=== PATIENT | female | born 1945 | race Caucasian/White ===

== ENCOUNTER 2017-04-28 19:11 | Emergency (ER) | payer MEDICARE, OTHER ==
[2017-04-28] MEDS ORDERED: BABY ASPIRIN 81 MG CHEW PO ONE (19:31)
--- NOTE | 2017-04-28 19:39 | ERPHSYRPT ---
- History of Present Illness Time Seen by Provider: 04/28/17 19:27 Historian: patient Exam Limitations: no limitations Patient Subjective Stated Complaint: Chest pain Triage Nursing Assessment: Pt states onset of chest pain after lifting cabinets on , states pain worsening today. Sharp pain. Denies hx of complaint, denies known cardiac hx. States hx of right sided breast cancer in 2015. Physician History: 72-year-old white female arrives with complaint of pain in the left anterior chest radiating around to the left lateral ribs symptoms worse with movement described as sharp not associated with shortness of breath blood worse with breathing symptoms after lifting furniture 4 days ago. Patient has had no nausea no vomiting. Past medical history includes diabetes Patient states she has had high blood pressure the past but has not been treated for it Past surgical history includes tubal ligation, left knee arthroscopic surgery left shoulder arthroscopic surgery gastric bypass Timing/Duration: day(s) (4 days) Activities at Onset: other (Lifting heavy furniture) Quality: sharpness Location: other (left anterior and lateral chest) Chest Pain Radiation: no radiation Severity of Pain-Max: moderate Severity of Pain-Current: mild Modifying Factors: Improves With: breathing, other (deep breathing and moving) Associated Symptoms: No nausea, No vomiting, No palpitations, No heartburn, No abdominal pain, No shortness of breath, No cough, No hurts to breathe, No diaphoresis, No chills, No fever, No fatigue, No swelling/lump in chest ( continue call in), No syncope, No rash, No headache, No dizziness, No edema, No back pain Prior Chest Pain/Cardiac Workup: no prior chest pain Nitro Today/Relief: no nitro taken today Aspirin Treatment Today: 81 mg x 4, provided by ED Allergies/Adverse Reactions: No Known Drug Allergies Allergy (Verified 09/05/15 14:28) Home Medications: Biotin 2 tab PO DAILY 10/29/11 [History] Multivitamin [Multivitamins] 1 tab PO DAILY 10/29/11 [History] Speculator Jelly 2 tab PO DAILY 10/29/11 [History] Aspirin 81 gm Chew [Baby Aspirin 81 mg Chew] 81 mg PO DAILY 09/05/15 [ History] Insulin Aspart [NovoLOG Insulin] 18 unit SQ BID 09/05/15 [History] Insulin Detemir [Levemir] 34 unit SQ QHS 09/05/15 [History] Iron,Carb/Vit C/Vit B12/Folic [Iron 100 Plus Tablet] 1 each PO DAILY 09/05/15 [ History] Letrozole [Femara] 2.5 mg PO DAILY 09/05/15 [History] Liraglutide [Victoza 3-Saul] 1.8 mg SQ DAILY 09/05/15 [History] Hx Tetanus, Diphtheria Vaccination/Date Given: No Hx Influenza Vaccination/Date Given: No Hx Pneumococcal Vaccination/Date Given: Yes Immunizations Up to Date: No - Review of Systems Constitutional: No Fever, No Chills Eyes: No Symptoms Ears, Nose, & Throat: No Symptoms Respiratory: No Cough, No Dyspnea Cardiac: Chest Pain Abdominal/Gastrointestinal: No Abdominal Pain, No Nausea, No Vomiting, No Diarrhea Genitourinary Symptoms: No Dysuria Musculoskeletal: No Back Pain, No Neck Pain Skin: No Rash Neurological: No Dizziness, No Focal Weakness, No Sensory Changes Psychological: No Symptoms Endocrine: No Symptoms All Other Systems: Reviewed and Negative - Past Medical History Pertinent Past Medical History: Yes Neurological History: No Pertinent History ENT History: No Pertinent History Cardiac History: No Pertinent History Respiratory History: No Pertinent History Endocrine Medical History: Diabetes Type II Musculoskeletal History: Arthritis, Fibromyalgia GI Medical History: Polyps History: No Pertinent History Psycho-Social History: No Pertinent History Female Reproductive Disorders: Breast Cancer Other Medical History: rheumatic fever as a child - Past Surgical History Past Surgical History: Yes Neuro Surgical History: No Pertinent History Cardiac: Cardiac Catheterization Respiratory: No Pertinent History Gastrointestinal: Other Genitourinary: No Pertinent History Musculoskeletal: Orthopedic Surgery, Other Female Surgical History: Hysterectomy, Lumpectomy, Mastectomy Other Surgical History: 2 knee scopes. Shoulder scope. trigger finger release. gastric bypass in 2007 - Social History Smoking Status: Never smoker Exposure to second hand smoke: No Drug Use: none Patient Lives Alone: No - Female History Hx Now: No - Nursing Vital Signs Nursing Vital Signs: Initial Vital Signs Temperature 98.5 F 04/28/17 19:13 Pulse Rate 92 H 04/28/17 19:13 Respiratory Rate 16 04/28/17 19:13 Blood Pressure 154/87 04/28/17 19:13 O2 Sat by Pulse Oximetry 100 04/28/17 19:13 Pain Scale Pain Intensity 8 - Physical Exam General Appearance: no apparent distress, alert Eye Exam: PERRL/EOMI, eyes nml inspection Ears, Nose, Throat Exam: normal ENT inspection, moist mucous membranes Neck Exam: normal inspection, non-tender, supple, full range of motion Respiratory Exam: normal breath sounds, other (pain left anterior chest with moving and deep breathing) Cardiovascular Exam: regular rate/rhythm Gastrointestinal/Abdomen Exam: soft, No tenderness, No mass Back Exam: normal inspection, No CVA tenderness, No vertebral tenderness Extremity Exam: normal inspection, normal range of motion Neurologic Exam: alert, oriented x 3, cooperative, normal mood/affect, sensation nml, No motor deficits Skin Exam: normal color, warm, dry SpO2 Interpretation: normal (100%) SpO2: 100 Oxygen Delivery: Room Air - Course Nursing assessment & vital signs reviewed: Yes - CT Exams Chest CT Interpretation: Tele-radiologist Report (CTA chest: No PE, small left effusion, hilar and mediastinal lymphadenophathy, in the left lung bases atelectasis versus pneumonia. 8 mm nodule in the left lower lobe recommend 3 month follow-up CT scan of the chest. Distended gallbladder. Small nodule in right lobe of thyroid. Recommend ultrasound on nonemergent basis) Ordered Tests: Active Orders 24 hr Category Date Time Status Oncology Transplant Network Manager STAT Care 04/28/17 19:31 Active EKG-ER Only STAT Care 04/28/17 19:31 Active IV Insertion STAT Care 04/28/17 19:31 Active Pulse Oximetry (ED) STAT Care 04/28/17 19:31 Active CHEST 2 VIEWS (PA AND LAT) Stat Exams 04/28/17 19:31 Taken CHEST WITH CONTRAST [CT] Stat Exams 04/28/17 21:04 Taken CBC W DIFF Stat Lab 04/28/17 19:55 Completed CMP Stat Lab 04/28/17 19:55 Completed D-DIMER QUANTITATION Stat Lab 04/28/17 19:55 Completed TROPONIN Q3H Lab 04/28/17 19:55 Completed TROPONIN Q3H Lab 04/28/17 23:00 Completed TROPONIN Q3H Lab 04/29/17 01:45 Ordered TROPONIN Q3H Lab 04/29/17 04:45 Ordered TROPONIN Q3H Lab 04/29/17 07:45 Ordered Medication Summary Generic Name Dose Route Start Last Admin Trade Name Freq PRN Reason Stop Dose Admin Heparin Sodium (Beef Lung) 500 units 04/28/17 23:54 Heparin Lock Flush 100 Units/Ml 5ml Syringe PORT FLUSH 05/28/17 23:53 PRN PRN IV PORT FLUSH Discontinued Medications Generic Name Dose Route Start Last Admin Trade Name Desiree PRN Reason Stop Dose Admin Aspirin 324 mg 04/28/17 19:31 04/28/17 19:57 Baby Aspirin 81 Mg Chew PO 04/28/17 19:32 324 mg STAT ONE Administration Aspirin Confirm 04/28/17 19:49 Baby Aspirin 81 Mg Chew Administered 04/28/17 19:50 Dose 324 mg .ROUTE .STK-MED ONE Ketorolac Tromethamine 30 mg 04/28/17 22:44 04/28/17 22:59 Toradol 30 Mg Injection IV 04/28/17 22:45 30 mg STAT ONE Administration Ketorolac Tromethamine Confirm 04/28/17 22:57 Toradol 30 Mg Injection Administered 04/28/17 22:58 Dose 30 mg .ROUTE .STK-MED ONE Morphine Sulfate 4 mg 04/28/17 21:21 04/28/17 21:23 Morphine Sulfate 4 Mg Inj IV 04/28/17 21:22 4 mg STAT ONE Administration Morphine Sulfate Confirm 04/28/17 21:23 Morphine Sulfate 4 Mg Inj Administered 04/28/17 21:24 Dose 4 mg .ROUTE .STK-MED ONE Morphine Sulfate 4 mg 04/28/17 22:23 04/28/17 22:27 Morphine Sulfate 4 Mg Inj IV 04/28/17 22:24 4 mg STAT ONE Administration Morphine Sulfate Confirm 04/28/17 22:25 Morphine Sulfate 4 Mg Inj Administered 04/28/17 22:26 Dose 4 mg .ROUTE .STK-MED ONE Potassium Chloride 20 meq 04/28/17 23:55 Klor Con 10 Meq PO 04/28/17 23:56 STAT ONE Lab/Rad Data: Laboratory Result Diagrams 04/28/17 19:55 04/28/17 19:55 Laboratory Results 04/28/17 04/28/17 04/28/17 Range/Units 23:00 19:55 19:55 WBC (4.0-10.5) K/mm3 RBC (4.1-5.4) M/mm3 Hgb (12.0-16.0) gm/dl Hct (35-47) % MCV (78-100) fl MCH (26-32) pg MCHC (32-36) g/dl RDW (11.5-14.0) % Plt Count (150-450) K/mm3 MPV (6-9.5) fl Gran % (36.0-66.0) % Lymphocytes % (24.0-44.0) % Monocytes % (0.0-12.0) % Eosinophils % (0.00-5.0) % Basophils % (0.0-0.4) % Basophils # (0-0.4) D-Dimer 1500.47 H* (0-500) ng/mL Sodium 141 (136-145) mEq/L Potassium 3.3 L (3.5-5.1) mEq/L Chloride 104 (98-107) mEq/L Carbon Dioxide 26.1 (21-32) mEq/L Anion Gap 13.8 (5-15) MEQ/L BUN 14 (9-20) mg/dL Creatinine 0.84 (0.55-1.30) mg/dl Estimated GFR > 60 ML/MIN Glucose 180 H (70-110) MG/DL Calcium 8.9 (8.5-10.1) mg/dL Total Bilirubin 0.60 (0.2-1.0) mg/dL AST 15 (15-37) U/L ALT 28 (12-78) U/L Alkaline Phosphatase 89 (46-116) U/L Troponin I < 0.017 (0.000-0.056) ng/ml Serum Total Protein 6.6 (6.4-8.2) gm/dL Albumin 3.1 L (3.4-5.0) g/dL 04/28/17 04/28/17 Range/Units 19:55 19:55 WBC 8.7 (4.0-10.5) K/mm3 RBC 3.75 L (4.1-5.4) M/mm3 Hgb 10.7 L (12.0-16.0) gm/dl Hct 34.1 L (35-47) % MCV 90.9 (78-100) fl MCH 28.5 (26-32) pg MCHC 31.4 L (32-36) g/dl RDW 13.6 (11.5-14.0) % Plt Count 215 (150-450) K/mm3 MPV 9.8 H (6-9.5) fl Gran % 75.7 H (36.0-66.0) % Lymphocytes % 14.8 L (24.0-44.0) % Monocytes % 7.7 (0.0-12.0) % Eosinophils % 1.6 (0.00-5.0) % Basophils % 0.2 (0.0-0.4) % Basophils # 0.02 (0-0.4) D-Dimer (0-500) ng/mL Sodium (136-145) mEq/L Potassium (3.5-5.1) mEq/L Chloride (98-107) mEq/L Carbon Dioxide (21-32) mEq/L Anion Gap (5-15) MEQ/L BUN (9-20) mg/dL Creatinine (0.55-1.30) mg/dl Estimated GFR ML/MIN Glucose (70-110) MG/DL Calcium (8.5-10.1) mg/dL Total Bilirubin (0.2-1.0) mg/dL AST (15-37) U/L ALT (12-78) U/L Alkaline Phosphatase (46-116) U/L Troponin I < 0.017 (0.000-0.056) ng/ml Serum Total Protein (6.4-8.2) gm/dL Albumin (3.4-5.0) g/dL - Progress Progress: improved Air Movement: fair Progress Note: 04/28/17 23:40 This is a 72-year-old white female with history of diabetes mellitus cancer of the breast. She states that she's been having pain in the left the anterior and lateral chest sharp worse with breathing worse with movement symptoms going on for 2 days after moving furniture this became worse this morning she is not really short of breath she does have pain with deep breathing. Patient had an EKG which was remarkable for sinus rhythm 92 bpm normal axis there were no acute ST or T wave changes noted patient had a troponin 2 within normal limits patient unfortunately had an elevated d-dimer or for CTA of the chest was obtained CT of the chest read no PE, small left effusion, hilar and mediastinal lymphadenopathy. In the left base there was atelectasis versus pneumonia ( patient does not have signs of pneumonia) patient also with 8 mm nodule in the left lower lobe it was recommended 3 month follow-up CT scan of the chest she had a distended gallbladder and a small nodule of the right lobe of the thyroid recommend ultrasound on a non-emergent basis. Patient's chemistry was essentially normal with the exception of a glucose of 190 patient does have diabetes CBC was remarkable for white count 8.7 hemoglobin 10.7 hematocrit 31.4 platelets 2:15 patient was given aspirin 324 mg orally she received 8 mg of morphine she did not feel like she got good relief with the morphine and related that she had done well with Anaprox in the past therefore she was given Toradol 30 mg IV with marked improvement of her pain. Patient has an appointment in approximately one week with Dr. Russell for follow-up on her breast cancer. I have recommended that the patient contact Dr. Hoffman and arrange a follow-up as well she is to call tomorrow and arrange follow-up. Will discharge patient with [place] she is also advised that she can take Advil 3 tablets orally every 6 hours with food as needed for pain. She is return for acute distress or for severe symptoms - Departure Time of Disposition: 23:45 Departure Disposition: Home Clinical Impression: Non-cardiac chest pain, Musculoskeletal chest pain, Abnormal CT of the chest, History of breast cancer Condition: Fair Critical Care Time: No Referrals: CURTIS HOFFMAN MD [Primary Care Provider] - Additional Instructions: Return home. Avoid heavy lifting with left arm avoid excessive bending twisting pushing pulling. [place] 5/325 #12 one orally every 4-6 hours as needed for pain. Advil [id number] 2-3 tablets orally every 6 hours with food as needed for pain for 5 days. Follow-up with Dr. Hoffman call tomorrow to schedule an appointment. Follow-up with Dr. Russell Return for acute distress or for severe symptoms. You do have abnormalities on your CT chest which need follow-up with your oncologist and/or family doctor. Prescriptions: Hydrocodone/Acetaminophen [[place] 5-325 Tablet] 1 tab PO Q4-6HPRN PRN #12 tablet PRN Reason: Pain
[2017-04-28] MEDS ORDERED: BABY ASPIRIN 81 MG CHEW ONE (19:49)
[2017-04-28 20:13] LABS: BASOPHIL % 0.2 % (0.0-0.4); Eosinophil % 1.6 % (0.00-5.0); Granulocytes % 75.7 % (36.0-66.0); Lymphocytes % 14.8 % (24.0-44.0); Mean Cell Volume 90.9 fl (78-100); Mean Corpuscular Hemoglobin 28.5 pg (26-32); Mean Platelet Volume 9.8 fl (6-9.5); Monocytes % 7.7 % (0.0-12.0); Platelet Count 215 K/mm3 (150-450); Red Blood Count 3.75 M/mm3 (4.1-5.4); Red Cell Distribution Width 13.6 % (11.5-14.0); White Blood Count 8.7 K/mm3 (4.0-10.5)
[2017-04-28 20:27] LABS: ALBUMIN 3.1 g/dL (3.4-5.0); ALKALINE PHOSPHATASE 89 U/L (46-116); ANION GAP 13.8 MEQ/L (5-15); BLOOD UREA NITROGEN 14 mg/dL (9-20); CHLORIDE 104 mEq/L (98-107); Carbon Dioxide 26.1 mEq/L (21-32); Glucose 180 MG/DL (70-110); Potassium 3.3 mEq/L (3.5-5.1); SGOT/AST 15 U/L (15-37); SGPT/ALT 28 U/L (12-78); SODIUM 141 mEq/L (136-145); Total Protein 6.6 gm/dL (6.4-8.2)
[2017-04-28] MEDS ORDERED: MORPHINE SULFATE 4 MG INJ IV ONE ×2 (21:21→22:23)
[2017-04-28] MEDS ORDERED: MORPHINE SULFATE 4 MG INJ ONE ×2 (21:23→22:25)
[2017-04-28] MEDS ORDERED: TORAdol 30 mg Injection IV ONE (22:44)
[2017-04-28] MEDS ORDERED: TORAdol 30 mg Injection ONE (22:57)
[2017-04-28 23:46] VITALS: O2SAT 100
[2017-04-28] MEDS ORDERED: Klor Con 10 MEQ PO ONE ×2 (23:55→23:58)
[2017-04-29 00:13] VITALS: BP 154/79; PULSE 82
--- NOTE | 2017-04-29 08:51 | XRAY ---
Indication: Left-sided chest pain. Comparison: None AP/lateral chest demonstrates minimal left base infiltrate/atelectasis. Right lung clear. Heart is not enlarged. Left-sided Port-A-Cath. Bony thorax intact with mild osteopenia and degenerative changes. There has been right mastectomy. Impression: Left base infiltrate/atelectasis. Correlate clinically.
--- NOTE | 2017-04-29 08:51 | XRAY ---
Indication: Left-sided chest pain and short of breath. Elevated d-dimer. History of right breast cancer. Multiple contiguous axial images obtained through the chest using 80 cc Isovue 370 contrast and PE protocol. Comparison: None There is satisfactory opacification of the pulmonary arteries to includes the lobar and segmental branches. No filling defect or pulmonary embolus. Heart is not enlarged. Tiny pericardial effusion. Aorta is mildly arteriosclerotic without aneurysm/dissection. Left-sided Port-A-Cath. A few small mediastinal lymph nodes. No pathologic mediastinal/hilar lymphadenopathy. Small hiatal hernia. Visualized thyroid gland demonstrates enlarged heterogeneous right lobe. Examination of the lung parenchyma demonstrates mild left base infiltrate/atelectasis with small effusion. Superior segment of the left lower lobe demonstrates 2 small noncalcified nodules, largest measuring 9 mm. Peripheral pleural parenchymal fibrosis/scarring seen in the anterior right middle lobe. Bony thorax intact with mild degenerative changes throughout the spine. There has been right sided mastectomy. Limited upper abdomen demonstrates partially visualized moderately distended gallbladder without abnormal biliary distention. There has been previous gastric bypass surgery. Impression: 1. Negative pulmonary embolus. 2. Left base infiltrate/atelectasis with small effusion. Correlate clinically. 3. Left lower lobe subcentimeter noncalcified indeterminant pulmonary nodules. Comparison studies would be of benefit if performed elsewhere. PET/CT may yield further information if clinically warranted. Otherwise recommend follow-up per Fleischner guidelines. 4. Right middle lobe anterior pleural-parenchymal fibrosis/scarring that may be secondary to radiation therapy in this patient with right breast cancer with mastectomy. 5. Partially visualized distended gallbladder. Ultrasound may yield further information if clinically warranted. 6. Heterogeneously enlarged right thyroid gland. Ultrasound may yield further information if clinically warranted. 7. Small hiatal hernia. Comment: Preliminary interpretation was made by [facility]. No critical discrepancy. CT DI 21.91
== END 2017-04-29 00:12 | disposition home or self-care (01) ==
LOC: ED 19:11
DX: R07.89 Other chest pain (principal); R91.8 Other nonspecific abnormal finding of lung field; Z85.3 Personal history of malignant neoplasm of breast
CPT/HCPCS: 36000; 36415; 71020; 71260; 80053; 84484; 85025; 85379; 93005; 93041; 96374; 96375; 96376; 99284; J1642; J1885; J2270; A9270-GY

== ENCOUNTER 2019-04-17 17:50 | Emergency (ER) | payer MEDICARE, OTHER ==
[2019-04-17] MEDS ORDERED: Zofran 4 MG/2 ML VIAL IV ONE (18:28)
[2019-04-17] MEDS ORDERED: Sodium Chloride 0.9% 1000 ML 1,000 ML IV STA (18:28)
[2019-04-17] MEDS ORDERED: Zofran 4 MG/2 ML VIAL ONE (18:41)
[2019-04-17] MEDS ORDERED: Sodium Chloride 0.9% 1000 ML 1,000 ML ONE (18:41)
--- NOTE | 2019-04-17 18:47 | ERPHSYRPT ---
- History of Present Illness Source: patient Exam Limitations: no limitations Patient Subjective Stated Complaint: pt to ER with complaints of dizziness and fall today around 1700. fell to knees. denies pain or head injury. Triage Nursing Assessment: pt to ER with complaints of fall/dizziness around 1700 today. pt states she was at [facility] and fell to her knees. pt denies head injury. pt being treated for e-coli via IV antibiotics. Timing/Duration: today (aand), resolved prior to arrival, improved Severity: moderate (and) Character of Deficits: none Deficits: no difficulties Baseline/Normal Cognition: alert oriented x 3 Current Cognition: alert oriented x 3 Associated Symptoms: denies symptoms Hx Tetanus, Diphtheria Vaccination/Date Given: Yes Hx Influenza Vaccination/Date Given: No Hx Pneumococcal Vaccination/Date Given: No Immunizations Up to Date: Yes <SKY WHITTAKER - Last Filed: 04/17/19 18:42> <ELKIN FRAIRE - Last Filed: 04/17/19 20:29> - History of Present Illness Time Seen by Provider: 04/17/19 18:20 Physician History: 73 years old female history breast cancer status post chemotherapy, ESBL E. coli on antibiotics, chronic urinary/stool incontinence presented to the ER with chief complaint of generalized weakness and fatigue/feeling lightheaded/ dizzy while at [facility] after eating, was almost on her knees with near- syncopal episode. She did not lose consciousness, remembers the whole sequence of events. Patient about this has been going off and on for quite some time with recent worsening. patient reports she feels weak on standing up and seems as if her legs are giving away.She feels weak all over no energy. She denies any focal weakness. Denies any headache, blurry vision, numbness or tingling.. Denies any chest pain palpitations or shortness of breath before or offered the event. No abdominal pain nausea or vomiting. No fever or chills reported. (SKY WHITTAKER) Allergies/Adverse Reactions: No Known Drug Allergies Allergy (Verified 04/17/19 18:14) Home Medications: Letrozole [Femara] 2.5 mg PO DAILY 09/05/15 [History] Meloxicam 7.5 mg [Mobic 7.5 MG] 7.5 mg PO DAILY 04/17/19 [History] glipiZIDE [Glipizide] 5 mg PO DAILY 04/17/19 [History] - Review of Systems Constitutional: Fatigue Eyes: No Symptoms Ears, Nose, & Throat: No Symptoms Respiratory: No Symptoms Cardiac: No Symptoms Abdominal/Gastrointestinal: Diarrhea Genitourinary Symptoms: Frequency Musculoskeletal: No Symptoms Skin: No Symptoms Neurological: No Symptoms Psychological: No Symptoms Endocrine: No Symptoms Hematologic/Lymphatic: No Symptoms Immunological/Allergic: No Symptoms <SKY WHITTAKER - Last Filed: 04/17/19 18:42> - Past Medical History Pertinent Past Medical History: Yes Neurological History: No Pertinent History ENT History: No Pertinent History Cardiac History: No Pertinent History Respiratory History: No Pertinent History Endocrine Medical History: Diabetes Type II Musculoskeletal History: Arthritis, Fibromyalgia GI Medical History: Polyps History: No Pertinent History Psycho-Social History: No Pertinent History Female Reproductive Disorders: Breast Cancer Other Medical History: rheumatic fever as a child - Past Surgical History Past Surgical History: Yes Neuro Surgical History: No Pertinent History Cardiac: Cardiac Catheterization Respiratory: No Pertinent History Gastrointestinal: Other Genitourinary: No Pertinent History Musculoskeletal: Orthopedic Surgery Female Surgical History: Hysterectomy, Mastectomy Other Surgical History: gastric bypass - Social History Smoking Status: Never smoker Exposure to second hand smoke: No Drug Use: none Patient Lives Alone: Yes - Female History Hx Now: No <SKY WHITTAKER - Last Filed: 04/17/19 18:42> - Gilda Coma Scale Best Eye Response (Gilda): (4) open spontaneously Best Verbal Response (Gilda): (5) oriented Best Motor Response ([place]): (6) obeys commands Gilda Total: 15 - Physical Exam Eye Exam: bilateral eye: normal inspection, PERRL, EOMI Ears, Nose, Throat Exam: normal ENT inspection, pharynx normal Neck Exam: normal inspection, non-tender, supple, full range of motion Respiratory: normal breath sounds, lungs clear, No chest tenderness, No respiratory distress Cardiovascular: regular rate/rhythm, normal heart sounds Gastrointestinal: soft, normal bowel sounds, No tenderness, No distention, No mass, No guarding Back Exam: normal inspection Extremity Exam: normal inspection, normal range of motion, pelvis stable Mental Status: alert, oriented 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, 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 Exam: normal hearing, normal speech, PERRL Coordination/Gait: normal finger to nose, normal cerebellar function Motor/Sensory: no motor deficit, no sensory deficit, no pronator drift DTR: knee (R): 2+, knee (L): 2+ Skin Exam: normal color SpO2 Interpretation: normal SpO2: 98 O2 Delivery: Room Air <REMEDIOSSKY - Last Filed: 04/17/19 18:42> - Nursing Vital Signs Nursing Vital Signs: Initial Vital Signs Temperature 97.8 F 04/17/19 18:04 Pulse Rate 85 04/17/19 18:04 Respiratory Rate 16 04/17/19 18:04 Blood Pressure 148/80 04/17/19 18:04 O2 Sat by Pulse Oximetry 98 04/17/19 18:04 Pain Scale Pain Intensity 0 - Course Nursing assessment & vital signs reviewed: Yes EKG Interpreted by Me: RATE, NORMAL AXIS, NORMAL INTERVALS (the), Non-specific ST Changes <REMEDIOSSKY - Last Filed: 04/17/19 18:42> - Radiology Exams Chest X-ray Interpretation: Reviewed by me, Negative <JUNO,ELKIN - Last Filed: 04/17/19 20:29> Ordered Tests: Active Orders 24 hr Category Date Time Status Clean Catch Urine Specimen STAT Care 04/17/19 18:30 Active EKG-ER Only STAT Care 04/17/19 18:12 Active Orthostatic Vital Signs STAT Care 04/17/19 18:30 Active CHEST 1 VIEW (PORTABLE) Stat Exams 04/17/19 18:29 Taken CBC W DIFF Stat Lab 04/17/19 19:53 Completed CMP Stat Lab 04/17/19 19:53 Completed Lactic Acid Stat Lab 04/17/19 18:28 Ordered MAGNESIUM Stat Lab 04/17/19 19:53 Completed TROPONIN Q3H Lab 04/17/19 19:53 Completed TROPONIN Q3H Lab 04/17/19 21:30 Ordered TROPONIN Q3H Lab 04/18/19 00:30 Ordered TROPONIN Q3H Lab 04/18/19 03:30 Ordered TROPONIN Q3H Lab 04/18/19 06:30 Ordered UA W/RFX UR CULTURE Stat Lab 04/17/19 19:55 Completed Medication Summary Generic Name Dose Route Start Last Admin Trade Name Freq PRN Reason Stop Dose Admin Sodium Chloride 1,000 mls @ 499 mls/hr 04/17/19 18:28 04/17/19 18:46 Sodium Chloride 0.9% 1000 Ml IV 04/17/19 20:28 499 mls/hr .Q2H1M STA Administration Discontinued Medications Generic Name Dose Route Start Last Admin Trade Name Desiree PRN Reason Stop Dose Admin Sodium Chloride Confirm 04/17/19 18:41 Sodium Chloride 0.9% 1000 Ml Administered 04/17/19 18:42 Dose 1,000 mls @ ud .ROUTE .STK-MED ONE Ondansetron HCl 4 mg 04/17/19 18:28 04/17/19 18:46 Zofran 4 Mg/2 Ml Vial IV 04/17/19 18:29 4 mg STAT ONE Administration Ondansetron HCl Confirm 04/17/19 18:41 Zofran 4 Mg/2 Ml Vial Administered 04/17/19 18:42 Dose 4 mg .ROUTE .STK-MED ONE Lab/Rad Data: Laboratory Result Diagrams 04/17/19 19:53 04/17/19 19:53 Laboratory Results 04/17/19 04/17/19 04/17/19 Range/Units 19:55 19:53 19:53 WBC (4.0-10.5) K/mm3 RBC (4.1-5.4) M/mm3 Hgb (12.0-16.0) gm/dl Hct (35-47) % MCV (78-100) fl MCH (26-32) pg MCHC (32-36) g/dl RDW (11.5-14.0) % Plt Count (150-450) K/mm3 MPV (6-9.5) fl Gran % (36.0-66.0) % Eos # (Auto) (0-0.5) Absolute Lymphs (auto) (1.0-4.6) Absolute Monos (auto) (0.0-1.3) Lymphocytes % (24.0-44.0) % Monocytes % (0.0-12.0) % Eosinophils % (0.00-5.0) % Basophils % (0.0-0.4) % Absolute Granulocytes (1.4-6.9) Basophils # (0-0.4) Sodium 140 (137-145) mmol/L Potassium 4.4 (3.5-5.1) mmol/L Chloride 102 (98-107) mmol/L Carbon Dioxide 32 H (22-30) mmol/L Anion Gap 11.1 (5-15) MEQ/L BUN 9 (7-17) mg/dL Creatinine 0.59 (0.52-1.04) mg/dL Estimated GFR > 60.0 ML/MIN Glucose 341 H (74-106) mg/dL Calcium 9.0 (8.4-10.2) mg/dL Magnesium 1.9 (1.6-2.3) mg/dL Total Bilirubin 0.50 (0.2-1.3) mg/dL AST 29 (14-36) U/L ALT 17 (0-35) U/L Alkaline Phosphatase 89 (38-126) U/L Troponin I < 0.012 (0.000-0.034) ng/mL Serum Total Protein 6.3 (6.3-8.2) g/dL Albumin 3.4 L (3.5-5.0) g/dL Urine Color STRAW (YELLOW) Urine Appearance CLEAR (CLEAR) Urine pH 6.0 (5-6) Ur Specific [place] 1.030 (1.005-1.025) Urine Protein NEGATIVE (Negative) Urine Ketones NEGATIVE (NEGATIVE) Urine Blood NEGATIVE (0-5) Eriber[place]/ul Urine Nitrite NEGATIVE (NEGATIVE) Urine Bilirubin NEGATIVE (NEGATIVE) Urine Urobilinogen NEGATIVE (0-1) mg/dL Ur Leukocyte Esterase NEGATIVE (NEGATIVE) Urine WBC (Auto) 3-5 (0-5) /HPF Urine RBC (Auto) NONE (0-2) /HPF U Epithel Cells (Auto) NONE (FEW) /HPF Urine Bacteria (Auto) NONE (NEGATIVE) /HPF Urine Mucus (Auto) SLIGHT (NEGATIVE) /HPF Urine Culture Reflexed NO (NO) Urine Glucose >=500 (NEGATIVE) mg/dL 04/17/19 Range/Units 19:53 WBC 6.2 (4.0-10.5) K/mm3 RBC 4.04 L (4.1-5.4) M/mm3 Hgb 10.7 L (12.0-16.0) gm/dl Hct 34.7 L (35-47) % MCV 85.9 (78-100) fl MCH 26.4 (26-32) pg MCHC 30.8 L (32-36) g/dl RDW 14.4 H (11.5-14.0) % Plt Count 209 (150-450) K/mm3 MPV 10.9 H (6-9.5) fl Gran % 60.4 (36.0-66.0) % Eos # (Auto) 0.16 (0-0.5) Absolute Lymphs (auto) 1.81 (1.0-4.6) Absolute Monos (auto) 0.47 (0.0-1.3) Lymphocytes % 29.1 (24.0-44.0) % Monocytes % 7.6 (0.0-12.0) % Eosinophils % 2.6 (0.00-5.0) % Basophils % 0.3 (0.0-0.4) % Absolute Granulocytes 3.76 (1.4-6.9) Basophils # 0.02 (0-0.4) Sodium (137-145) mmol/L Potassium (3.5-5.1) mmol/L Chloride (98-107) mmol/L Carbon Dioxide (22-30) mmol/L Anion Gap (5-15) MEQ/L BUN (7-17) mg/dL Creatinine (0.52-1.04) mg/dL Estimated GFR ML/MIN Glucose (74-106) mg/dL Calcium (8.4-10.2) mg/dL Magnesium (1.6-2.3) mg/dL Total Bilirubin (0.2-1.3) mg/dL AST (14-36) U/L ALT (0-35) U/L Alkaline Phosphatase (38-126) U/L Troponin I (0.000-0.034) ng/mL Serum Total Protein (6.3-8.2) g/dL Albumin (3.5-5.0) g/dL Urine Color (YELLOW) Urine Appearance (CLEAR) Urine pH (5-6) Ur Specific [place] (1.005-1.025) Urine Protein (Negative) Urine Ketones (NEGATIVE) Urine Blood (0-5) Eriberto/ul Urine Nitrite (NEGATIVE) Urine Bilirubin (NEGATIVE) Urine Urobilinogen (0-1) mg/dL Ur Leukocyte Esterase (NEGATIVE) Urine WBC (Auto) (0-5) /HPF Urine RBC (Auto) (0-2) /HPF U Epithel Cells (Auto) (FEW) /HPF Urine Bacteria (Auto) (NEGATIVE) /HPF Urine Mucus (Auto) (NEGATIVE) /HPF Urine Culture Reflexed (NO) Urine Glucose (NEGATIVE) mg/dL <SKY WHITTAKER - Last Filed: 04/17/19 18:42> - Progress Progress: improved Counseled pt/family regarding: lab results, diagnosis, need for follow-up, rad results <JUNO,ELKIN - Last Filed: 04/17/19 20:29> - Progress Progress Note: workup is pending and care is transferred to Dr. Torres at shift change 7 PM. 04/17/19 18:48 (REMEDIOS,SKY) 04/17/19 20:27 all labs d/w patient. 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 The patient was counseled regarding Diagnosis,Lab results, Imaging studies, need for follow up and when to return to the Emergency Room. Prescriptions given: Discharge Note I have spoken with the patient and/or caregivers. I have explained the patient' s condition, diagnosis and treatment plan based on the information available to me at this time. I have answered the patient's and/or caregiver's questions and addressed any concerns. The patient and/or caregivers have as good understanding of the patient's diagnosis, condition and treatment plan as can be expected at this point. The vital signs have been stable. The patient's condition is stable and appropriate for discharge from the emergency department. The patient will pursue further outpatient evaluation with the primary care physician or other designated or consulting physician as outlined in the discharge instructions. The patient and/or caregivers are agreeable to this plan of care and follow-up instructions have been explained in detail. The patient and/or caregivers have received these instruction. The patient/and or caregivers are aware that any significant change in condition or worsening of symptoms should prompt an immediate return to this or the closest emergency department or call 911.
[2019-04-17 19:15] LABS: Appearance CLEAR (CLEAR); Bilirubin NEGATIVE (NEGATIVE); Blood NEGATIVE Ery/ul (0-5); Glucose >=500 mg/dL (NEGATIVE); Ketones NEGATIVE (NEGATIVE); Leukocyte Esterase NEGATIVE (NEGATIVE); Mucus SLIGHT /HPF (NEGATIVE); Nitrite NEGATIVE (NEGATIVE); Protein,Urine Dip NEGATIVE (Negative); Urobilinogen NEGATIVE mg/dL (0-1)
[2019-04-17 19:54] LABS: Absolute Neutrophil Ct (ANC) 3.76 (1.4-6.9); BASOPHIL % 0.3 % (0.0-0.4); Basophil (Absolute #) 0.02 (0-0.4); Eosinophil % 2.6 % (0.00-5.0); Eosinophil (Absolute #) 0.16 (0-0.5); Hematocrit 34.7 % (35-47); Hemoglobin 10.7 gm/dl (12.0-16.0); Lymphocyte (Absolute #) 1.81 (1.0-4.6); Lymphocytes % 29.1 % (24.0-44.0); Mean Cell Volume 85.9 fl (78-100); Mean Corpuscular Hgb Concent. 30.8 g/dl (32-36); Mean Platelet Volume 10.9 fl (6-9.5); Monocyte (Absolute #) 0.47 (0.0-1.3); Monocytes % 7.6 % (0.0-12.0); Neutrophil % 60.4 % (36.0-66.0); Platelet Count 209 K/mm3 (150-450); Red Blood Count 4.04 M/mm3 (4.1-5.4); Red Cell Distribution Width 14.4 % (11.5-14.0); White Blood Count 6.2 K/mm3 (4.0-10.5)
[2019-04-17 19:56] LABS: Mean Corpuscular Hemoglobin 26.4 pg (26-32)
[2019-04-17 20:07] LABS: ALBUMIN 3.4 g/dL (3.5-5.0); ALKALINE PHOSPHATASE 89 U/L (38-126); ANION GAP 11.1 MEQ/L (5-15); BLOOD UREA NITROGEN 9 mg/dL (7-17); CHLORIDE 102 mmol/L (98-107); Carbon Dioxide 32 mmol/L (22-30); Creatinine 1 0.59 mg/dL (0.52-1.04); Glucose 341 mg/dL (74-106); MAGNESIUM 1.9 mg/dL (1.6-2.3); Potassium 4.4 mmol/L (3.5-5.1); SGOT/AST 29 U/L (14-36); SGPT/ALT 17 U/L (0-35); SODIUM 140 mmol/L (137-145); Total Protein 6.3 g/dL (6.3-8.2)
[2019-04-17] MEDS ORDERED: NovoLOG Insulin IV ONE (20:26)
[2019-04-17] MEDS ORDERED: NovoLOG Insulin ONE (20:30)
--- NOTE | 2019-04-17 20:57 | XRAY ---
Indication: Lightheadedness. History breast cancer. Comparison: April 28, 2017. Portable chest is clear. Heart is not enlarged again with left Port-A-Cath. Bony thorax intact again with mild osteopenia, degenerative changes, and right mastectomy. Impression: Nonacute chest with chronic features.
[2019-04-17 21:08] VITALS: BP 156/85; PULSE 86; O2SAT 96
== END 2019-04-17 21:08 | disposition home or self-care (01) ==
LOC: ED 17:50
DX: E11.65 Type 2 diabetes mellitus with hyperglycemia (principal); R55 Syncope and collapse; Z85.3 Personal history of malignant neoplasm of breast
CPT/HCPCS: 36415; 71045; 80053; 81001; 83605; 83735; 84484; 85025; 93005; 96360; 96361; 96374; 96375; 99284; 99291; J1642; J2405; A9270-GY

== ENCOUNTER 2019-04-19 10:25 | Inpatient (IN) | payer MEDICARE, OTHER ==
[2019-04-19] MEDS ORDERED: Sodium Chloride 0.9% 1000 ML 1,000 ML IV STA (10:32)
[2019-04-19] MEDS ORDERED: Sodium Chloride 0.9% 1000 ML 1,000 ML ONE (11:27)
[2019-04-19 12:11] LABS: Absolute Neutrophil Ct (ANC) 5.27 (1.4-6.9); BASOPHIL % 0.3 % (0.0-0.4); Basophil (Absolute #) 0.02 (0-0.4); Eosinophil % 1.3 % (0.00-5.0); Eosinophil (Absolute #) 0.09 (0-0.5); Hematocrit 36.9 % (35-47); Hemoglobin 11.4 gm/dl (12.0-16.0); Lymphocyte (Absolute #) 1.09 (1.0-4.6); Lymphocytes % 15.9 % (24.0-44.0); Mean Cell Volume 84.8 fl (78-100); Mean Corpuscular Hemoglobin 26.2 pg (26-32); Mean Corpuscular Hgb Concent. 30.9 g/dl (32-36); Mean Platelet Volume 10.8 fl (6-9.5); Monocyte (Absolute #) 0.39 (0.0-1.3); Monocytes % 5.7 % (0.0-12.0); Neutrophil % 76.8 % (36.0-66.0); Platelet Count 222 K/mm3 (150-450); Red Blood Count 4.35 M/mm3 (4.1-5.4); Red Cell Distribution Width 14.4 % (11.5-14.0); White Blood Count 6.9 K/mm3 (4.0-10.5)
[2019-04-19 12:13] LABS: INR 1.09 (0.8-3.0); PROTIME 12.3 SECONDS (9.95-12.35)
[2019-04-19 12:22] LABS: ALBUMIN 3.4 g/dL (3.5-5.0); ALKALINE PHOSPHATASE 85 U/L (38-126); AMYLASE 57 U/L (30-110); BLOOD UREA NITROGEN 7 mg/dL (7-17); CHLORIDE 101 mmol/L (98-107); Calcium 8.8 mg/dL (8.4-10.2); Carbon Dioxide 28 mmol/L (22-30); Creatinine 1 0.43 mg/dL (0.52-1.04); Glucose 274 mg/dL (74-106); LIPASE 28 U/L (23-300); Potassium 3.7 mmol/L (3.5-5.1); SGOT/AST 35 U/L (14-36); SGPT/ALT 21 U/L (0-35); SODIUM 140 mmol/L (137-145); Total Protein 6.3 g/dL (6.3-8.2)
[2019-04-19 12:23] LABS: Appearance SLIGHTLY CLOUDY (CLEAR); Bacteria FEW /HPF (NEGATIVE); Bilirubin NEGATIVE (NEGATIVE); Blood SMALL Ery/ul (0-5); Epithelial Cells RARE /HPF (FEW); Glucose >=500 mg/dL (NEGATIVE); Hyaline Casts 0-2 /LPF (0-2); Ketones MODERATE (NEGATIVE); Leukocyte Esterase SMALL (NEGATIVE); Mucus SLIGHT /HPF (NEGATIVE); Nitrite NEGATIVE (NEGATIVE); Protein,Urine Dip 30 (Negative); Specific Gravity 1.031 (1.005-1.025); Urobilinogen NEGATIVE mg/dL (0-1); WBC 51-100 /HPF (0-5)
--- NOTE | 2019-04-19 12:45 | XRAY ---
Indication: Posterior head injury following fall. Multiple contiguous axial images obtained through the head without contrast. Comparison: June 05, 2016. Again age-appropriate global atrophy, mild periventricular degenerative micro-ischemia bilaterally, and remote bilateral basal ganglia lacunar infarcts. New small left thalamus remote lacunar infarct. No acute intracranial hemorrhage, abnormal extra-axial fluid question, or mass effect. Fourth ventricle is midline without hydrocephalus. Bony calvarium intact. Visualized paranasal sinuses and mastoid air cells are clear. Impression: Again normal aging brain with bilateral basal ganglial lacunar infarcts and new remote left thalamus lacunar infarct. No acute intracranial abnormalities. CTDI 43.61
--- NOTE | 2019-04-19 13:46 | XRAY ---
Indication: Pain following fall. Comparison: None 3 views of the sacrum/coccyx demonstrates osteopenia, pelvic phleboliths, and scattered vascular calcifications bilaterally. No other bony, articular, or soft tissue abnormalities.
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
--- NOTE | 2019-04-19 13:48 | XRAY ---
Indication: Pain following fall. Comparison: None 3 views of the right elbow demonstrates mild osteopenia, tiny olecranon process spur, and mild posterior soft tissue swelling. No other bony, articular, or soft tissue abnormalities.
--- NOTE | 2019-04-19 13:50 | XRAY ---
Indication: Diarrhea. Comparison: Portable chest 2 days ago. Supine and left lateral decubitus abdomen nonacute and nonobstructed with left upper quadrant suture material. Solid organs unremarkable. Osseous structures intact with osteopenia and mild degenerative changes throughout the spine. Single AP chest again demonstrates normal heart and lungs with left Port-A-Cath. No new/acute findings. Impression: Nonacute nonobstructed abdomen with chronic features. Stable nonacute one view chest.
[2019-04-19] MEDS: Invanz 1 GM*** 1 G in Sodium Chloride 100ML MINI-BAG PLUS 100 ML IV SCH (15:59)
[2019-04-19] MEDS: Sodium Chloride 0.9% 1000 ML 1,000 ML IV SCH (15:59)
[2019-04-19] MEDS ORDERED: Zofran 4 MG/2 ML VIAL IV PRN (16:17)
--- NOTE | 2019-04-19 16:24 | PCM.HP ---
History of Present Illness - Chief Complaint Chief Complaint: Urinary Tract Infection History of Present Illness: is a 73 year old female with weakness, dizziness and multiple falls. was recently put on invanz for esbl e coli in urine but only got the first of course due to falls and weakness, she has been more forgetful and feeling confused. diffusely weak, denies focal weakness or numbness/tingling etc. - Review of Systems Constitutional: No Fever, No Chills Respiratory: No Cough, No Short Of Breath Cardiac: No Chest Pain, No Edema, No Syncope Abdominal/Gastrointestinal: No Abdominal Pain, No Nausea, No Vomiting, No Diarrhea Neurological: Dizziness, Gait Changes, No Focal Weakness All Other Systems: Reviewed and Negative Medications & Allergies Home Medications: Home Medication List Letrozole [Femara] 2.5 mg PO DAILY 09/05/15 [History Confirmed 04/19/19] Meloxicam 7.5 mg [Mobic 7.5 MG] 7.5 mg PO DAILY 04/17/19 [History Confirmed 04/19/19] glipiZIDE [Glipizide] 5 mg PO BID 04/17/19 [History Confirmed 04/19/19] Aspirin EC 81 mg [Ecotrin 81 mg] 81 mg PO DAILY 04/19/19 [History Confirmed 04/19/19] Cephalexin Mh 500 mg [Keflex 500 mg] 500 mg PO TID 04/19/19 [History Confirmed 04/19/19] Duloxetine HCl 30 mg [Cymbalta 30 MG Capsule] 30 mg PO DAILY 04/19/19 [ History Confirmed 04/19/19] Insulin NPH Hum/Reg Insulin Hm [Humulin 70/30 Kwikpen] 20 units SQ BID 04/19/19 [History Confirmed 04/19/19] Nystatin Powder 15 gm [Nystop Powder 15 gm] 15 gm TP BID 04/19/19 [ History Confirmed 04/19/19] Oxybutynin Chloride [Oxybutynin Chloride ER] 5 mg PO DAILY 04/19/19 [History Confirmed 04/19/19] Allergies/Adverse Reactions: Allergies Allergy/AdvReac Type Severity Reaction Status Date / Time No Known Drug Allergies Allergy Verified 04/19/19 10:58 - Past Medical History Past Medical History: Yes Neurological History: No Pertinent History ENT History: No Pertinent History Cardiac History: No Pertinent History Respiratory History: No Pertinent History Endocrine Medical History: Diabetes Type II Musculoskelatal History: Arthritis, Fibromyalgia GI Medical History: Polyps History: No Pertinent History Pyscho-Social History: No Pertinent History Reproductive Disorders: Breast Cancer Comment: rheumatic fever as a child, Right side masectomy - Female History Hx Last Menstrual Period: Hysterectomy Are you now?: No - Past Surgical History Past Surgical History: Yes Neuro Surgical History: No Pertinent History Cardiac History: Cardiac Catheterization Respiratory Surgery: No Pertinent History GI Surgical History: Other Genitourinary Surgical Hx: No Pertinent History Musculskeletal Surgical Hx: Orthopedic Surgery Female Surgical History: Hysterectomy, Mastectomy Other Surgical History: gastric bypass - Social History Smoking Status: Never smoker Exposure to second hand smoke: Yes Alcohol: None Drug Use: none - Physical Exam Vital Signs: Vital Signs - 24 hr Temp Pulse Resp BP Pulse Ox 04/19/19 14:44 98 F 76 18 137/82 98 04/19/19 13:47 99 04/19/19 12:50 98 F 76 18 137/82 98 04/19/19 12:01 98.4 F 71 20 114/68 99 04/19/19 10:59 98.0 F 79 18 137/65 100 General Appearance: no apparent distress Neurologic Exam: alert, oriented x 3, cooperative, posting specialist II-XII nml as tested Eye Exam: PERRL/EOMI, eyes nml inspection Respiratory Exam: normal breath sounds, lungs clear, No respiratory distress Cardiovascular Exam: regular rate/rhythm, normal heart sounds, normal peripheral pulses Gastrointestinal/Abdomen Exam: soft, normal bowel sounds, No tenderness, No mass Extremity Exam: normal inspection, normal range of motion, pelvis stable Skin Exam: normal color, warm, dry, No rash Results - Labs Lab/Micro Results: Lab Results-Last 24 Hours 04/19/19 04/19/19 04/19/19 Range/Units 10:32 10:32 10:45 WBC 6.9 (4.0-10.5) K/mm3 RBC 4.35 (4.1-5.4) M/mm3 Hgb 11.4 L (12.0-16.0) gm/dl Hct 36.9 (35-47) % MCV 84.8 (78-100) fl MCH 26.2 (26-32) pg MCHC 30.9 L (32-36) g/dl RDW 14.4 H (11.5-14.0) % Plt Count 222 (150-450) K/mm3 MPV 10.8 H (6-9.5) fl Gran % 76.8 H (36.0-66.0) % Eos # (Auto) 0.09 (0-0.5) Absolute Lymphs (auto) 1.09 (1.0-4.6) Absolute Monos (auto) 0.39 (0.0-1.3) Lymphocytes % 15.9 L (24.0-44.0) % Monocytes % 5.7 (0.0-12.0) % Eosinophils % 1.3 (0.00-5.0) % Basophils % 0.3 (0.0-0.4) % Absolute Granulocytes 5.27 (1.4-6.9) Basophils # 0.02 (0-0.4) PT 12.3 (9.95-12.35) SECONDS INR 1.09 (0.8-3.0) Sodium (137-145) mmol/L Potassium (3.5-5.1) mmol/L Chloride (98-107) mmol/L Carbon Dioxide (22-30) mmol/L Anion Gap (5-15) MEQ/L BUN (7-17) mg/dL Creatinine (0.52-1.04) mg/dL Estimated GFR ML/MIN Glucose (74-106) mg/dL Lactic Acid (0.4-2.0) Calcium (8.4-10.2) mg/dL Total Bilirubin (0.2-1.3) mg/dL AST (14-36) U/L ALT (0-35) U/L Alkaline Phosphatase (38-126) U/L Troponin I < 0.012 (0.000-0.034) ng/mL Serum Total Protein (6.3-8.2) g/dL Albumin (3.5-5.0) g/dL Amylase (30-110) U/L Lipase (23-300) U/L Urine Color (YELLOW) Urine Appearance (CLEAR) Urine pH (5-6) Ur Specific [place] (1.005-1.025) Urine Protein (Negative) Urine Ketones (NEGATIVE) Urine Blood (0-5) Eriberto/ul Urine Nitrite (NEGATIVE) Urine Bilirubin (NEGATIVE) Urine Urobilinogen (0-1) mg/dL Ur Leukocyte Esterase (NEGATIVE) Urine WBC (Auto) (0-5) /HPF Urine RBC (Auto) (0-2) /HPF U Hyaline Cast (Auto) (0-2) /LPF U Epithel Cells (Auto) (FEW) /HPF Urine Bacteria (Auto) (NEGATIVE) /HPF Urine Mucus (Auto) (NEGATIVE) /HPF Urine Culture Reflexed (NO) Urine Glucose (NEGATIVE) mg/dL 04/19/19 04/19/19 04/19/19 Range/Units 11:07 11:25 11:25 WBC (4.0-10.5) K/mm3 RBC (4.1-5.4) M/mm3 Hgb (12.0-16.0) gm/dl Hct (35-47) % MCV (78-100) fl MCH (26-32) pg MCHC (32-36) g/dl RDW (11.5-14.0) % Plt Count (150-450) K/mm3 MPV (6-9.5) fl Gran % (36.0-66.0) % Eos # (Auto) (0-0.5) Absolute Lymphs (auto) (1.0-4.6) Absolute Monos (auto) (0.0-1.3) Lymphocytes % (24.0-44.0) % Monocytes % (0.0-12.0) % Eosinophils % (0.00-5.0) % Basophils % (0.0-0.4) % Absolute Granulocytes (1.4-6.9) Basophils # (0-0.4) PT (9.95-12.35) SECONDS INR (0.8-3.0) Sodium 140 (137-145) mmol/L Potassium 3.7 (3.5-5.1) mmol/L Chloride 101 (98-107) mmol/L Carbon Dioxide 28 (22-30) mmol/L Anion Gap 14.0 (5-15) MEQ/L BUN 7 (7-17) mg/dL Creatinine 0.43 L (0.52-1.04) mg/dL Estimated GFR > 60.0 ML/MIN Glucose 274 H (74-106) mg/dL Lactic Acid 1.1 (0.4-2.0) Calcium 8.8 (8.4-10.2) mg/dL Total Bilirubin 1.20 (0.2-1.3) mg/dL AST 35 (14-36) U/L ALT 21 (0-35) U/L Alkaline Phosphatase 85 (38-126) U/L Troponin I (0.000-0.034) ng/mL Serum Total Protein 6.3 (6.3-8.2) g/dL Albumin 3.4 L (3.5-5.0) g/dL Amylase 57 (30-110) U/L Lipase 28 (23-300) U/L Urine Color YELLOW (YELLOW) Urine Appearance SLIGHTLY CLOUDY (CLEAR) Urine pH 6.0 (5-6) Ur Specific [place] 1.031 (1.005-1.025) Urine Protein 30 (Negative) Urine Ketones MODERATE (NEGATIVE) Urine Blood SMALL (0-5) Eriberto/ul Urine Nitrite NEGATIVE (NEGATIVE) Urine Bilirubin NEGATIVE (NEGATIVE) Urine Urobilinogen NEGATIVE (0-1) mg/dL Ur Leukocyte Esterase SMALL (NEGATIVE) Urine WBC (Auto) 51-100 (0-5) /HPF Urine RBC (Auto) 6-10 (0-2) /HPF U Hyaline Cast (Auto) 0-2 (0-2) /LPF U Epithel Cells (Auto) RARE (FEW) /HPF Urine Bacteria (Auto) FEW (NEGATIVE) /HPF Urine Mucus (Auto) SLIGHT (NEGATIVE) /HPF Urine Culture Reflexed YES (NO) Urine Glucose >=500 (NEGATIVE) mg/dL 04/19/19 Range/Units 14:15 WBC (4.0-10.5) K/mm3 RBC (4.1-5.4) M/mm3 Hgb (12.0-16.0) gm/dl Hct (35-47) % MCV (78-100) fl MCH (26-32) pg MCHC (32-36) g/dl RDW (11.5-14.0) % Plt Count (150-450) K/mm3 MPV (6-9.5) fl Gran % (36.0-66.0) % Eos # (Auto) (0-0.5) Absolute Lymphs (auto) (1.0-4.6) Absolute Monos (auto) (0.0-1.3) Lymphocytes % (24.0-44.0) % Monocytes % (0.0-12.0) % Eosinophils % (0.00-5.0) % Basophils % (0.0-0.4) % Absolute Granulocytes (1.4-6.9) Basophils # (0-0.4) PT (9.95-12.35) SECONDS INR (0.8-3.0) Sodium (137-145) mmol/L Potassium (3.5-5.1) mmol/L Chloride (98-107) mmol/L Carbon Dioxide (22-30) mmol/L Anion Gap (5-15) MEQ/L BUN (7-17) mg/dL Creatinine (0.52-1.04) mg/dL Estimated GFR ML/MIN Glucose (74-106) mg/dL Lactic Acid (0.4-2.0) Calcium (8.4-10.2) mg/dL Total Bilirubin (0.2-1.3) mg/dL AST (14-36) U/L ALT (0-35) U/L Alkaline Phosphatase (38-126) U/L Troponin I < 0.012 (0.000-0.034) ng/mL Serum Total Protein (6.3-8.2) g/dL Albumin (3.5-5.0) g/dL Amylase (30-110) U/L Lipase (23-300) U/L Urine Color (YELLOW) Urine Appearance (CLEAR) Urine pH (5-6) Ur Specific [place] (1.005-1.025) Urine Protein (Negative) Urine Ketones (NEGATIVE) Urine Blood (0-5) Eriberto/ul Urine Nitrite (NEGATIVE) Urine Bilirubin (NEGATIVE) Urine Urobilinogen (0-1) mg/dL Ur Leukocyte Esterase (NEGATIVE) Urine WBC (Auto) (0-5) /HPF Urine RBC (Auto) (0-2) /HPF U Hyaline Cast (Auto) (0-2) /LPF U Epithel Cells (Auto) (FEW) /HPF Urine Bacteria (Auto) (NEGATIVE) /HPF Urine Mucus (Auto) (NEGATIVE) /HPF Urine Culture Reflexed (NO) Urine Glucose (NEGATIVE) mg/dL - Radiology Impressions Radiology Exams & Impressions: Radiology Procedures Category Date Time Status ECHO W/2D AND DOPPLER [US] Routine Exams 04/19/19 Ordered ELBOW (MINIMUM 3 VIEWS) Stat Exams 04/19/19 13:36 Completed HEAD WITHOUT CONTRAST [CT] Stat Exams 04/19/19 10:40 Completed MRA NECK WITHOUT CONTRAST [MRI] Routine Exams 04/19/19 16:14 Ordered MRI BRAIN W/O CONTRAST [MRI] Routine Exams 04/19/19 16:14 Ordered OBSTR/ACUTE ABDOMEN SERIES Stat Exams 04/19/19 10:33 Completed SACRUM AND COCCYX Stat Exams 04/19/19 13:36 Completed Assessment/Plan (1) CVA (cerebral vascular accident) Current Visit: Yes Status: Acute Assessment & Plan: patient with remote bilateral basal ganglia and new remote left thalamuc lacunar infarct, not present in 2017. continue aspirin, will add plavix and check MRI/MRA and echo. place on telemetry. PT/OT consult. Code(s): I63.9 - CEREBRAL INFARCTION, UNSPECIFIED (2) Urinary tract infection Current Visit: Yes Status: Acute Assessment & Plan: continue invanz based on esbl in recent urine culture Code(s): N39.0 - URINARY TRACT INFECTION, SITE NOT SPECIFIED (3) Hyperglycemia due to type 2 diabetes mellitus Current Visit: No Status: Acute Code(s): E11.65 - TYPE 2 DIABETES MELLITUS WITH HYPERGLYCEMIA (4) Weakness Current Visit: Yes Status: Acute Code(s): R53.1 - WEAKNESS
[2019-04-19] MEDS ORDERED: Novolin 70/30 SQ SCH (16:30)
[2019-04-19] MEDS ORDERED: MEDICATION INTERVENTION MC SCH (16:45)
[2019-04-19] MEDS: NovoLOG Insulin SQ PRN ×2 (18:18→22:35)
[2019-04-19] MEDS ORDERED: Diflucan 100 MG ONE (21:39)
[2019-04-19] MEDS ORDERED: DIFLUCAN PO ONE (22:00)
[2019-04-19] MEDS ORDERED: Diflucan 100 MG PO ONE (22:11)
[2019-04-19] MEDS: Lantus Insulin SQ SCH (22:29)
[2019-04-19] MEDS: NYSTOP POWDER 15 GM TP SCH (22:29)
[2019-04-19] MEDS: TYLENOL 325 MG PO PRN (22:34)
[2019-04-20] MEDS: Sodium Chloride 0.9% 1000 ML 1,000 ML IV SCH (02:12)
[2019-04-20 05:12] LABS: Absolute Neutrophil Ct (ANC) 3.43 (1.4-6.9); BASOPHIL % 0.3 % (0.0-0.4); Basophil (Absolute #) 0.02 (0-0.4); Eosinophil % 4.4 % (0.00-5.0); Eosinophil (Absolute #) 0.27 (0-0.5); Hematocrit 33.6 % (35-47); Hemoglobin 10.4 gm/dl (12.0-16.0); Lymphocyte (Absolute #) 2.01 (1.0-4.6); Lymphocytes % 32.5 % (24.0-44.0); Mean Cell Volume 85.1 fl (78-100); Mean Corpuscular Hemoglobin 26.3 pg (26-32); Mean Platelet Volume 10.6 fl (6-9.5); Monocyte (Absolute #) 0.46 (0.0-1.3); Monocytes % 7.4 % (0.0-12.0); Neutrophil % 55.4 % (36.0-66.0); Platelet Count 204 K/mm3 (150-450); Red Blood Count 3.95 M/mm3 (4.1-5.4); Red Cell Distribution Width 14.6 % (11.5-14.0); White Blood Count 6.2 K/mm3 (4.0-10.5)
[2019-04-20 05:23] LABS: ANION GAP 8.8 MEQ/L (5-15); BLOOD UREA NITROGEN 4 mg/dL (7-17); CHLORIDE 110 mmol/L (98-107); Calcium 8.6 mg/dL (8.4-10.2); Carbon Dioxide 27 mmol/L (22-30); Creatinine 1 0.47 mg/dL (0.52-1.04); Glucose 180 mg/dL (74-106); MAGNESIUM 1.7 mg/dL (1.6-2.3); Potassium 3.1 mmol/L (3.5-5.1); SODIUM 143 mmol/L (137-145)
[2019-04-20] MEDS ORDERED: Glucotrol 5 MG PO SCH (07:30)
--- NOTE | 2019-04-20 08:13 | PCM.NOTE ---
Date and Time: 04/20/19 08 Subjective Assessment: patient is still very weak and requires assistance to ambulate to the restroom. she feels sore, no other specific complaints Objective Exam General Appearance: no apparent distress, alert Skin Exam: normal color, warm, dry Wound Assessment: Skin/Wound Assessment Wound/Incision Assessment Start: 04/19/19 15: 36 Text: Status: Active Freq: Q6H Protocol: Document 04/20/19 02:00 MG (Rec: 04/20/19 02:38 MG [id number]) Wound/Incision Assessment Right Elbow Wound Assessment Shift Assessment Wound Type Abrasion Wound Stage Non Pressure Wound Dressing Status Dry & Intact Drainage Amount None General Appearance Asymptomatic Comment Dressing CDI. Respiratory Exam: normal breath sounds, lungs clear, No respiratory distress Cardiovascular Exam: regular rate/rhythm, normal heart sounds Gastrointestinal/Abdomen Exam: soft, No tenderness, No mass OBJECTIVE DATA Vital Signs: Vital Signs - 24 hr Temp Pulse Resp BP Pulse Ox 04/20/19 05:21 98.6 F 82 18 136/69 94 L 04/19/19 23:58 98.4 F 77 18 133/61 93 L 04/19/19 22:00 97.9 F 102 H 20 160/70 93 L 04/19/19 18:44 97.9 F 102 H 20 160/70 93 L 04/19/19 14:44 98 F 76 18 137/82 98 04/19/19 13:47 99 04/19/19 12:50 98 F 76 18 137/82 98 04/19/19 12:01 98.4 F 71 20 114/68 99 04/19/19 10:59 98.0 F 79 18 137/65 100 Pain Assessment - Last Documented Pain Intensity 8 Pain Scale Used 0-10 Pain Scale Intake and Output: Intake & Output 04/17/19 04/18/19 04/19/19 04/20/19 11:59 11:59 11:59 11:59 Intake Total 1378 Output Total 200 Balance 1178 Weight 62.142 kg 62.142 kg Lab Results: Accuchecks Date 04/19/19 Time 16:30 Accucheck Value: 296 Accucheck Value: 210 Lab Results-Last 24 Hours 04/19/19 04/19/19 04/19/19 Range/Units 10:30 10:32 10:32 WBC 6.9 (4.0-10.5) K/mm3 RBC 4.35 (4.1-5.4) M/mm3 Hgb 11.4 L (12.0-16.0) gm/dl Hct 36.9 (35-47) % MCV 84.8 (78-100) fl MCH 26.2 (26-32) pg MCHC 30.9 L (32-36) g/dl RDW 14.4 H (11.5-14.0) % Plt Count 222 (150-450) K/mm3 MPV 10.8 H (6-9.5) fl Gran % 76.8 H (36.0-66.0) % Eos # (Auto) 0.09 (0-0.5) Absolute Lymphs (auto) 1.09 (1.0-4.6) Absolute Monos (auto) 0.39 (0.0-1.3) Lymphocytes % 15.9 L (24.0-44.0) % Monocytes % 5.7 (0.0-12.0) % Eosinophils % 1.3 (0.00-5.0) % Basophils % 0.3 (0.0-0.4) % Absolute Granulocytes 5.27 (1.4-6.9) Basophils # 0.02 (0-0.4) PT 12.3 (9.95-12.35) SECONDS INR 1.09 (0.8-3.0) Sodium (137-145) mmol/L Potassium (3.5-5.1) mmol/L Chloride (98-107) mmol/L Carbon Dioxide (22-30) mmol/L Anion Gap (5-15) MEQ/L BUN (7-17) mg/dL Creatinine (0.52-1.04) mg/dL Estimated GFR ML/MIN Glucose (74-106) mg/dL Hemoglobin A1c 11.48 H (4.5-6.0) % Lactic Acid (0.4-2.0) Calcium (8.4-10.2) mg/dL Magnesium (1.6-2.3) mg/dL Total Bilirubin (0.2-1.3) mg/dL AST (14-36) U/L ALT (0-35) U/L Alkaline Phosphatase (38-126) U/L Troponin I (0.000-0.034) ng/mL Serum Total Protein (6.3-8.2) g/dL Albumin (3.5-5.0) g/dL Amylase (30-110) U/L Lipase (23-300) U/L Urine Color (YELLOW) Urine Appearance (CLEAR) Urine pH (5-6) Ur Specific Langley (1.005-1.025) Urine Protein (Negative) Urine Ketones (NEGATIVE) Urine Blood (0-5) Eriberto/ul Urine Nitrite (NEGATIVE) Urine Bilirubin (NEGATIVE) Urine Urobilinogen (0-1) mg/dL Ur Leukocyte Esterase (NEGATIVE) Urine WBC (Auto) (0-5) /HPF Urine RBC (Auto) (0-2) /HPF U Hyaline Cast (Auto) (0-2) /LPF U Epithel Cells (Auto) (FEW) /HPF Urine Bacteria (Auto) (NEGATIVE) /HPF Urine Mucus (Auto) (NEGATIVE) /HPF Urine Culture Reflexed (NO) Urine Glucose (NEGATIVE) mg/dL 04/19/19 04/19/19 04/19/19 Range/Units 10:45 11:07 11:25 WBC (4.0-10.5) K/mm3 RBC (4.1-5.4) M/mm3 Hgb (12.0-16.0) gm/dl Hct (35-47) % MCV (78-100) fl MCH (26-32) pg MCHC (32-36) g/dl RDW (11.5-14.0) % Plt Count (150-450) K/mm3 MPV (6-9.5) fl Gran % (36.0-66.0) % Eos # (Auto) (0-0.5) Absolute Lymphs (auto) (1.0-4.6) Absolute Monos (auto) (0.0-1.3) Lymphocytes % (24.0-44.0) % Monocytes % (0.0-12.0) % Eosinophils % (0.00-5.0) % Basophils % (0.0-0.4) % Absolute Granulocytes (1.4-6.9) Basophils # (0-0.4) PT (9.95-12.35) SECONDS INR (0.8-3.0) Sodium (137-145) mmol/L Potassium (3.5-5.1) mmol/L Chloride (98-107) mmol/L Carbon Dioxide (22-30) mmol/L Anion Gap (5-15) MEQ/L BUN (7-17) mg/dL Creatinine (0.52-1.04) mg/dL Estimated GFR ML/MIN Glucose (74-106) mg/dL Hemoglobin A1c (4.5-6.0) % Lactic Acid 1.1 (0.4-2.0) Calcium (8.4-10.2) mg/dL Magnesium (1.6-2.3) mg/dL Total Bilirubin (0.2-1.3) mg/dL AST (14-36) U/L ALT (0-35) U/L Alkaline Phosphatase (38-126) U/L Troponin I < 0.012 (0.000-0.034) ng/mL Serum Total Protein (6.3-8.2) g/dL Albumin (3.5-5.0) g/dL Amylase (30-110) U/L Lipase (23-300) U/L Urine Color YELLOW (YELLOW) Urine Appearance SLIGHTLY CLOUDY (CLEAR) Urine pH 6.0 (5-6) Ur Specific Langley 1.031 (1.005-1.025) Urine Protein 30 (Negative) Urine Ketones MODERATE (NEGATIVE) Urine Blood SMALL (0-5) Eriberto/ul Urine Nitrite NEGATIVE (NEGATIVE) Urine Bilirubin NEGATIVE (NEGATIVE) Urine Urobilinogen NEGATIVE (0-1) mg/dL Ur Leukocyte Esterase SMALL (NEGATIVE) Urine WBC (Auto) 51-100 (0-5) /HPF Urine RBC (Auto) 6-10 (0-2) /HPF U Hyaline Cast (Auto) 0-2 (0-2) /LPF U Epithel Cells (Auto) RARE (FEW) /HPF Urine Bacteria (Auto) FEW (NEGATIVE) /HPF Urine Mucus (Auto) SLIGHT (NEGATIVE) /HPF Urine Culture Reflexed YES (NO) Urine Glucose >=500 (NEGATIVE) mg/dL 04/19/19 04/19/19 04/19/19 Range/Units 11:25 14:15 17:30 WBC (4.0-10.5) K/mm3 RBC (4.1-5.4) M/mm3 Hgb (12.0-16.0) gm/dl Hct (35-47) % MCV (78-100) fl MCH (26-32) pg MCHC (32-36) g/dl RDW (11.5-14.0) % Plt Count (150-450) K/mm3 MPV (6-9.5) fl Gran % (36.0-66.0) % Eos # (Auto) (0-0.5) Absolute Lymphs (auto) (1.0-4.6) Absolute Monos (auto) (0.0-1.3) Lymphocytes % (24.0-44.0) % Monocytes % (0.0-12.0) % Eosinophils % (0.00-5.0) % Basophils % (0.0-0.4) % Absolute Granulocytes (1.4-6.9) Basophils # (0-0.4) PT (9.95-12.35) SECONDS INR (0.8-3.0) Sodium 140 (137-145) mmol/L Potassium 3.7 (3.5-5.1) mmol/L Chloride 101 (98-107) mmol/L Carbon Dioxide 28 (22-30) mmol/L Anion Gap 14.0 (5-15) MEQ/L BUN 7 (7-17) mg/dL Creatinine 0.43 L (0.52-1.04) mg/dL Estimated GFR > 60.0 ML/MIN Glucose 274 H (74-106) mg/dL Hemoglobin A1c (4.5-6.0) % Lactic Acid (0.4-2.0) Calcium 8.8 (8.4-10.2) mg/dL Magnesium (1.6-2.3) mg/dL Total Bilirubin 1.20 (0.2-1.3) mg/dL AST 35 (14-36) U/L ALT 21 (0-35) U/L Alkaline Phosphatase 85 (38-126) U/L Troponin I < 0.012 < 0.012 (0.000-0.034) ng/mL Serum Total Protein 6.3 (6.3-8.2) g/dL Albumin 3.4 L (3.5-5.0) g/dL Amylase 57 (30-110) U/L Lipase 28 (23-300) U/L Urine Color (YELLOW) Urine Appearance (CLEAR) Urine pH (5-6) Ur Specific Langley (1.005-1.025) Urine Protein (Negative) Urine Ketones (NEGATIVE) Urine Blood (0-5) Eriberto/ul Urine Nitrite (NEGATIVE) Urine Bilirubin (NEGATIVE) Urine Urobilinogen (0-1) mg/dL Ur Leukocyte Esterase (NEGATIVE) Urine WBC (Auto) (0-5) /HPF Urine RBC (Auto) (0-2) /HPF U Hyaline Cast (Auto) (0-2) /LPF U Epithel Cells (Auto) (FEW) /HPF Urine Bacteria (Auto) (NEGATIVE) /HPF Urine Mucus (Auto) (NEGATIVE) /HPF Urine Culture Reflexed (NO) Urine Glucose (NEGATIVE) mg/dL 04/20/19 04/20/19 Range/Units 04:49 04:49 WBC 6.2 (4.0-10.5) K/mm3 RBC 3.95 L (4.1-5.4) M/mm3 Hgb 10.4 L (12.0-16.0) gm/dl Hct 33.6 L (35-47) % MCV 85.1 (78-100) fl MCH 26.3 (26-32) pg MCHC 31.0 L (32-36) g/dl RDW 14.6 H (11.5-14.0) % Plt Count 204 (150-450) K/mm3 MPV 10.6 H (6-9.5) fl Gran % 55.4 (36.0-66.0) % Eos # (Auto) 0.27 (0-0.5) Absolute Lymphs (auto) 2.01 (1.0-4.6) Absolute Monos (auto) 0.46 (0.0-1.3) Lymphocytes % 32.5 (24.0-44.0) % Monocytes % 7.4 (0.0-12.0) % Eosinophils % 4.4 (0.00-5.0) % Basophils % 0.3 (0.0-0.4) % Absolute Granulocytes 3.43 (1.4-6.9) Basophils # 0.02 (0-0.4) PT (9.95-12.35) SECONDS INR (0.8-3.0) Sodium 143 (137-145) mmol/L Potassium 3.1 L (3.5-5.1) mmol/L Chloride 110 H (98-107) mmol/L Carbon Dioxide 27 (22-30) mmol/L Anion Gap 8.8 (5-15) MEQ/L BUN 4 L (7-17) mg/dL Creatinine 0.47 L (0.52-1.04) mg/dL Estimated GFR > 60.0 ML/MIN Glucose 180 H (74-106) mg/dL Hemoglobin A1c (4.5-6.0) % Lactic Acid (0.4-2.0) Calcium 8.6 (8.4-10.2) mg/dL Magnesium 1.7 (1.6-2.3) mg/dL Total Bilirubin (0.2-1.3) mg/dL AST (14-36) U/L ALT (0-35) U/L Alkaline Phosphatase (38-126) U/L Troponin I (0.000-0.034) ng/mL Serum Total Protein (6.3-8.2) g/dL Albumin (3.5-5.0) g/dL Amylase (30-110) U/L Lipase (23-300) U/L Urine Color (YELLOW) Urine Appearance (CLEAR) Urine pH (5-6) Ur Specific Langley (1.005-1.025) Urine Protein (Negative) Urine Ketones (NEGATIVE) Urine Blood (0-5) Eriberto/ul Urine Nitrite (NEGATIVE) Urine Bilirubin (NEGATIVE) Urine Urobilinogen (0-1) mg/dL Ur Leukocyte Esterase (NEGATIVE) Urine WBC (Auto) (0-5) /HPF Urine RBC (Auto) (0-2) /HPF U Hyaline Cast (Auto) (0-2) /LPF U Epithel Cells (Auto) (FEW) /HPF Urine Bacteria (Auto) (NEGATIVE) /HPF Urine Mucus (Auto) (NEGATIVE) /HPF Urine Culture Reflexed (NO) Urine Glucose (NEGATIVE) mg/dL Radiology Exams: Radiology Procedures Category Date Time Status ECHO W/2D AND DOPPLER [US] Routine Exams 04/20/19 Ordered ELBOW (MINIMUM 3 VIEWS) Stat Exams 04/19/19 13:36 Completed HEAD WITHOUT CONTRAST [CT] Stat Exams 04/19/19 10:40 Completed MRA NECK WITHOUT CONTRAST [MRI] Routine Exams 04/20/19 16:14 Ordered MRI BRAIN W/O CONTRAST [MRI] Routine Exams 04/20/19 16:14 Ordered OBSTR/ACUTE ABDOMEN SERIES Stat Exams 04/19/19 10:33 Completed SACRUM AND COCCYX Stat Exams 04/19/19 13:36 Completed Assessment/Plan (1) CVA (cerebral vascular accident) Current Visit: Yes Status: Acute Assessment & Plan: awaiting MRI results today, on aspirin and plavix. PT/OT Code(s): I63.9 - CEREBRAL INFARCTION, UNSPECIFIED (2) Urinary tract infection Current Visit: Yes Status: Acute Assessment & Plan: esbl e coli, on ertapenem Code(s): N39.0 - URINARY TRACT INFECTION, SITE NOT SPECIFIED (3) Hyperglycemia due to type 2 diabetes mellitus Current Visit: No Status: Acute Code(s): E11.65 - TYPE 2 DIABETES MELLITUS WITH HYPERGLYCEMIA (4) Weakness Current Visit: Yes Status: Acute Code(s): R53.1 - WEAKNESS
[2019-04-20] MEDS: Cymbalta 30 MG Capsule PO SCH (09:44)
[2019-04-20] MEDS: Ditropan XL 5 MG PO SCH (09:44)
[2019-04-20] MEDS: ECOTRIN 81 MG PO SCH (09:45)
[2019-04-20] MEDS: PLAVIX 75 MG Tablet PO SCH (09:45)
[2019-04-20] MEDS: NYSTOP POWDER 15 GM TP SCH ×2 (09:45→20:43)
[2019-04-20] MEDS ORDERED: LETROZOLE 2.5 MG PO SCH (10:00)
--- NOTE | 2019-04-20 11:59 | XRAY ---
Indication: New thalamic infarct. Multi slab 3-D [id number] MRA neck performed. Comparison: None Visualized aortic arch demonstrates normal branch right brachiocephalic, left common carotid, and left subclavian arteries. Left and right common carotid, carotid bulb, internal carotid, and external carotid arteries are negative for critical stenosis, obstruction, or AV malformation. Vertebral arteries appear normal in MRA appearance with the right slightly larger in caliber. Impression: Negative MRA neck.
--- NOTE | 2019-04-20 12:04 | XRAY ---
Indication: New thalamic infarct. Sagittal, coronal, and axial MRI brain was performed without contrast using T1, T2, FLAIR, diffusion, and ADC sequences. Comparison: None There is age-appropriate global atrophy and moderate periventricular degenerative micro-ischemia signal bilaterally. Lesser micro-ischemia signal in the brainstem. Diffusion images demonstrates 3 x 12 mm curvilinear focus of restricted signal in the left cerebellum favoring acute ischemia. No acute intracranial hemorrhage, abnormal extra-axial fluid collection, or mass effect. Fourth ventricle is midline without hydrocephalus. 7/8 cranial nerve complex bilaterally symmetric. Normal flow void signal within the major intracerebral circulation. Normal appearing craniocervical junction and sella turcica. Paranasal sinuses are clear. Impression: 1. Tiny focus left cerebellum ischemia as detailed. 2. Normal aging brain including atrophy and degenerative micro-ischemia. 3. Remote lacunar infarcts in both basal ganglia and left thalamus.
[2019-04-20] MEDS: Invanz 1 GM*** 1 G in Sodium Chloride 100ML MINI-BAG PLUS 100 ML IV SCH (14:16)
[2019-04-20] MEDS: Sodium Chloride 0.9% W/ 20 mEq KCl/LITER 1,000 ML IV SCH (14:16)
[2019-04-20] MEDS: CEPACOL SORE THROAT LOZENGE PO PRN ×3 (14:16→20:44)
[2019-04-20] MEDS: NovoLOG Insulin SQ PRN (18:11)
[2019-04-20] MEDS: Lantus Insulin SQ SCH (22:32)
[2019-04-20] MEDS: TYLENOL 325 MG PO PRN (23:27)
[2019-04-21] MEDS: Sodium Chloride 0.9% W/ 20 mEq KCl/LITER 1,000 ML IV SCH ×2 (01:09→18:26)
[2019-04-21 04:42] LABS: Absolute Neutrophil Ct (ANC) 2.69 (1.4-6.9); BASOPHIL % 0.6 % (0.0-0.4); Basophil (Absolute #) 0.03 (0-0.4); Eosinophil % 5.5 % (0.00-5.0); Eosinophil (Absolute #) 0.29 (0-0.5); Hemoglobin 9.8 gm/dl (12.0-16.0); Mean Corpuscular Hemoglobin 26.3 pg (26-32); Mean Corpuscular Hgb Concent. 30.6 g/dl (32-36); Mean Platelet Volume 10.3 fl (6-9.5); Monocyte (Absolute #) 0.37 (0.0-1.3); Neutrophil % 50.9 % (36.0-66.0); Platelet Count 190 K/mm3 (150-450); Red Blood Count 3.72 M/mm3 (4.1-5.4); Red Cell Distribution Width 14.5 % (11.5-14.0); White Blood Count 5.3 K/mm3 (4.0-10.5)
[2019-04-21 04:56] LABS: ALBUMIN 2.6 g/dL (3.5-5.0); ALKALINE PHOSPHATASE 61 U/L (38-126); ANION GAP 9.1 MEQ/L (5-15); BLOOD UREA NITROGEN 4 mg/dL (7-17); CHLORIDE 111 mmol/L (98-107); Calcium 8.4 mg/dL (8.4-10.2); Carbon Dioxide 24 mmol/L (22-30); Creatinine 1 0.41 mg/dL (0.52-1.04); Glucose 180 mg/dL (74-106); MAGNESIUM 1.6 mg/dL (1.6-2.3); Potassium 3.2 mmol/L (3.5-5.1); SGOT/AST 31 U/L (14-36); SGPT/ALT 20 U/L (0-35); SODIUM 141 mmol/L (137-145); Total Protein 5.3 g/dL (6.3-8.2)
--- NOTE | 2019-04-21 09:20 | PCM.NOTE ---
Date and Time: 04/21/19917 Subjective Assessment: patient continues to be unsteady, having significant diarrhea and urgency with stools, she states she has these frequently. Objective Exam General Appearance: no apparent distress Neurologic Exam: alert, cooperative, ict developer II-XII nml as tested Skin Exam: normal color, warm, dry Wound Assessment: Skin/Wound Assessment Wound/Incision Assessment Start: 04/19/19 15: 36 Text: Status: Active Freq: Q6H Protocol: Document 04/21/19 02:00 LB (Rec: 04/21/19 03:40 LB [id number]) Wound/Incision Assessment Right Elbow Wound Assessment Shift Assessment Wound Type Abrasion Wound Stage Non Pressure Wound Dressing Status Dry & Intact Drainage Amount None Primary Dressing Gauze Roll/Wrap Comment Dressing CDI. Wound Photo Photo Taken No Respiratory Exam: normal breath sounds, lungs clear, No respiratory distress Cardiovascular Exam: regular rate/rhythm, normal heart sounds Gastrointestinal/Abdomen Exam: soft, No tenderness, No mass OBJECTIVE DATA Vital Signs: Vital Signs - 24 hr Temp Pulse Resp BP Pulse Ox 04/21/19 08:00 98.7 F 75 20 148/70 96 04/21/19 04:00 98.1 F 72 18 143/71 93 L 04/21/19 00:04 98.2 F 97 H 20 154/67 97 04/20/19 20:00 98.4 F 73 18 164/78 94 L 04/20/19 18:00 98 F 68 18 150/68 96 04/20/19 14:00 98.2 F 90 18 142/67 93 L 04/20/19 10:00 99.4 F 69 22 148/58 94 L Pain Assessment - Last Documented Pain Intensity 1 Pain Scale Used [facility] Intake and Output: Intake & Output 04/18/19 04/19/19 04/20/19 04/21/19 11:59 11:59 11:59 11:59 Intake Total 1858 4570 Output Total 200 704 Balance 1658 3866 Weight 62.142 kg 62.142 kg 62.142 kg Lab Results: Accuchecks Date 04/20/19 Date 04/20/19 Date 04/20/19 Time 21:30 Time 18:12 Time 14:46 Accucheck Value: 136 Accucheck Value: 244 Accucheck Value: 236 Lab Results-Last 24 Hours 04/21/19 04/21/19 Range/Units 04:39 04:39 WBC 5.3 (4.0-10.5) K/mm3 RBC 3.72 L (4.1-5.4) M/mm3 Hgb 9.8 L (12.0-16.0) gm/dl Hct 32.0 L (35-47) % MCV 86.0 (78-100) fl MCH 26.3 (26-32) pg MCHC 30.6 L (32-36) g/dl RDW 14.5 H (11.5-14.0) % Plt Count 190 (150-450) K/mm3 MPV 10.3 H (6-9.5) fl Gran % 50.9 (36.0-66.0) % Eos # (Auto) 0.29 (0-0.5) Absolute Lymphs (auto) 1.90 (1.0-4.6) Absolute Monos (auto) 0.37 (0.0-1.3) Lymphocytes % 36.0 (24.0-44.0) % Monocytes % 7.0 (0.0-12.0) % Eosinophils % 5.5 H (0.00-5.0) % Basophils % 0.6 (0.0-0.4) % Absolute Granulocytes 2.69 (1.4-6.9) Basophils # 0.03 (0-0.4) Sodium 141 (137-145) mmol/L Potassium 3.2 L (3.5-5.1) mmol/L Chloride 111 H (98-107) mmol/L Carbon Dioxide 24 (22-30) mmol/L Anion Gap 9.1 (5-15) MEQ/L BUN 4 L (7-17) mg/dL Creatinine 0.41 L (0.52-1.04) mg/dL Estimated GFR > 60.0 ML/MIN Glucose 180 H (74-106) mg/dL Calcium 8.4 (8.4-10.2) mg/dL Magnesium 1.6 (1.6-2.3) mg/dL Total Bilirubin 0.50 (0.2-1.3) mg/dL AST 31 (14-36) U/L ALT 20 (0-35) U/L Alkaline Phosphatase 61 (38-126) U/L Serum Total Protein 5.3 L (6.3-8.2) g/dL Albumin 2.6 L (3.5-5.0) g/dL Radiology Exams: Radiology Procedures Category Date Time Status ECHO W/2D AND DOPPLER [US] Routine Exams 04/20/19 09:38 Taken ELBOW (MINIMUM 3 VIEWS) Stat Exams 04/19/19 13:36 Completed HEAD WITHOUT CONTRAST [CT] Stat Exams 04/19/19 10:40 Completed MRA NECK WITHOUT CONTRAST [MRI] Routine Exams 04/20/19 16:14 Completed MRI BRAIN W/O CONTRAST [MRI] Routine Exams 04/20/19 16:14 Completed OBSTR/ACUTE ABDOMEN SERIES Stat Exams 04/19/19 10:33 Completed SACRUM AND COCCYX Stat Exams 04/19/19 13:36 Completed Multi-Disciplinary Progress Notes: Multi-Disciplinary Progress Notes 04/20/19 11:42 Case Management Note by Leslie Broussard CALL TO [facility], REFERRAL FAXED REQUESTED. Initialized on 04/20/19 11:42 - END OF NOTE 04/20/19 11:34 Case Management Note by Leslie Broussard SPOKE WITH PT REGARDING RETIREMENT DECISION FOR REHAB STAY. REPORTS THAT SHE WILL CHOOSE [facility] BECAUSE IT IS CLOSER TO HER HOME. NO ADDNL NEEDS IDENTIFIED AT PRESENT TIME. WILL MAKE REFERRAL TO [facility]. Initialized on 04/20/19 11:34 - END OF NOTE 04/20/19 10:34 Case Management Note by Leslie Broussard PAPERWORK COMPLETE AND PLACED IN CHART. WILL FAX TO RETIREMENT WITH REFERRAL WHEN PT DECIDES ON FACILITY. Initialized on 04/20/19 10:34 - END OF NOTE Assessment/Plan (1) CVA (cerebral vascular accident) Current Visit: Yes Status: Acute Assessment & Plan: has an acute brainstem area of ischemia with old thalamic infarcts, explains her dizziness. will likely need rehab stay for PT/OT Code(s): I63.9 - CEREBRAL INFARCTION, UNSPECIFIED (2) Urinary tract infection Current Visit: Yes Status: Acute Assessment & Plan: on invanz, esbl e coli on initial culture Code(s): N39.0 - URINARY TRACT INFECTION, SITE NOT SPECIFIED (3) Hyperglycemia due to type 2 diabetes mellitus Current Visit: No Status: Acute Code(s): E11.65 - TYPE 2 DIABETES MELLITUS WITH HYPERGLYCEMIA (4) Weakness Current Visit: Yes Status: Acute Code(s): R53.1 - WEAKNESS
[2019-04-21] MEDS: ECOTRIN 81 MG PO SCH (10:19)
[2019-04-21] MEDS: PLAVIX 75 MG Tablet PO SCH (10:19)
[2019-04-21] MEDS: Cymbalta 30 MG Capsule PO SCH (10:19)
[2019-04-21] MEDS: Ditropan XL 5 MG PO SCH (10:19)
[2019-04-21] MEDS: NYSTOP POWDER 15 GM TP SCH ×2 (10:20→21:44)
[2019-04-21] MEDS: CEPACOL SORE THROAT LOZENGE PO PRN ×3 (11:41→23:13)
[2019-04-21] MEDS: NovoLOG Insulin SQ PRN (12:41)
[2019-04-21 14:41] LABS: Adenovirus F 40/41 NEGATIVE (NEGATIVE); Astrovirus NEGATIVE (NEGATIVE); C. Difficile Organism NEGATIVE (NEGATIVE); Campylobacter NEGATIVE (NEGATIVE); Cryptosporidium NEGATIVE (NEGATIVE); Cyclospora cayentanensis NEGATIVE (NEGATIVE); Entamoeaba histolytica NEGATIVE (NEGATIVE); Enteroaggregative E.coli NEGATIVE (NEGATIVE); Enteropathogenic E.coli NEGATIVE (NEGATIVE); Enterotoxigenic E.coli NEGATIVE (NEGATIVE); Giardia lamblia NEGATIVE (NEGATIVE); Norovirus GI/GII NEGATIVE (NEGATIVE); Plesiomonas shigelloides NEGATIVE (NEGATIVE); Rotavirus A NEGATIVE (NEGATIVE); Salmonella NEGATIVE (NEGATIVE); Sapovirus NEGATIVE (NEGATIVE); Shiga-like toxin prod.E.coli NEGATIVE (NEGATIVE); Vibrio NEGATIVE (NEGATIVE); Vibrio cholerae NEGATIVE (NEGATIVE); Yersinia enterocolitica NEGATIVE (NEGATIVE)
[2019-04-21] MEDS: Invanz 1 GM*** 1 G in Sodium Chloride 100ML MINI-BAG PLUS 100 ML IV SCH (15:09)
[2019-04-21] MEDS: Lantus Insulin SQ SCH (21:45)
[2019-04-22] MEDS: CEPACOL SORE THROAT LOZENGE PO PRN (02:40)
[2019-04-22 04:56] LABS: Absolute Neutrophil Ct (ANC) 3.15 (1.4-6.9); BASOPHIL % 0.5 % (0.0-0.4); Basophil (Absolute #) 0.03 (0-0.4); Eosinophil % 5.4 % (0.00-5.0); Eosinophil (Absolute #) 0.31 (0-0.5); Hematocrit 32.9 % (35-47); Hemoglobin 10.2 gm/dl (12.0-16.0); Lymphocyte (Absolute #) 1.86 (1.0-4.6); Lymphocytes % 32.3 % (24.0-44.0); Mean Corpuscular Hemoglobin 26.4 pg (26-32); Mean Platelet Volume 10.4 fl (6-9.5); Neutrophil % 54.8 % (36.0-66.0); Platelet Count 208 K/mm3 (150-450); Red Blood Count 3.87 M/mm3 (4.1-5.4); Red Cell Distribution Width 14.4 % (11.5-14.0); White Blood Count 5.8 K/mm3 (4.0-10.5)
[2019-04-22 05:05] LABS: ALBUMIN 2.9 g/dL (3.5-5.0); ALKALINE PHOSPHATASE 65 U/L (38-126); ANION GAP 7.2 MEQ/L (5-15); BLOOD UREA NITROGEN 4 mg/dL (7-17); CHLORIDE 109 mmol/L (98-107); Calcium 8.6 mg/dL (8.4-10.2); Carbon Dioxide 29 mmol/L (22-30); Creatinine 1 0.38 mg/dL (0.52-1.04); Glucose 131 mg/dL (74-106); MAGNESIUM 1.6 mg/dL (1.6-2.3); Potassium 3.4 mmol/L (3.5-5.1); SGOT/AST 32 U/L (14-36); SGPT/ALT 23 U/L (0-35); SODIUM 142 mmol/L (137-145); Total Protein 5.7 g/dL (6.3-8.2)
[2019-04-22 07:31] VITALS: BP 139/74; PULSE 71; O2SAT 95
--- NOTE | 2019-04-22 09:24 | PCM.DS ---
Discharge Summary Date of Admission: 04/19/19 14:33 Date of Discharge: 04/22/2019 Admitting Physician: CURTIS HOFFMAN Primary Care Provider: CURTIS HOFFMAN Allergies Allergies No Known Drug Allergies Allergy (Verified 04/19/19 10:58) Hospital Summary - Hospital Course Hospital Course: Pt. admitted for iv antibiotics, has gradually improved through out stay, MRI of brain showing old infarcts and MRA clear of brain. Urine cultures were negative for growth despite being positive upon arrival. Pt. still notes diarrhea and urinary urgency which has been ongoing for several months. Pt. stable for d/c to rehab facility at this time. - Vitals & Intake/Output Vital Signs: Vital Signs Temperature 97.6 F 04/22/19 07:30 Pulse Rate 71 04/22/19 07:30 Respiratory Rate 18 04/22/19 07:30 Blood Pressure 139/74 04/22/19 07:30 O2 Sat by Pulse Oximetry 95 04/22/19 07:30 Intake & Output: Intake & Output 04/19/19 04/20/19 04/21/19 04/22/19 11:59 11:59 11:59 11:59 Intake Total 1858 4810 2652 Output Total 200 704 400 Balance 1658 4106 2252 Weight 62.142 kg 62.142 kg 62.142 kg - Lab Result Diagrams: 04/22/19 04:47 04/22/19 04:47 Lab Results-Last 24 Hrs: Accuchecks Date 04/22/19 Date 04/21/19 Date 04/21/19 Time 07:50 Time 17:02 Time 11:30 Accucheck Value: 131 Accucheck Value: 190 Accucheck Value: 130 Accucheck Value: 270 Lab Results-Last 24 Hours 04/21/19 04/22/19 04/22/19 Range/Units 12:01 04:47 04:47 WBC 5.8 (4.0-10.5) K/mm3 RBC 3.87 L (4.1-5.4) M/mm3 Hgb 10.2 L (12.0-16.0) gm/dl Hct 32.9 L (35-47) % MCV 85.0 (78-100) fl MCH 26.4 (26-32) pg MCHC 31.0 L (32-36) g/dl RDW 14.4 H (11.5-14.0) % Plt Count 208 (150-450) K/mm3 MPV 10.4 H (6-9.5) fl Gran % 54.8 (36.0-66.0) % Eos # (Auto) 0.31 (0-0.5) Absolute Lymphs (auto) 1.86 (1.0-4.6) Absolute Monos (auto) 0.40 (0.0-1.3) Lymphocytes % 32.3 (24.0-44.0) % Monocytes % 7.0 (0.0-12.0) % Eosinophils % 5.4 H (0.00-5.0) % Basophils % 0.5 (0.0-0.4) % Absolute Granulocytes 3.15 (1.4-6.9) Basophils # 0.03 (0-0.4) Sodium 142 (137-145) mmol/L Potassium 3.4 L (3.5-5.1) mmol/L Chloride 109 H (98-107) mmol/L Carbon Dioxide 29 (22-30) mmol/L Anion Gap 7.2 (5-15) MEQ/L BUN 4 L (7-17) mg/dL Creatinine 0.38 L (0.52-1.04) mg/dL Estimated GFR > 60.0 ML/MIN Glucose 131 H (74-106) mg/dL Calcium 8.6 (8.4-10.2) mg/dL Magnesium 1.6 (1.6-2.3) mg/dL Total Bilirubin 0.70 (0.2-1.3) mg/dL AST 32 (14-36) U/L ALT 23 (0-35) U/L Alkaline Phosphatase 65 (38-126) U/L Serum Total Protein 5.7 L (6.3-8.2) g/dL Albumin 2.9 L (3.5-5.0) g/dL Stl C. cayetanensis PCR NEGATIVE (NEGATIVE) Stl Adenov F 40/41 PCR NEGATIVE (NEGATIVE) Stool Astrovirus (PCR) NEGATIVE (NEGATIVE) Stool Cryptosporidium PCR NEGATIVE (NEGATIVE) Stool EPEC (PCR) NEGATIVE (NEGATIVE) Stool EAEC (PCR) NEGATIVE (NEGATIVE) Stl E. histolytica PCR NEGATIVE (NEGATIVE) Stl P. shigelloides PCR NEGATIVE (NEGATIVE) Stool Sapovirus (PCR) NEGATIVE (NEGATIVE) St Y.enterocolitica PCR NEGATIVE (NEGATIVE) Stool Vibrio (PCR) NEGATIVE (NEGATIVE) Stl Vibrio cholerae PCR NEGATIVE (NEGATIVE) Stl Norovirus GI/GII PCR NEGATIVE (NEGATIVE) Campylobacter (PCR) NEGATIVE (NEGATIVE) C. difficile (PCR) NEGATIVE (NEGATIVE) Enterotoxigenic E. coli NEGATIVE (NEGATIVE) E.coli Shiga Toxins NEGATIVE (NEGATIVE) Giardia lamblia NEGATIVE (NEGATIVE) Rotavirus A (PCR) NEGATIVE (NEGATIVE) Salmonella (PCR) NEGATIVE (NEGATIVE) Shigella (PCR) NEGATIVE (NEGATIVE) Micro Results-Entire Visit: Microbiology 04/19/19 11:07 Urine Culture - Final Urine, Void NO GROWTH Accuchecks Date 04/22/19 Date 04/21/19 Date 04/21/19 Time 07:50 Time 17:02 Time 11:30 Accucheck Value: 131 Accucheck Value: 190 Accucheck Value: 130 Accucheck Value: 270 - Radiology Exams Ordered Rad Exams-Entire Visit: Radiology Procedures Category Date Time Status ECHO W/2D AND DOPPLER [US] Routine Exams 04/20/19 09:38 Taken MRA NECK WITHOUT CONTRAST [MRI] Routine Exams 04/20/19 16:14 Completed MRI BRAIN W/O CONTRAST [MRI] Routine Exams 04/20/19 16:14 Completed - Procedures and Test Procedures and Tests throughout Hospitalization: Therapy Orders & Screens 04/19/19 16:18 PT Eval & Treat (MD Order) ROUTINE Reason for Eval:: dizzy,falls Diagnosis: Urinary Tract Infection 04/19/19 16:28 OT Eval and Treat (MD Order) ROUTINE Comment: Consulting Provider: Physician Instructions: Reason For Exam: Diagnosis: Urinary Tract Infection Discharge Exam General Appearance: no apparent distress, alert Respiratory Exam: normal breath sounds, lungs clear, No respiratory distress Cardiovascular Exam: regular rate/rhythm, normal heart sounds Gastrointestinal/Abdomen Exam: soft, No tenderness, No mass Extremity Exam: normal inspection Skin Exam: normal color, warm, dry Wound Assessment: Skin/Wound Assessment Wound/Incision Assessment Start: 04/19/19 15: 36 Text: Status: Active Freq: Q6H Protocol: Document 04/22/19 08:00 REMI (Rec: 04/22/19 08:02 REMI [id number]) Wound/Incision Assessment Right Elbow Wound Assessment Shift Assessment Wound Type Abrasion Wound Stage Non Pressure Wound Dressing Status Dry & Intact Drainage Amount None Wound Photo Photo Taken No Final Diagnosis/Problem List - Final Discharge Diagnosis/Problem (1) CVA (cerebral vascular accident) Current Visit: Yes Status: Acute Assessment & Plan: MRA clear, MRI shows these to be old, continue aspirin and plavix Code(s): I63.9 - CEREBRAL INFARCTION, UNSPECIFIED (2) Urinary tract infection Current Visit: Yes Status: Acute Assessment & Plan: Cultures negative, pt. notes diarrhea persisting for months will need outpatient evaluation, has surgical appointment on 04/28 for gallbladder evaluation. Code(s): N39.0 - URINARY TRACT INFECTION, SITE NOT SPECIFIED - Discharge Discharge Date: 04/22/19 Disposition: Skilled Care @ [facility] Condition: Stable Prescriptions: No Action Letrozole [Femara] 2.5 mg PO DAILY glipiZIDE [Glipizide] 5 mg PO BID Meloxicam 7.5 mg [Mobic 7.5 MG] 7.5 mg PO DAILY Oxybutynin Chloride [Oxybutynin Chloride ER] 5 mg PO DAILY Duloxetine HCl 30 mg [Cymbalta 30 MG Capsule] 30 mg PO DAILY Insulin NPH Hum/Reg Insulin Hm [Humulin 70/30 Kwikpen] 20 units SQ BID Cephalexin Mh 500 mg [Keflex 500 mg] 500 mg PO TID Aspirin EC 81 mg [Ecotrin 81 mg] 81 mg PO DAILY Nystatin Powder 15 gm [Nystop Powder 15 gm] 15 gm TP BID Outpatient Orders: Occupational Therapy Eval & Treat Location: OCCUPATIONAL THERAPY Follow up with: CURTIS HOFFMAN MD [Primary Care Provider] - 1 Week
[2019-04-22] MEDS: NYSTOP POWDER 15 GM TP SCH (09:33)
[2019-04-22] MEDS: Cymbalta 30 MG Capsule PO SCH (09:33)
[2019-04-22] MEDS: ECOTRIN 81 MG PO SCH (09:33)
[2019-04-22] MEDS: Ditropan XL 5 MG PO SCH (09:33)
[2019-04-22] MEDS: PLAVIX 75 MG Tablet PO SCH (09:33)
== END 2019-04-22 10:30 | DRG 65 ==
LOC: ED 10:25 → MED SURG 14:33
PROVIDERS: ADMIT Family Medicine; ATTEND Family Medicine
DX: I63.9 Cerebral infarction, unspecified (principal); N39.0 Urinary tract infection, site not specified; R53.1 Weakness; E11.65 Type 2 diabetes mellitus with hyperglycemia; R42 Dizziness and giddiness; W19.XXXA Unspecified fall, initial encounter; Z91.81 History of falling; Z79.899 Other long term (current) drug therapy
CPT/HCPCS: 36000; 36415; 70450; 70547; 70551; 72220; 73080; 74022; 80048; 80053; 81001; 82150; 82962; 83036; 83605; 83690; 83735; 84484; 85025; 85610; 87040; 87086; 87507; 93005; 93306; 96360; 99285; J1335; A9270-GY

== ENCOUNTER 2020-05-11 07:03 | Day surgery (SDC) | payer MEDICARE, OTHER ==
--- NOTE | 2020-05-04 14:37 | HP ---
DATE OF SURGERY: 05/11/2020 HISTORY OF PRESENT ILLNESS: The patient presents to the office in need of endoscopy. The last scope was in 2018 and it was okay. She has noticed some bright red blood on the tissue paper and in the toilet bowel. She has been having lots of bloating and gas, notices occasional diarrhea with this. She states that she eats a lot of popcorn. She does have occasional pain in the right mid abdomen. She states it is a stabbing that will go away quickly. She had a CT scan recently that showed some ascending colon thickening. She also had some fecal stasis on that. She also complains of a right inner thigh lesion and wishes to have that removed. She also reports that her mom of colon cancer at age 74. PAST MEDICAL HISTORY: Breast cancer. Diabetes. Depression. PAST SURGICAL HISTORY: Gastric bypass. Right breast mastectomy. Partial hysterectomy. ALLERGIES: NKDA. MEDICATIONS: Letrozole, Humulin, Effexor. FAMILY HISTORY: Colon cancer. SOCIAL HISTORY: None reported. REVIEW OF SYSTEMS: CONSTITUTIONAL: Denies fever or chills. CHEST: Denies shortness of breath. CVS: Denies chest pain. ABDOMEN: Mid right abdominal pain. Denies nausea or vomiting. Reports occasional diarrhea. Denies constipation. Reports occasional rectal bleeding. INTEGUMENTARY: Right inner thigh lesion. PHYSICAL EXAMINATION: CHEST: Nonlabored. No shortness of breath. CVS: Regular rate and rhythm. ABDOMEN: Soft, nontender to palpation. EXTREMITIES: No edema. INTEGUMENTARY: Right inner thigh lesion in the upper thigh. NEUROLOGIC: Alert. PSYCHIATRIC: Appropriate. IMPRESSION: The patient had an abnormal CT scan with ascending colon thickening and she has some right mid abdominal pain and right inner thigh lesion. PLAN: Colonoscopy and excision of skin lesion on right inner thigh with Dr. Hal Prieto. As dictated by Jenni Abad NP.
[~2020-05-11 07:03] MED LIST: Lactated Ringers 1,000 ML IV SCH
[2020-05-11] MEDS ORDERED: XYLOCAINE 1% HCL 20 ML MDV ONE (07:27)
[2020-05-11] MEDS ORDERED: Lactated Ringers 1,000 ML IV ONE (07:33)
[2020-05-11] MEDS ORDERED: DIPRIVAN 200 MG/20 ML IV ONE ×3 (07:53→09:33)
[2020-05-11] MEDS ORDERED: SUBLIMAZE 100 MCG/2 ML ONE (07:53)
[2020-05-11] MEDS ORDERED: KEFZOL 1 GM ONE (09:15)
[2020-05-11] MEDS ORDERED: Triple Antibiotic Ointment ONE (09:32)
--- NOTE | 2020-05-11 10:37 | OP ---
SURGERY DATE/TIME: 05/11/2020 0856 PREOPERATIVE DIAGNOSES: 1) The patient has a fatty tumor-skin tag right buttock 4 cm. 2) The patient had blood per rectum. POSTOPERATIVE DIAGNOSES: 1) The patient has a fatty tumor-skin tag right buttock 4 cm. 2) The patient had blood per rectum. PROCEDURES: 1) Excision and closure. 2) Colonoscopy complete to cecum with biopsy of a sessile mid ascending colon mass and hot snare removal of a 1 cm transverse colon polyp. SURGEON: Hal Prieto M.D. GLUE SPREADER: Regina Laurent, Resident [facility]. ANESTHESIA: MAC. COMPLICATIONS: None. CONDITION: Stable. INDICATION: A patient with blood per rectum and also a skin tag-lipoma probably more lipomatous. DESCRIPTION OF PROCEDURE: Taken to surgery. General anesthetic. Lithotomy. The slightly pedunculated lipomatous lesion was elliptically excised 4 cm and closed with simple interrupted sutures of 2-0 chromic catgut. Anal digital examination satisfactory. Scope introduced. Scope advanced to the cecum. Just above the ileocecal valve possibly even prolapse of the ileocecal valve there is a mass. It is about lemon sized, clearly abnormal but the mucosa did not appear to be just outright cancerous. Two biopsies were taken. I think these probably will be benign. Despite this I think this patient clearly requires right hemicolectomy. Up above just a little bit this of the side of the hepatic flexure a 1 cm polyp taken with hot snare and it was able to be totally retrieved. The patient tolerated the procedure satisfactorily. She does have family history of colon cancer which is noted. She will return back to the office. We are anticipating scheduling a right hemicolectomy in the near future. Additional discussion, preliminary discussion with the son on the phone.
[2020-05-11 10:55] VITALS: O2SAT 97
[2020-05-11 11:12] VITALS: BP 140/77; PULSE 74
== END 2020-05-11 11:20 | disposition home or self-care (01) ==
LOC: SDC 07:03
PROVIDERS: ATTEND Surgery
DX: K62.5 Hemorrhage of anus and rectum (principal); K63.5 Polyp of colon; D17.1 Benign lipomatous neoplasm of skin and subcutaneous tissue of trunk; Z80.0 Family history of malignant neoplasm of digestive organs; E11.9 Type 2 diabetes mellitus without complications; Z85.3 Personal history of malignant neoplasm of breast; Z79.899 Other long term (current) drug therapy
CPT/HCPCS: 82947; 99100; J0690; J2704; J3010; A9270-GY

== ENCOUNTER 2020-06-15 10:05 | Inpatient (IN) | payer MEDICARE, OTHER ==
--- NOTE | 2020-06-14 13:33 | HP ---
DATE OF SURGERY: 06/15/2020 HISTORY OF PRESENT ILLNESS: The patient had presented initially with abnormal CT scan. We did a colonoscopy on her and found that she had a submucosal mid-ascending colon mass. Biopsies came back benign but the mass was submucosal. We went ahead and are going to perform a right hemicolectomy to remove the mass. The patient's mom of colon cancer at age 74. PAST MEDICAL HISTORY: Breast cancer. Gastric bypass. Depression. Diabetes. PAST SURGICAL HISTORY: Gastric bypass. Right mastectomy. Partial hysterectomy. ALLERGIES: NKDA. MEDICATIONS: Humulin. Effexor. FAMILY HISTORY: Colon cancer. Myocardial infarction. SOCIAL HISTORY: None. REVIEW OF SYSTEMS: CONSTITUTIONAL: Denies fever or chills. CHEST: Denies shortness of breath. CVS: Denies chest pain. ABDOMEN: Reports occasional mid-abdominal pain. Denies nausea, vomiting, diarrhea, constipation. Reports occasional rectal bleeding. INTEGUMENTARY: Negative. PHYSICAL EXAMINATION: GENERAL: No acute distress. CHEST: Nonlabored. No shortness of breath. CVS: Regular rate and rhythm. ABDOMEN: Soft, nontender to palpation. EXTREMITIES: No edema. NEUROLOGIC: Alert. PSYCHIATRIC: Appropriate. IMPRESSION: Right mid-ascending colon mass submucosal. PLAN: Right hemicolectomy with Dr. Hal Prieto. As dictated by Jenni Abad NP.
[~2020-06-15 10:05] MED LIST changes: +ENTEREG 12 MG PO SCH; +Lactated Ringers 1,000 ML IV ONE; -Lactated Ringers 1,000 ML IV SCH
[2020-06-15] MEDS: Lactated Ringers 1,000 ML IV SCH (10:26)
[2020-06-15] MEDS ORDERED: Zemuron 100 MG/10 ML IJ ONE ×2 (10:43)
[2020-06-15] MEDS ORDERED: MARCAINE 0.5%-EPI 1:200,000 VL IJ ONE (10:43)
[2020-06-15] MEDS ORDERED: Versed 2 MG/2 ML Injection IV ONE (10:43)
[2020-06-15] MEDS ORDERED: DIPRIVAN 200 MG/20 ML IV ONE (10:43)
[2020-06-15] MEDS ORDERED: SUBLIMAZE 250 MCG/5 ML IJ ONE (10:43)
[2020-06-15] MEDS ORDERED: BRIDION 200MG/2ML IV ONE (10:43)
[2020-06-15] MEDS ORDERED: MEFOXIN 2 GM PREMIX** 2 GM/50 ML ML IV SCH (11:00)
[2020-06-15 11:28] LABS: ABO TYPING O; Antibody Screen NEGATIVE (NEGATIVE); RH TYPING POSITIVE
[2020-06-15] MEDS ORDERED: Sodium Chloride 0.9% 1000 ML 2,000 ML ONE (12:28)
[2020-06-15] MEDS ORDERED: TYLENOL 325 MG PO PRN (12:46)
[2020-06-15] MEDS ORDERED: NORCO 5/325 MG PO PRN (12:53)
[2020-06-15] MEDS ORDERED: Zofran 4 MG/2 ML VIAL ONE (14:03)
[2020-06-15] MEDS ORDERED: MORPHINE SULFATE 10 MG/ML ONE (14:05)
[2020-06-15] MEDS ORDERED: Compazine 10 MG/2 ML ONE (14:24)
[2020-06-15 14:28] LABS: Appearance SLIGHTLY CLOUDY (CLEAR); Bilirubin NEGATIVE (NEGATIVE); Blood NEGATIVE Ery/ul (0-5); Glucose 50 mg/dL (NEGATIVE); Ketones SMALL (NEGATIVE); Leukocyte Esterase SMALL (NEGATIVE); Mucus SLIGHT /HPF (NEGATIVE); Nitrite NEGATIVE (NEGATIVE); Protein,Urine Dip NEGATIVE (Negative); Specific Gravity 1.017 (1.005-1.025); Urobilinogen NEGATIVE mg/dL (0-1)
[2020-06-15] MEDS ORDERED: SUBLIMAZE 100 MCG/2 ML ONE (14:37)
[2020-06-15] MEDS ORDERED: Sodium Chloride 0.9% 1000 ML 1,000 ML ONE (14:41)
[2020-06-15] MEDS: Morphine PCA 1 MG/ML 30 ML IV PRN (15:13)
[2020-06-15] MEDS: D5W/0.45NS W/ 20mEq KCl 1000 ML 1,000 ML IV SCH (15:37)
[2020-06-15] MEDS ORDERED: MEDICATION INTERVENTION MC SCH (15:45)
[2020-06-15] MEDS: Novolin 70/30 SQ SCH (18:20)
[2020-06-15] MEDS: MEFOXIN 2 GM PREMIX** 2 GM/50 ML ML IV SCH ×2 (18:32→23:54)
[2020-06-15] MEDS: Zofran 4 MG/2 ML VIAL IV PRN (19:23)
[2020-06-15] MEDS ORDERED: TRANDATE 20 MG/4 ML SYRINGE IV ONE (21:01)
[2020-06-15] MEDS: TRANDATE 20 MG/4 ML SYRINGE IV PRN (21:11)
[2020-06-16] MEDS: Novolin 70/30 SQ SCH ×3 (02:06→18:15)
[2020-06-16] MEDS: Zofran 4 MG/2 ML VIAL IV PRN ×2 (02:22→10:38)
[2020-06-16] MEDS: D5W/0.45NS W/ 20mEq KCl 1000 ML 1,000 ML IV SCH ×2 (03:01→17:22)
[2020-06-16] MEDS: TRANDATE 20 MG/4 ML SYRINGE IV PRN (04:31)
[2020-06-16 05:34] LABS: Hematocrit 26.9 % (35-47); Hemoglobin 7.5 gm/dl (12.0-16.0); Mean Corpuscular Hemoglobin 21.2 pg (26-32); Mean Corpuscular Hgb Concent. 27.9 g/dl (32-36); Mean Platelet Volume 10.8 fl (7.5-11.0); Platelet Count 255 K/mm3 (150-450); Red Blood Count 3.54 M/mm3 (4.1-5.4); Red Cell Distribution Width 16.2 % (11.5-14.0); White Blood Count 8.7 K/mm3 (4.0-10.5)
[2020-06-16] MEDS: MEFOXIN 2 GM PREMIX** 2 GM/50 ML ML IV SCH ×2 (06:03→12:46)
[2020-06-16 06:04] LABS: ANION GAP 8.5 MEQ/L (5-15); BLOOD UREA NITROGEN 6 mg/dL (7-17); CHLORIDE 102 mmol/L (98-107); Calcium 8.3 mg/dL (8.4-10.2); Carbon Dioxide 28 mmol/L (22-30); Creatinine 1 0.66 mg/dL (0.52-1.04); EST GLOMERULAR FILTRATION RATE > 60.0 ML/MIN; Glucose 304 mg/dL (74-106); Potassium 4.4 mmol/L (3.5-5.1); SODIUM 133 mmol/L (137-145)
[2020-06-16] MEDS: Morphine PCA 1 MG/ML 30 ML IV PRN ×2 (06:55→10:15)
--- NOTE | 2020-06-16 09:16 | OP ---
SURGERY DATE/TIME: 06/15/2020 1210 PREOPERATIVE DIAGNOSIS: Right colon mass. POSTOPERATIVE DIAGNOSIS: Right colon mass, benign. PROCEDURE: Right hemicolectomy with anastomosis. SURGEON: Hal Prieto M.D. ANESTHESIA: General. COMPLICATIONS: None. CONDITION: Stable. INDICATION: The patient with a mass in the right colon which is submucosal about 4 to 5 cm with biopsy negative but there was submucosal that was felt to require removal regardless. DESCRIPTION OF PROCEDURE: She is taken to surgery. General anesthetic. Routine prep and drape. A limited transverse incision was made right mid abdomen. The right colon was mobilized to the midline and 6 inches of small bowel was taken. The mass was palpable. The right gutter mobilized taking away from the duodenum and the ureter, transected the colon. The omentum on the right half of the colon and the omentum was transected above this. The mesentery was then taken between ligature bites with two largest being both tied and ligasured. Specimen removed off the field. It was inspected. There was 4 cm right lipoma at the upper edge of the ileocecal valve this was marked with a suture. [id number] anastomosis GUSTAVO followed by a contour and looked excellent. Mesenteric defect approximated with running 3-0 PDS, laid back in natural fashion. Sponge, needle and instruments counts reported as correct. Anterior abdominal wall fascia closed with 0 loop PDS. Subcutaneous tissue irrigated. Skin closed with chloe. Sterile dressing applied. The patient tolerated the procedure satisfactorily.
[2020-06-16] MEDS: ENOXAPARIN SODIUM SQ SCH (09:30)
[2020-06-16] MEDS: Protonix 40MG Tablet PO SCH (09:37)
[2020-06-16] MEDS: Cymbalta 30 MG Capsule PO SCH (09:37)
[2020-06-16] MEDS: Glucotrol 5 MG PO SCH (09:37)
[2020-06-16] MEDS: Ditropan XL 5 MG PO SCH (09:37)
[2020-06-16] MEDS ORDERED: LETROZOLE 2.5 MG PO SCH (10:00)
--- NOTE | 2020-06-16 16:59 | PCM.HP ---
History of Present Illness - Chief Complaint Chief Complaint: MID ASCENDING COLON MASS History of Present Illness: is a 75 year old female who was admitted yesterday following a right hemicolectomy by Dr Prieto, this was performed secondary to a mid-ascending colon mass. 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 hx of diabetes and hx of previous breast cancer. - Review of Systems Constitutional: No Fever, No Chills Respiratory: No Cough, No Short Of Breath Cardiac: No Chest Pain, No Edema, No Syncope Abdominal/Gastrointestinal: Abdominal Pain Genitourinary Symptoms: No Dysuria Skin: No Rash All Other Systems: Reviewed and Negative Medications & Allergies Home Medications: Home Medication List Letrozole [Femara] 2.5 mg PO DAILY 09/05/15 [History Confirmed 06/15/20] Glipizide 5 mg PO DAILY 05/03/20 [History Confirmed 06/15/20] Insulin NPH Hum/Reg Insulin Hm [Humulin 70-30 Vial] 23 unit SQ BID 05/03/20 [History Confirmed 06/15/20] Meloxicam 7.5 mg PO DAILY #0 05/11/20 [Rx Confirmed 06/15/20] Allergies/Adverse Reactions: Allergies Allergy/AdvReac Type Severity Reaction Status Date / Time No Known Drug Allergies Allergy Verified 06/15/20 10:38 - Past Medical History Past Medical History: Yes Neurological History: No Pertinent History ENT History: Macular Degeneration Cardiac History: No Pertinent History Respiratory History: No Pertinent History Endocrine Medical History: Diabetes Type II Musculoskelatal History: Arthritis, Fibromyalgia GI Medical History: Polyps History: No Pertinent History Pyscho-Social History: No Pertinent History Reproductive Disorders: Breast Cancer Comment: rheumatic fever as a child, Right side masectomy - Female History Are you now?: No - Past Surgical History Past Surgical History: Yes Neuro Surgical History: No Pertinent History Cardiac History: Cardiac Catheterization Respiratory Surgery: No Pertinent History GI Surgical History: Other Genitourinary Surgical Hx: No Pertinent History Musculskeletal Surgical Hx: Orthopedic Surgery Female Surgical History: Hysterectomy, Tubal Ligation, Mastectomy Other Surgical History: gastric bypass - Social History Smoking Status: Never smoker Exposure to second hand smoke: Yes Alcohol: None Drug Use: none - Physical Exam Vital Signs: Vital Signs - 24 hr Temp Pulse Resp BP Pulse Ox 06/16/20 16:48 82 20 139/63 98 06/16/20 16:00 97.9 F 89 16 136/65 96 06/16/20 12:00 18 97 06/16/20 11:36 98 F 77 18 122/58 97 06/16/20 08:00 14 06/16/20 07:13 97 06/16/20 07:08 98.6 F 78 14 139/64 97 06/16/20 06:55 97 06/16/20 06:52 97 06/16/20 04:00 99.0 F 83 20 173/74 97 06/16/20 03:13 97 06/16/20 00:00 16 06/15/20 23:13 97 06/15/20 20:00 18 06/15/20 19:50 98.0 F 77 18 171/74 100 06/15/20 19:37 100 Oxygen-Last 24 hours Oxygen Flowrate (L/min)-RT 2 General Appearance: no apparent distress, alert Neurologic Exam: alert, oriented x 3, cooperative Neck Exam: non-tender, supple Respiratory Exam: normal breath sounds, lungs clear, No respiratory distress Cardiovascular Exam: regular rate/rhythm, normal heart sounds, normal peripheral pulses Gastrointestinal/Abdomen Exam: soft, other (no bowel sounds, abdomen soft, dressing c/d/i, binder in place) Extremity Exam: normal inspection, normal range of motion, pelvis stable Wound Assessment: Skin/Wound Assessment Wound/Incision Assessment Start: 06/15/20 15:53 Text: Status: Active Freq: Q4H Protocol: Document 06/16/20 14:00 AR (Rec: 06/16/20 14:37 AR [id number]) Wound/Incision Assessment Abdomen Wound Assessment Shift Assessment Wound Type Incision Wound Stage Non Pressure Wound Dressing Status Dry & Intact Drainage Amount Minimal Comment DRESSING CDI. MINIMAL AMOUNT OF SHADOW DRAINAGE Remains true Wound Photo Photo Taken No Results - Labs Lab/Micro Results: Lab Results-Last 24 Hours 06/15/20 06/15/20 06/16/20 Range/Units 17:56 21:42 01:57 WBC (4.0-10.5) K/mm3 RBC (4.1-5.4) M/mm3 Hgb (12.0-16.0) gm/dl Hct (35-47) % MCV (78-100) fl MCH (26-32) pg MCHC (32-36) g/dl RDW (11.5-14.0) % Plt Count (150-450) K/mm3 MPV (7.5-11.0) fl Sodium (137-145) mmol/L Potassium (3.5-5.1) mmol/L Chloride (98-107) mmol/L Carbon Dioxide (22-30) mmol/L Anion Gap (5-15) MEQ/L BUN (7-17) mg/dL Creatinine (0.52-1.04) mg/dL Estimated GFR ML/MIN Glucose (74-106) mg/dL POC Glucometer 258 H 290 H 301 H (74 to 106) mg/dL Calcium (8.4-10.2) mg/dL Slides for Path Review 06/16/20 06/16/20 06/16/20 Range/Units 04:45 04:45 10:17 WBC 8.7 (4.0-10.5) K/mm3 RBC 3.54 L (4.1-5.4) M/mm3 Hgb 7.5 L (12.0-16.0) gm/dl Hct 26.9 L (35-47) % MCV 76.0 L (78-100) fl MCH 21.2 L (26-32) pg MCHC 27.9 L (32-36) g/dl RDW 16.2 H (11.5-14.0) % Plt Count 255 (150-450) K/mm3 MPV 10.8 (7.5-11.0) fl Sodium 133 L (137-145) mmol/L Potassium 4.4 (3.5-5.1) mmol/L Chloride 102 (98-107) mmol/L Carbon Dioxide 28 (22-30) mmol/L Anion Gap 8.5 (5-15) MEQ/L BUN 6 L (7-17) mg/dL Creatinine 0.66 (0.52-1.04) mg/dL Estimated GFR > 60.0 ML/MIN Glucose 304 H (74-106) mg/dL POC Glucometer 275 H (74 to 106) mg/dL Calcium 8.3 L (8.4-10.2) mg/dL Slides for Path Review 06/16/20 06/16/20 Range/Units 13:32 15:59 WBC (4.0-10.5) K/mm3 RBC (4.1-5.4) M/mm3 Hgb (12.0-16.0) gm/dl Hct (35-47) % MCV (78-100) fl MCH (26-32) pg MCHC (32-36) g/dl RDW (11.5-14.0) % Plt Count (150-450) K/mm3 MPV (7.5-11.0) fl Sodium (137-145) mmol/L Potassium (3.5-5.1) mmol/L Chloride (98-107) mmol/L Carbon Dioxide (22-30) mmol/L Anion Gap (5-15) MEQ/L BUN (7-17) mg/dL Creatinine (0.52-1.04) mg/dL Estimated GFR ML/MIN Glucose (74-106) mg/dL POC Glucometer 212 H 193 H (74 to 106) mg/dL Calcium (8.4-10.2) mg/dL Slides for Path Review Microbiology 06/15/20 12:24 Urine Culture - Preliminary Catherized GRAM NEGATIVE ID AND SENSITIVITY PENDING Accuchecks Date 06/16/20 Date 06/16/20 Date 06/16/20 Date 06/16/20 Date 06/15/20 Time 15:59 Time 13:30 Time 10:17 - Other Procedures and Tests Respiratory Therapy 06/15/20 19:00 Oxygen Nasal Cannula 2 lpm Assessment/Plan (1) Status post right hemicolectomy Current Visit: Yes Status: Acute Assessment & Plan: currently NPO, pain is well controlled with INSTRUMENT SETTER. prophylactic lovenox ordered. Code(s): Z90.49 - ACQUIRED ABSENCE OF OTHER SPECIFIED PARTS OF DIGESTIVE TRACT (2) Hyperglycemia due to type 2 diabetes mellitus Current Visit: No Status: Acute Assessment & Plan: sliding scale insulin ordered Code(s): E11.65 - TYPE 2 DIABETES MELLITUS WITH HYPERGLYCEMIA (3) Urinary tract infection Current Visit: No Status: Acute Assessment & Plan: culture pending, rocephin ordered, received cefoxitin preoperatively yesterday. Code(s): N39.0 - URINARY TRACT INFECTION, SITE NOT SPECIFIED (4) Anemia Current Visit: Yes Status: Acute Assessment & Plan: repeat cbc in am, transfuse if hgb 7 or less Code(s): D64.9 - ANEMIA, UNSPECIFIED
[2020-06-17] MEDS: D5W/0.45NS W/ 20mEq KCl 1000 ML 1,000 ML IV SCH ×2 (03:56→14:39)
[2020-06-17] MEDS ORDERED: CHLORASEPTIC SPRAY 180 ML PO PRN (05:33)
[2020-06-17 06:21] LABS: BASOPHIL % 0.4 % (0.0-0.4); Basophil (Absolute #) 0.03 (0-0.4); Eosinophil % 1.7 % (0.00-5.0); Eosinophil (Absolute #) 0.13 (0-0.5); Hematocrit 27.9 % (35-47); Hemoglobin 7.8 gm/dl (12.0-16.0); Lymphocyte (Absolute #) 0.91 (1.0-4.6); Lymphocytes % 12.2 % (24.0-44.0); Mean Cell Volume 76.9 fl (78-100); Mean Corpuscular Hemoglobin 21.5 pg (26-32); Mean Platelet Volume 10.7 fl (7.5-11.0); Monocytes % 9.4 % (0.0-12.0); Neutrophil % 76.3 % (36.0-66.0); Platelet Count 237 K/mm3 (150-450); Red Blood Count 3.63 M/mm3 (4.1-5.4); Red Cell Distribution Width 16.5 % (11.5-14.0); White Blood Count 7.5 K/mm3 (4.0-10.5)
[2020-06-17 06:30] LABS: BLOOD UREA NITROGEN 4 mg/dL (7-17); CHLORIDE 102 mmol/L (98-107); Calcium 8.7 mg/dL (8.4-10.2); Carbon Dioxide 28 mmol/L (22-30); Creatinine 1 0.62 mg/dL (0.52-1.04); EST GLOMERULAR FILTRATION RATE > 60.0 ML/MIN; Glucose 248 mg/dL (74-106); Potassium 4.6 mmol/L (3.5-5.1); SODIUM 132 mmol/L (137-145)
--- NOTE | 2020-06-17 08:47 | PCM.NOTE ---
Date and Time: 06/17/20 0846 Subjective Assessment: doing ok, no new complaints - Review of Systems Constitutional: No Fever, No Chills Eyes: No Symptoms Ears, Nose, & Throat: No Symptoms Respiratory: No Cough, No Short Of Breath Cardiac: No Chest Pain, No Edema, No Syncope Abdominal/Gastrointestinal: No Abdominal Pain, No Nausea, No Vomiting, No Diarrhea Genitourinary Symptoms: No Dysuria Musculoskeletal: No Back Pain, No Neck Pain Skin: No Rash Neurological: No Dizziness, No Focal Weakness, No Sensory Changes Psychological: No Symptoms Endocrine: No Symptoms Hematologic/Lymphatic: No Symptoms Immunological/Allergic: No Symptoms Objective Exam General Appearance: no apparent distress, alert Neurologic Exam: alert, oriented x 3, cooperative, normal mood/affect, nml cerebellar function, sensation nml, No motor deficits Skin Exam: normal color, warm, dry Wound Assessment: Skin/Wound Assessment Wound/Incision Assessment Start: 06/15/20 15:53 Text: Status: Active Freq: Q4H Protocol: Document 06/17/20 06:00 LB (Rec: 06/17/20 06:13 LB [id number]) Wound/Incision Assessment Abdomen Wound Assessment Shift Assessment Wound Type Incision Wound Stage Non Pressure Wound Dressing Status Dry & Intact Drainage Amount Minimal Wound Photo Photo Taken No Eye Exam: PERRL, EOMI, eyes nml inspection Ears, Nose, Throat Exam: normal ENT inspection, pharynx normal, moist mucous membranes Neck Exam: normal inspection, non-tender, supple, full range of motion Respiratory Exam: normal breath sounds, lungs clear, No respiratory distress Cardiovascular Exam: regular rate/rhythm, normal heart sounds Gastrointestinal/Abdomen Exam: soft, No tenderness, No mass Extremity Exam: normal inspection, normal range of motion Back Exam: normal inspection, normal range of motion, No CVA tenderness, No vert ebral tenderness Pelvic Exam: deferred Rectal Exam: deferred OBJECTIVE DATA Vital Signs: Vital Signs - 24 hr Temp Pulse Resp BP Pulse Ox 06/17/20 08:10 96 06/17/20 08:00 98.7 F 92 H 14 167/72 96 06/17/20 05:52 97 06/17/20 04:00 99.2 F 86 17 143/65 97 06/17/20 00:00 18 06/16/20 23:53 98.2 F 94 H 18 142/63 98 06/16/20 20:00 98.5 F 77 17 146/65 99 06/16/20 19:15 96 06/16/20 16:48 82 20 139/63 98 06/16/20 16:00 97.9 F 89 20 136/65 98 06/16/20 12:00 18 97 06/16/20 11:36 98 F 77 18 122/58 97 Oxygen-Last 24 hours Oxygen Flowrate (L/min)-RT 2 Oxygen Flowrate (L/min)-RT 2 Pain Assessment - Last Documented Pain Intensity 4 Intake and Output: Intake & Output 06/14/20 06/15/20 06/16/20 06/17/20 11:59 11:59 11:59 11:59 Intake Total 1223 1912 Output Total 1850 700 Balance -627 1212 Weight 76.4 kg 76.4 kg 81.3 kg Lab Results: Lab Results-Last 24 Hours 06/16/20 06/16/20 06/16/20 Range/Units 10:17 13:32 15:59 WBC (4.0-10.5) K/mm3 RBC (4.1-5.4) M/mm3 Hgb (12.0-16.0) gm/dl Hct (35-47) % MCV (78-100) fl MCH (26-32) pg MCHC (32-36) g/dl RDW (11.5-14.0) % Plt Count (150-450) K/mm3 MPV (7.5-11.0) fl Gran % (36.0-66.0) % Eos # (Auto) (0-0.5) Absolute Lymphs (auto) (1.0-4.6) Absolute Monos (auto) (0.0-1.3) Lymphocytes % (24.0-44.0) % Monocytes % (0.0-12.0) % Eosinophils % (0.00-5.0) % Basophils % (0.0-0.4) % Absolute Granulocytes (1.4-6.9) Basophils # (0-0.4) Sodium (137-145) mmol/L Potassium (3.5-5.1) mmol/L Chloride (98-107) mmol/L Carbon Dioxide (22-30) mmol/L Anion Gap (5-15) MEQ/L BUN (7-17) mg/dL Creatinine (0.52-1.04) mg/dL Estimated GFR ML/MIN Glucose (74-106) mg/dL POC Glucometer 275 H 212 H 193 H (74 to 106) mg/dL Calcium (8.4-10.2) mg/dL Troponin I (0.000-0.034) ng/mL 06/16/20 06/16/20 06/16/20 Range/Units 18:10 20:30 23:44 WBC (4.0-10.5) K/mm3 RBC (4.1-5.4) M/mm3 Hgb (12.0-16.0) gm/dl Hct (35-47) % MCV (78-100) fl MCH (26-32) pg MCHC (32-36) g/dl RDW (11.5-14.0) % Plt Count (150-450) K/mm3 MPV (7.5-11.0) fl Gran % (36.0-66.0) % Eos # (Auto) (0-0.5) Absolute Lymphs (auto) (1.0-4.6) Absolute Monos (auto) (0.0-1.3) Lymphocytes % (24.0-44.0) % Monocytes % (0.0-12.0) % Eosinophils % (0.00-5.0) % Basophils % (0.0-0.4) % Absolute Granulocytes (1.4-6.9) Basophils # (0-0.4) Sodium (137-145) mmol/L Potassium (3.5-5.1) mmol/L Chloride (98-107) mmol/L Carbon Dioxide (22-30) mmol/L Anion Gap (5-15) MEQ/L BUN (7-17) mg/dL Creatinine (0.52-1.04) mg/dL Estimated GFR ML/MIN Glucose (74-106) mg/dL POC Glucometer 129 H 158 H (74 to 106) mg/dL Calcium (8.4-10.2) mg/dL Troponin I < 0.012 (0.000-0.034) ng/mL 06/17/20 06/17/20 06/17/20 Range/Units 03:35 05:46 05:46 WBC 7.5 (4.0-10.5) K/mm3 RBC 3.63 L (4.1-5.4) M/mm3 Hgb 7.8 L (12.0-16.0) gm/dl Hct 27.9 L (35-47) % MCV 76.9 L (78-100) fl MCH 21.5 L (26-32) pg MCHC 28.0 L (32-36) g/dl RDW 16.5 H (11.5-14.0) % Plt Count 237 (150-450) K/mm3 MPV 10.7 (7.5-11.0) fl Gran % 76.3 H (36.0-66.0) % Eos # (Auto) 0.13 (0-0.5) Absolute Lymphs (auto) 0.91 L (1.0-4.6) Absolute Monos (auto) 0.70 (0.0-1.3) Lymphocytes % 12.2 L (24.0-44.0) % Monocytes % 9.4 (0.0-12.0) % Eosinophils % 1.7 (0.00-5.0) % Basophils % 0.4 (0.0-0.4) % Absolute Granulocytes 5.70 (1.4-6.9) Basophils # 0.03 (0-0.4) Sodium 132 L (137-145) mmol/L Potassium 4.6 (3.5-5.1) mmol/L Chloride 102 (98-107) mmol/L Carbon Dioxide 28 (22-30) mmol/L Anion Gap 7.0 (5-15) MEQ/L BUN 4 L (7-17) mg/dL Creatinine 0.62 (0.52-1.04) mg/dL Estimated GFR > 60.0 ML/MIN Glucose 248 H (74-106) mg/dL POC Glucometer 206 H (74 to 106) mg/dL Calcium 8.7 (8.4-10.2) mg/dL Troponin I (0.000-0.034) ng/mL 06/17/20 Range/Units 07:25 WBC (4.0-10.5) K/mm3 RBC (4.1-5.4) M/mm3 Hgb (12.0-16.0) gm/dl Hct (35-47) % MCV (78-100) fl MCH (26-32) pg MCHC (32-36) g/dl RDW (11.5-14.0) % Plt Count (150-450) K/mm3 MPV (7.5-11.0) fl Gran % (36.0-66.0) % Eos # (Auto) (0-0.5) Absolute Lymphs (auto) (1.0-4.6) Absolute Monos (auto) (0.0-1.3) Lymphocytes % (24.0-44.0) % Monocytes % (0.0-12.0) % Eosinophils % (0.00-5.0) % Basophils % (0.0-0.4) % Absolute Granulocytes (1.4-6.9) Basophils # (0-0.4) Sodium (137-145) mmol/L Potassium (3.5-5.1) mmol/L Chloride (98-107) mmol/L Carbon Dioxide (22-30) mmol/L Anion Gap (5-15) MEQ/L BUN (7-17) mg/dL Creatinine (0.52-1.04) mg/dL Estimated GFR ML/MIN Glucose (74-106) mg/dL POC Glucometer 228 H (74 to 106) mg/dL Calcium (8.4-10.2) mg/dL Troponin I (0.000-0.034) ng/mL Assessment/Plan (1) Hyperglycemia due to type 2 diabetes mellitus Current Visit: Yes Status: Acute Qualifiers: Diabetes mellitus joint terminal attack controller insulin use: without mcc use Qualified Code(s): E11.65 - Type 2 diabetes mellitus with hyperglycemia Code(s): E11.65 - TYPE 2 DIABETES MELLITUS WITH HYPERGLYCEMIA (2) Status post right hemicolectomy Current Visit: Yes Status: Acute Code(s): Z90.49 - ACQUIRED ABSENCE OF OTHER SPECIFIED PARTS OF DIGESTIVE TRACT
[2020-06-17 08:53] LABS: Slide Review 1 YES
[2020-06-17] MEDS: Novolin 70/30 SQ SCH (09:29)
[2020-06-17] MEDS: Ditropan XL 5 MG PO SCH (09:40)
[2020-06-17] MEDS: Protonix 40MG Tablet PO SCH (09:40)
[2020-06-17] MEDS: Cymbalta 30 MG Capsule PO SCH (09:41)
[2020-06-17] MEDS: Glucotrol 5 MG PO SCH (09:41)
[2020-06-17] MEDS: ROCEPHIN 1 Gm-D5w 50 ml Bag** 1 G/50 ML IVPB IV SCH (09:42)
[2020-06-17] MEDS: ENOXAPARIN SODIUM SQ SCH (09:42)
[2020-06-17] MEDS: CEPACOL SORE THROAT LOZENGE PO PRN ×2 (14:38→19:57)
[2020-06-17] MEDS: TRANDATE 20 MG/4 ML SYRINGE IV PRN (16:46)
[2020-06-17] MEDS: Morphine PCA 1 MG/ML 30 ML IV PRN (21:00)
[2020-06-17] MEDS: HUMALOG SQ PRN (23:34)
[2020-06-18] MEDS: CEPACOL SORE THROAT LOZENGE PO PRN ×4 (00:31→20:18)
[2020-06-18] MEDS: D5W/0.45NS W/ 20mEq KCl 1000 ML 1,000 ML IV SCH ×4 (00:33→20:29)
[2020-06-18] MEDS: HUMALOG SQ PRN ×3 (08:10→20:17)
[2020-06-18] MEDS: Protonix 40MG Tablet PO SCH (09:48)
[2020-06-18] MEDS: Glucotrol 5 MG PO SCH (09:49)
[2020-06-18] MEDS: ROCEPHIN 1 Gm-D5w 50 ml Bag** 1 G/50 ML IVPB IV SCH (09:49)
[2020-06-18] MEDS: Cymbalta 30 MG Capsule PO SCH (09:49)
[2020-06-18] MEDS: ENOXAPARIN SODIUM SQ SCH (09:49)
[2020-06-18] MEDS: Ditropan XL 5 MG PO SCH (09:49)
[2020-06-18] MEDS: Morphine PCA 1 MG/ML 30 ML IV PRN (23:00)
[2020-06-19] MEDS: CEPACOL SORE THROAT LOZENGE PO PRN (03:45)
[2020-06-19 04:58] LABS: Hematocrit 25.9 % (35-47); Hemoglobin 7.2 gm/dl (12.0-16.0); Mean Cell Volume 76.6 fl (78-100); Mean Corpuscular Hemoglobin 21.3 pg (26-32); Mean Corpuscular Hgb Concent. 27.8 g/dl (32-36); Mean Platelet Volume 10.5 fl (7.5-11.0); Platelet Count 235 K/mm3 (150-450); Red Blood Count 3.38 M/mm3 (4.1-5.4); Red Cell Distribution Width 16.5 % (11.5-14.0); White Blood Count 5.3 K/mm3 (4.0-10.5)
[2020-06-19 05:22] LABS: ANION GAP 6.6 MEQ/L (5-15); CHLORIDE 101 mmol/L (98-107); Calcium 8.5 mg/dL (8.4-10.2); Carbon Dioxide 29 mmol/L (22-30); Creatinine 1 0.53 mg/dL (0.52-1.04); EST GLOMERULAR FILTRATION RATE > 60.0 ML/MIN; Glucose 256 mg/dL (74-106); Potassium 4.2 mmol/L (3.5-5.1); SODIUM 132 mmol/L (137-145)
[2020-06-19 05:32] LABS: BLOOD UREA NITROGEN < 2 mg/dL (7-17)
[2020-06-19] MEDS: D5W/0.45NS W/ 20mEq KCl 1000 ML 1,000 ML IV SCH ×3 (05:39→20:05)
[2020-06-19 06:23] LABS: Slide Review YES
--- NOTE | 2020-06-19 08:11 | PCM.NOTE ---
Date and Time: 06/19/20 08 Subjective Assessment: patient has been up to chair, no flatus, no bowel movement. her pain is controlled, she has no other complaints this morning. Objective Exam General Appearance: no apparent distress, alert Wound Assessment: Skin/Wound Assessment Wound/Incision Assessment Start: 06/15/20 15:53 Text: Status: Active Freq: Q4H Protocol: Document 06/19/20 04:52 KX (Rec: 06/19/20 04:53 KX [id number]) Wound/Incision Assessment Abdomen Wound Assessment Shift Assessment Wound Type Incision Dressing Status Drainage circled Drainage Amount Minimal Drainage Description Sanguineous Drainage Odor None/Absent Comment small amount of break through bleeding noted on left lower dressing; abdominal binder in place, dressing intac Wound Photo Photo Taken No Respiratory Exam: normal breath sounds, lungs clear, No respiratory distress Cardiovascular Exam: regular rate/rhythm, normal heart sounds Gastrointestinal/Abdomen Exam: soft, other (dressing c/d/i), No normal bowel sounds (decreased, minimally present) Extremity Exam: normal inspection, normal range of motion OBJECTIVE DATA Vital Signs: Vital Signs - 24 hr Temp Pulse Resp BP Pulse Ox 06/19/20 07:09 98.2 F 84 16 170/77 97 06/19/20 06:50 97 06/19/20 06:47 92 L 06/19/20 05:00 97 06/19/20 04:00 20 06/19/20 03:50 99.0 F 106 H 20 175/67 94 L 06/19/20 03:00 96 06/19/20 01:00 94 L 06/19/20 00:00 19 06/18/20 23:47 99.0 F 77 19 172/73 98 06/18/20 23:00 93 L 06/18/20 21:00 93 L 06/18/20 20:34 99 06/18/20 20:00 20 06/18/20 19:36 97.7 F 91 H 20 142/66 93 L 06/18/20 17:00 96 06/18/20 16:00 98.6 F 82 16 137/78 93 L 06/18/20 14:55 96 06/18/20 13:00 97 06/18/20 12:00 16 06/18/20 11:51 99.0 F 92 H 16 126/60 92 L 06/18/20 10:55 95 06/18/20 09:00 95 06/18/20 08:19 98 Pain Assessment - Last Documented Pain Intensity 4 Intake and Output: Intake & Output 06/16/20 06/17/20 06/18/20 06/19/20 11:59 11:59 11:59 11:59 Intake Total 1223 1912 2405 3620 Output Total 1850 6812 236 6888 Balance -338 723 3679 2520 Weight 76.4 kg 81.3 kg 81.4 kg 81.2 kg Lab Results: Lab Results-Last 24 Hours 06/18/20 06/18/20 06/18/20 Range/Units 11:49 16:23 19:45 WBC (4.0-10.5) K/mm3 RBC (4.1-5.4) M/mm3 Hgb (12.0-16.0) gm/dl Hct (35-47) % MCV (78-100) fl MCH (26-32) pg MCHC (32-36) g/dl RDW (11.5-14.0) % Plt Count (150-450) K/mm3 MPV (7.5-11.0) fl Sodium (137-145) mmol/L Potassium (3.5-5.1) mmol/L Chloride (98-107) mmol/L Carbon Dioxide (22-30) mmol/L Anion Gap (5-15) MEQ/L BUN (7-17) mg/dL Creatinine (0.52-1.04) mg/dL Estimated GFR ML/MIN Glucose (74-106) mg/dL POC Glucometer 247 H 156 H 204 H (74 to 106) mg/dL Calcium (8.4-10.2) mg/dL Slides for Path Review 06/18/20 06/19/20 06/19/20 Range/Units 23:37 03:42 04:20 WBC 5.3 (4.0-10.5) K/mm3 RBC 3.38 L (4.1-5.4) M/mm3 Hgb 7.2 L (12.0-16.0) gm/dl Hct 25.9 L (35-47) % MCV 76.6 L (78-100) fl MCH 21.3 L (26-32) pg MCHC 27.8 L (32-36) g/dl RDW 16.5 H (11.5-14.0) % Plt Count 235 (150-450) K/mm3 MPV 10.5 (7.5-11.0) fl Sodium (137-145) mmol/L Potassium (3.5-5.1) mmol/L Chloride (98-107) mmol/L Carbon Dioxide (22-30) mmol/L Anion Gap (5-15) MEQ/L BUN (7-17) mg/dL Creatinine (0.52-1.04) mg/dL Estimated GFR ML/MIN Glucose (74-106) mg/dL POC Glucometer 195 H 225 H (74 to 106) mg/dL Calcium (8.4-10.2) mg/dL Slides for Path Review YES 06/19/20 Range/Units 04:20 WBC (4.0-10.5) K/mm3 RBC (4.1-5.4) M/mm3 Hgb (12.0-16.0) gm/dl Hct (35-47) % MCV (78-100) fl MCH (26-32) pg MCHC (32-36) g/dl RDW (11.5-14.0) % Plt Count (150-450) K/mm3 MPV (7.5-11.0) fl Sodium 132 L (137-145) mmol/L Potassium 4.2 (3.5-5.1) mmol/L Chloride 101 (98-107) mmol/L Carbon Dioxide 29 (22-30) mmol/L Anion Gap 6.6 (5-15) MEQ/L BUN < 2 L (7-17) mg/dL Creatinine 0.53 (0.52-1.04) mg/dL Estimated GFR > 60.0 ML/MIN Glucose 256 H (74-106) mg/dL POC Glucometer (74 to 106) mg/dL Calcium 8.5 (8.4-10.2) mg/dL Slides for Path Review Multi-Disciplinary Progress Notes: Multi-Disciplinary Progress Notes 06/19/20 06:49 Respiratory Note by Catia East PT'S O2 SAT ON ROOM AIR WHILE SLEEPING WAS 86%. PT WAS PLACED BACK ON 2LPM NASAL CANNULA. O2 SAT INCREASED TO 97%. Initialized on 06/19/20 06:49 - END OF NOTE Assessment/Plan (1) Status post right hemicolectomy Current Visit: Yes Status: Acute Assessment & Plan: minimal bowel sounds audible today, no flatus as of yet. diet per surgery team Code(s): Z90.49 - ACQUIRED ABSENCE OF OTHER SPECIFIED PARTS OF DIGESTIVE TRACT (2) Hyperglycemia due to type 2 diabetes mellitus Current Visit: Yes Status: Acute Qualifiers: Diabetes mellitus watcher automat long goods insulin use: without watcher automat long goods use Qualified Code(s): E11.65 - Type 2 diabetes mellitus with hyperglycemia Assessment & Plan: blood sugars have been reasonable, will add basal coverage when diet advances, for now just covering with sliding scale coverage and levels are reasonable Code(s): E11.65 - TYPE 2 DIABETES MELLITUS WITH HYPERGLYCEMIA (3) Urinary tract infection Current Visit: No Status: Acute Assessment & Plan: e coli present, on rocephin, today is day #4, will complete 5 days of therapy. Code(s): N39.0 - URINARY TRACT INFECTION, SITE NOT SPECIFIED (4) Anemia Current Visit: Yes Status: Acute Assessment & Plan: h/h stable Code(s): D64.9 - ANEMIA, UNSPECIFIED
[2020-06-19] MEDS: Zofran 4 MG/2 ML VIAL IV PRN (10:20)
[2020-06-19] MEDS: ROCEPHIN 1 Gm-D5w 50 ml Bag** 1 G/50 ML IVPB IV SCH (10:24)
[2020-06-19] MEDS: Ditropan XL 5 MG PO SCH (10:25)
[2020-06-19] MEDS: Cymbalta 30 MG Capsule PO SCH (10:25)
[2020-06-19] MEDS: Glucotrol 5 MG PO SCH (10:25)
[2020-06-19] MEDS: Protonix 40MG Tablet PO SCH (10:25)
[2020-06-19] MEDS: ENOXAPARIN SODIUM SQ SCH (10:27)
[2020-06-19] MEDS: HUMALOG SQ PRN ×2 (11:41→20:11)
[2020-06-19] MEDS ORDERED: Golytely Solution 4000 ML PO ONE (16:00)
[2020-06-20] MEDS: Morphine PCA 1 MG/ML 30 ML IV PRN (04:18)
[2020-06-20] MEDS: TRANDATE 20 MG/4 ML SYRINGE IV PRN (04:33)
[2020-06-20] MEDS: HUMALOG SQ PRN ×4 (04:33→19:46)
[2020-06-20 05:04] LABS: Absolute Neutrophil Ct (ANC) 3.68 (1.4-6.9); BASOPHIL % 0.4 % (0.0-0.4); Basophil (Absolute #) 0.02 (0-0.4); Eosinophil % 5.1 % (0.00-5.0); Eosinophil (Absolute #) 0.28 (0-0.5); Hematocrit 26.8 % (35-47); Hemoglobin 7.4 gm/dl (12.0-16.0); Lymphocyte (Absolute #) 0.93 (1.0-4.6); Lymphocytes % 17.1 % (24.0-44.0); Mean Corpuscular Hemoglobin 21.3 pg (26-32); Mean Corpuscular Hgb Concent. 27.6 g/dl (32-36); Mean Platelet Volume 10.7 fl (7.5-11.0); Monocyte (Absolute #) 0.54 (0.0-1.3); Monocytes % 9.9 % (0.0-12.0); Neutrophil % 67.5 % (36.0-66.0); Platelet Count 252 K/mm3 (150-450); Red Blood Count 3.48 M/mm3 (4.1-5.4); Red Cell Distribution Width 16.6 % (11.5-14.0); White Blood Count 5.5 K/mm3 (4.0-10.5)
[2020-06-20 05:16] LABS: ANION GAP 6.7 MEQ/L (5-15); CHLORIDE 101 mmol/L (98-107); Calcium 8.6 mg/dL (8.4-10.2); Carbon Dioxide 30 mmol/L (22-30); Creatinine 1 0.51 mg/dL (0.52-1.04); EST GLOMERULAR FILTRATION RATE > 60.0 ML/MIN; Glucose 249 mg/dL (74-106); Potassium 4.1 mmol/L (3.5-5.1); SODIUM 133 mmol/L (137-145)
[2020-06-20 05:17] LABS: BLOOD UREA NITROGEN < 2 mg/dL (7-17)
[2020-06-20 05:22] LABS: Slide Review 1 YES
[2020-06-20] MEDS ORDERED: Apresoline 25 MG TABLET PO PRN (08:27)
--- NOTE | 2020-06-20 08:58 | PCM.NOTE ---
Date and Time: 06/20/20 0852 Subjective Assessment: Pt was seen by Dr. Prieto this morning, and afterward started passing gas. Her pain is decreased, 6/10 currently. Per nursing, without her O2 her sat was 86% - she was advised again about using the IS. Objective Exam General Appearance: no apparent distress, alert, other (lying in bed) Neurologic Exam: oriented x 3, cooperative Skin Exam: normal color, warm, dry, No rash Wound Assessment: Skin/Wound Assessment Wound/Incision Assessment Start: 06/15/20 15:53 Text: Status: Active Freq: Q4H Protocol: Document 06/20/20 05:00 LL (Rec: 06/20/20 05:09 LL [id number]) Wound/Incision Assessment Abdomen Wound Assessment Shift Assessment Wound Type Incision Wound Stage Non Pressure Wound Dressing Status Changed Drainage Amount Minimal Drainage Odor None/Absent Primary [place] dressing. Comment dressing CDI. Wound Photo Photo Taken No Ears, Nose, Throat Exam: other (mouth somewhat dry, tongue with mild erythema) Neck Exam: normal inspection Respiratory Exam: normal breath sounds, lungs clear, No crackles/rales, No rhonchi, No wheezing Cardiovascular Exam: regular rate/rhythm, normal heart sounds, No murmur Gastrointestinal/Abdomen Exam: other (binder in place; bowel sounds present, high pitched) Extremity Exam: No pedal edema, No swelling OBJECTIVE DATA Vital Signs: Vital Signs - 24 hr Temp Pulse Resp BP Pulse Ox 06/20/20 08:00 98.2 F 78 12 133/63 98 06/20/20 05:51 99 06/20/20 04:59 76 146/63 06/20/20 04:18 97 06/20/20 04:00 98.6 F 95 H 13 189/83 97 06/20/20 00:00 98.4 F 78 15 169/75 94 L 06/19/20 20:00 16 99 06/19/20 19:36 98.4 F 84 16 138/74 99 06/19/20 19:32 98 06/19/20 17:00 98 06/19/20 16:00 98.1 F 79 14 143/64 94 L 06/19/20 15:00 94 L 06/19/20 13:00 96 06/19/20 11:55 16 06/19/20 11:25 98.7 F 98 H 16 164/74 96 06/19/20 11:00 96 06/19/20 09:00 97 Pain Assessment - Last Documented Pain Intensity 7 Intake and Output: Intake & Output 06/17/20 06/18/20 06/19/20 06/20/20 11:59 11:59 11:59 11:59 Intake Total 1912 2405 3620 2649 Output Total 5437 324 2091 1580 Balance 812 1705 2520 1069 Weight 81.3 kg 81.4 kg 81.2 kg 81.9 kg Lab Results: Lab Results-Last 24 Hours 06/19/20 06/19/20 06/19/20 Range/Units 11:18 16:18 20:03 WBC (4.0-10.5) K/mm3 RBC (4.1-5.4) M/mm3 Hgb (12.0-16.0) gm/dl Hct (35-47) % MCV (78-100) fl MCH (26-32) pg MCHC (32-36) g/dl RDW (11.5-14.0) % Plt Count (150-450) K/mm3 MPV (7.5-11.0) fl Gran % (36.0-66.0) % Eos # (Auto) (0-0.5) Absolute Lymphs (auto) (1.0-4.6) Absolute Monos (auto) (0.0-1.3) Lymphocytes % (24.0-44.0) % Monocytes % (0.0-12.0) % Eosinophils % (0.00-5.0) % Basophils % (0.0-0.4) % Absolute Granulocytes (1.4-6.9) Basophils # (0-0.4) Sodium (137-145) mmol/L Potassium (3.5-5.1) mmol/L Chloride (98-107) mmol/L Carbon Dioxide (22-30) mmol/L Anion Gap (5-15) MEQ/L BUN (7-17) mg/dL Creatinine (0.52-1.04) mg/dL Estimated GFR ML/MIN Glucose (74-106) mg/dL POC Glucometer 262 H 189 H 223 H (74 to 106) mg/dL Calcium (8.4-10.2) mg/dL Slides for Path Review 01/06/20/20 06/20/20 Range/Units 00:06 04:11 04:45 WBC 5.5 (4.0-10.5) K/mm3 RBC 3.48 L (4.1-5.4) M/mm3 Hgb 7.4 L (12.0-16.0) gm/dl Hct 26.8 L (35-47) % MCV 77.0 L (78-100) fl MCH 21.3 L (26-32) pg MCHC 27.6 L (32-36) g/dl RDW 16.6 H (11.5-14.0) % Plt Count 252 (150-450) K/mm3 MPV 10.7 (7.5-11.0) fl Gran % 67.5 H (36.0-66.0) % Eos # (Auto) 0.28 (0-0.5) Absolute Lymphs (auto) 0.93 L (1.0-4.6) Absolute Monos (auto) 0.54 (0.0-1.3) Lymphocytes % 17.1 L (24.0-44.0) % Monocytes % 9.9 (0.0-12.0) % Eosinophils % 5.1 H (0.00-5.0) % Basophils % 0.4 (0.0-0.4) % Absolute Granulocytes 3.68 (1.4-6.9) Basophils # 0.02 (0-0.4) Sodium (137-145) mmol/L Potassium (3.5-5.1) mmol/L Chloride (98-107) mmol/L Carbon Dioxide (22-30) mmol/L Anion Gap (5-15) MEQ/L BUN (7-17) mg/dL Creatinine (0.52-1.04) mg/dL Estimated GFR ML/MIN Glucose (74-106) mg/dL POC Glucometer 186 H 225 H (74 to 106) mg/dL Calcium (8.4-10.2) mg/dL Slides for Path Review YES 06/20/20 06/20/20 Range/Units 04:45 07:34 WBC (4.0-10.5) K/mm3 RBC (4.1-5.4) M/mm3 Hgb (12.0-16.0) gm/dl Hct (35-47) % MCV (78-100) fl MCH (26-32) pg MCHC (32-36) g/dl RDW (11.5-14.0) % Plt Count (150-450) K/mm3 MPV (7.5-11.0) fl Gran % (36.0-66.0) % Eos # (Auto) (0-0.5) Absolute Lymphs (auto) (1.0-4.6) Absolute Monos (auto) (0.0-1.3) Lymphocytes % (24.0-44.0) % Monocytes % (0.0-12.0) % Eosinophils % (0.00-5.0) % Basophils % (0.0-0.4) % Absolute Granulocytes (1.4-6.9) Basophils # (0-0.4) Sodium 133 L (137-145) mmol/L Potassium 4.1 (3.5-5.1) mmol/L Chloride 101 (98-107) mmol/L Carbon Dioxide 30 (22-30) mmol/L Anion Gap 6.7 (5-15) MEQ/L BUN < 2 L (7-17) mg/dL Creatinine 0.51 L (0.52-1.04) mg/dL Estimated GFR > 60.0 ML/MIN Glucose 249 H (74-106) mg/dL POC Glucometer 211 H (74 to 106) mg/dL Calcium 8.6 (8.4-10.2) mg/dL Slides for Path Review Multi-Disciplinary Progress Notes: Multi-Disciplinary Progress Notes 06/19/20 13:18 Nutrition Note by Jovita Freitas F/u Note: Pt remains NPO (x 3 days) no flatus; labs 06/19= Na 132, BUN <2, glu 256, hgb 7.2, hct 25.9,mcv 76.6, + fluid balance 2320 mls. Recommend to resume po intake within 2-3 days or begin alt feeding method. Will con't to monitor and f/u prn. T.ARACELI Freitas Initialized on 06/19/20 13:18 - END OF NOTE 06/19/20 10:23 Case Management Note by Ashly Butler REVIEWED CHART- WILL CONTINUE TO FOLLOW FOR ANY NEEDS CLOSER TO TIME OF DC Initialized on 01/25/21 10:23 - END OF NOTE Assessment/Plan (1) Status post right hemicolectomy Current Visit: Yes Status: Acute Assessment & Plan: POD #5. Hasn't eaten in those 5d, but I anticipate she may be able to start on CLD today since she is passing gas. On D5 1/2NS. Code(s): Z90.49 - ACQUIRED ABSENCE OF OTHER SPECIFIED PARTS OF DIGESTIVE TRACT (2) Diabetes mellitus Current Visit: Yes Status: Acute Qualifiers: Diabetes mellitus oil heaterman insulin use: without oil heaterman use Diabetes mellitus complication status: without complication Assessment & Plan: Has been uncontrolled. On sliding scale here. Accuchecks q4h as she is only on ice chips. Code(s): E11.9 - TYPE 2 DIABETES MELLITUS WITHOUT COMPLICATIONS (3) Anemia Current Visit: Yes Status: Acute Qualifiers: Anemia type: iron deficiency Iron deficiency anemia type: other iron deficiency Qualified Code(s): D50.8 - Other iron deficiency anemias Assessment & Plan: Hgb 7.4 currently. If below 7 would certainly transfuse 2 units. Checking daily. Code(s): D64.9 - ANEMIA, UNSPECIFIED
[2020-06-20] MEDS: D5W/0.45NS W/ 20mEq KCl 1000 ML 1,000 ML IV SCH ×2 (10:20→19:35)
[2020-06-20] MEDS: ROCEPHIN 1 Gm-D5w 50 ml Bag** 1 G/50 ML IVPB IV SCH (10:21)
[2020-06-20] MEDS: Cymbalta 30 MG Capsule PO SCH (10:25)
[2020-06-20] MEDS: Protonix 40MG Tablet PO SCH (10:25)
[2020-06-20] MEDS: Ditropan XL 5 MG PO SCH (10:25)
[2020-06-20] MEDS: Glucotrol 5 MG PO SCH (10:25)
[2020-06-20] MEDS: ENOXAPARIN SODIUM SQ SCH (11:20)
[2020-06-20] MEDS: CEPACOL SORE THROAT LOZENGE PO PRN (14:57)
[2020-06-21] MEDS: D5W/0.45NS W/ 20mEq KCl 1000 ML 1,000 ML IV SCH ×2 (03:35→14:34)
[2020-06-21 05:14] LABS: Hematocrit 27.5 % (35-47); Hemoglobin 7.7 gm/dl (12.0-16.0); Mean Cell Volume 76.8 fl (78-100); Mean Corpuscular Hemoglobin 21.5 pg (26-32); Mean Platelet Volume 10.5 fl (7.5-11.0); Platelet Count 274 K/mm3 (150-450); Red Blood Count 3.58 M/mm3 (4.1-5.4); Red Cell Distribution Width 16.8 % (11.5-14.0); White Blood Count 4.8 K/mm3 (4.0-10.5)
[2020-06-21 05:18] LABS: ANION GAP 8.3 MEQ/L (5-15); CHLORIDE 99 mmol/L (98-107); Calcium 8.5 mg/dL (8.4-10.2); Carbon Dioxide 31 mmol/L (22-30); Creatinine 1 0.52 mg/dL (0.52-1.04); EST GLOMERULAR FILTRATION RATE > 60.0 ML/MIN; Glucose 307 mg/dL (74-106); Potassium 4.5 mmol/L (3.5-5.1); SODIUM 134 mmol/L (137-145)
[2020-06-21 05:44] LABS: BLOOD UREA NITROGEN < 2 mg/dL (7-17)
[2020-06-21] MEDS: HUMALOG SQ PRN ×2 (07:51→16:44)
--- NOTE | 2020-06-21 09:44 | PCM.NOTE ---
Date and Time: 06/21/20940 Subjective Assessment: patient passed flatus this am, no bowel movement. she is tolerating getting up to chair and restroom. no new complaints other than her mouth and throat are sore. Objective Exam General Appearance: no apparent distress Neurologic Exam: alert, oriented x 3 Wound Assessment: Skin/Wound Assessment Wound/Incision Assessment Start: 06/15/20 15:53 Text: Status: Active Freq: Q4H Protocol: Document 06/21/20 05:00 LL (Rec: 06/21/20 05:12 LL [id number]) Wound/Incision Assessment Abdomen Wound Assessment Shift Assessment Wound Type Incision Dressing Status Dry & Intact Drainage Amount Minimal Drainage Odor None/Absent Comment dressing CDI Wound Photo Photo Taken No Ears, Nose, Throat Exam: other (tonuge with minimal white material present and on buccal mucosa) Respiratory Exam: normal breath sounds, lungs clear, No respiratory distress Cardiovascular Exam: regular rate/rhythm, normal heart sounds Gastrointestinal/Abdomen Exam: soft Extremity Exam: normal inspection, normal range of motion OBJECTIVE DATA Vital Signs: Vital Signs - 24 hr Temp Pulse Resp BP Pulse Ox 06/21/20 08:50 95 06/21/20 08:00 16 06/21/20 07:14 98.6 F 91 H 16 146/66 95 06/21/20 04:00 98.6 F 91 H 23 155/74 93 L 06/21/20 00:00 21 100 06/20/20 23:44 98.1 F 94 H 21 145/75 95 06/20/20 20:30 96 06/20/20 20:00 15 96 06/20/20 19:40 98.3 F 80 15 137/65 96 06/20/20 16:00 98.6 F 83 16 147/66 96 06/20/20 12:00 98.9 F 75 16 160/71 98 Pain Assessment - Last Documented Pain Intensity 5 Intake and Output: Intake & Output 06/18/20 06/19/20 06/20/20 06/21/20 11:59 11:59 11:59 11:59 Intake Total 2405 3620 2649 2227 Output Total 700 1100 1580 750 Balance 1705 2520 1069 1477 Weight 81.4 kg 81.2 kg 81.9 kg 87.1 kg Lab Results: Lab Results-Last 24 Hours 06/15/20 06/20/2021 Range/Units 12:24 11:14 15:47 WBC (4.0-10.5) K/mm3 RBC (4.1-5.4) M/mm3 Hgb (12.0-16.0) gm/dl Hct (35-47) % MCV (78-100) fl MCH (26-32) pg MCHC (32-36) g/dl RDW (11.5-14.0) % Plt Count (150-450) K/mm3 MPV (7.5-11.0) fl Sodium (137-145) mmol/L Potassium (3.5-5.1) mmol/L Chloride (98-107) mmol/L Carbon Dioxide (22-30) mmol/L Anion Gap (5-15) MEQ/L BUN (7-17) mg/dL Creatinine (0.52-1.04) mg/dL Estimated GFR ML/MIN Glucose (74-106) mg/dL POC Glucometer 205 H 227 H (74 to 106) mg/dL Calcium (8.4-10.2) mg/dL Surg PTH Diagnosis See Note H 06/20/20 06/20/20 06/21/20 Range/Units 19:38 23:33 03:17 WBC (4.0-10.5) K/mm3 RBC (4.1-5.4) M/mm3 Hgb (12.0-16.0) gm/dl Hct (35-47) % MCV (78-100) fl MCH (26-32) pg MCHC (32-36) g/dl RDW (11.5-14.0) % Plt Count (150-450) K/mm3 MPV (7.5-11.0) fl Sodium (137-145) mmol/L Potassium (3.5-5.1) mmol/L Chloride (98-107) mmol/L Carbon Dioxide (22-30) mmol/L Anion Gap (5-15) MEQ/L BUN (7-17) mg/dL Creatinine (0.52-1.04) mg/dL Estimated GFR ML/MIN Glucose (74-106) mg/dL POC Glucometer 218 H 141 H 200 H (74 to 106) mg/dL Calcium (8.4-10.2) mg/dL Surg PTH Diagnosis 06/21/20 06/21/20 06/21/20 Range/Units 04:40 04:46 07:31 WBC 4.8 (4.0-10.5) K/mm3 RBC 3.58 L (4.1-5.4) M/mm3 Hgb 7.7 L (12.0-16.0) gm/dl Hct 27.5 L (35-47) % MCV 76.8 L (78-100) fl MCH 21.5 L (26-32) pg MCHC 28.0 L (32-36) g/dl RDW 16.8 H (11.5-14.0) % Plt Count 274 (150-450) K/mm3 MPV 10.5 (7.5-11.0) fl Sodium 134 L (137-145) mmol/L Potassium 4.5 (3.5-5.1) mmol/L Chloride 99 (98-107) mmol/L Carbon Dioxide 31 H (22-30) mmol/L Anion Gap 8.3 (5-15) MEQ/L BUN < 2 L (7-17) mg/dL Creatinine 0.52 (0.52-1.04) mg/dL Estimated GFR > 60.0 ML/MIN Glucose 307 H (74-106) mg/dL POC Glucometer 239 H (74 to 106) mg/dL Calcium 8.5 (8.4-10.2) mg/dL Surg PTH Diagnosis Multi-Disciplinary Progress Notes: Multi-Disciplinary Progress Notes 06/21/20 09:09 Case Management Note by Ashly Butler PATIENT STILL ACUTELY ILL WILL CONTINUE TO MONITOR Initialized on 06/21/20 09:09 - END OF NOTE 06/20/20 10:51 Case Management Note by Ashly Butler PATIENT STILL ACUTELY ILL- WILL CONTINUE TO FOLLOW FOR NEEDS Initialized on 06/20/20 10:51 - END OF NOTE Assessment/Plan (1) Status post right hemicolectomy Current Visit: Yes Status: Acute Assessment & Plan: bowel sounds present, advance to clears if ok with surgery today Code(s): Z90.49 - ACQUIRED ABSENCE OF OTHER SPECIFIED PARTS OF DIGESTIVE TRACT (2) Hyperglycemia due to type 2 diabetes mellitus Current Visit: Yes Status: Acute Qualifiers: Diabetes mellitus prison insulin use: without medical terminologist use Qualified Code(s): E11.65 - Type 2 diabetes mellitus with hyperglycemia Code(s): E11.65 - TYPE 2 DIABETES MELLITUS WITH HYPERGLYCEMIA (3) Urinary tract infection Current Visit: No Status: Acute Assessment & Plan: d/c rocephin, completed 5 days of therapy Code(s): N39.0 - URINARY TRACT INFECTION, SITE NOT SPECIFIED (4) Anemia Current Visit: Yes Status: Acute Qualifiers: Anemia type: iron deficiency Iron deficiency anemia type: other iron deficiency Qualified Code(s): D50.8 - Other iron deficiency anemias Assessment & Plan: h/h stable Code(s): D64.9 - ANEMIA, UNSPECIFIED (5) Thrush Current Visit: Yes Status: Acute Assessment & Plan: ashley's magic mouthwash ordered today Code(s): B37.0 - CANDIDAL STOMATITIS
[2020-06-21] MEDS: Cymbalta 30 MG Capsule PO SCH (09:49)
[2020-06-21] MEDS: Protonix 40MG Tablet PO SCH (09:49)
[2020-06-21] MEDS: Ditropan XL 5 MG PO SCH (09:50)
[2020-06-21] MEDS: Glucotrol 5 MG PO SCH (09:50)
[2020-06-21] MEDS: ENOXAPARIN SODIUM SQ SCH (09:50)
[2020-06-21] MEDS: Morphine PCA 1 MG/ML 30 ML IV PRN ×2 (09:57→11:35)
[2020-06-21] MEDS: MARY'S MOUTHWASH PO SCH ×2 (11:08→18:29)
[2020-06-21] MEDS: NORCO 5/325 MG PO PRN (17:38)
[2020-06-22] MEDS: MARY'S MOUTHWASH PO SCH ×4 (01:28→18:09)
[2020-06-22] MEDS: D5W/0.45NS W/ 20mEq KCl 1000 ML 1,000 ML IV SCH (01:32)
[2020-06-22 04:28] LABS: 027 TOX PROD PRESUMPTIVE NEGATIVE (NEGATIVE); TOXIGENIC C. DIFF ORG NEGATIVE (NEGATIVE)
[2020-06-22 05:07] LABS: Hematocrit 29.5 % (35-47); Hemoglobin 8.2 gm/dl (12.0-16.0); Mean Cell Volume 76.6 fl (78-100); Mean Corpuscular Hemoglobin 21.3 pg (26-32); Mean Corpuscular Hgb Concent. 27.8 g/dl (32-36); Mean Platelet Volume 9.9 fl (7.5-11.0); Platelet Count 279 K/mm3 (150-450); Red Blood Count 3.85 M/mm3 (4.1-5.4); White Blood Count 4.9 K/mm3 (4.0-10.5)
[2020-06-22 05:39] LABS: ANION GAP 6.6 MEQ/L (5-15); CHLORIDE 99 mmol/L (98-107); Carbon Dioxide 34 mmol/L (22-30); Creatinine 1 0.56 mg/dL (0.52-1.04); EST GLOMERULAR FILTRATION RATE > 60.0 ML/MIN; Glucose 217 mg/dL (74-106); Potassium 3.9 mmol/L (3.5-5.1); SODIUM 136 mmol/L (137-145)
[2020-06-22 05:46] LABS: BLOOD UREA NITROGEN < 2 mg/dL (7-17)
--- NOTE | 2020-06-22 06:36 | PCM.NOTE ---
Date and Time: 06/22/20634 Subjective Assessment: tolerating clears, had stool last night and was incontinent. no other problems Objective Exam General Appearance: no apparent distress Skin Exam: normal color, warm, dry Wound Assessment: Skin/Wound Assessment Wound/Incision Assessment Start: 06/15/20 15:53 Text: Status: Active Freq: Q4H Protocol: Document 06/22/20 03:00 LB (Rec: 06/22/20 03:35 LB [id number]) Wound/Incision Assessment Abdomen Wound Assessment Shift Assessment Wound Type Incision Wound Stage Non Pressure Wound Dressing Status Dry & Intact Drainage Amount None Drainage Odor None/Absent Primary [place] Wound Photo Photo Taken No Respiratory Exam: normal breath sounds, lungs clear, No respiratory distress Cardiovascular Exam: regular rate/rhythm, normal heart sounds Gastrointestinal/Abdomen Exam: soft, other (dressing c/d/i) OBJECTIVE DATA Vital Signs: Vital Signs - 24 hr Temp Pulse Resp BP Pulse Ox 06/22/20 04:00 97.9 F 89 21 184/76 100 06/22/20 00:00 97.9 F 90 16 170/73 100 06/21/20 22:05 96 06/21/20 20:00 98.5 F 78 18 150/69 97 06/21/20 19:35 97 06/21/20 18:26 94 L 06/21/20 16:00 18 96 06/21/20 15:59 98.0 F 75 16 158/67 97 06/21/20 12:00 98 06/21/20 11:46 97.9 F 87 16 138/66 93 L 06/21/20 11:35 98 06/21/20 11:32 19 06/21/20 09:57 95 06/21/20 08:50 95 06/21/20 08:00 16 06/21/20 07:14 98.6 F 91 H 16 146/66 95 Oxygen-Last 24 hours Oxygen Flowrate (L/min)-RT 2 Oxygen Flowrate (L/min)-RT 2 Oxygen Flowrate (L/min)-RT 2 Pain Assessment - Last Documented Pain Intensity 0 Pain Scale Used 0-10 Pain Scale Intake and Output: Intake & Output 06/19/20 06/20/20 06/21/20 06/22/20 11:59 11:59 11:59 11:59 Intake Total 1503 4549 2227 2524 Output Total 1100 1580 750 200 Balance 2520 1069 9287 2324 Weight 81.2 kg 81.9 kg 87.1 kg Lab Results: Lab Results-Last 24 Hours 06/21/20 06/21/20 06/21/20 Range/Units 07:31 11:33 16:35 WBC (4.0-10.5) K/mm3 RBC (4.1-5.4) M/mm3 Hgb (12.0-16.0) gm/dl Hct (35-47) % MCV (78-100) fl MCH (26-32) pg MCHC (32-36) g/dl RDW (11.5-14.0) % Plt Count (150-450) K/mm3 MPV (7.5-11.0) fl Sodium (137-145) mmol/L Potassium (3.5-5.1) mmol/L Chloride (98-107) mmol/L Carbon Dioxide (22-30) mmol/L Anion Gap (5-15) MEQ/L BUN (7-17) mg/dL Creatinine (0.52-1.04) mg/dL Estimated GFR ML/MIN Glucose (74-106) mg/dL POC Glucometer 239 H 200 H 250 H (74 to 106) mg/dL Calcium (8.4-10.2) mg/dL C. difficile Screen (NEGATIVE) C.difficile 027-NAP1-B1 (NEGATIVE) 06/21/20 06/22/20 06/22/20 Range/Units 23:29 03:41 04:42 WBC (4.0-10.5) K/mm3 RBC (4.1-5.4) M/mm3 Hgb (12.0-16.0) gm/dl Hct (35-47) % MCV (78-100) fl MCH (26-32) pg MCHC (32-36) g/dl RDW (11.5-14.0) % Plt Count (150-450) K/mm3 MPV (7.5-11.0) fl Sodium (137-145) mmol/L Potassium (3.5-5.1) mmol/L Chloride (98-107) mmol/L Carbon Dioxide (22-30) mmol/L Anion Gap (5-15) MEQ/L BUN (7-17) mg/dL Creatinine (0.52-1.04) mg/dL Estimated GFR ML/MIN Glucose (74-106) mg/dL POC Glucometer 212 H 212 H (74 to 106) mg/dL Calcium (8.4-10.2) mg/dL C. difficile Screen NEGATIVE (NEGATIVE) C.difficile 027-NAP1-B1 PRESUMPTIVE NEGATIVE (NEGATIVE) 06/22/20 06/22/20 Range/Units 05:01 05:01 WBC 4.9 (4.0-10.5) K/mm3 RBC 3.85 L (4.1-5.4) M/mm3 Hgb 8.2 L (12.0-16.0) gm/dl Hct 29.5 L (35-47) % MCV 76.6 L (78-100) fl MCH 21.3 L (26-32) pg MCHC 27.8 L (32-36) g/dl RDW 17.0 H (11.5-14.0) % Plt Count 279 (150-450) K/mm3 MPV 9.9 (7.5-11.0) fl Sodium 136 L (137-145) mmol/L Potassium 3.9 (3.5-5.1) mmol/L Chloride 99 (98-107) mmol/L Carbon Dioxide 34 H (22-30) mmol/L Anion Gap 6.6 (5-15) MEQ/L BUN < 2 L (7-17) mg/dL Creatinine 0.56 (0.52-1.04) mg/dL Estimated GFR > 60.0 ML/MIN Glucose 217 H (74-106) mg/dL POC Glucometer (74 to 106) mg/dL Calcium 9.0 (8.4-10.2) mg/dL C. difficile Screen (NEGATIVE) C.difficile 027-NAP1-B1 (NEGATIVE) Multi-Disciplinary Progress Notes: Multi-Disciplinary Progress Notes 06/21/20 09:09 Case Management Note by Ashly Butler PATIENT STILL ACUTELY ILL WILL CONTINUE TO MONITOR Initialized on 06/21/20 09:09 - END OF NOTE Assessment/Plan (1) Status post right hemicolectomy Current Visit: Yes Status: Acute Code(s): Z90.49 - ACQUIRED ABSENCE OF OTHER SPECIFIED PARTS OF DIGESTIVE TRACT (2) Hyperglycemia due to type 2 diabetes mellitus Current Visit: Yes Status: Acute Qualifiers: Diabetes mellitus halfway insulin use: without halfway use Qualified Code(s): E11.65 - Type 2 diabetes mellitus with hyperglycemia Code(s): E11.65 - TYPE 2 DIABETES MELLITUS WITH HYPERGLYCEMIA (3) Urinary tract infection Current Visit: No Status: Acute Code(s): N39.0 - URINARY TRACT INFECTION, SITE NOT SPECIFIED (4) Anemia Current Visit: Yes Status: Acute Qualifiers: Anemia type: iron deficiency Iron deficiency anemia type: other iron deficiency Qualified Code(s): D50.8 - Other iron deficiency anemias Code(s): D64.9 - ANEMIA, UNSPECIFIED (5) Thrush Current Visit: Yes Status: Acute Code(s): B37.0 - CANDIDAL STOMATITIS
[2020-06-22] MEDS: NORCO 5/325 MG PO PRN ×2 (07:40→15:18)
[2020-06-22] MEDS: Protonix 40MG Tablet PO SCH (09:12)
[2020-06-22] MEDS: Cymbalta 30 MG Capsule PO SCH (09:12)
[2020-06-22] MEDS: ENOXAPARIN SODIUM SQ SCH (09:13)
[2020-06-22] MEDS: Glucotrol 5 MG PO SCH (09:13)
[2020-06-22] MEDS: Ditropan XL 5 MG PO SCH (09:13)
[2020-06-22] MEDS: HUMALOG SQ PRN (12:45)
[2020-06-22] MEDS ORDERED: Lantus Insulin SQ SCH (22:00)
[2020-06-23 05:02] LABS: Hematocrit 30.3 % (35-47); Hemoglobin 8.5 gm/dl (12.0-16.0); Mean Corpuscular Hgb Concent. 28.1 g/dl (32-36); Platelet Count 307 K/mm3 (150-450); Red Blood Count 4.04 M/mm3 (4.1-5.4); Red Cell Distribution Width 17.1 % (11.5-14.0); White Blood Count 5.3 K/mm3 (4.0-10.5)
[2020-06-23 05:17] LABS: ANION GAP 9.6 MEQ/L (5-15); BLOOD UREA NITROGEN 3 mg/dL (7-17); CHLORIDE 100 mmol/L (98-107); Calcium 9.2 mg/dL (8.4-10.2); Carbon Dioxide 31 mmol/L (22-30); Creatinine 1 0.55 mg/dL (0.52-1.04); EST GLOMERULAR FILTRATION RATE > 60.0 ML/MIN; Glucose 155 mg/dL (74-106); Potassium 3.6 mmol/L (3.5-5.1); SODIUM 136 mmol/L (137-145)
[2020-06-23] MEDS: MARY'S MOUTHWASH PO SCH ×2 (05:33)
[2020-06-23] MEDS: NORCO 5/325 MG PO PRN (05:33)
[2020-06-23] MEDS: D5W/0.45NS W/ 20mEq KCl 1000 ML 1,000 ML IV SCH (07:24)
[2020-06-23] MEDS: Lactated Ringers 1,000 ML IV SCH (07:38)
[2020-06-23 08:49] VITALS: BP 160/77; PULSE 83; O2SAT 93
--- NOTE | 2020-06-23 08:50 | PCM.DS ---
Discharge Summary Date of Admission: 06/15/20 10:05 Admitting Physician: ELIAZAR KRISHNAMURTHY Consults: Consults on Case 06/16/20 10:05 Consult Physician ROUTINE Primary Care Provider: CURTIS HOFFMAN Allergies Allergies No Known Drug Allergies Allergy (Verified 06/15/20 10:38) Hospital Summary - Hospital Course Hospital Course: patient had right hemicolectomy by Dr Krishnamurthy 8 days ago for ascending colon mass. doing well post operatively, ambulating and tolerating po. planning to go home, getting a walker and requiring oxygen at night which is ordered. - Vitals & Intake/Output Vital Signs: Vital Signs Temperature 98.4 F 06/23/20 04:00 Pulse Rate 95 H 06/23/20 04:00 Respiratory Rate 19 06/23/20 07:45 Blood Pressure 165/79 06/23/20 04:00 O2 Sat by Pulse Oximetry 99 06/23/20 04:00 Intake & Output: Intake & Output 06/20/20 06/21/20 06/22/20 06/23/20 11:59 11:59 11:59 11:59 Intake Total 2649 2227 2764 880 Output Total 1580 750 200 Balance 1069 1477 2564 880 Weight 81.9 kg 87.1 kg 80.5 kg - Lab Result Diagrams: 06/23/20 05:01 06/23/20 05:01 Lab Results-Last 24 Hrs: Lab Results-Last 24 Hours 06/22/20 06/22/20 06/22/20 Range/Units 11:35 16:32 20:24 WBC (4.0-10.5) K/mm3 RBC (4.1-5.4) M/mm3 Hgb (12.0-16.0) gm/dl Hct (35-47) % MCV (78-100) fl MCH (26-32) pg MCHC (32-36) g/dl RDW (11.5-14.0) % Plt Count (150-450) K/mm3 MPV (7.5-11.0) fl Sodium (137-145) mmol/L Potassium (3.5-5.1) mmol/L Chloride (98-107) mmol/L Carbon Dioxide (22-30) mmol/L Anion Gap (5-15) MEQ/L BUN (7-17) mg/dL Creatinine (0.52-1.04) mg/dL Estimated GFR ML/MIN Glucose (74-106) mg/dL POC Glucometer 217 H 100 174 H (74 to 106) mg/dL Calcium (8.4-10.2) mg/dL 06/23/20 06/23/20 06/23/20 Range/Units 05:01 05:01 07:50 WBC 5.3 (4.0-10.5) K/mm3 RBC 4.04 L (4.1-5.4) M/mm3 Hgb 8.5 L (12.0-16.0) gm/dl Hct 30.3 L (35-47) % MCV 75.0 L (78-100) fl MCH 21.0 L (26-32) pg MCHC 28.1 L (32-36) g/dl RDW 17.1 H (11.5-14.0) % Plt Count 307 (150-450) K/mm3 MPV 10.0 (7.5-11.0) fl Sodium 136 L (137-145) mmol/L Potassium 3.6 (3.5-5.1) mmol/L Chloride 100 (98-107) mmol/L Carbon Dioxide 31 H (22-30) mmol/L Anion Gap 9.6 (5-15) MEQ/L BUN 3 L (7-17) mg/dL Creatinine 0.55 (0.52-1.04) mg/dL Estimated GFR > 60.0 ML/MIN Glucose 155 H (74-106) mg/dL POC Glucometer 143 H (74 to 106) mg/dL Calcium 9.2 (8.4-10.2) mg/dL Micro Results-Entire Visit: Microbiology 06/15/20 12:24 Urine Culture - Final Catherized Escherichia Coli Accuchecks Date 06/23/20 Date 06/22/20 Date 06/22/20 Date 06/22/20 Date 06/22/20 Time 08:09 Time 22:00 Time 16:32 Time 16:32 Time 11:35 - Procedures and Test Procedures and Tests throughout Hospitalization: Therapy Orders & Screens 06/15/20 19:00 Oxygen Nasal Cannula 2 lpm Comment: Diagnosis: MID ASCENDING COLON MASS 06/16/20 17:04 EKG STAT Comment: Diagnosis: MID ASCENDING COLON MASS 06/16/20 17:15 EKG STAT Comment: Diagnosis: MID ASCENDING COLON MASS 06/16/20 22:52 EKG ONCE Comment: Diagnosis: MID ASCENDING COLON MASS 06/17/20 05:00 EKG ONCE Comment: Diagnosis: MID ASCENDING COLON MASS 06/18/20 05:00 EKG ONCE Comment: Diagnosis: MID ASCENDING COLON MASS 06/19/20 05:00 EKG ONCE Comment: Diagnosis: MID ASCENDING COLON MASS 06/20/20 07:00 Incentive Spirometry TID Comment: Diagnosis: MID ASCENDING COLON MASS 06/22/20 11:49 PT Eval & Treat (MD Order) ONCE Reason for Eval:: PATIENT USING WALKER DURING CURRENT STAY- DID NOT USE ONE PRIOR TO STAY. PLEASE ASSESS FOR NEED OF WALKER Diagnosis: MID ASCENDING COLON MASS Discharge Exam General Appearance: no apparent distress Respiratory Exam: normal breath sounds, lungs clear, No respiratory distress Cardiovascular Exam: regular rate/rhythm, normal heart sounds Gastrointestinal/Abdomen Exam: soft, normal bowel sounds, other (dressing c/d/i) Extremity Exam: normal inspection, normal range of motion Wound Assessment: Skin/Wound Assessment Wound/Incision Assessment Start: 06/15/20 15:53 Text: Status: Active Freq: Q4H Protocol: Document 06/23/20 05:51 LB (Rec: 06/23/20 05:54 LB [id number]) Wound/Incision Assessment Abdomen Wound Assessment Shift Assessment Wound Type Incision Wound Stage Non Pressure Wound Dressing Status Dry & Intact Drainage Amount None Drainage Odor None/Absent Primary Dressing island Comment CDI Wound Photo Photo Taken No Final Diagnosis/Problem List - Final Discharge Diagnosis/Problem (1) Status post right hemicolectomy Current Visit: Yes Status: Acute Code(s): Z90.49 - ACQUIRED ABSENCE OF OTHER SPECIFIED PARTS OF DIGESTIVE TRACT (2) Hyperglycemia due to type 2 diabetes mellitus Current Visit: Yes Status: Acute Code(s): E11.65 - TYPE 2 DIABETES MELLITUS WITH HYPERGLYCEMIA (3) Urinary tract infection Current Visit: No Status: Acute Assessment & Plan: received rocephin x 5 days Code(s): N39.0 - URINARY TRACT INFECTION, SITE NOT SPECIFIED (4) Anemia Current Visit: Yes Status: Acute Code(s): D64.9 - ANEMIA, UNSPECIFIED (5) Thrush Current Visit: Yes Status: Acute Code(s): B37.0 - CANDIDAL STOMATITIS (6) Hypertension Current Visit: Yes Status: Acute Assessment & Plan: home on lisinopril Code(s): I10 - ESSENTIAL (PRIMARY) HYPERTENSION (7) Nocturnal hypoxemia Current Visit: Yes Status: Acute Assessment & Plan: qualified for home oxygen at 2L while asleep per inpatient overnight pulse-ox Code(s): G47.34 - IDIO SLEEP RELATED NONOBSTRUCTIVE ALVEOLAR HYPOVENTILATION - Discharge Disposition: Home, Self-Care Condition: Stable Prescriptions: New Nystatin/TCN/Hc/Diphenhydramin [Sherrell's Mouthwash] 5 ml PO Q6HT #100 ml PANTOPRAZOLE 40 mg Tablet [Protonix 40MG Tablet] 40 mg PO DAILY #30 tab Lisinopril 10 mg [Zestril 10 MG] 10 mg PO DAILY #30 tablet Continue Letrozole [Femara] 2.5 mg PO DAILY Insulin NPH Hum/Reg Insulin Hm [Humulin 70-30 Vial] 23 unit SQ BID Meloxicam 7.5 mg PO DAILY #0 Instructions: Colectomy, Partial and Total, (DC), Surgical Wound (DC) Follow up with: CURTIS HOFFMAN MD [Primary Care Provider] - ELIAZAR KRISHNAMURTHY [ACTIVE STAFF] -
[2020-06-23] MEDS: Cymbalta 30 MG Capsule PO SCH (09:12)
[2020-06-23] MEDS: Ditropan XL 5 MG PO SCH (09:12)
[2020-06-23] MEDS: Protonix 40MG Tablet PO SCH (09:12)
[2020-06-23] MEDS: Glucotrol 5 MG PO SCH (09:12)
[2020-06-23] MEDS: ENOXAPARIN SODIUM SQ SCH (09:13)
[2020-06-23] MEDS ORDERED: Zestril 10 MG PO SCH (10:00)
== END 2020-06-23 11:00 | disposition home or self-care (01) | DRG 329 ==
LOC: MED SURG 10:05 → EDSTATUS 13:38
PROVIDERS: ADMIT Surgery; ATTEND Surgery
PROC: 0DTF0ZZ Resection of Right Large Intestine, Open Approach (ICD-10-PCS; principal; 2020-06-15)
DX: D17.5 Benign lipomatous neoplasm of intra-abdominal organs (principal); J96.91 Respiratory failure, unspecified with hypoxia; N39.0 Urinary tract infection, site not specified; B37.0 Candidal stomatitis; E11.65 Type 2 diabetes mellitus with hyperglycemia; D64.9 Anemia, unspecified; I10 Essential (primary) hypertension; G47.34 Idiopathic sleep related nonobstructive alveolar hypoventilation; Z79.899 Other long term (current) drug therapy; Z80.0 Family history of malignant neoplasm of digestive organs; Z85.3 Personal history of malignant neoplasm of breast
CPT/HCPCS: 36415; 64488; 76942; 80048; 81001; 82947; 84484; 85025; 85027; 86850; 86900; 86901; 87077; 87086; 87186; 87493; 93005; 94760; 94762; 99100; J0694; J0696; J1650; J1815; J1817; J2250; J2270; J2405; J2704; J3010; L0625; A9270-GY

== ENCOUNTER 2020-10-06 15:42 | Emergency (ER) | payer MEDICARE, OTHER ==
[2020-10-06 16:16] VITALS: BP 156/86; PULSE 78; O2SAT 98
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
== END 2020-10-06 18:33 | disposition home or self-care (01) ==
LOC: ED 15:42
DX: S90.01XA Contusion of right ankle, initial encounter (principal); S80.01XA Contusion of right knee, initial encounter; M25.552 Pain in left hip; M25.551 Pain in right hip; R07.81 Pleurodynia; V48.4XXA Person boarding or alighting a car injured in noncollision transport accident, initial encounter; S80.211A Abrasion, right knee, initial encounter; S90.811A Abrasion, right foot, initial encounter; W01.0XXA Fall on same level from slipping, tripping and stumbling without subsequent striking against object, initial encounter; E11.9 Type 2 diabetes mellitus without complications; Z85.3 Personal history of malignant neoplasm of breast
CPT/HCPCS: 71100; 73521; 73562; 73610; 73630; 99283

== ENCOUNTER 2021-01-24 21:09 | Emergency (ER) | payer MEDICARE, OTHER ==
[2021-01-24] MEDS ORDERED: XYLOCAINE 1% HCL 20 ML MDV IJ ONE (21:10)
[2021-01-24 21:25] VITALS: O2SAT 98
[2021-01-24 21:47] LABS: Appearance CLOUDY (CLEAR); Bacteria FEW /HPF (NEGATIVE); Bilirubin NEGATIVE (NEGATIVE); Blood NEGATIVE Ery/ul (0-5); Glucose 150 mg/dL (NEGATIVE); Ketones TRACE (NEGATIVE); Leukocyte Esterase LARGE (NEGATIVE); Mucus SLIGHT /HPF (NEGATIVE); Nitrite POSITIVE (NEGATIVE); Protein,Urine Dip 30 (Negative); Urobilinogen NEGATIVE mg/dL (0-1); WBC >100 /HPF (0-5)
[2021-01-24] MEDS ORDERED: Rocephin 1000 MG INJ ONE (22:13)
[2021-01-24 22:17] VITALS: BP 174/98; PULSE 85
[2021-01-24] MEDS ORDERED: Rocephin 1000 MG INJ IM ONE (22:19)
--- NOTE | 2021-01-24 22:23 | ERPHSYRPT ---
- History of Present Illness Time Seen by Provider: 01/24/21 21:40 Source: patient Exam Limitations: no limitations Patient Subjective Stated Complaint: I have a cough, runny nose and I've been sneezing Triage Nursing Assessment: pt c/o cough, runny nose and sneezing. Pt states, "I'm very tired due to moving for the last week". Lungs clear, heart tones reg. Pt has a dry, non-productive cough. Pt was at the [facility] 2 weeks ago, and she has heard that the physician practice administrator was there and is positive for Covid. Pt states, "If the Dr thinks I'm ok, I don't want to be tested for Covid". Physician History: Patient is a 75-year-old female presents to our ED for evaluation of a cough runny nose and sneezing. Patient also states she feels very tired. Patient states she has been moving and attributes her fatigue to her physical activity. Patient has mild back discomfort. Increased urinary frequency as well. Patient states that she may have been exposed to Covid. We discussed obtaining a Covid test at discharge the patient declined. No fever. No nausea or vomiting. No diarrhea. No rash. No headache. Symptoms are mild to moderate in intensity. No specific worsening or improving factors. Patient voices no other complaints concerns at this time. Timing/Duration: today Severity: mild Modifying Factors: Improves With: nothing Associated Symptoms: denies symptoms, nausea Allergies/Adverse Reactions: No Known Drug Allergies Allergy (Verified 01/24/21 21:40) Home Medications: Letrozole [Femara] 2.5 mg PO DAILY 09/05/15 [History] Insulin NPH Hum/Reg Insulin Hm [Humulin 70-30 Vial] 23 unit SQ BID 05/03/20 [History] Hx Tetanus, Diphtheria Vaccination/Date Given: Yes Hx Influenza Vaccination/Date Given: No Hx Pneumococcal Vaccination/Date Given: No Immunizations Up to Date: Yes Travel Risk - International Travel Have you traveled outside of the country in past 3 weeks: No - Coronavirus Screening Are you exhibiting any of the following symptoms?: Yes Symptoms: Cough: New Onset, Headaches/Body Aches/Fatigue Close contact with a COVID-19 positive Pt in past 14-21 Days: Yes - Vaccine Status Have you recieved a Covid-19 vaccination: No - Review of Systems Constitutional: No Symptoms, No Fever, No Chills Eyes: No Symptoms Ears, Nose, & Throat: No Symptoms Respiratory: No Symptoms, No Cough, No Dyspnea Cardiac: No Symptoms, No Chest Pain, No Edema, No Syncope Abdominal/Gastrointestinal: No Symptoms, No Abdominal Pain, No Nausea, No Vomiting, No Diarrhea Genitourinary Symptoms: No Symptoms, No Dysuria Musculoskeletal: No Symptoms, No Back Pain, No Neck Pain Skin: No Symptoms, No Rash Neurological: No Symptoms, No Dizziness, No Focal Weakness, No Sensory Changes Psychological: No Symptoms Endocrine: No Symptoms All Other Systems: Reviewed and Negative - Past Medical History Pertinent Past Medical History: Yes Neurological History: No Pertinent History ENT History: Macular Degeneration Cardiac History: No Pertinent History Respiratory History: No Pertinent History Endocrine Medical History: Diabetes Type II Musculoskeletal History: Arthritis, Fibromyalgia GI Medical History: Polyps History: No Pertinent History Psycho-Social History: Depression Female Reproductive Disorders: Breast Cancer Other Medical History: rheumatic fever as a child, breast cancer with Right side masectomy - Past Surgical History Past Surgical History: Yes Neuro Surgical History: No Pertinent History Cardiac: Cardiac Catheterization Respiratory: No Pertinent History Gastrointestinal: Colon Resection, Other Genitourinary: No Pertinent History Musculoskeletal: Orthopedic Surgery Female Surgical History: Hysterectomy, Tubal Ligation, Mastectomy Other Surgical History: gastric bypass - Social History Smoking Status: Never smoker Exposure to second hand smoke: Yes Drug Use: none Patient Lives Alone: Yes - Nursing Vital Signs Nursing Vital Signs: Initial Vital Signs Temperature 98.6 F 01/24/21 21:23 Pulse Rate 89 01/24/21 21:23 Respiratory Rate 18 01/24/21 21:23 Blood Pressure 156/91 01/24/21 21:23 O2 Sat by Pulse Oximetry 98 01/24/21 21:23 Pain Scale Pain Intensity 3 - Physical Exam General Appearance: no apparent distress, alert Eye Exam: PERRL/EOMI, eyes nml inspection Ears, Nose, Throat Exam: normal ENT inspection, TMs normal, pharynx normal, moist mucous membranes Neck Exam: normal inspection, non-tender, supple, full range of motion Respiratory Exam: normal breath sounds, lungs clear, airway intact, No respiratory distress Cardiovascular Exam: regular rate/rhythm, normal heart sounds, normal peripheral pulses Gastrointestinal/Abdomen Exam: soft, normal bowel sounds, other (No CVA tenderness to palpation.), No tenderness, No mass Back Exam: normal inspection, normal range of motion, No CVA tenderness, No vertebral tenderness Extremity Exam: normal inspection, normal range of motion, pelvis stable Neurologic Exam: alert, oriented x 3, cooperative, normal mood/affect, nml cerebellar function, nml station & gait, sensation nml, No motor deficits Skin Exam: normal color, warm, dry, No rash Lymphatic Exam: No adenopathy SpO2 Interpretation: normal SpO2: 98 O2 Delivery: Room Air - Course Nursing assessment & vital signs reviewed: Yes - Radiology Exams Chest X-ray Interpretation: Teleradiologist Report (Port-A-Cath removed. Bony thorax intact. Mild osteopenia. Normal cardiac silhouette. No acute cardiopulmonary process observed.) Ordered Tests: Active Orders 24 hr Category Date Time Status CHEST 1 VIEW (PORTABLE) Stat Exams 01/24/21 21:30 Taken CULTURE,URINE Stat Lab 01/24/21 21:32 Received UA W/RFX UR CULTURE Stat Lab 01/24/21 21:32 Completed Medication Summary Discontinued Medications Generic Name Dose Route Start Last Admin Trade Name Alonzoq PRN Reason Stop Dose Admin Ceftriaxone Sodium Confirm 01/24/21 22:13 Rocephin 1000 Mg Inj Administered 01/24/21 22:14 Dose 1,000 mg .ROUTE .STK-MED ONE Ceftriaxone Sodium 1,000 mg 01/24/21 22:19 01/24/21 22:22 Rocephin 1000 Mg Inj IM 01/24/21 22:20 1,000 mg STAT ONE Administration Lab/Rad Data: Laboratory Results 01/24/21 Range/Units 21:32 Urine Color YELLOW (YELLOW) Urine Appearance CLOUDY (CLEAR) Urine pH 5.0 (5-6) Ur Specific [place] 1.020 (1.005-1.025) Urine Protein 30 (Negative) Urine Ketones TRACE (NEGATIVE) Urine Blood NEGATIVE (0-5) Eriberto/ul Urine Nitrite POSITIVE (NEGATIVE) Urine Bilirubin NEGATIVE (NEGATIVE) Urine Urobilinogen NEGATIVE (0-1) mg/dL Ur Leukocyte Esterase LARGE (NEGATIVE) Urine WBC (Auto) >100 (0-5) /HPF Urine RBC (Auto) 6-10 (0-2) /HPF U Hyaline Cast (Auto) 3-5 (0-2) /LPF U Epithel Cells (Auto) NONE (FEW) /HPF Urine Bacteria (Auto) FEW (NEGATIVE) /HPF Urine Mucus (Auto) SLIGHT (NEGATIVE) /HPF Urine Culture Reflexed YES (NO) Urine Glucose 150 (NEGATIVE) mg/dL - Progress Progress: improved Progress Note: Patient reassessed. She feels well. Vital stable. Work-up reveals a urinary tract infection. Patient received an IM dose of Rocephin. A prescription for Keflex was forwarded to patient's pharmacy. Chest x-ray reveals Port-A-Cath removed. Otherwise essentially unchanged. Patient declined a Covid test as she states she may have been exposed to Covid. Staff took necessary precautions. Patient requesting discharge. She voices no other complaints or concerns at this time. She agrees to follow-up with her primary care doctor within 48 hours. Portions of this note were created with voice recognition technology. There may be grammatical, spelling, punctuation or sound alike errors 01/24/21 22:36 Counseled pt/family regarding: lab results, diagnosis, need for follow-up, rad results - Departure Departure Disposition: Home Clinical Impression: UTI (urinary tract infection), Cough Condition: Stable Critical Care Time: No Referrals: CURTIS HOFFMAN MD [Primary Care Provider] - Instructions: Urinary Tract Infection, Adult (DC) Additional Instructions: Discharge/Care Plan [id number] VALERO was seen on 01/24/21 in the Emergency Room. The patient was counseled regarding Diagnosis,Lab results, Imaging studies, need for follow up and when to return to the Emergency Room. Prescriptions given: Discharge Note I have spoken with the patient and/or caregivers. I have explained the patient's condition, diagnosis and treatment plan based on the information available to me at this time. I have answered the patient's and/or caregiver's questions and addressed any concerns. The patient and/or caregivers have as good understanding of the patient's diagnosis, condition and treatment plan as can be expected at this point. The vital signs have been stable. The patient's condition is stable and appropriate for discharge from the emergency department. The patient will pursue further outpatient evaluation with the primary care physician or other designated or consulting physician as outlined in the discharge instructions. The patient and/or caregivers are agreeable to this plan of care and follow-up instructions have been explained in detail. The patient and/or caregivers have received these instruction. The patient/and or caregivers are aware that any significant change in condition or worsening of symptoms should prompt an immediate return to this or the closest emergency department or call 911. Prescriptions: Cephalexin Mh 500 mg [Keflex 500 mg] 500 mg PO QID 7 Days #28 cap
--- NOTE | 2021-01-25 08:47 | XRAY ---
Indication: Fever and cough. Comparison: April 17, 2019. Portable chest remains hyperinflated and clear. Heart not enlarged with interval left Port-A-Cath removal. Bony thorax intact again with mild osteopenia, degenerative changes, and right mastectomy. Impression: Continued hyperinflated nonacute chest with chronic features.
== END 2021-01-24 22:39 | disposition home or self-care (01) ==
LOC: ED 21:09
DX: N39.0 Urinary tract infection, site not specified (principal); R05 Cough; Z79.899 Other long term (current) drug therapy
CPT/HCPCS: 71045; 81001; 87077; 87086; 87186; 96372; 99284; J0696

== ENCOUNTER 2022-05-28 10:13 | Emergency (ER) | payer MEDICARE, OTHER ==
[2022-05-28] MEDS ORDERED: Lactated Ringers 1,000 ML IV ONE ×2 (11:02→11:31)
[2022-05-28] MEDS ORDERED: MORPHINE SULFATE 4 MG INJ IV ONE (11:02)
[2022-05-28] MEDS ORDERED: MORPHINE SULFATE 4 MG INJ ONE ×2 (11:31→17:13)
[2022-05-28 11:36] LABS: Absolute Neutrophil Ct (ANC) 6.37 x10^3/uL (1.4-6.9); Basophil (Absolute #) 0.03 x10^3/uL (0-0.4); Eosinophil % 0.3 % (0.00-5.0); Eosinophil (Absolute #) 0.02 x10^3/uL (0-0.5); Hematocrit 41.5 % (35-47); Hemoglobin 13.3 g/dL (12.0-16.0); Lymphocyte (Absolute #) 0.85 x10^3/uL (1.0-4.6); Mean Cell Volume 93.5 fL (78-100); Monocyte (Absolute #) 0.43 x10^3/uL (0.0-1.3); Monocytes % 5.6 % (0.0-12.0); Neutrophil % 82.3 % (36.0-66.0); Platelet Count 170 x10^3/uL (150-450); Red Blood Count 4.44 x10^6/uL (4.1-5.4); Red Cell Distribution Width 12.7 % (11.5-14.0); White Blood Count 7.7 x10^3/uL (4.0-10.5)
[2022-05-28 11:51] LABS: ALBUMIN 3.9 g/dL (3.5-5.0); ALKALINE PHOSPHATASE 101 U/L (38-126); ANION GAP 11.1 MEQ/L (5-15); BLOOD UREA NITROGEN 12 mg/dL (7-17); CHLORIDE 101 mmol/L (98-107); Calcium 8.8 mg/dL (8.4-10.2); Carbon Dioxide 27 mmol/L (22-30); Creatinine 1 0.54 mg/dL (0.52-1.04); EST GLOMERULAR FILTRATION RATE > 60.0 ML/MIN; Glucose 209 mg/dL (74-106); LIPASE 11 U/L (23-300); Potassium 4.3 mmol/L (3.5-5.1); SGOT/AST 49 U/L (14-36); SGPT/ALT 45 U/L (0-35); SODIUM 135 mmol/L (137-145); Total Protein 6.9 g/dL (6.3-8.2)
--- NOTE | 2022-05-28 12:38 | XRAY ---
Indication: Pain following fall. Comparison: None AP/lateral thoracic spine demonstrate 11 rib-bearing segments with osteopenia, minimal levoscoliosis centered at T3, mild multilevel degenerative spondylosis greatest at T10-T11, CT proven superior L1 Schmorl node, old lateral right 2 rib fracture, mild aortic calcifications, right hemidiaphragm elevation, and epigastric suture material. No acute findings.
--- NOTE | 2022-05-28 12:40 | XRAY ---
Indication: Pain following fall. Comparison: January 24, 2021 Portable chest rotated and remains hyperinflated. Stable 1cm benign appearing left mid lung nodule. Heart not enlarged. Bony thorax intact again with osteopenia and degenerative changes. No new/acute findings.
--- NOTE | 2022-05-28 12:44 | XRAY ---
Indication: Pain following fall. Comparison: None 2 view right forearm demonstrates osteopenia, mild 1st metacarpal multangular scaphoid degenerative changes, and 5 mm scaphoid bone cyst. No other bony, articular, or soft tissue abnormalities.
--- NOTE | 2022-05-28 12:44 | XRAY ---
Indication: Pain following fall. Comparison: None 3 view right shoulder demonstrates osteopenia and moderate acromioclavicular degenerative arthropathy. No other bony, articular, or soft tissue abnormalities.
--- NOTE | 2022-05-28 12:48 | XRAY ---
Indication: Pain following fall. Comparison: None 3 view left knee demonstrates osteopenia, mild/moderate tricompartmental degenerative changes, and diffuse scattered vascular calcifications. No other bony, articular, or soft tissue abnormalities.
--- NOTE | 2022-05-28 12:48 | XRAY ---
Indication: Pain following fall. Comparison: October 06, 2020 AP pelvis and 2 view left/right hip demonstrates new left intertrochanteric acute fracture with displaced lesser trochanteric fracture fragment. Stable osteopenia, mild degenerative changes both hips, mild degenerative changes present lower lumbar spine, and scattered vascular calcifications. No other bony, articular, or soft tissue abnormalities.
--- NOTE | 2022-05-28 12:48 | XRAY ---
Indication: Pain following fall. Comparison: None 3 view right knee demonstrates osteopenia, mild tricompartmental degenerative changes, and diffuse scattered vascular calcifications. No other bony, articular, or soft tissue abnormalities.
--- NOTE | 2022-05-28 12:50 | XRAY ---
Indication: Pain following fall. Comparison: None 2 femur view left knee demonstrates acute intertrochanteric fracture and knee degenerative arthropathy reported separately. Elsewhere osteopenia and diffuse scattered vascular calcifications. No other bony, articular, or soft tissue abnormalities.
--- NOTE | 2022-05-28 13:38 | ERPHSYRPT ---
- History of Present Illness Time Seen by Provider: 05/28/22 10:40 Source: patient Exam Limitations: no limitations Patient Subjective Stated Complaint: Pt fell in the kitchen over a box yesterday at 1300 and wasn't found until 0930 this morning on the kitchen floor, pt c/o of left sided leg pain and groin pain, and right arm pain from laying on it all night Triage Nursing Assessment: Pt brought by EMS to the ER, hypertensive, rates pain as 10/10, pain in left leg/hip, unable to left leg, pain in groin area, pt thinks she may have pulled a muscle, right arm sore and numb from laying on it all night, pt now complaining of her back hurting, pt had been incontinent of bowel and urine many times prior to arrival, pt states that she has been having dizzy spells but doesn't think that is what caused her to fall, pulses normal, no bruising on hip noted, no visible bleeding Physician History: Patient is a 77-year-old white female who has been moving and in the process of moving tripped at 1 PM yesterday and was not found down until 930 this morning. She landed on her left side she complains of pain in the left hip and groin she also complains of pain in the right upper extremity she complains of pain in both knees. She has had a right mastectomy with lymph node biopsy and that arm was what she was laying on most of the night and is swollen and painful. She is alert and oriented presently no loss of consciousness she rates her pain 10 of 10 she has had some dizzy spells recently. She is diabetic. Occurred: yesterday Reason for Fall: tripped Injuries/Pain Location: upper extremity (Right upper extremity), pelvis (Left pelvis and left hip), lower extremity (Both knees) Loss of Consciousness: no loss of consciousness Quality: throbbing Severity of Pain-Max: moderate Severity of Pain-Current: moderate Modifying Factors: Improves With: movement Associated Symptoms (Fall): lightheadedness Allergies/Adverse Reactions: No Known Drug Allergies Allergy (Verified 05/28/22 10:43) Home Medications: Letrozole [Femara] 2.5 mg PO DAILY 09/05/15 [History] Insulin NPH Hum/Reg Insulin Hm [Humulin 70-30 Vial] 23 unit SQ BID 05/03/20 [History] Clopidogrel Bisulfate [Clopidogrel] 75 mg PO DAILY 05/28/22 [History] Escitalopram Oxalate [Lexapro] 10 mg PO DAILY 05/28/22 [History] Glipizide 5 mg [Glucotrol 5 MG] 5 mg PO BID 05/28/22 [History] Meloxicam 7.5 mg PO DAILY 05/28/22 [History] Tolterodine Tartrate [Tolterodine Tartrate ER] 4 mg PO DAILY 05/28/22 [History] Hx Tetanus, Diphtheria Vaccination/Date Given: Yes Hx Influenza Vaccination/Date Given: No Hx Pneumococcal Vaccination/Date Given: No Travel Risk - International Travel Have you traveled outside of the country in past 3 weeks: No - Coronavirus Screening Are you exhibiting any of the following symptoms?: No - Vaccine Status Have you recieved a Covid-19 vaccination: No - Review of Systems Constitutional: No Fever, No Chills Eyes: No Symptoms Ears, Nose, & Throat: No Symptoms Respiratory: No Cough, No Dyspnea Cardiac: No Chest Pain, No Edema, No Syncope Abdominal/Gastrointestinal: No Abdominal Pain, No Nausea, No Vomiting, No Diarrhea Genitourinary Symptoms: No Dysuria Musculoskeletal: No Back Pain, No Neck Pain Skin: No Rash Neurological: No Dizziness, No Focal Weakness, No Sensory Changes Psychological: No Symptoms Endocrine: No Symptoms All Other Systems: Reviewed and Negative - Past Medical History Pertinent Past Medical History: Yes Neurological History: No Pertinent History ENT History: Macular Degeneration Cardiac History: No Pertinent History Respiratory History: No Pertinent History Endocrine Medical History: Diabetes Type II Musculoskeletal History: Arthritis, Fibromyalgia GI Medical History: Polyps History: No Pertinent History Psycho-Social History: Depression Female Reproductive Disorders: Breast Cancer Other Medical History: rheumatic fever as a child, breast cancer with Right side masectomy - Past Surgical History Past Surgical History: Yes Neuro Surgical History: No Pertinent History Cardiac: Cardiac Catheterization Respiratory: No Pertinent History Gastrointestinal: Colon Resection, Other Genitourinary: No Pertinent History Musculoskeletal: Orthopedic Surgery Female Surgical History: Hysterectomy, Tubal Ligation, Mastectomy Other Surgical History: gastric bypass - Social History Smoking Status: Never smoker Exposure to second hand smoke: Yes Drug Use: none Patient Lives Alone: Yes - Nursing Vital Signs Nursing Vital Signs: Initial Vital Signs Temperature 97.4 F 05/28/22 10:31 Pulse Rate 68 05/28/22 10:31 Blood Pressure 159/70 05/28/22 10:31 O2 Sat by Pulse Oximetry 99 05/28/22 10:31 Pain Scale Pain Intensity 4 - [place] Coma Score Best Eye Response (Gilda): (4) open spontaneously Best Verbal Response (Gilda): (5) oriented Best Motor Response ([place]): (6) obeys commands [place] Total: 15 - Physical Exam General Appearance: moderate distress, alert Head Injury: no evidence of injury Eye Exam: PERRL/EOMI ENT Exam: airway nml Neck Exam: normal inspection, No tenderness Respiratory/Chest Exam: normal breath sounds, No chest tenderness, No respir atory distress Cardiovascular Exam: normal heart sounds, regular rate/rhythm Gastrointestinal Exam: soft, No tenderness, No distention, No guarding, No ecchymosis Back Exam: normal inspection, No vertebral tenderness Extremity Exam: limited range of motion (Examination of the extremity shows some slight swelling and tenderness in the right upper extremity full range of motion examination of the left upper extremity is negative examination of the lower extremities show tenderness to both knees plus there is tenderness to the left hip and to the left joan), No deformities Peripheral Pulses: dorsalis-pedis (R): 2+, dorsalis-pedis (L): 2+ Neurologic Exam: alert, oriented x 3, cooperative, sensation nml, No motor deficits Skin Exam: normal color, warm, dry SpO2 Interpretation: normal SpO2: 98 O2 Delivery: Room Air - Course Nursing assessment & vital signs reviewed: Yes - Radiology Exams Left Hip X-ray Interpretation: Reviewed by me (Radiologist says that the left hip has an intertrochanteric fracture. Other x-rays were negative for fractures or dislocation.) Ordered Tests: Active Orders 24 hr Category Date Time Status CHEST 1 VIEW (PORTABLE) Stat Exams 05/28/22 10:57 Completed FEMUR Stat Exams 05/28/22 10:59 Completed FOREARM Stat Exams 05/28/22 11:01 Completed HIPS PASCALE(2V) INCL PEL IF DONE Stat Exams 05/28/22 10:58 Completed KNEE (1 OR 2 VIEW) Stat Exams 05/28/22 10:58 Completed KNEE (3 VIEWS) Stat Exams 05/28/22 10:57 Completed LUMBAR LIMITED (2 OR 3 VIEWS) Stat Exams 05/28/22 12:21 Taken SHOULDER Stat Exams 05/28/22 11:00 Completed THORACIC SPINE (AP,LAT,SWIMM) Stat Exams 05/28/22 11:00 Completed CBC W DIFF Stat Lab 05/28/22 11:25 Completed CK-Creatinine Phosphokinase Stat Lab 05/28/22 Completed CMP Stat Lab 05/28/22 11:25 Completed Glucose,Critical Care Urgent Lab 05/28/22 11:30 Completed LIPASE Stat Lab 05/28/22 11:25 Completed UA W/RFX CULTURE Stat Lab 05/28/22 Ordered Medication Summary Discontinued Medications Generic Name Dose Route Start Last Admin Trade Name Desiree PRN Reason Stop Dose Admin Lactated Ringer's 1,000 mls @ 999 mls/hr 05/28/22 11:02 05/28/22 12:35 Lactated Ringers IV 05/28/22 12:02 Infused .Q1H1M ONE Infusion Lactated Ringer's Confirm 05/28/22 11:31 Lactated Ringers Administered 05/28/22 11:32 Dose 1,000 mls @ ud IV .STK-MED ONE Morphine Sulfate 4 mg 05/28/22 11:02 05/28/22 11:31 Morphine Sulfate 4 Mg/Ml Injection IV 05/28/22 11:03 4 mg STAT ONE Administration Morphine Sulfate Confirm 05/28/22 11:31 Morphine Sulfate 4 Mg/Ml Injection Administered 05/28/22 11:32 Dose 4 mg .ROUTE .STK-MED ONE Lab/Rad Data: Laboratory Result Diagrams 05/28/22 11:25 05/28/22 11:25 Laboratory Results 05/28/22 05/28/22 05/28/22 Range/Units Unknown 11:30 11:25 WBC (4.0-10.5) x10^3/uL RBC (4.1-5.4) x10^6/uL Hgb (12.0-16.0) g/dL Hct (35-47) % MCV (78-100) fL MCH (26-32) pg MCHC (32-36) g/dL RDW (11.5-14.0) % Plt Count (150-450) x10^3/uL MPV (7.5-11.0) fL Gran % (36.0-66.0) % Immature Gran % (Auto) (0.00-0.4) % Nucleat RBC Rel Count (0.00-0.1) % Eos # (Auto) (0-0.5) x10^3/uL Immature Gran # (Auto) (0.00-0.03) x10^3u/L Absolute Lymphs (auto) (1.0-4.6) x10^3/uL Absolute Monos (auto) (0.0-1.3) x10^3/uL Absolute Nucleated RBC (0.00-0.01) x10^3u/L Lymphocytes % (24.0-44.0) % Monocytes % (0.0-12.0) % Eosinophils % (0.00-5.0) % Basophils % (0.0-0.4) % Absolute Granulocytes (1.4-6.9) x10^3/uL Basophils # (0-0.4) x10^3/uL Sodium 135 L (137-145) mmol/L Potassium 4.3 (3.5-5.1) mmol/L Chloride 101 (98-107) mmol/L Carbon Dioxide 27 (22-30) mmol/L Anion Gap 11.1 (5-15) MEQ/L BUN 12 (7-17) mg/dL Creatinine 0.54 (0.52-1.04) mg/dL Estimated GFR > 60.0 ML/MIN Glucose 223 H 209 H (74-106) mg/dL Calcium 8.8 (8.4-10.2) mg/dL Total Bilirubin 2.10 H (0.2-1.3) mg/dL AST 49 H (14-36) U/L ALT 45 H (0-35) U/L Alkaline Phosphatase 101 (38-126) U/L Creatine Kinase 406 H (30-135) U/L Serum Total Protein 6.9 (6.3-8.2) g/dL Albumin 3.9 (3.5-5.0) g/dL Lipase 11 L (23-300) U/L 05/28/22 Range/Units 11:25 WBC 7.7 (4.0-10.5) x10^3/uL RBC 4.44 (4.1-5.4) x10^6/uL Hgb 13.3 (12.0-16.0) g/dL Hct 41.5 (35-47) % MCV 93.5 (78-100) fL MCH 30.0 (26-32) pg MCHC 32.0 (32-36) g/dL RDW 12.7 (11.5-14.0) % Plt Count 170 (150-450) x10^3/uL MPV 10.0 (7.5-11.0) fL Gran % 82.3 H (36.0-66.0) % Immature Gran % (Auto) 0.4 (0.00-0.4) % Nucleat RBC Rel Count 0.0 (0.00-0.1) % Eos # (Auto) 0.02 (0-0.5) x10^3/uL Immature Gran # (Auto) 0.03 (0.00-0.03) x10^3u/L Absolute Lymphs (auto) 0.85 L (1.0-4.6) x10^3/uL Absolute Monos (auto) 0.43 (0.0-1.3) x10^3/uL Absolute Nucleated RBC 0.00 (0.00-0.01) x10^3u/L Lymphocytes % 11.0 L (24.0-44.0) % Monocytes % 5.6 (0.0-12.0) % Eosinophils % 0.3 (0.00-5.0) % Basophils % 0.4 (0.0-0.4) % Absolute Granulocytes 6.37 (1.4-6.9) x10^3/uL Basophils # 0.03 (0-0.4) x10^3/uL Sodium (137-145) mmol/L Potassium (3.5-5.1) mmol/L Chloride (98-107) mmol/L Carbon Dioxide (22-30) mmol/L Anion Gap (5-15) MEQ/L BUN (7-17) mg/dL Creatinine (0.52-1.04) mg/dL Estimated GFR ML/MIN Glucose (74-106) mg/dL Calcium (8.4-10.2) mg/dL Total Bilirubin (0.2-1.3) mg/dL AST (14-36) U/L ALT (0-35) U/L Alkaline Phosphatase (38-126) U/L Creatine Kinase (30-135) U/L Serum Total Protein (6.3-8.2) g/dL Albumin (3.5-5.0) g/dL Lipase (23-300) U/L - Progress Progress: unchanged Progress Note: 05/28/22 13:41 Bed control at [facility] informed us that they expected a bed for her this evening surgery scheduled for tomorrow. If they are not able to get her a bed by midnight she is still to be kept n.p.o. after midnight. Discussed with Dr.: Other (Discussed with Dr. Horan the hospitalist at [facility] and he consulted with Dr. Damon who will be doing the surgery apparently.) - Departure Departure Disposition: Extended Care Facility (Transferred to [facility] Dr. Horan excepting Dr. Damon to consult for orthopedics) Clinical Impression: Intertrochanteric fracture of left hip Condition: Stable Critical Care Time: No Referrals: CURTIS HOFFMAN MD [Primary Care Provider] - Follow up/PCP as directed
[2022-05-28] MEDS ORDERED: MORPHINE SULFATE 4 MG INJ IV PRN (13:41)
[2022-05-28 14:18] LABS: Appearance CLOUDY (CLEAR); Glucose 250 mg/dL (NEGATIVE)
[2022-05-28 14:19] LABS: Bilirubin SMALL (NEGATIVE); Dipstick done @ ? MAIN LAB; Ketones >=160 (NEGATIVE); Nitrite NEGATIVE (NEGATIVE); Ph 5.5 (5-6); Protein,Urine Dip 30 (Negative); RBC TRACE-INTACT Ery/ul (0-5); Specific Gravity >=1.030 (1.005-1.025); Urobilinogen 0.2 mg/dL (0-1)
[2022-05-28 14:20] LABS: Bacteria MODERATE /HPF (NEGATIVE); Epithelial Cells RARE /HPF (FEW); Mucus SLIGHT /HPF (NEGATIVE); WBC >100 /HPF (0-5)
[2022-05-28 14:22] LABS: Urine Cultured Indicated? YES
--- NOTE | 2022-05-28 16:24 | XRAY ---
Indication: Pain following fall. Comparison: None AP/lateral lumbar spine demonstrates 6 lumbar segments with osteopenia, minimal/mild multilevel degenerative spondylosis, 4-5 mm L5 anterior spondylolisthesis on L6, mild aortic calcifications, and scattered bilateral suture material. No acute findings.
[2022-05-28 20:12] VITALS: BP 126/98; PULSE 81; O2SAT 98
== END 2022-05-28 20:13 | disposition short-term general hospital (02) ==
LOC: ED 10:13
DX: S72.142A Displaced intertrochanteric fracture of left femur, initial encounter for closed fracture (principal); W01.0XXA Fall on same level from slipping, tripping and stumbling without subsequent striking against object, initial encounter; Y93.E6 Activity, residential relocation; Y92.000 Kitchen of unspecified non-institutional (private) residence as the place of occurrence of the external cause; M79.601 Pain in right arm; M25.562 Pain in left knee; M25.561 Pain in right knee; E11.9 Type 2 diabetes mellitus without complications; Z79.4 Long term (current) use of insulin; Z79.84 Long term (current) use of oral hypoglycemic drugs; Z79.02 Long term (current) use of antithrombotics/antiplatelets; Z79.899 Other long term (current) drug therapy; Z28.310 Unvaccinated for COVID-19
CPT/HCPCS: 36415; 51702; 71045; 72072; 72100; 73030; 73090; 73521; 73552; 73560; 73562; 80053; 81015; 82533; 82550; 82947; 83690; 85025; 87077; 87086; 87186; 96360; 96374; 96376; 99285; J2270

== ENCOUNTER 2022-06-21 08:18 | Emergency (ER) | payer MEDICARE, OTHER ==
[2022-06-21 10:07] VITALS: PULSE 74; O2SAT 98
--- NOTE | 2022-06-21 10:27 | ERPHSYRPT ---
- History of Present Illness Time Seen by Provider: 06/21/22 10:27 Source: patient Patient Subjective Stated Complaint: C/O hypoglycemia at rehab facility ([facility]) that patient currently resides at this am. Nurse (Geovanna) at facility reports blood sugar of 27 this am, states glucagon given at 0735 and then blood sugar decreased to 27. EMS reports glucose of 32 upon their arrival at facility and glucose now at 80. Geovanna also reports blood sugar at bedtime last night was 112 and patient then received Humulin 70/30, 21 units subq. Triage Nursing Assessment: Patient arrived by ambulance. She is alert and oriented X 4. No SOB. Patient currently has no s/s of hypoglycemia. Blood sugar here on glucometer upon arrival is 65. Patient is able to swallow without difficulties; given a breakfast tray. Physician History: Patient is a 77-year-old female presents to our ED via EMS for evaluation of hypoglycemia. Patient presents to our ED from [facility]. alf reports patient had a blood sugar level of 27 this morning. alf administered a dose of glucagon at approximately 7:35 AM. Upon EMS arrival shortly after glucagon administration glucose was up to 32. Upon arrival to our ED patient glucose was 80. Patient was asymptomatic and had no complaints. No chest pain or shortness of breath. No nausea vomiting or diaphoresis. Patient felt completely well. Patient states she has a history of hypoglycemia. Patient had left hip surgery on May 30 per patient. Patient states after her surgery she had a bout of hypoglycemia then. Last night patient's blood glucose was 112. Patient received a dose of Humulin 70/30 21 units. Patient states she did not eat very much last night and feels this is the reason why her blood sugar dropped. Patient appears upset that the staff has not adjusted her in sulin. Symptoms are mild to moderate in intensity. Patient feels that her symptoms were due to administration of too much Humulin last night before bed. Patient reports having a relatively light dinner patient voices no other complaints or concerns at this time. Patient voices no other complaints or concerns at this time Timing/Duration: today Severity: moderate Modifying Factors: Improves With: nothing Associated Symptoms: denies symptoms Allergies/Adverse Reactions: No Known Drug Allergies Allergy (Verified 06/21/22 08:19) Home Medications: Glipizide 5 mg [Glucotrol 5 MG] 5 mg PO BID 05/28/22 [History] Aspirin EC 81 mg [Ecotrin 81 mg] 1 tab PO DAILY 06/21/22 [History] Atorvastatin Calcium 1 tab PO HS 06/21/22 [History] Escitalopram Oxalate [Lexapro] 1 tab PO DAILY 06/21/22 [History] Insulin NPH Hum/Reg Insulin Hm [Humulin 70-30 Vial] 21 units SQ BID 06/21/22 [History] Letrozole [Femara] 1 tab PO DAILY 06/21/22 [History] Hx Tetanus, Diphtheria Vaccination/Date Given: Yes Hx Influenza Vaccination/Date Given: No Hx Pneumococcal Vaccination/Date Given: Yes Immunizations Up to Date: Yes Travel Risk - International Travel Have you traveled outside of the country in past 3 weeks: No - Coronavirus Screening Are you exhibiting any of the following symptoms?: No Close contact with a COVID-19 positive Pt in past 14-21 Days: No - Vaccine Status Have you recieved a Covid-19 vaccination: No - Review of Systems Constitutional: No Symptoms, No Fever, No Chills Eyes: No Symptoms Ears, Nose, & Throat: No Symptoms Respiratory: No Symptoms, No Cough, No Dyspnea Cardiac: No Symptoms, No Chest Pain, No Edema, No Syncope Abdominal/Gastrointestinal: No Symptoms, No Abdominal Pain, No Nausea, No Vomiting, No Diarrhea Genitourinary Symptoms: No Symptoms, No Dysuria Musculoskeletal: No Symptoms, No Back Pain, No Neck Pain Skin: No Symptoms, No Rash Neurological: No Symptoms, No Dizziness, No Focal Weakness, No Sensory Changes Psychological: No Symptoms Endocrine: No Symptoms Hematologic/Lymphatic: No Symptoms Immunological/Allergic: No Symptoms All Other Systems: Reviewed and Negative - Past Medical History Pertinent Past Medical History: Yes Neurological History: No Pertinent History ENT History: Macular Degeneration Cardiac History: No Pertinent History Respiratory History: No Pertinent History Endocrine Medical History: Diabetes Type II Musculoskeletal History: Arthritis, Fibromyalgia GI Medical History: GERD, Polyps History: No Pertinent History Psycho-Social History: Depression Female Reproductive Disorders: Breast Cancer Other Medical History: rheumatic fever as a child, breast cancer with Right side masectomy, hyperlipidemia, bladder spasms - Past Surgical History Past Surgical History: Yes Neuro Surgical History: No Pertinent History Cardiac: Cardiac Catheterization Respiratory: No Pertinent History Gastrointestinal: Colon Resection, Other Genitourinary: No Pertinent History Musculoskeletal: Orthopedic Surgery Female Surgical History: Hysterectomy, Tubal Ligation, Mastectomy Other Surgical History: gastric bypass, left knee, left hip - Social History Smoking Status: Never smoker Exposure to second hand smoke: Yes Drug Use: none Patient Lives Alone: No ([facility]) - Nursing Vital Signs Nursing Vital Signs: Initial Vital Signs Temperature 96.9 F 06/21/22 08:21 Pulse Rate 81 06/21/22 08:21 Respiratory Rate 20 06/21/22 08:21 Blood Pressure 87/58 06/21/22 08:21 O2 Sat by Pulse Oximetry 96 06/21/22 08:21 Pain Scale Pain Intensity 4 - Physical Exam General Appearance: no apparent distress, alert Eye Exam: PERRL/EOMI, eyes nml inspection Ears, Nose, Throat Exam: normal ENT inspection, TMs normal, pharynx normal, moist mucous membranes Neck Exam: normal inspection, non-tender, supple, full range of motion Respiratory Exam: normal breath sounds, lungs clear, airway intact, No respiratory distress Cardiovascular Exam: regular rate/rhythm, normal heart sounds, normal peripheral pulses Gastrointestinal/Abdomen Exam: soft, normal bowel sounds, No tenderness, No mass Back Exam: normal inspection, normal range of motion, No CVA tenderness, No vertebral tenderness Extremity Exam: normal inspection, normal range of motion, pelvis stable Neurologic Exam: alert, oriented x 3, cooperative, normal mood/affect, nml cerebellar function, nml station & gait, sensation nml, No motor deficits Skin Exam: normal color, warm, dry, No rash Lymphatic Exam: No adenopathy SpO2 Interpretation: normal SpO2: 98 O2 Delivery: Room Air - Course Nursing assessment & vital signs reviewed: Yes EKG Interpreted by Me: RATE (72), Sinus Rhythm, NORMAL AXIS, NORMAL INTERVALS Ordered Tests: Active Orders 24 hr Category Date Time Status EKG-ER Only STAT Care 06/21/22 10:41 Completed POCT GLUCOSE Stat Lab 06/21/22 09:06 Completed POCT GLUCOSE Stat Lab 06/21/22 10:04 Completed POCT GLUCOSE Stat Lab 06/21/22 11:01 Completed POCT GLUCOSE Stat Lab 06/21/22 12:12 Completed Medication Summary Discontinued Medications Generic Name Dose Route Start Last Admin Trade Name Freq PRN Reason Stop Dose Admin Acetaminophen 975 mg 06/21/22 10:57 06/21/22 10:58 Acetaminophen 325 Mg Tablet PO 06/21/22 10:58 975 mg STAT ONE Administration Acetaminophen Confirm 06/21/22 10:58 Acetaminophen 325 Mg Tablet Administered 06/21/22 10:59 Dose 975 mg .ROUTE .STK-MED ONE Lab/Rad Data: Laboratory Results 06/21/22 06/21/22 06/21/22 Range/Units 12:12 11:01 10:04 POC Glucometer 143 H 92 138 H (74 to 106) mg/dL 06/21/22 Range/Units 09:06 POC Glucometer 159 H (74 to 106) mg/dL - Progress Progress: improved Progress Note: Patient 77-year-old female presents to our ED for evaluation of hypoglycemia. Patient states that this has been a recurrent problem. She believes her medication and the timing of her meals as well as the quantity of her meals needs to be adjusted. Patient had an episode of hypoglycemia in May after her left hip surgery. Patient had a recurrence of her hypoglycemia last night. Staff at [facility] assessed patient's glucose this morning. It was found to be low at 27. Patient was given glucagon. Upon arrival to our ED her blood sugars had normalized. Patient was alert and oriented x4 and had no complaints. Physical examination in our ED was nonremarkable. Neurologic exam was normal. Patient had no complaints no pain no dysuria or hematuria no chest pain or shortness of breath. The nature of patient's complaint was acute. Complexity was mild. Patient was not critical upon arrival. Patient's history of diabetes requiring insulin management balance with food intake contributed to her symptomology. Occasionally cardiac ischemia can cause hyper or hypoglycemia. EKG was performed. Although patient had no chest pain. EKG showed normal sinus rhythm. No ischemic changes. Upon arrival to our ED patient was treated with a meal. We performed serial glucose checks. Glucose remained normal. Patient remained asymptomatic. Patient experiences chronic left knee pain. Patient requesting acetaminophen for pain pain control of her chronic intermittent left knee discomfort. No other complaints. The results of patient's tests were used for medical decision making. Repeat neurologic examination is normal. Patient observed in our ED for several hours. Patient remained asymptomatic. Patient's blood glucose appeared to trend downward somewhat. Patient ate a meal. We reassessed patient's glucose and it was normal patient remained asymptomatic. No indication for further work-up. The cause of the hypoglycemia appears clear. Level of EM service provided was low. Complexity of problem is low Amount and complexity of data reviewed is low Risk of complications treatment is low risk No critical care time Patient served as an independent historian. However EMS also provided song information to our HPI. We ambulated patient to further assess neurologic status. Patient is functioning at her baseline. No neurologic deficits observed Patient responded to management well. Patient's blood glucose managed with oral intake. No indication for medicinal management. No additional glucagon administered. No D50 required. Time spent during discharge is approximately 10 to 15 minutes. Plan of care discussed with patient. She agrees to follow-up with her primary care doctor within 48 hours for evaluation. Portions of this note were created with voice recognition technology. There may be grammatical, spelling, punctuation or sound alike errors 06/21/22 12:15 Counseled pt/family regarding: diagnosis, need for follow-up - Departure Departure Disposition: Home Clinical Impression: Hypoglycemia Condition: Stable Critical Care Time: No Referrals: CURTIS HOFFMAN MD [Primary Care Provider] - Follow up/PCP as directed Instructions: Low Blood Sugar, Adult ED Additional Instructions: Discharge/Care Plan [id number] VALERO was seen on 06/21/22 in the Emergency Room. The patient was counseled regarding Diagnosis,Lab results, Imaging studies, need for follow up and when to return to the Emergency Room. Prescriptions given: Discharge Note I have spoken with the patient and/or caregivers. I have explained the patient's condition, diagnosis and treatment plan based on the information available to me at this time. I have answered the patient's and/or caregiver's questions and addressed any concerns. The patient and/or caregivers have as good understanding of the patient's diagnosis, condition and treatment plan as can be expected at this point. The vital signs have been stable. The patient's condition is stable and appropriate for discharge from the emergency department. The patient will pursue further outpatient evaluation with the primary care physician or other designated or consulting physician as outlined in the discharge instructions. The patient and/or caregivers are agreeable to this plan of care and follow-up instructions have been explained in detail. The patient and/or caregivers have received these instruction. The patient/and or caregivers are aware that any significant change in condition or worsening of symptoms should prompt an immediate return to this or the closest emergency department or call 911.
[2022-06-21] MEDS ORDERED: TYLENOL 325 MG PO ONE (10:57)
[2022-06-21] MEDS ORDERED: TYLENOL 325 MG ONE (10:58)
[2022-06-21 11:15] VITALS: BP 152/98
== END 2022-06-21 13:20 | disposition home or self-care (01) ==
LOC: ED 08:18
DX: E11.649 Type 2 diabetes mellitus with hypoglycemia without coma (principal); Z79.4 Long term (current) use of insulin; Z79.84 Long term (current) use of oral hypoglycemic drugs; Z79.899 Other long term (current) drug therapy; Z28.310 Unvaccinated for COVID-19
CPT/HCPCS: 82947; 93005; 99284; A9270-GY

== ENCOUNTER 2022-07-04 07:25 | Emergency (ER) | payer MEDICARE, OTHER ==
--- NOTE | 2022-07-04 07:29 | ERPHSYRPT ---
- History of Present Illness Time Seen by Provider: 07/04/22 07:29 Source: patient, EMS Physician History: This is a 77-year-old white female patient of Dr. Hoffman who is being followed by Dr. Garnica at the [facility]. Patient is an insulin-dependent diabetic. Additional history was obtained from old records from recent admissions and at this hospital as well as the records from the care home. Additional history was obtained from the paramedics. Patient was brought into the emergency department because of hypoglycemia. Patient was actually asleep and when she was woken up for a blood sugar Accu-Chek at bedside, the value was 30. Patient was given a meal and her blood sugar was increased to 150 by the time the paramedics arrived. Patient was not symptomatic but sleeping. This is happened in the past as recent as June 21, 2022. Patient also has a history of hyperl ipidemia, fibromyalgia, gastroesophageal reflux disease and depression. Patient arrives to the emergency department via EMS and her blood sugar here in the emergency department is 141. The physician covering the [facility] wanted lab work drawn. Patient is asymptomatic. She denies chest pain. She denies shortness of breath. She denies abdominal pain. She is had no nausea vomiting or diarrhea. Patient is undergoing rehabilitation and physical therapy status post left femur fracture repair May 30, 2022. Timing/Duration: today Severity: mild Associated Symptoms: denies symptoms Allergies/Adverse Reactions: No Known Drug Allergies Allergy (Verified 07/04/22 07:38) Home Medications: Glipizide 5 mg [Glucotrol 5 MG] 5 mg PO BID 05/28/22 [History] Aspirin EC 81 mg [Ecotrin 81 mg] 1 tab PO BID 06/21/22 [History] Atorvastatin Calcium 1 tab PO HS 06/21/22 [History] Escitalopram Oxalate [Lexapro] 10 mg PO DAILY 06/21/22 [History] Insulin NPH Hum/Reg Insulin Hm [Humulin 70-30 Vial] 10 units SQ HS 06/21/22 [History] Letrozole [Femara] 2.5 mg PO DAILY 06/21/22 [History] Cyanocobalamin 500 Mcg [Vitamin B-12 500 MCG] 1,000 mcg PO DAILY 07/04/22 [History] Lisinopril 5 mg [Zestril 5 MG] 5 mg PO DAILY 07/04/22 [History] Omeprazole 20 mg PO DAILY 07/04/22 [History] Oxybutynin Chloride [Oxybutynin Chloride ER] 10 mg PO DAILY 07/04/22 [History] Hx Tetanus, Diphtheria Vaccination/Date Given: Yes Hx Influenza Vaccination/Date Given: No Hx Pneumococcal Vaccination/Date Given: No Travel Risk - International Travel Have you traveled outside of the country in past 3 weeks: No - Coronavirus Screening Are you exhibiting any of the following symptoms?: No Close contact with a COVID-19 positive Pt in past 14-21 Days: No - Vaccine Status Have you recieved a Covid-19 vaccination: No - Review of Systems Constitutional: No Symptoms Eyes: No Symptoms Ears, Nose, & Throat: No Symptoms Respiratory: No Symptoms Cardiac: No Symptoms Abdominal/Gastrointestinal: No Symptoms Genitourinary Symptoms: No Symptoms Musculoskeletal: No Symptoms Skin: No Symptoms Neurological: No Symptoms Psychological: No Symptoms Endocrine: No Symptoms Hematologic/Lymphatic: No Symptoms Immunological/Allergic: No Symptoms All Other Systems: Reviewed and Negative - Past Medical History Pertinent Past Medical History: Yes Neurological History: No Pertinent History ENT History: Macular Degeneration Cardiac History: No Pertinent History Respiratory History: No Pertinent History Endocrine Medical History: Diabetes Type II Musculoskeletal History: Arthritis, Fibromyalgia GI Medical History: Polyps History: No Pertinent History Psycho-Social History: Depression Female Reproductive Disorders: Breast Cancer Other Medical History: rheumatic fever as a child, breast cancer with Right side masectomy - Past Surgical History Past Surgical History: Yes Neuro Surgical History: No Pertinent History Cardiac: Cardiac Catheterization Respiratory: No Pertinent History Gastrointestinal: Colon Resection, Other Genitourinary: No Pertinent History Musculoskeletal: Orthopedic Surgery Female Surgical History: Hysterectomy, Tubal Ligation, Mastectomy Other Surgical History: gastric bypass - Social History Smoking Status: Never smoker Exposure to second hand smoke: Yes Drug Use: none Patient Lives Alone: Yes - Nursing Vital Signs Nursing Vital Signs: Initial Vital Signs Temperature 98.0 F 07/04/22 07:27 Pulse Rate 75 07/04/22 07:27 Blood Pressure 143/82 07/04/22 07:27 O2 Sat by Pulse Oximetry 99 07/04/22 07:27 Pain Scale Pain Intensity 0 - Physical Exam General Appearance: no apparent distress, alert Eye Exam: PERRL/EOMI, eyes nml inspection Ears, Nose, Throat Exam: normal ENT inspection, moist mucous membranes Neck Exam: normal inspection, non-tender, supple, full range of motion Respiratory Exam: normal breath sounds, lungs clear, airway intact, No chest tenderness, No respiratory distress Cardiovascular Exam: regular rate/rhythm, normal heart sounds, normal peripheral pulses Gastrointestinal/Abdomen Exam: soft, normal bowel sounds, No tenderness Pelvic Exam: not done Rectal Exam: not done Back Exam: normal inspection, normal range of motion, No CVA tenderness, No vertebral tenderness Extremity Exam: limited range of motion (Left hip/lower extremity status post repair of femur fracture May 30, 2022) Neurologic Exam: alert, oriented x 3, cooperative, compliance spec II-XII nml as tested, normal mood/affect Skin Exam: normal color, warm, dry Lymphatic Exam: No adenopathy SpO2 Interpretation: normal O2 Delivery: Room Air Ordered Tests: Active Orders 24 hr Category Date Time Status POCT Glucose Check STAT Care 07/04/22 07:34 Active CBC W DIFF Stat Lab 07/04/22 07:58 Completed CMP Stat Lab 07/04/22 07:58 Completed MAGNESIUM Stat Lab 07/04/22 07:58 Completed Lab/Rad Data: Laboratory Result Diagrams 07/04/22 07:58 07/04/22 07:58 Laboratory Results 07/04/22 07/04/22 Range/Units 07:58 07:58 WBC 6.9 (4.0-10.5) x10^3/uL RBC 4.29 (4.1-5.4) x10^6/uL Hgb 12.9 (12.0-16.0) g/dL Hct 41.9 (35-47) % MCV 97.7 (78-100) fL MCH 30.1 (26-32) pg MCHC 30.8 L (32-36) g/dL RDW 13.3 (11.5-14.0) % Plt Count 220 (150-450) x10^3/uL MPV 9.5 (7.5-11.0) fL Gran % 61.8 (36.0-66.0) % Immature Gran % (Auto) 0.3 (0.00-0.4) % Nucleat RBC Rel Count 0.0 (0.00-0.1) % Eos # (Auto) 0.28 (0-0.5) x10^3/uL Immature Gran # (Auto) 0.02 (0.00-0.03) x10^3u/L Absolute Lymphs (auto) 1.85 (1.0-4.6) x10^3/uL Absolute Monos (auto) 0.42 (0.0-1.3) x10^3/uL Absolute Nucleated RBC 0.00 (0.00-0.01) x10^3u/L Lymphocytes % 26.8 (24.0-44.0) % Monocytes % 6.1 (0.0-12.0) % Eosinophils % 4.1 (0.00-5.0) % Basophils % 0.9 (0.0-0.4) % Absolute Granulocytes 4.28 (1.4-6.9) x10^3/uL Basophils # 0.06 (0-0.4) x10^3/uL Sodium 146 H (137-145) mmol/L Potassium 3.7 (3.5-5.1) mmol/L Chloride 107 (98-107) mmol/L Carbon Dioxide 30 (22-30) mmol/L Anion Gap 12.5 (5-15) MEQ/L BUN 11 (7-17) mg/dL Creatinine 0.65 (0.52-1.04) mg/dL Estimated GFR > 60.0 ML/MIN Glucose 117 H (74-106) mg/dL Calcium 8.8 (8.4-10.2) mg/dL Magnesium 1.9 (1.6-2.3) mg/dL Total Bilirubin 0.80 (0.2-1.3) mg/dL AST 76 H (14-36) U/L ALT 88 H (0-35) U/L Alkaline Phosphatase 140 H (38-126) U/L Serum Total Protein 6.8 (6.3-8.2) g/dL Albumin 3.7 (3.5-5.0) g/dL - Departure Departure Disposition: Extended Care Facility Clinical Impression: Normal blood sugar Condition: Stable Critical Care Time: No Referrals: CURTIS HOFFMAN MD [Primary Care Provider] - Follow up/PCP as directed Additional Instructions: Return to the [facility]-care facility. Continue same orders. Contact the prescribing doctor today to make adjustments to the patient's insulin/diabetic medication if needed.
[2022-07-04 07:39] VITALS: O2SAT 99
[2022-07-04 08:04] LABS: Absolute Neutrophil Ct (ANC) 4.28 x10^3/uL (1.4-6.9); BASOPHIL % 0.9 % (0.0-0.4); Basophil (Absolute #) 0.06 x10^3/uL (0-0.4); Eosinophil % 4.1 % (0.00-5.0); Eosinophil (Absolute #) 0.28 x10^3/uL (0-0.5); Hematocrit 41.9 % (35-47); Hemoglobin 12.9 g/dL (12.0-16.0); IMMATURE GRAN # 0.02 x10^3u/L (0.00-0.03); IMMATURE GRAN % 0.3 % (0.00-0.4); Lymphocyte (Absolute #) 1.85 x10^3/uL (1.0-4.6); Lymphocytes % 26.8 % (24.0-44.0); Mean Cell Volume 97.7 fL (78-100); Mean Corpuscular Hemoglobin 30.1 pg (26-32); Mean Corpuscular Hgb Concent. 30.8 g/dL (32-36); Mean Platelet Volume 9.5 fL (7.5-11.0); Monocyte (Absolute #) 0.42 x10^3/uL (0.0-1.3); Monocytes % 6.1 % (0.0-12.0); Neutrophil % 61.8 % (36.0-66.0); Platelet Count 220 x10^3/uL (150-450); Red Blood Count 4.29 x10^6/uL (4.1-5.4); Red Cell Distribution Width 13.3 % (11.5-14.0); White Blood Count 6.9 x10^3/uL (4.0-10.5)
[2022-07-04 08:47] LABS: ALBUMIN 3.7 g/dL (3.5-5.0); ALKALINE PHOSPHATASE 140 U/L (38-126); ANION GAP 12.5 MEQ/L (5-15); BLOOD UREA NITROGEN 11 mg/dL (7-17); CHLORIDE 107 mmol/L (98-107); Calcium 8.8 mg/dL (8.4-10.2); Carbon Dioxide 30 mmol/L (22-30); Creatinine 1 0.65 mg/dL (0.52-1.04); EST GLOMERULAR FILTRATION RATE > 60.0 ML/MIN; Glucose 117 mg/dL (74-106); MAGNESIUM 1.9 mg/dL (1.6-2.3); Potassium 3.7 mmol/L (3.5-5.1); SGOT/AST 76 U/L (14-36); SGPT/ALT 88 U/L (0-35); SODIUM 146 mmol/L (137-145); Total Protein 6.8 g/dL (6.3-8.2)
[2022-07-04 09:25] VITALS: BP 153/82; PULSE 80
== END 2022-07-04 10:05 | disposition home or self-care (01) ==
LOC: ED 07:25
DX: E11.9 Type 2 diabetes mellitus without complications (principal); E78.5 Hyperlipidemia, unspecified; Z79.4 Long term (current) use of insulin; Z79.84 Long term (current) use of oral hypoglycemic drugs; Z79.899 Other long term (current) drug therapy; Z28.310 Unvaccinated for COVID-19
CPT/HCPCS: 36415; 80053; 83036; 83735; 85025; 99282

== ENCOUNTER 2023-03-28 16:25 | Observation (INO) | payer MEDICARE, OTHER ==
--- NOTE | 2023-03-28 16:41 | ERPHSYRPT ---
- History of Present Illness Time Seen by Provider: 03/28/23 16:41 Source: patient, EMS, old records Exam Limitations: clinical condition Physician History: This is a 77-year-old white female patient who lives alone on her own and was brought into the emergency department by the building construction estimator service. Paramedics performed a welfare check and found the patient confused on the floor soiled in both feces and stool. No one has seen or evaluated this patient in the last day and a half. Patient lives in a home by herself. Patient was noted to have bruising in the left periorbital area and left cheek. Patient has a history of arthritis, diabetes, hyperlipidemia, hypertension, gastroesophageal reflux disease, fibromyalgia and depression. Patient denies shortness of breath. Patient denies chest pain. Patient denies abdominal pain. Patient states she has chronic leg pain. She is able to move all her extremities. Timing/Duration: today Severity: mild (To moderate) Baseline/Normal Cognition: alert but confused Current Cognition: alert but confused Baseline Gait: walks w/o assistance Associated Symptoms: confusion, weakness, No loss of consciousness, No nausea, No vomiting Allergies/Adverse Reactions: No Known Drug Allergies Allergy (Verified 07/04/22 07:38) Home Medications: Empagliflozin [Jardiance] 10 mg PO DAILY 03/28/23 [History] Insulin Detemir [Levemir Flexpen] 20 unit IM DAILY 03/28/23 [History] Metformin HCl 500 mg [Glucophage 500 MG] 500 mg PO DAILY 03/28/23 [History] Potassium Chloride [Klor-Con M10] 10 meq PO DAILY 03/28/23 [History] Sertraline HCl 50 mg [Zoloft 50 mg Tablet] 50 mg PO DAILY 03/28/23 [History] Hx Tetanus, Diphtheria Vaccination/Date Given: Yes Hx Influenza Vaccination/Date Given: No Hx Pneumococcal Vaccination/Date Given: No Travel Risk - International Travel Have you traveled outside of the country in past 3 weeks: No - Coronavirus Screening Are you exhibiting any of the following symptoms?: No Close contact with a COVID-19 positive Pt in past 14-21 Days: No - Vaccine Status Have you recieved a Covid-19 vaccination: No - Review of Systems Constitutional: Weakness Eyes: No Symptoms Ears, Nose, & Throat: No Symptoms Respiratory: No Symptoms Cardiac: No Symptoms Abdominal/Gastrointestinal: No Symptoms Genitourinary Symptoms: No Symptoms Musculoskeletal: No Symptoms Skin: No Symptoms Neurological: Other (Confusion) Psychological: No Symptoms Endocrine: No Symptoms Hematologic/Lymphatic: No Symptoms Immunological/Allergic: No Symptoms All Other Systems: Reviewed and Negative - Past Medical History Pertinent Past Medical History: Yes Neurological History: No Pertinent History ENT History: Macular Degeneration Cardiac History: No Pertinent History Respiratory History: No Pertinent History Endocrine Medical History: Diabetes Type II Musculoskeletal History: Arthritis, Fibromyalgia GI Medical History: Polyps History: No Pertinent History Psycho-Social History: Depression Female Reproductive Disorders: Breast Cancer Other Medical History: rheumatic fever as a child, breast cancer with Right side masectomy - Past Surgical History Past Surgical History: Yes Neuro Surgical History: No Pertinent History Cardiac: Cardiac Catheterization Respiratory: No Pertinent History Gastrointestinal: Colon Resection, Other Genitourinary: No Pertinent History Musculoskeletal: Orthopedic Surgery Female Surgical History: Hysterectomy, Tubal Ligation, Mastectomy Other Surgical History: gastric bypass - Social History Smoking Status: Never smoker Exposure to second hand smoke: Yes Drug Use: none Patient Lives Alone: Yes - Nursing Vital Signs Nursing Vital Signs: Initial Vital Signs Temperature 98.0 F 03/28/23 16:26 Pulse Rate 83 03/28/23 16:26 Respiratory Rate 20 03/28/23 16:26 Blood Pressure 140/81 03/28/23 16:26 O2 Sat by Pulse Oximetry 100 03/28/23 16:26 Pain Scale Pain Intensity 0 - Platina Coma Scale Best Eye Response (Platina): (4) open spontaneously Best Verbal Response (Platina): (4) confused conversation Best Motor Response (Platina): (6) obeys commands Gilda Total: 14 - Physical Exam General Appearance: no apparent distress, alert, anxiety Eye Exam: bilateral eye: normal inspection, PERRL, EOMI Ears, Nose, Throat Exam: moist mucous membranes, other (Mild bruising left lateral periorbital area and left cheek) Neck Exam: normal inspection, non-tender, supple, full range of motion Respiratory: normal breath sounds, lungs clear, airway intact, other (Right mastectomy), No chest tenderness, No respiratory distress Cardiovascular: regular rate/rhythm, normal heart sounds, normal peripheral pulses Gastrointestinal: soft, normal bowel sounds, tenderness Pelvic Exam: not done Rectal Exam: not done Back Exam: normal inspection, normal range of motion, No CVA tenderness, No vertebral tenderness Extremity Exam: normal inspection, normal range of motion, pelvis stable, No deformities Mental Status: alert, disoriented to place, disoriented to time 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 Exam: normal hearing, normal speech, PERRL, tongue midline Motor/Sensory: no motor deficit, no sensory deficit Skin Exam: normal color, warm, dry SpO2 Interpretation: normal O2 Delivery: Room Air - Course Nursing assessment & vital signs reviewed: Yes Ordered Tests: Active Orders 24 hr Category Date Time Status Catheter-[place] STAT Care 03/28/23 17:22 Active EKG-ER Only STAT Care 03/28/23 17:22 Active IV Insertion STAT Care 03/28/23 17:22 Active CERVICAL SPINE WO CONTRAST [CT] Stat Exams 03/28/23 17:23 Taken FACIAL BONES WO CONTRAST [CT] Stat Exams 03/28/23 17:23 Taken HEAD WITHOUT CONTRAST [CT] Stat Exams 03/28/23 17:23 Taken CBC W DIFF Stat Lab 03/28/23 17:35 Completed CMP Stat Lab 03/28/23 17:35 Completed CULTURE,URINE Stat Lab 03/28/23 17:50 Ordered MAG [MAGNESIUM] Stat Lab 03/28/23 18:05 Completed TROPONIN Q4H Lab 03/28/23 17:35 Completed TROPONIN Q4H Lab 03/28/23 21:30 Ordered TROPONIN Q4H Lab 03/29/23 01:30 Ordered UA W/RFX UR CULTURE Stat Lab 03/28/23 17:42 Completed Medication Summary Generic Name Dose Route Start Last Admin Trade Name Freq PRN Reason Stop Dose Admin Sodium Chloride 1,000 mls @ 100 mls/hr 03/28/23 17:30 03/28/23 18:10 Sodium Chloride 0.9% 1000 Ml IV 04/27/23 17:29 100 mls/hr .Q10H JOANA Administration Ceftriaxone Sodium/Dextrose 1 g in 50 mls @ 100 mls/hr 03/28/23 18:29 03/28/23 18:35 Rocephin 1 Gm-D5w 50 Ml Bag IV 03/28/23 18:58 100 ml/hr STAT STA 100 mls/hr Administration Discontinued Medications Generic Name Dose Route Start Last Admin Trade Name Freq PRN Reason Stop Dose Admin Ceftriaxone Sodium/Dextrose Confirm 03/28/23 18:32 Rocephin 1 Gm-D5w 50 Ml Bag Administered 03/28/23 18:33 Dose 1 g in 50 mls @ ud IV .STK-MED ONE Lab/Rad Data: Laboratory Result Diagrams 03/28/23 17:35 03/28/23 17:35 Laboratory Results 03/28/23 03/28/23 03/28/23 Range/Units Unknown 18:05 17:42 WBC (4.0-10.5) x10^3/uL RBC (4.1-5.4) x10^6/uL Hgb (12.0-16.0) g/dL Hct (35-47) % MCV (78-100) fL MCH (26-32) pg MCHC (32-36) g/dL RDW (11.5-14.0) % Plt Count (150-450) x10^3/uL MPV (7.5-11.0) fL Gran % (36.0-66.0) % Immature Gran % (Auto) (0.00-0.4) % Nucleat RBC Rel Count (0.00-0.1) % Eos # (Auto) (0-0.5) x10^3/uL Immature Gran # (Auto) (0.00-0.03) x10^3u/L Absolute Lymphs (auto) (1.0-4.6) x10^3/uL Absolute Monos (auto) (0.0-1.3) x10^3/uL Absolute Nucleated RBC (0.00-0.01) x10^3u/L Lymphocytes % (24.0-44.0) % Monocytes % (0.0-12.0) % Eosinophils % (0.00-5.0) % Basophils % (0.0-0.4) % Absolute Granulocytes (1.4-6.9) x10^3/uL Basophils # (0-0.4) x10^3/uL Sodium (137-145) mmol/L Potassium (3.5-5.1) mmol/L Chloride (98-107) mmol/L Carbon Dioxide (22-30) mmol/L Anion Gap (5-15) MEQ/L BUN (7-17) mg/dL Creatinine (0.52-1.04) mg/dL Estimated GFR ML/MIN Glucose (74-106) mg/dL Calcium (8.4-10.2) mg/dL Magnesium 1.8 (1.6-2.3) mg/dL Total Bilirubin (0.2-1.3) mg/dL AST (14-36) U/L ALT (0-35) U/L Alkaline Phosphatase (38-126) U/L Ammonia < 9 L (9-30) umol/L Troponin I (0.000-0.034) ng/mL Serum Total Protein (6.3-8.2) g/dL Albumin (3.5-5.0) g/dL Urine Color Yellow (Yellow) Urine Appearance Cloudy A (Clear) Urine pH 5.0 (4.6-8.0) Ur Specific [place] 1.015 (1.005-1.030) Urine Protein Trace A (Negative) Urine Glucose (UA) Negative (Negative) mg/dL Urine Ketones 40 A (Negative) Urine Blood Negative (Negative) Urine Nitrite Positive A (Negative) Urine Bilirubin Negative (Negative) Urine Urobilinogen 0.2 (0.2) mg/dL Ur Leukocyte Esterase Moderate A (Negative) U Hyaline Cast (Auto) NONE SEEN (0-2) /LPF Urine Microscopic RBC 0-2 (0-5) /HPF Urine Microscopic WBC 21-50 A (0-5) /HPF Ur Epithelial Cells None Seen (None Seen) /HPF Urine Bacteria Many A (None Seen) /HPF Urine Yeast (Budding) Rare A (None Seen) /HPF Urine Culture Reflexed ORDERED SEPARATELY (NO) 03/28/23 03/28/23 03/28/23 Range/Units 17:35 17:35 17:35 WBC 8.1 (4.0-10.5) x10^3/uL RBC 4.46 (4.1-5.4) x10^6/uL Hgb 13.6 (12.0-16.0) g/dL Hct 41.3 (35-47) % MCV 92.6 (78-100) fL MCH 30.5 (26-32) pg MCHC 32.9 (32-36) g/dL RDW 13.6 (11.5-14.0) % Plt Count 244 (150-450) x10^3/uL MPV 9.7 (7.5-11.0) fL Gran % 79.2 H (36.0-66.0) % Immature Gran % (Auto) 0.2 (0.00-0.4) % Nucleat RBC Rel Count 0.0 (0.00-0.1) % Eos # (Auto) 0.01 (0-0.5) x10^3/uL Immature Gran # (Auto) 0.02 (0.00-0.03) x10^3u/L Absolute Lymphs (auto) 1.23 (1.0-4.6) x10^3/uL Absolute Monos (auto) 0.40 (0.0-1.3) x10^3/uL Absolute Nucleated RBC 0.00 (0.00-0.01) x10^3u/L Lymphocytes % 15.2 L (24.0-44.0) % Monocytes % 4.9 (0.0-12.0) % Eosinophils % 0.1 (0.00-5.0) % Basophils % 0.4 (0.0-0.4) % Absolute Granulocytes 6.40 (1.4-6.9) x10^3/uL Basophils # 0.03 (0-0.4) x10^3/uL Sodium 135 L (137-145) mmol/L Potassium 3.7 (3.5-5.1) mmol/L Chloride 102 (98-107) mmol/L Carbon Dioxide 23 (22-30) mmol/L Anion Gap 14.5 (5-15) MEQ/L BUN 12 (7-17) mg/dL Creatinine 0.55 (0.52-1.04) mg/dL Estimated GFR 94.9 ML/MIN Glucose 56 L (74-106) mg/dL Calcium 8.4 (8.4-10.2) mg/dL Magnesium (1.6-2.3) mg/dL Total Bilirubin 1.80 H (0.2-1.3) mg/dL AST 49 H (14-36) U/L ALT 60 H (0-35) U/L Alkaline Phosphatase 126 (38-126) U/L Ammonia (9-30) umol/L Troponin I < 0.012 (0.000-0.034) ng/mL Serum Total Protein 5.8 L (6.3-8.2) g/dL Albumin 3.1 L (3.5-5.0) g/dL Urine Color (Yellow) Urine Appearance (Clear) Urine pH (4.6-8.0) Ur Specific [place] (1.005-1.030) Urine Protein (Negative) Urine Glucose (UA) (Negative) mg/dL Urine Ketones (Negative) Urine Blood (Negative) Urine Nitrite (Negative) Urine Bilirubin (Negative) Urine Urobilinogen (0.2) mg/dL Ur Leukocyte Esterase (Negative) U Hyaline Cast (Auto) (0-2) /LPF Urine Microscopic RBC (0-5) /HPF Urine Microscopic WBC (0-5) /HPF Ur Epithelial Cells (None Seen) /HPF Urine Bacteria (None Seen) /HPF Urine Yeast (Budding) (None Seen) /HPF Urine Culture Reflexed (NO) - Progress Progress: improved, re-examined Progress Note: 03/28/23 17:31 This patient's medical issue is 1 of moderate to high complexity. Level complex in the work-up performed based on review of the patient's past medical history, review the patient's medication list, review the patient's drug allergy list, history present illness and physical findings on examination. The work-up will include placement of an intravenous line, obtaining CBC, CMP, troponin level, twelve-lead EKG, urinalysis, CT scan of the head, neck and face. 03/28/23 18:45 I have transferred care of this patient to Dr. Hal Hicks at shift change. He will follow-up on outstanding labs and radiographic studies and make final disposition. Counseled pt/family regarding: lab results, diagnosis, rad results Medical Desision Making - Independent Historian Additional History obtained from: Bandage Maker/EMT - Diagnostic Testing Diagnostic test were ordered, analyzed, and reviewed by me: Yes - Risk of complications The pt has a high risk of morbidity or mortality based on: Decision regarding hospitilization or escalation of hosp level of care - Departure Departure Disposition: Observation Clinical Impression: Confusion Condition: Fair Critical Care Time: No Referrals: CURTIS HOFFMAN MD [Primary Care Provider] - Follow up/PCP as directed
--- NOTE | 2023-03-28 17:02 | ERPHSYRPT ---
- History of Present Illness Time Seen by Provider: 03/28/23 16:41 Patient Subjective Stated Complaint: EMS states "No one had contacted her in the past day and a half so we were called for a welfare check and found her confused on the floot." Triage Nursing Assessment: Pt presented alert and confused, pt knew who she was and where she was but did not know the day or the time. PT unable to state what happened and unable to remember what she did yesterday. Pt had soiled herself with bowel as well as urine. PT had keys and pennied stuck to her back when rolled over to clean. PT speaking without difficulty, complaint of her knees hurting bilat. PT has brusiing noted to arms and leg in multiple stages of healing. Pt telling stories and smiling, able to move all extermities. Allergies/Adverse Reactions: No Known Drug Allergies Allergy (Verified 07/04/22 07:38) Hx Tetanus, Diphtheria Vaccination/Date Given: Yes Hx Influenza Vaccination/Date Given: No Hx Pneumococcal Vaccination/Date Given: No Immunizations Up to Date: No Travel Risk - International Travel Have you traveled outside of the country in past 3 weeks: No - Coronavirus Screening Are you exhibiting any of the following symptoms?: No Close contact with a COVID-19 positive Pt in past 14-21 Days: No - Vaccine Status Have you recieved a Covid-19 vaccination: No - Past Medical History Pertinent Past Medical History: Yes Neurological History: No Pertinent History ENT History: Macular Degeneration Cardiac History: No Pertinent History Respiratory History: No Pertinent History Endocrine Medical History: Diabetes Type II Musculoskeletal History: Arthritis, Fibromyalgia GI Medical History: Polyps History: No Pertinent History Psycho-Social History: Depression Female Reproductive Disorders: Breast Cancer Other Medical History: rheumatic fever as a child, breast cancer with Right side masectomy - Past Surgical History Past Surgical History: Yes Neuro Surgical History: No Pertinent History Cardiac: Cardiac Catheterization Respiratory: No Pertinent History Gastrointestinal: Colon Resection, Other Genitourinary: No Pertinent History Musculoskeletal: Orthopedic Surgery Female Surgical History: Hysterectomy, Tubal Ligation, Mastectomy Other Surgical History: gastric bypass - Social History Smoking Status: Never smoker Exposure to second hand smoke: Yes Drug Use: none Patient Lives Alone: Yes - Nursing Vital Signs Nursing Vital Signs: Initial Vital Signs Temperature 98.0 F 03/28/23 16:26 Pulse Rate 83 03/28/23 16:26 Respiratory Rate 20 03/28/23 16:26 Blood Pressure 140/81 03/28/23 16:26 O2 Sat by Pulse Oximetry 100 03/28/23 16:26 Pain Scale Pain Intensity 4 - Physical Exam SpO2: 100 - Departure Referrals: CURTIS HOFFMAN MD [Primary Care Provider] - Follow up/PCP as directed
[2023-03-28 17:49] LABS: BASOPHIL % 0.4 % (0.0-0.4); Basophil (Absolute #) 0.03 x10^3/uL (0-0.4); Eosinophil % 0.1 % (0.00-5.0); Eosinophil (Absolute #) 0.01 x10^3/uL (0-0.5); Hematocrit 41.3 % (35-47); Hemoglobin 13.6 g/dL (12.0-16.0); IMMATURE GRAN # 0.02 x10^3u/L (0.00-0.03); IMMATURE GRAN % 0.2 % (0.00-0.4); Lymphocyte (Absolute #) 1.23 x10^3/uL (1.0-4.6); Lymphocytes % 15.2 % (24.0-44.0); Mean Cell Volume 92.6 fL (78-100); Mean Corpuscular Hemoglobin 30.5 pg (26-32); Mean Corpuscular Hgb Concent. 32.9 g/dL (32-36); Mean Platelet Volume 9.7 fL (7.5-11.0); Monocytes % 4.9 % (0.0-12.0); Neutrophil % 79.2 % (36.0-66.0); Platelet Count 244 x10^3/uL (150-450); Red Blood Count 4.46 x10^6/uL (4.1-5.4); Red Cell Distribution Width 13.6 % (11.5-14.0); White Blood Count 8.1 x10^3/uL (4.0-10.5)
[2023-03-28 18:01] LABS: Appearance Cloudy (Clear); Bacteria Many /HPF (None Seen); Bilirubin Negative (Negative); Blood Negative (Negative); Epithelial Cells None Seen /HPF (None Seen); Glucose, Urine Negative (Negative); Hyaline Casts NONE SEEN /LPF (0-2); Ketones 40 (Negative); Leukocyte Esterase Moderate (Negative); Nitrite Positive (Negative); Protein,Urine Dip Trace (Negative); RBC 0-2 /HPF (0-5); Specific Gravity 1.015 (1.005-1.030); Urobilinogen 0.2 mg/dL (0.2); WBC 21-50 /HPF (0-5)
[2023-03-28 18:06] LABS: ALBUMIN 3.1 g/dL (3.5-5.0); ANION GAP 14.5 MEQ/L (5-15); BILIRUBIN,TOTAL 1.8 mg/dL (0.2-1.3); Calcium 8.4 mg/dL (8.4-10.2); Creatinine 1 0.55 mg/dL (0.52-1.04); EST GLOMERULAR FILTRATION RATE 94.9 ML/MIN; Potassium 3.7 mmol/L (3.5-5.1); Total Protein 5.8 g/dL (6.3-8.2)
[2023-03-28] MEDS: Sodium Chloride 0.9% 1000 ML 1,000 ML IV SCH (18:10)
[2023-03-28 18:16] LABS: ADD URINE CULTURE? ORDERED SEPARATELY (NO)
[2023-03-28 18:17] LABS: Budding Yeast Rare /HPF (None Seen)
[2023-03-28] MEDS ORDERED: ROCEPHIN 1 Gm-D5w 50 ml Bag** 1 G/50 ML IVPB IV STA (18:29)
[2023-03-28] MEDS ORDERED: ROCEPHIN 1 Gm-D5w 50 ml Bag** 1 G/50 ML IVPB IV ONE (18:32)
--- NOTE | 2023-03-28 18:49 | XRAY ---
CLINICAL HISTORY:Fall injury; confused COMPARISON:None. TECHNIQUE:Thin axial CT of the cervical spine was performed with sagittal and coronal reconstructions without contrast. FINDINGS: Straightening of the physiological cervical lordosis denoting neck muscle spasm. The vertebral bodies are normal in height. The dens shows degenerative changes with raimundo-odontal calcification. Spondylotic changes with anterolateral marginal osteophytic lippings. Bilateral facetal arthropathies are seen. More or less preserved disc heights. No lytic or sclerotic bone lesion. The craniovertebral measures are unremarkable. Bilateral thyroid hypodense nodules are seen larger in the right a calcific focus for ultrasound correlation. IMPRESSION: 1. No acute osseous fractures noted. 2. Cervical spondylosis and degenerative changes as described. 3. Bilateral thyroid nodules for ultrasound correlation. Electronically Signed by: Jayden Sousa MD. (03/28/2023 17:48:44 PSYCHOLOGIST EXPERIMENTAL)
--- NOTE | 2023-03-28 18:55 | XRAY ---
CLINICAL HISTORY:Fall injury; confused COMPARISON:None. TECHNIQUE:A non-contrast CT scan of the paranasal sinuses was performed, with sagittal and coronal multiplanar reconstruction. FINDINGS: Facial Bones: Unremarkable. No acute osseous fractures seen. Nasal Septum: Midline. Turbinates: No evidence of joshua bullosa or paradoxical curvature. Uncinate Processes: No deviation or bulla formation. O-M UNIT: Infundibula and hiatus semilunaris are widely patent. SINUSES: The frontal, sphenoid, maxillary sinuses, and ethmoid air cells are well pneumatized. Fovea Ethmoidalis: Normal position. Fovea ethmoidalis and cribriform plate are not low-lying. Nasopharynx: Unremarkable. Mild soft tissue subcutaneous edema opposite the left upper alveolar margin. IMPRESSION: 1. No acute osseous fractures seen. 2. Mild soft tissue subcutaneous edema opposite the left upper alveolar margin. Electronically Signed by: Jayden Sousa MD. (03/28/2023 17:54:24 EVP OPERATIONS)
--- NOTE | 2023-03-28 19:11 | XRAY ---
CLINICAL HISTORY:Fall injury; confused COMPARISON:04/19/2019. TECHNIQUE:An axial non-contrast CT scan of the brain was performed from the skull base to the high parietal region. FINDINGS: There are few tiny ill-defined [id number] areas noted in the subcortical white matter bilaterally, suggestive of microvascular ischemic changes. The ventricular system, cortical sulci, and basal cisterns are prominent consistent with senile changes. The visualized brain parenchyma shows normal appearance. Bilateral basal ganglia lacunar infracts. Bedoya-white matter differentiation is maintained. No midline shifts or deformity. No intracerebral or extra axial hematoma. Normal size and configuration of the cerebral ventricles. Normal CT appearance of the posterior fossa structures namely the cerebellar hemispheres, brainstem, and cerebellar peduncles. The IACs are unremarkable. The cerebello-pontine angles are clear. The pituitary gland, the pineal gland, and the optic chiasm are unremarkable. The osseous structures in the skull base are unremarkable. No definite calvarium fractures. The scanned paranasal sinuses are clear. The note is made of denture attached to the superior alveolar ridge. IMPRESSION: 1. No acute cerebral abnormality noted. 2. Microvascular ischemic changes and senile changes as described. 3. Bilateral basal ganglia lacunar infracts. 4. No significant interval changes compared to the previous study. Electronically Signed by: Jayden Sousa MD. (03/28/2023 18:09:16 HEATING EQUIPMENT INSTALLER)
[2023-03-28] MEDS ORDERED: DUONEB 0.5-3 MG/3 ml Neb IH PRN (21:29)
[2023-03-28] MEDS ORDERED: Zofran 4 MG/2 ML VIAL IV PRN (21:32)
[2023-03-28] MEDS ORDERED: Diflucan 100 MG PO ONE (21:32)
--- NOTE | 2023-03-28 21:51 | PCM.HP ---
History of Present Illness - Chief Complaint Chief Complaint: Altered Mental Status Date: 03/28/23 History of Present Illness: This is a 77-year-old female admitted this evening for altered mental status and UTI. She has past medical history of diabetes, hyperlipidemia, hypertension, GERD, fibromyalgia, depression, breast cancer s/p mastectomy. She was brought to the ED this afternoon by EMS after welfare check was performed and she was found confused on the floor, soiled in both feces and urine. Patient denies any recollection of this and insists she was never on the floor. On arrival to ED she was afebrile, heart rate 91, blood pressure 138/82. Labs significant for WBC 8.1, sodium 135, creatinine 0.5 5, AST 49, ALT 60, CK3 63, troponin negative, UA with nitrite, leukocyte esterase, many bacteria, rare yeast and no epithelial cells. CT cervical spine showed no acute fractures. Bilateral thyroid nodules were noted CT facial bones was negative for acute fracture but did show mild soft tissue and subcutaneous edema opposite left upper alveolar margin; head CT was negative for acute intracranial pathology. In the ED she was given ceftriaxone and started on IV fluids. Her main complaints currently are daily diarrhea, mild dysuria. - Review of Systems Eyes: No Symptoms Ears, Nose, & Throat: No Symptoms Respiratory: No Symptoms Cardiac: No Symptoms Abdominal/Gastrointestinal: Diarrhea Genitourinary Symptoms: No Symptoms Musculoskeletal: No Symptoms Skin: No Symptoms Neurological: No Symptoms Psychological: No Symptoms Endocrine: No Symptoms Medications & Allergies Home Medications: Home Medication List Empagliflozin [Jardiance] 10 mg PO DAILY 03/28/23 [History Confirmed 03/28/23] Insulin Detemir [Levemir Flexpen] 20 unit IM DAILY 03/28/23 [History Confirmed 03/28/23] Metformin HCl 500 mg [Glucophage 500 MG] 500 mg PO DAILY 03/28/23 [History] Potassium Chloride [Klor-Con M10] 10 meq PO DAILY 03/28/23 [History Confirmed 03/28/23] Sertraline HCl 50 mg [Zoloft 50 mg Tablet] 50 mg PO DAILY 03/28/23 [History Confirmed 03/28/23] Allergies/Adverse Reactions: Allergies Allergy/AdvReac Type Severity Reaction Status Date / Time No Known Drug Allergies Allergy Verified 07/04/22 07:38 - Past Medical History Past Medical History: Yes Neurological History: Stroke ENT History: Macular Degeneration Cardiac History: High Cholesterol, Hypertension Respiratory History: No Pertinent History Endocrine Medical History: Diabetes Type II Musculoskelatal History: Arthritis, Fibromyalgia GI Medical History: GERD, Polyps History: No Pertinent History Pyscho-Social History: Depression Reproductive Disorders: Breast Cancer Comment: rheumatic fever as a child, breast cancer with Right side masectomy - Female History Are you now?: No - Past Surgical History Past Surgical History: Yes Neuro Surgical History: No Pertinent History Cardiac History: Cardiac Catheterization Respiratory Surgery: No Pertinent History GI Surgical History: Colon Resection, Other Genitourinary Surgical Hx: No Pertinent History Musculskeletal Surgical Hx: Orthopedic Surgery Female Surgical History: Hysterectomy, Tubal Ligation, Mastectomy Other Surgical History: gastric bypass - Social History Smoking Status: Never smoker Exposure to second hand smoke: No Alcohol: None Drug Use: none - Physical Exam Vital Signs: Vital Signs - 24 hr Temp Pulse Resp BP BP Pulse Ox 03/28/23 20:04 99.1 F 88 21 139/81 94 L 03/28/23 19:30 99.3 F 77 10 L 124/75 100 03/28/23 19:15 99.1 F 79 14 132/97 100 03/28/23 19:01 99.3 F 75 13 110/88 100 03/28/23 18:45 99.3 F 85 16 137/76 03/28/23 18:31 99.1 F 81 14 140/77 99 03/28/23 18:15 99.0 F 86 14 104/84 03/28/23 18:03 98.8 F 87 18 138/82 94 L 03/28/23 18:02 98.6 F 91 H 14 99 03/28/23 18:01 98.6 F 100 03/28/23 17:30 80 134/82 100 03/28/23 17:15 99.0 F 85 5 L 146/80 99 03/28/23 16:26 98.0 F 83 20 140/81 100 General Appearance: no apparent distress Neurologic Exam: alert, oriented x 3 Eye Exam: PERRL/EOMI Ears, Nose, Throat Exam: normal ENT inspection Neck Exam: normal inspection Respiratory Exam: normal breath sounds, No respiratory distress Cardiovascular Exam: regular rate/rhythm, normal heart sounds Gastrointestinal/Abdomen Exam: soft, normal bowel sounds Skin Exam: normal color, warm, dry Results - Labs Lab/Micro Results: Lab Results-Last 24 Hours 03/28/23 03/28/23 03/28/23 Range/Units 17:35 17:35 17:35 WBC 8.1 (4.0-10.5) x10^3/uL RBC 4.46 (4.1-5.4) x10^6/uL Hgb 13.6 (12.0-16.0) g/dL Hct 41.3 (35-47) % MCV 92.6 (78-100) fL MCH 30.5 (26-32) pg MCHC 32.9 (32-36) g/dL RDW 13.6 (11.5-14.0) % Plt Count 244 (150-450) x10^3/uL MPV 9.7 (7.5-11.0) fL Gran % 79.2 H (36.0-66.0) % Immature Gran % (Auto) 0.2 (0.00-0.4) % Nucleat RBC Rel Count 0.0 (0.00-0.1) % Eos # (Auto) 0.01 (0-0.5) x10^3/uL Immature Gran # (Auto) 0.02 (0.00-0.03) x10^3u/L Absolute Lymphs (auto) 1.23 (1.0-4.6) x10^3/uL Absolute Monos (auto) 0.40 (0.0-1.3) x10^3/uL Absolute Nucleated RBC 0.00 (0.00-0.01) x10^3u/L Lymphocytes % 15.2 L (24.0-44.0) % Monocytes % 4.9 (0.0-12.0) % Eosinophils % 0.1 (0.00-5.0) % Basophils % 0.4 (0.0-0.4) % Absolute Granulocytes 6.40 (1.4-6.9) x10^3/uL Basophils # 0.03 (0-0.4) x10^3/uL Sodium 135 L (137-145) mmol/L Potassium 3.7 (3.5-5.1) mmol/L Chloride 102 (98-107) mmol/L Carbon Dioxide 23 (22-30) mmol/L Anion Gap 14.5 (5-15) MEQ/L BUN 12 (7-17) mg/dL Creatinine 0.55 (0.52-1.04) mg/dL Estimated GFR 94.9 ML/MIN Glucose 56 L (74-106) mg/dL POC Glucometer (50 to 500) mg/dL Calcium 8.4 (8.4-10.2) mg/dL Magnesium (1.6-2.3) mg/dL Total Bilirubin 1.80 H (0.2-1.3) mg/dL AST 49 H (14-36) U/L ALT 60 H (0-35) U/L Alkaline Phosphatase 126 (38-126) U/L Ammonia (9-30) umol/L Creatine Kinase (30-135) U/L Troponin I < 0.012 (0.000-0.034) ng/mL Serum Total Protein 5.8 L (6.3-8.2) g/dL Albumin 3.1 L (3.5-5.0) g/dL Urine Color (Yellow) Urine Appearance (Clear) Urine pH (4.6-8.0) Ur Specific [place] (1.005-1.030) Urine Protein (Negative) Urine Glucose (UA) (Negative) mg/dL Urine Ketones (Negative) Urine Blood (Negative) Urine Nitrite (Negative) Urine Bilirubin (Negative) Urine Urobilinogen (0.2) mg/dL Ur Leukocyte Esterase (Negative) U Hyaline Cast (Auto) (0-2) /LPF Urine Microscopic RBC (0-5) /HPF Urine Microscopic WBC (0-5) /HPF Ur Epithelial Cells (None Seen) /HPF Urine Bacteria (None Seen) /HPF Urine Yeast (Budding) (None Seen) /HPF Urine Culture Reflexed (NO) 03/28/23 03/28/23 03/28/23 Range/Units 17:42 18:05 18:47 WBC (4.0-10.5) x10^3/uL RBC (4.1-5.4) x10^6/uL Hgb (12.0-16.0) g/dL Hct (35-47) % MCV (78-100) fL MCH (26-32) pg MCHC (32-36) g/dL RDW (11.5-14.0) % Plt Count (150-450) x10^3/uL MPV (7.5-11.0) fL Gran % (36.0-66.0) % Immature Gran % (Auto) (0.00-0.4) % Nucleat RBC Rel Count (0.00-0.1) % Eos # (Auto) (0-0.5) x10^3/uL Immature Gran # (Auto) (0.00-0.03) x10^3u/L Absolute Lymphs (auto) (1.0-4.6) x10^3/uL Absolute Monos (auto) (0.0-1.3) x10^3/uL Absolute Nucleated RBC (0.00-0.01) x10^3u/L Lymphocytes % (24.0-44.0) % Monocytes % (0.0-12.0) % Eosinophils % (0.00-5.0) % Basophils % (0.0-0.4) % Absolute Granulocytes (1.4-6.9) x10^3/uL Basophils # (0-0.4) x10^3/uL Sodium (137-145) mmol/L Potassium (3.5-5.1) mmol/L Chloride (98-107) mmol/L Carbon Dioxide (22-30) mmol/L Anion Gap (5-15) MEQ/L BUN (7-17) mg/dL Creatinine (0.52-1.04) mg/dL Estimated GFR ML/MIN Glucose (74-106) mg/dL POC Glucometer (50 to 500) mg/dL Calcium (8.4-10.2) mg/dL Magnesium 1.8 (1.6-2.3) mg/dL Total Bilirubin (0.2-1.3) mg/dL AST (14-36) U/L ALT (0-35) U/L Alkaline Phosphatase (38-126) U/L Ammonia (9-30) umol/L Creatine Kinase 363 H (30-135) U/L Troponin I (0.000-0.034) ng/mL Serum Total Protein (6.3-8.2) g/dL Albumin (3.5-5.0) g/dL Urine Color Yellow (Yellow) Urine Appearance Cloudy A (Clear) Urine pH 5.0 (4.6-8.0) Ur Specific [place] 1.015 (1.005-1.030) Urine Protein Trace A (Negative) Urine Glucose (UA) Negative (Negative) mg/dL Urine Ketones 40 A (Negative) Urine Blood Negative (Negative) Urine Nitrite Positive A (Negative) Urine Bilirubin Negative (Negative) Urine Urobilinogen 0.2 (0.2) mg/dL Ur Leukocyte Esterase Moderate A (Negative) U Hyaline Cast (Auto) NONE SEEN (0-2) /LPF Urine Microscopic RBC 0-2 (0-5) /HPF Urine Microscopic WBC 21-50 A (0-5) /HPF Ur Epithelial Cells None Seen (None Seen) /HPF Urine Bacteria Many A (None Seen) /HPF Urine Yeast (Budding) Rare A (None Seen) /HPF Urine Culture Reflexed ORDERED SEPARATELY (NO) 03/28/23 03/28/23 03/28/23 Range/Units 20:02 20:34 Unknown WBC (4.0-10.5) x10^3/uL RBC (4.1-5.4) x10^6/uL Hgb (12.0-16.0) g/dL Hct (35-47) % MCV (78-100) fL MCH (26-32) pg MCHC (32-36) g/dL RDW (11.5-14.0) % Plt Count (150-450) x10^3/uL MPV (7.5-11.0) fL Gran % (36.0-66.0) % Immature Gran % (Auto) (0.00-0.4) % Nucleat RBC Rel Count (0.00-0.1) % Eos # (Auto) (0-0.5) x10^3/uL Immature Gran # (Auto) (0.00-0.03) x10^3u/L Absolute Lymphs (auto) (1.0-4.6) x10^3/uL Absolute Monos (auto) (0.0-1.3) x10^3/uL Absolute Nucleated RBC (0.00-0.01) x10^3u/L Lymphocytes % (24.0-44.0) % Monocytes % (0.0-12.0) % Eosinophils % (0.00-5.0) % Basophils % (0.0-0.4) % Absolute Granulocytes (1.4-6.9) x10^3/uL Basophils # (0-0.4) x10^3/uL Sodium (137-145) mmol/L Potassium (3.5-5.1) mmol/L Chloride (98-107) mmol/L Carbon Dioxide (22-30) mmol/L Anion Gap (5-15) MEQ/L BUN (7-17) mg/dL Creatinine (0.52-1.04) mg/dL Estimated GFR ML/MIN Glucose (74-106) mg/dL POC Glucometer 46 L* 106 (50 to 500) mg/dL Calcium (8.4-10.2) mg/dL Magnesium (1.6-2.3) mg/dL Total Bilirubin (0.2-1.3) mg/dL AST (14-36) U/L ALT (0-35) U/L Alkaline Phosphatase (38-126) U/L Ammonia < 9 L (9-30) umol/L Creatine Kinase (30-135) U/L Troponin I (0.000-0.034) ng/mL Serum Total Protein (6.3-8.2) g/dL Albumin (3.5-5.0) g/dL Urine Color (Yellow) Urine Appearance (Clear) Urine pH (4.6-8.0) Ur Specific [place] (1.005-1.030) Urine Protein (Negative) Urine Glucose (UA) (Negative) mg/dL Urine Ketones (Negative) Urine Blood (Negative) Urine Nitrite (Negative) Urine Bilirubin (Negative) Urine Urobilinogen (0.2) mg/dL Ur Leukocyte Esterase (Negative) U Hyaline Cast (Auto) (0-2) /LPF Urine Microscopic RBC (0-5) /HPF Urine Microscopic WBC (0-5) /HPF Ur Epithelial Cells (None Seen) /HPF Urine Bacteria (None Seen) /HPF Urine Yeast (Budding) (None Seen) /HPF Urine Culture Reflexed (NO) Microbiology 03/28/23 Unknown Stool Culture Result 1 - Final Stool Not Reportable Stool Culture Result 2 - Final Not Reportable Stool Culture Result 3 - Final Not Reportable Stool Culture Result 4 - Final Not Reportable Stool Culture Organism Suscept - Final Not Reportable Campylobacter Result 1 - Final Not Reportable Campylobacter Result 2 - Final Not Reportable Campylobactor Result 3 - Final Not Reportable Campylobacter Result 4 - Final Not Reportable Campylobactor Susceptibility - Final Not Reportable - Radiology Impressions Radiology Exams & Impressions: Radiology Procedures Category Date Time Status CERVICAL SPINE WO CONTRAST [CT] Stat Exams 03/28/23 17:23 Completed FACIAL BONES WO CONTRAST [CT] Stat Exams 03/28/23 17:23 Completed HEAD WITHOUT CONTRAST [CT] Stat Exams 03/28/23 17:23 Completed THYROID [US] Routine Exams 03/28/23 21:36 Ordered Assessment/Plan (1) Confusion Current Visit: Yes Status: Acute Code(s): R41.0 - DISORIENTATION, UNSPECIFIED (2) Urinary tract infection Current Visit: No Status: Acute Assessment & Plan: ASSESSMENT #Acute metabolic encephalopathy #Ground-level fall #Urinary tract infection #Mild rhabdomyolysis #Mildly elevated hepatic panel #Chronic diarrhea #Thyroid nodule, reports biopsy ~10 years ago #History of diabetes #History of hypertension PLAN -IV fluid -Ceftriaxone -Follow urine culture -Follow CK and liver enzymes -Check thyroid function test and ultrasound of thyroid -Stool studies -SSI Prophylaxis: Lovenox Entire encounter performed via telemedicine Code(s): N39.0 - URINARY TRACT INFECTION, SITE NOT SPECIFIED Telemedicine Encounter - Telemedicine Encounter Telemedicine Encounter: The entirety of this encounter was performed via Telemedicine"
[2023-03-28 22:45] LABS: 027 TOX PROD PRESUMPTIVE NEGATIVE (NEGATIVE); TOXIGENIC C. DIFF ORG NEGATIVE (NEGATIVE)
[2023-03-29] MEDS: Sodium Chloride 0.9% 1000 ML 1,000 ML IV SCH (04:27)
--- NOTE | 2023-03-29 05:18 | PCM.NOTE ---
Date and Time: 03/29/23 0512 Subjective Assessment: HPI: This is a 77-year-old female admitted this evening for altered mental status and UTI. She has past medical history of diabetes, hyperlipidemia, hypertension, GERD, fibromyalgia, depression, breast cancer s/p mastectomy. She was brought to the ED this afternoon by EMS after welfare check was performed and she was found confused on the floor, soiled in both feces and urine. Patient denies any recollection of this and insists she was never on the floor. On arrival to ED she was afebrile, heart rate 91, blood pressure 138/82. Labs significant for WBC 8.1, sodium 135, creatinine 0.5 5, AST 49, ALT 60, CK3 63, troponin negative, UA with nitrite, leukocyte esterase, many bacteria, rare yeast and no epithelial cells. CT cervical spine showed no acute fractures. Bilateral thyroid nodules were noted CT facial bones was negative for acute fracture but did show mild soft tissue and subcutaneous edema opposite left upper alveolar margin; head CT was negative for acute intracranial pathology. In the ED she was given ceftriaxone and started on IV fluids. Her main complaints currently are daily diarrhea, mild dysuria. 03/29/23: Met with patient bedside. No overnight events noted. Endorses heel pain but no other complaints during interview. She is A&O x 3 today. Long discussion had regarding events that brought her to the hospital. She does not recall being on the floor, states she was sitting on a stool. Patient endorses feeling very weak recently. She mentions that she has had multiple stays for rehab, most recently at [facility]. Patient is agreeable to PT eval with recommendations. She also reports chronic diarrhea for about two years. She states she had a colonoscopy done in May of this year. I did review her records, she had a right hemicolectomy with anastomosis during that visit due to a right colon mass which biopsy was reported as negative. She also reports that she has had multiple of episodes of low blood sugar levels one of which she was brought to the ED for in May. Labwork with noted improvement overnight, LFTs near normal CK trending down, WBC wnl. Denies fever,cough, sob, cp, abdominal pain, dysuria, hematuria, flank pain, LIMA, dizziness, N/V/D. - Review of Systems Constitutional: No Symptoms Eyes: No Symptoms Ears, Nose, & Throat: No Symptoms Respiratory: No Symptoms Cardiac: No Symptoms Abdominal/Gastrointestinal: No Symptoms Genitourinary Symptoms: No Symptoms Musculoskeletal: Other (heel pain) Skin: Other (ecchymosis surrounding left eye) Neurological: No Symptoms Psychological: No Symptoms Endocrine: No Symptoms Hematologic/Lymphatic: No Symptoms Immunological/Allergic: No Symptoms Objective Exam General Appearance: no apparent distress Neurologic Exam: alert, oriented x 3, cooperative Skin Exam: abrasion (scattered abrasions), ecchymosis (to left eye) Wound Assessment: Skin/Wound Assessment Wound/Incision Assessment Start: 03/28/23 20:45 Text: Status: Active Freq: Q6H Protocol: Document 03/29/23 02:00 AB (Rec: 03/29/23 02:37 AB [id number]) Wound Photo Photo Taken No Eye Exam: PERRL Ears, Nose, Throat Exam: normal ENT inspection Neck Exam: normal inspection Respiratory Exam: normal breath sounds, lungs clear Cardiovascular Exam: regular rate/rhythm, normal heart sounds Gastrointestinal/Abdomen Exam: soft, normal bowel sounds Extremity Exam: other (multiple abrasions to upper and lower extremities) Back Exam: normal inspection OBJECTIVE DATA Vital Signs: Vital Signs - 24 hr Temp Pulse Resp BP BP Pulse Ox 03/29/23 04:00 97.3 F 74 18 145/72 95 03/29/23 00:00 98.9 F 83 20 117/69 96 03/28/23 21:52 98 H 16 99 03/28/23 20:04 99.1 F 88 21 139/81 94 L 03/28/23 19:30 99.3 F 77 10 L 124/75 100 03/28/23 19:15 99.1 F 79 14 132/97 100 03/28/23 19:01 99.3 F 75 13 110/88 100 03/28/23 18:45 99.3 F 85 16 137/76 03/28/23 18:31 99.1 F 81 14 140/77 99 03/28/23 18:15 99.0 F 86 14 104/84 03/28/23 18:03 98.8 F 87 18 138/82 94 L 03/28/23 18:02 98.6 F 91 H 14 99 03/28/23 18:01 98.6 F 100 03/28/23 17:30 80 134/82 100 03/28/23 17:15 99.0 F 85 5 L 146/80 99 03/28/23 16:26 98.0 F 83 20 140/81 100 Pain Assessment - Last Documented Pain Intensity 0 Intake and Output: Intake & Output 03/26/23 03/27/23 03/28/23 03/29/23 11:59 11:59 11:59 11:59 Intake Total 1325 Output Total 350 Balance 975 Weight 52.5 kg Lab Results: Lab Results-Last 24 Hours 03/28/23 03/28/23 03/28/23 Range/Units 17:35 17:35 17:35 WBC 8.1 (4.0-10.5) x10^3/uL RBC 4.46 (4.1-5.4) x10^6/uL Hgb 13.6 (12.0-16.0) g/dL Hct 41.3 (35-47) % MCV 92.6 (78-100) fL MCH 30.5 (26-32) pg MCHC 32.9 (32-36) g/dL RDW 13.6 (11.5-14.0) % Plt Count 244 (150-450) x10^3/uL MPV 9.7 (7.5-11.0) fL Gran % 79.2 H (36.0-66.0) % Immature Gran % (Auto) 0.2 (0.00-0.4) % Nucleat RBC Rel Count 0.0 (0.00-0.1) % Eos # (Auto) 0.01 (0-0.5) x10^3/uL Immature Gran # (Auto) 0.02 (0.00-0.03) x10^3u/L Absolute Lymphs (auto) 1.23 (1.0-4.6) x10^3/uL Absolute Monos (auto) 0.40 (0.0-1.3) x10^3/uL Absolute Nucleated RBC 0.00 (0.00-0.01) x10^3u/L Lymphocytes % 15.2 L (24.0-44.0) % Monocytes % 4.9 (0.0-12.0) % Eosinophils % 0.1 (0.00-5.0) % Basophils % 0.4 (0.0-0.4) % Absolute Granulocytes 6.40 (1.4-6.9) x10^3/uL Basophils # 0.03 (0-0.4) x10^3/uL Sodium 135 L (137-145) mmol/L Potassium 3.7 (3.5-5.1) mmol/L Chloride 102 (98-107) mmol/L Carbon Dioxide 23 (22-30) mmol/L Anion Gap 14.5 (5-15) MEQ/L BUN 12 (7-17) mg/dL Creatinine 0.55 (0.52-1.04) mg/dL Estimated GFR 94.9 ML/MIN Glucose 56 L (74-106) mg/dL POC Glucometer (50 to 500) mg/dL Calcium 8.4 (8.4-10.2) mg/dL Magnesium (1.6-2.3) mg/dL Total Bilirubin 1.80 H (0.2-1.3) mg/dL AST 49 H (14-36) U/L ALT 60 H (0-35) U/L Alkaline Phosphatase 126 (38-126) U/L Ammonia (9-30) umol/L Creatine Kinase (30-135) U/L Troponin I < 0.012 (0.000-0.034) ng/mL Serum Total Protein 5.8 L (6.3-8.2) g/dL Albumin 3.1 L (3.5-5.0) g/dL Urine Color (Yellow) Urine Appearance (Clear) Urine pH (4.6-8.0) Ur Specific [place] (1.005-1.030) Urine Protein (Negative) Urine Glucose (UA) (Negative) mg/dL Urine Ketones (Negative) Urine Blood (Negative) Urine Nitrite (Negative) Urine Bilirubin (Negative) Urine Urobilinogen (0.2) mg/dL Ur Leukocyte Esterase (Negative) U Hyaline Cast (Auto) (0-2) /LPF Urine Microscopic RBC (0-5) /HPF Urine Microscopic WBC (0-5) /HPF Ur Epithelial Cells (None Seen) /HPF Urine Bacteria (None Seen) /HPF Urine Yeast (Budding) (None Seen) /HPF Urine Culture Reflexed (NO) C. difficile Screen (NEGATIVE) C.difficile 027-NAP1-B1 (NEGATIVE) 03/28/23 03/28/2323 Range/Units 17:42 18:05 18:47 WBC (4.0-10.5) x10^3/uL RBC (4.1-5.4) x10^6/uL Hgb (12.0-16.0) g/dL Hct (35-47) % MCV (78-100) fL MCH (26-32) pg MCHC (32-36) g/dL RDW (11.5-14.0) % Plt Count (150-450) x10^3/uL MPV (7.5-11.0) fL Gran % (36.0-66.0) % Immature Gran % (Auto) (0.00-0.4) % Nucleat RBC Rel Count (0.00-0.1) % Eos # (Auto) (0-0.5) x10^3/uL Immature Gran # (Auto) (0.00-0.03) x10^3u/L Absolute Lymphs (auto) (1.0-4.6) x10^3/uL Absolute Monos (auto) (0.0-1.3) x10^3/uL Absolute Nucleated RBC (0.00-0.01) x10^3u/L Lymphocytes % (24.0-44.0) % Monocytes % (0.0-12.0) % Eosinophils % (0.00-5.0) % Basophils % (0.0-0.4) % Absolute Granulocytes (1.4-6.9) x10^3/uL Basophils # (0-0.4) x10^3/uL Sodium (137-145) mmol/L Potassium (3.5-5.1) mmol/L Chloride (98-107) mmol/L Carbon Dioxide (22-30) mmol/L Anion Gap (5-15) MEQ/L BUN (7-17) mg/dL Creatinine (0.52-1.04) mg/dL Estimated GFR ML/MIN Glucose (74-106) mg/dL POC Glucometer (50 to 500) mg/dL Calcium (8.4-10.2) mg/dL Magnesium 1.8 (1.6-2.3) mg/dL Total Bilirubin (0.2-1.3) mg/dL AST (14-36) U/L ALT (0-35) U/L Alkaline Phosphatase (38-126) U/L Ammonia (9-30) umol/L Creatine Kinase 363 H (30-135) U/L Troponin I (0.000-0.034) ng/mL Serum Total Protein (6.3-8.2) g/dL Albumin (3.5-5.0) g/dL Urine Color Yellow (Yellow) Urine Appearance Cloudy A (Clear) Urine pH 5.0 (4.6-8.0) Ur Specific [place] 1.015 (1.005-1.030) Urine Protein Trace A (Negative) Urine Glucose (UA) Negative (Negative) mg/dL Urine Ketones 40 A (Negative) Urine Blood Negative (Negative) Urine Nitrite Positive A (Negative) Urine Bilirubin Negative (Negative) Urine Urobilinogen 0.2 (0.2) mg/dL Ur Leukocyte Esterase Moderate A (Negative) U Hyaline Cast (Auto) NONE SEEN (0-2) /LPF Urine Microscopic RBC 0-2 (0-5) /HPF Urine Microscopic WBC 21-50 A (0-5) /HPF Ur Epithelial Cells None Seen (None Seen) /HPF Urine Bacteria Many A (None Seen) /HPF Urine Yeast (Budding) Rare A (None Seen) /HPF Urine Culture Reflexed ORDERED SEPARATELY (NO) C. difficile Screen (NEGATIVE) C.difficile 027-NAP1-B1 (NEGATIVE) 03/28/23 03/28/23 03/28/23 Range/Units 20:02 20:34 21:05 WBC (4.0-10.5) x10^3/uL RBC (4.1-5.4) x10^6/uL Hgb (12.0-16.0) g/dL Hct (35-47) % MCV (78-100) fL MCH (26-32) pg MCHC (32-36) g/dL RDW (11.5-14.0) % Plt Count (150-450) x10^3/uL MPV (7.5-11.0) fL Gran % (36.0-66.0) % Immature Gran % (Auto) (0.00-0.4) % Nucleat RBC Rel Count (0.00-0.1) % Eos # (Auto) (0-0.5) x10^3/uL Immature Gran # (Auto) (0.00-0.03) x10^3u/L Absolute Lymphs (auto) (1.0-4.6) x10^3/uL Absolute Monos (auto) (0.0-1.3) x10^3/uL Absolute Nucleated RBC (0.00-0.01) x10^3u/L Lymphocytes % (24.0-44.0) % Monocytes % (0.0-12.0) % Eosinophils % (0.00-5.0) % Basophils % (0.0-0.4) % Absolute Granulocytes (1.4-6.9) x10^3/uL Basophils # (0-0.4) x10^3/uL Sodium (137-145) mmol/L Potassium (3.5-5.1) mmol/L Chloride (98-107) mmol/L Carbon Dioxide (22-30) mmol/L Anion Gap (5-15) MEQ/L BUN (7-17) mg/dL Creatinine (0.52-1.04) mg/dL Estimated GFR ML/MIN Glucose (74-106) mg/dL POC Glucometer 46 L* 106 (50 to 500) mg/dL Calcium (8.4-10.2) mg/dL Magnesium (1.6-2.3) mg/dL Total Bilirubin (0.2-1.3) mg/dL AST (14-36) U/L ALT (0-35) U/L Alkaline Phosphatase (38-126) U/L Ammonia (9-30) umol/L Creatine Kinase (30-135) U/L Troponin I (0.000-0.034) ng/mL Serum Total Protein (6.3-8.2) g/dL Albumin (3.5-5.0) g/dL Urine Color (Yellow) Urine Appearance (Clear) Urine pH (4.6-8.0) Ur Specific [place] (1.005-1.030) Urine Protein (Negative) Urine Glucose (UA) (Negative) mg/dL Urine Ketones (Negative) Urine Blood (Negative) Urine Nitrite (Negative) Urine Bilirubin (Negative) Urine Urobilinogen (0.2) mg/dL Ur Leukocyte Esterase (Negative) U Hyaline Cast (Auto) (0-2) /LPF Urine Microscopic RBC (0-5) /HPF Urine Microscopic WBC (0-5) /HPF Ur Epithelial Cells (None Seen) /HPF Urine Bacteria (None Seen) /HPF Urine Yeast (Budding) (None Seen) /HPF Urine Culture Reflexed (NO) C. difficile Screen NEGATIVE (NEGATIVE) C.difficile 027-NAP1-B1 PRESUMPTIVE NEGATIVE (NEGATIVE) 03/28/23 03/28/23 Range/Units 22:00 Unknown WBC (4.0-10.5) x10^3/uL RBC (4.1-5.4) x10^6/uL Hgb (12.0-16.0) g/dL Hct (35-47) % MCV (78-100) fL MCH (26-32) pg MCHC (32-36) g/dL RDW (11.5-14.0) % Plt Count (150-450) x10^3/uL MPV (7.5-11.0) fL Gran % (36.0-66.0) % Immature Gran % (Auto) (0.00-0.4) % Nucleat RBC Rel Count (0.00-0.1) % Eos # (Auto) (0-0.5) x10^3/uL Immature Gran # (Auto) (0.00-0.03) x10^3u/L Absolute Lymphs (auto) (1.0-4.6) x10^3/uL Absolute Monos (auto) (0.0-1.3) x10^3/uL Absolute Nucleated RBC (0.00-0.01) x10^3u/L Lymphocytes % (24.0-44.0) % Monocytes % (0.0-12.0) % Eosinophils % (0.00-5.0) % Basophils % (0.0-0.4) % Absolute Granulocytes (1.4-6.9) x10^3/uL Basophils # (0-0.4) x10^3/uL Sodium (137-145) mmol/L Potassium (3.5-5.1) mmol/L Chloride (98-107) mmol/L Carbon Dioxide (22-30) mmol/L Anion Gap (5-15) MEQ/L BUN (7-17) mg/dL Creatinine (0.52-1.04) mg/dL Estimated GFR ML/MIN Glucose (74-106) mg/dL POC Glucometer (50 to 500) mg/dL Calcium (8.4-10.2) mg/dL Magnesium (1.6-2.3) mg/dL Total Bilirubin (0.2-1.3) mg/dL AST (14-36) U/L ALT (0-35) U/L Alkaline Phosphatase (38-126) U/L Ammonia < 9 L (9-30) umol/L Creatine Kinase (30-135) U/L Troponin I < 0.012 (0.000-0.034) ng/mL Serum Total Protein (6.3-8.2) g/dL Albumin (3.5-5.0) g/dL Urine Color (Yellow) Urine Appearance (Clear) Urine pH (4.6-8.0) Ur Specific [place] (1.005-1.030) Urine Protein (Negative) Urine Glucose (UA) (Negative) mg/dL Urine Ketones (Negative) Urine Blood (Negative) Urine Nitrite (Negative) Urine Bilirubin (Negative) Urine Urobilinogen (0.2) mg/dL Ur Leukocyte Esterase (Negative) U Hyaline Cast (Auto) (0-2) /LPF Urine Microscopic RBC (0-5) /HPF Urine Microscopic WBC (0-5) /HPF Ur Epithelial Cells (None Seen) /HPF Urine Bacteria (None Seen) /HPF Urine Yeast (Budding) (None Seen) /HPF Urine Culture Reflexed (NO) C. difficile Screen (NEGATIVE) C.difficile 027-NAP1-B1 (NEGATIVE) Radiology Exams: Radiology Procedures Category Date Time Status CERVICAL SPINE WO CONTRAST [CT] Stat Exams 03/28/23 17:23 Completed FACIAL BONES WO CONTRAST [CT] Stat Exams 03/28/23 17:23 Completed HEAD WITHOUT CONTRAST [CT] Stat Exams 03/28/23 17:23 Completed THYROID [US] Routine Exams 03/28/23 21:36 Ordered Assessment/Plan (1) Acute metabolic encephalopathy Current Visit: Yes Status: Acute Assessment & Plan: -most likely secondary to UTI -CT head with no acute findings chronic findings include microvascular ischemic changes and senile changes, bilatera basal ganglia lucunar infarcts -IV abx -IVF -TSH/US 03/29/23: -Patient A&O x 3 this morning -Continue treatment for underlying UTI with Ceftriaxone Code(s): G93.41 - METABOLIC ENCEPHALOPATHY (2) Ground-level fall Current Visit: Yes Status: Acute Assessment & Plan: -PT/OT- recs appreciated, patient may benefit from rehab stay for strengthening -CT cervical spine/ct head negative for acute findings Code(s): W18.30XA - FALL ON SAME LEVEL, UNSPECIFIED, INITIAL ENCOUNTER (3) UTI (urinary tract infection) Current Visit: Yes Status: Acute Assessment & Plan: -UA suspicious for infection, will start Ceftriaxone, follow culture Code(s): N39.0 - URINARY TRACT INFECTION, SITE NOT SPECIFIED (4) Rhabdomyolysis Current Visit: Yes Status: Acute Assessment & Plan: -Continue IVF -Monitor CK levels daily -Trending down, 179<363 Code(s): M62.82 - RHABDOMYOLYSIS (5) Elevated liver enzymes Current Visit: Yes Status: Acute Assessment & Plan: -Continue to monitor/trend, near normal today Code(s): R74.8 - ABNORMAL LEVELS OF OTHER SERUM ENZYMES (6) Chronic diarrhea Current Visit: Yes Status: Acute Assessment & Plan: -Stool studies pending -lomotil prn, may add immodium to alt q3h if needed Code(s): K52.9 - NONINFECTIVE GASTROENTERITIS AND COLITIS, UNSPECIFIED (7) Diabetes mellitus Current Visit: Yes Status: Acute Assessment & Plan: -ADA -A1c -SSI Code(s): E11.9 - TYPE 2 DIABETES MELLITUS WITHOUT COMPLICATIONS (8) HTN (hypertension) Current Visit: Yes Status: Acute Assessment & Plan: -Will monitor, it does not appear patient takes home meds, stable Code(s): I10 - ESSENTIAL (PRIMARY) HYPERTENSION (9) Thyroid nodule Current Visit: Yes Status: Acute Assessment & Plan: -As seen on CT, US of thyroid ordered Code(s): E04.1 - NONTOXIC SINGLE THYROID NODULE
[2023-03-29 05:42] LABS: Absolute Neutrophil Ct (ANC) 4.89 x10^3/uL (1.4-6.9); BASOPHIL % 0.5 % (0.0-0.4); Basophil (Absolute #) 0.04 x10^3/uL (0-0.4); Eosinophil % 1.4 % (0.00-5.0); Eosinophil (Absolute #) 0.11 x10^3/uL (0-0.5); Hematocrit 38.4 % (35-47); Hemoglobin 12.3 g/dL (12.0-16.0); IMMATURE GRAN # 0.02 x10^3u/L (0.00-0.03); IMMATURE GRAN % 0.3 % (0.00-0.4); Lymphocyte (Absolute #) 2.01 x10^3/uL (1.0-4.6); Lymphocytes % 26.2 % (24.0-44.0); Mean Cell Volume 93.2 fL (78-100); Mean Corpuscular Hemoglobin 29.9 pg (26-32); Mean Platelet Volume 9.6 fL (7.5-11.0); Monocyte (Absolute #) 0.61 x10^3/uL (0.0-1.3); Monocytes % 7.9 % (0.0-12.0); Neutrophil % 63.7 % (36.0-66.0); Platelet Count 225 x10^3/uL (150-450); Red Blood Count 4.12 x10^6/uL (4.1-5.4); Red Cell Distribution Width 13.5 % (11.5-14.0); White Blood Count 7.7 x10^3/uL (4.0-10.5)
[2023-03-29 06:14] LABS: ALBUMIN 2.5 g/dL (3.5-5.0); BILIRUBIN,TOTAL 1.2 mg/dL (0.2-1.3); Calcium 7.9 mg/dL (8.4-10.2); Creatinine 1 0.68 mg/dL (0.52-1.04); EST GLOMERULAR FILTRATION RATE 90.2 ML/MIN; PREALBUMIN 7.47 mg/dL (17.6-36.0); Total Protein 5.1 g/dL (6.3-8.2)
[2023-03-29] MEDS ORDERED: Klor Con PO ONE (06:47)
[2023-03-29] MEDS: HUMALOG SQ SCH (07:33)
[2023-03-29] MEDS ORDERED: ROCEPHIN 1 Gm-D5w 50 ml Bag** 1 G/50 ML IVPB IV SCH (10:00)
[2023-03-29] MEDS: ROCEPHIN 1 Gm-D5w 50 ml Bag** 1 G/50 ML IVPB IV SCH (11:14)
[2023-03-29] MEDS: Acidophilus TABLET PO SCH (11:15)
[2023-03-29] MEDS: Lomotil PO PRN (11:15)
[2023-03-29] MEDS: ENOXAPARIN SODIUM SQ SCH (11:15)
[2023-03-29] MEDS: HUMALOG SQ PRN (17:16)
[2023-03-29] MEDS: IMODIUM 2 MG PO PRN (17:32)
[2023-03-30] MEDS: TYLENOL 325 MG PO PRN ×4 (01:39→20:05)
--- NOTE | 2023-03-30 05:22 | PCM.NOTE ---
Date and Time: 03/30/23 0521 Subjective Assessment: HPI: This is a 77-year-old female admitted this evening for altered mental status and UTI. She has past medical history of diabetes, hyperlipidemia, hypertension, GERD, fibromyalgia, depression, breast cancer s/p mastectomy. She was brought to the ED this afternoon by EMS after welfare check was performed and she was found confused on the floor, soiled in both feces and urine. Patient denies any recollection of this and insists she was never on the floor. On arrival to ED she was afebrile, heart rate 91, blood pressure 138/82. Labs significant for WBC 8.1, sodium 135, creatinine 0.5 5, AST 49, ALT 60, CK3 63, troponin negative, UA with nitrite, leukocyte esterase, many bacteria, rare yeast and no epithelial cells. CT cervical spine showed no acute fractures. Bilateral thyroid nodules were noted CT facial bones was negative for acute fracture but did show mild soft tissue and subcutaneous edema opposite left upper alveolar margin; head CT was negative for acute intracranial pathology. In the ED she was given ceftriaxone and started on IV fluids. Her main complaints currently are daily diarrhea, mild dysuria. 03/29/23: Met with patient bedside. No overnight events noted. Endorses heel pain but no other complaints during interview. She is A&O x 3 today. Long discussion had regarding events that brought her to the hospital. She does not recall being on the floor, states she was sitting on a stool. Patient endorses feeling very weak recently. She mentions that she has had multiple stays for rehab, most recently at [facility]. Patient is agreeable to PT eval with recommendations. She also reports chronic diarrhea for about two years. She states she had a colonoscopy done in May of this year. I did review her records, she had a right hemicolectomy with anastomosis during that visit due to a right colon mass which biopsy was reported as negative. She also reports that she has had multiple of episodes of low blood sugar levels one of which she was brought to the ED for in May. Labwork with noted improvement overnight, LFTs near normal CK trending down, WBC wnl. Denies fever,cough, sob, cp, abdominal pain, dysuria, hematuria, flank pain, LIMA, dizziness, N/V/D. 03/30: Met with patient bedside. Endorses overall improvement although she states she is very weak and thinks she may need to go to SNF for rehab. She does have chronic diarrhea which she states has improved since hospitalization with lomotil/immodium alternating. CDiff was negative. Stool studies/cultures pending. Patient has been refusing insulin due to fear of hypoglycemia, discussed the importance of glycemic control, she is agreeable to resume insulin regimen. Discussed labwork showing low potassium this morning, which will be replenished. Ucult is showing Ecoli which is sensitive to the ceftriaxone we are giving her. PT/OT to evaluate patient on Friday for possible d/c to snf if she qualifies. Denies fever,cough, sob, cp, abdominal pain, LIMA, dizziness, N/V. - Review of Systems Constitutional: Fatigue, Weakness Eyes: No Symptoms Ears, Nose, & Throat: No Symptoms Respiratory: No Symptoms Cardiac: No Symptoms Abdominal/Gastrointestinal: Diarrhea (chronic) Genitourinary Symptoms: No Symptoms Musculoskeletal: No Symptoms Skin: No Symptoms Neurological: No Symptoms Psychological: No Symptoms Endocrine: No Symptoms Hematologic/Lymphatic: No Symptoms Immunological/Allergic: No Symptoms Objective Exam General Appearance: no apparent distress Neurologic Exam: alert, oriented x 3, cooperative Skin Exam: pale Eye Exam: PERRL Ears, Nose, Throat Exam: moist mucous membranes Neck Exam: normal inspection Respiratory Exam: normal breath sounds, lungs clear Cardiovascular Exam: regular rate/rhythm, normal heart sounds Gastrointestinal/Abdomen Exam: soft, normal bowel sounds Extremity Exam: normal inspection Back Exam: normal inspection Pelvic Exam: deferred Rectal Exam: deferred OBJECTIVE DATA Vital Signs: Vital Signs - 24 hr Temp Pulse Resp BP Pulse Ox 03/30/23 03:00 98.9 F 72 18 149/72 92 L 03/29/23 23:47 98.4 F 71 16 139/67 93 L 03/29/23 19:40 98.0 F 88 18 132/64 95 03/29/23 16:00 98.7 F 78 19 144/68 91 L 03/29/23 11:49 98 F 79 19 142/70 92 L 03/29/23 07:52 97.7 F 74 19 174/76 96 Pain Assessment - Last Documented Pain Intensity 3 Pain Scale Used 0-10 Pain Scale Intake and Output: Intake & Output 03/27/23 03/28/23 03/29/23 03/30/23 11:59 11:59 11:59 10:59 Intake Total 1445 8043 Output Total 391 1225 Balance 1095 548 Weight 52.5 kg Lab Results: Lab Results-Last 24 Hours 03/29/23 03/29/23 03/29/23 Range/Units 05:20 05:20 05:34 Sodium 137 (137-145) mmol/L Potassium 3.0 L* (3.5-5.1) mmol/L Chloride 106 (98-107) mmol/L Carbon Dioxide 26 (22-30) mmol/L Anion Gap 7.0 (5-15) MEQ/L BUN 11 (7-17) mg/dL Creatinine 0.68 (0.52-1.04) mg/dL Estimated GFR 90.2 ML/MIN Glucose 130 H (74-106) mg/dL POC Glucometer (74 to 106) mg/dL Hemoglobin A1c 7.96 H (4.5-6.0) % Calcium 7.9 L (8.4-10.2) mg/dL Magnesium (1.6-2.3) mg/dL Total Bilirubin 1.20 (0.2-1.3) mg/dL AST 34 (14-36) U/L ALT 44 H (0-35) U/L Alkaline Phosphatase 100 (38-126) U/L Creatine Kinase 179 H (30-135) U/L Troponin I < 0.012 (0.000-0.034) ng/mL Serum Total Protein 5.1 L (6.3-8.2) g/dL Albumin 2.5 L (3.5-5.0) g/dL Prealbumin 7.47 L (17.6-36.0) mg/dL Free T4 (0.78-2.19) ng/dL TSH 3rd Generation (0.47-4.68) mIU/L 03/29/23 03/29/23 03/29/23 Range/Units 05:34 05:34 06:45 Sodium (137-145) mmol/L Potassium (3.5-5.1) mmol/L Chloride (98-107) mmol/L Carbon Dioxide (22-30) mmol/L Anion Gap (5-15) MEQ/L BUN (7-17) mg/dL Creatinine (0.52-1.04) mg/dL Estimated GFR ML/MIN Glucose (74-106) mg/dL POC Glucometer (74 to 106) mg/dL Hemoglobin A1c (4.5-6.0) % Calcium (8.4-10.2) mg/dL Magnesium 1.9 (1.6-2.3) mg/dL Total Bilirubin (0.2-1.3) mg/dL AST (14-36) U/L ALT (0-35) U/L Alkaline Phosphatase (38-126) U/L Creatine Kinase (30-135) U/L Troponin I (0.000-0.034) ng/mL Serum Total Protein (6.3-8.2) g/dL Albumin (3.5-5.0) g/dL Prealbumin (17.6-36.0) mg/dL Free T4 1.27 (0.78-2.19) ng/dL TSH 3rd Generation 2.240 (0.47-4.68) mIU/L 03/29/23 03/29/23 03/29/23 Range/Units 07:20 11:39 11:55 Sodium (137-145) mmol/L Potassium 3.5 (3.5-5.1) mmol/L Chloride (98-107) mmol/L Carbon Dioxide (22-30) mmol/L Anion Gap (5-15) MEQ/L BUN (7-17) mg/dL Creatinine (0.52-1.04) mg/dL Estimated GFR ML/MIN Glucose (74-106) mg/dL POC Glucometer 121 H 228 H (74 to 106) mg/dL Hemoglobin A1c (4.5-6.0) % Calcium (8.4-10.2) mg/dL Magnesium (1.6-2.3) mg/dL Total Bilirubin (0.2-1.3) mg/dL AST (14-36) U/L ALT (0-35) U/L Alkaline Phosphatase (38-126) U/L Creatine Kinase (30-135) U/L Troponin I (0.000-0.034) ng/mL Serum Total Protein (6.3-8.2) g/dL Albumin (3.5-5.0) g/dL Prealbumin (17.6-36.0) mg/dL Free T4 (0.78-2.19) ng/dL TSH 3rd Generation (0.47-4.68) mIU/L 03/29/23 03/29/23 03/29/23 Range/Units 16:57 17:12 21:29 Sodium (137-145) mmol/L Potassium (3.5-5.1) mmol/L Chloride (98-107) mmol/L Carbon Dioxide (22-30) mmol/L Anion Gap (5-15) MEQ/L BUN (7-17) mg/dL Creatinine (0.52-1.04) mg/dL Estimated GFR ML/MIN Glucose (74-106) mg/dL POC Glucometer 247 H 257 H 209 H (74 to 106) mg/dL Hemoglobin A1c (4.5-6.0) % Calcium (8.4-10.2) mg/dL Magnesium (1.6-2.3) mg/dL Total Bilirubin (0.2-1.3) mg/dL AST (14-36) U/L ALT (0-35) U/L Alkaline Phosphatase (38-126) U/L Creatine Kinase (30-135) U/L Troponin I (0.000-0.034) ng/mL Serum Total Protein (6.3-8.2) g/dL Albumin (3.5-5.0) g/dL Prealbumin (17.6-36.0) mg/dL Free T4 (0.78-2.19) ng/dL TSH 3rd Generation (0.47-4.68) mIU/L Radiology Exams: Radiology Procedures Category Date Time Status CERVICAL SPINE WO CONTRAST [CT] Stat Exams 03/28/23 17:23 Completed FACIAL BONES WO CONTRAST [CT] Stat Exams 03/28/23 17:23 Completed HEAD WITHOUT CONTRAST [CT] Stat Exams 03/28/23 17:23 Completed THYROID [US] Routine Exams 03/28/23 21:36 Ordered Assessment/Plan (1) Acute metabolic encephalopathy Current Visit: Yes Status: Acute Assessment & Plan: -most likely secondary to UTI -CT head with no acute findings chronic findings include microvascular ischemic changes and senile changes, bilatera basal ganglia lucunar infarcts -IV abx -IVF -TSH/US 03/29/23: -Patient A&O x 3 this morning -Continue treatment for underlying UTI with Ceftriaxone Code(s): G93.41 - METABOLIC ENCEPHALOPATHY (2) Ground-level fall Current Visit: Yes Status: Acute Assessment & Plan: -PT/OT- recs appreciated, patient may benefit from rehab stay for strengthening -CT cervical spine/ct head negative for acute findings Code(s): W18.30XA - FALL ON SAME LEVEL, UNSPECIFIED, INITIAL ENCOUNTER (3) UTI (urinary tract infection) Current Visit: Yes Status: Acute Assessment & Plan: -UA suspicious for infection, will start Ceftriaxone, follow culture 03/30: -U-cult with ecoli, will continue with ceftriaxone for now, oral cefdinir on discharge Code(s): N39.0 - URINARY TRACT INFECTION, SITE NOT SPECIFIED (4) Rhabdomyolysis Current Visit: Yes Status: Acute Assessment & Plan: -Continue IVF -Monitor CK levels daily -Trending down, 179<363 03/30: -CK is normal at 58 this morning Code(s): M62.82 - RHABDOMYOLYSIS (5) Elevated liver enzymes Current Visit: Yes Status: Acute Assessment & Plan: -Continue to monitor/trend, near normal today 03/30: -resloved Code(s): R74.8 - ABNORMAL LEVELS OF OTHER SERUM ENZYMES (6) Chronic diarrhea Current Visit: Yes Status: Acute Assessment & Plan: -Stool studies pending -lomotil prn, may add immodium to alt q3h if needed Code(s): K52.9 - NONINFECTIVE GASTROENTERITIS AND COLITIS, UNSPECIFIED (7) Diabetes mellitus Current Visit: Yes Status: Acute Assessment & Plan: -ADA -A1c -SSI Code(s): E11.9 - TYPE 2 DIABETES MELLITUS WITHOUT COMPLICATIONS (8) HTN (hypertension) Current Visit: Yes Status: Acute Assessment & Plan: -Will monitor, it does not appear patient takes home meds, stable Code(s): I10 - ESSENTIAL (PRIMARY) HYPERTENSION (9) Thyroid nodule Current Visit: Yes Status: Acute Assessment & Plan: -As seen on CT, US of thyroid ordered Code(s): E04.1 - NONTOXIC SINGLE THYROID NODULE Code(s): G93.41 - METABOLIC ENCEPHALOPATHY (2) Ground-level fall Current Visit: Yes Status: Acute Code(s): W18.30XA - FALL ON SAME LEVEL, UNSPECIFIED, INITIAL ENCOUNTER (3) UTI (urinary tract infection) Current Visit: Yes Status: Acute Code(s): N39.0 - URINARY TRACT INFECTION, SITE NOT SPECIFIED (4) Rhabdomyolysis Current Visit: Yes Status: Acute Code(s): M62.82 - RHABDOMYOLYSIS (5) Elevated liver enzymes Current Visit: Yes Status: Acute Code(s): R74.8 - ABNORMAL LEVELS OF OTHER SERUM ENZYMES (6) Chronic diarrhea Current Visit: Yes Status: Acute Code(s): K52.9 - NONINFECTIVE GASTROENTERITIS AND COLITIS, UNSPECIFIED (7) Diabetes mellitus Current Visit: Yes Status: Acute Code(s): E11.9 - TYPE 2 DIABETES MELLITUS WITHOUT COMPLICATIONS (8) HTN (hypertension) Current Visit: Yes Status: Acute Code(s): I10 - ESSENTIAL (PRIMARY) HYPERTENSION (9) Thyroid nodule Current Visit: Yes Status: Acute Code(s): E04.1 - NONTOXIC SINGLE THYROID NODULE
[2023-03-30 06:01] LABS: Absolute Neutrophil Ct (ANC) 2.96 x10^3/uL (1.4-6.9); BASOPHIL % 0.6 % (0.0-0.4); Basophil (Absolute #) 0.03 x10^3/uL (0-0.4); Eosinophil % 1.9 % (0.00-5.0); Hematocrit 35.2 % (35-47); Hemoglobin 11.2 g/dL (12.0-16.0); IMMATURE GRAN # 0.01 x10^3u/L (0.00-0.03); IMMATURE GRAN % 0.2 % (0.00-0.4); Lymphocyte (Absolute #) 1.63 x10^3/uL (1.0-4.6); Mean Cell Volume 95.7 fL (78-100); Mean Corpuscular Hemoglobin 30.4 pg (26-32); Mean Corpuscular Hgb Concent. 31.8 g/dL (32-36); Mean Platelet Volume 9.9 fL (7.5-11.0); Monocyte (Absolute #) 0.52 x10^3/uL (0.0-1.3); Monocytes % 9.9 % (0.0-12.0); Neutrophil % 56.4 % (36.0-66.0); Platelet Count 213 x10^3/uL (150-450); Red Blood Count 3.68 x10^6/uL (4.1-5.4); White Blood Count 5.3 x10^3/uL (4.0-10.5)
[2023-03-30 06:38] LABS: ALBUMIN 2.3 g/dL (3.5-5.0); ANION GAP 7.5 MEQ/L (5-15); BILIRUBIN,TOTAL 0.6 mg/dL (0.2-1.3); Calcium 7.7 mg/dL (8.4-10.2); Creatinine 1 0.63 mg/dL (0.52-1.04); EST GLOMERULAR FILTRATION RATE 91.9 ML/MIN; Potassium 3.4 mmol/L (3.5-5.1); Total Protein 4.7 g/dL (6.3-8.2)
[2023-03-30] MEDS: HUMALOG SQ PRN ×3 (07:36→18:01)
[2023-03-30] MEDS: Klor Con PO SCH ×4 (07:45→13:43)
[2023-03-30] MEDS: Acidophilus TABLET PO SCH (09:56)
[2023-03-30] MEDS: ENOXAPARIN SODIUM SQ SCH (09:56)
[2023-03-30] MEDS: ZOLOFT 50 MG TABLET PO SCH (10:24)
[2023-03-30] MEDS: ROCEPHIN 1 Gm-D5w 50 ml Bag** 1 G/50 ML IVPB IV SCH (10:24)
[2023-03-30] MEDS: Lomotil PO PRN ×2 (10:24→20:05)
[2023-03-31] MEDS: IMODIUM 2 MG PO PRN ×2 (00:10→14:23)
[2023-03-31] MEDS: TYLENOL 325 MG PO PRN (00:10)
[2023-03-31 04:47] LABS: Absolute Neutrophil Ct (ANC) 3.46 x10^3/uL (1.4-6.9); BASOPHIL % 0.5 % (0.0-0.4); Basophil (Absolute #) 0.03 x10^3/uL (0-0.4); Eosinophil % 2.7 % (0.00-5.0); Eosinophil (Absolute #) 0.17 x10^3/uL (0-0.5); Hemoglobin 11.5 g/dL (12.0-16.0); IMMATURE GRAN # 0.02 x10^3u/L (0.00-0.03); IMMATURE GRAN % 0.3 % (0.00-0.4); Lymphocyte (Absolute #) 2.21 x10^3/uL (1.0-4.6); Lymphocytes % 34.5 % (24.0-44.0); Mean Cell Volume 95.2 fL (78-100); Mean Corpuscular Hemoglobin 30.4 pg (26-32); Mean Corpuscular Hgb Concent. 31.9 g/dL (32-36); Mean Platelet Volume 9.9 fL (7.5-11.0); Monocyte (Absolute #) 0.51 x10^3/uL (0.0-1.3); Platelet Count 195 x10^3/uL (150-450); Red Blood Count 3.78 x10^6/uL (4.1-5.4); Red Cell Distribution Width 14.1 % (11.5-14.0); White Blood Count 6.4 x10^3/uL (4.0-10.5)
[2023-03-31 05:08] LABS: ALBUMIN 2.3 g/dL (3.5-5.0); ANION GAP 5.8 MEQ/L (5-15); BILIRUBIN,TOTAL 0.6 mg/dL (0.2-1.3); Calcium 7.9 mg/dL (8.4-10.2); Creatinine 1 0.45 mg/dL (0.52-1.04); EST GLOMERULAR FILTRATION RATE 99.6 ML/MIN; Potassium 3.6 mmol/L (3.5-5.1); Total Protein 4.8 g/dL (6.3-8.2)
[2023-03-31 07:13] VITALS: RESP 17
[2023-03-31] MEDS ORDERED: DIFLUCAN PO ONE (07:47)
[2023-03-31] MEDS: Lomotil PO PRN (08:59)
[2023-03-31] MEDS: Acidophilus TABLET PO SCH (08:59)
[2023-03-31] MEDS: ZOLOFT 50 MG TABLET PO SCH (08:59)
[2023-03-31] MEDS: ENOXAPARIN SODIUM SQ SCH (09:00)
[2023-03-31] MEDS: ROCEPHIN 1 Gm-D5w 50 ml Bag** 1 G/50 ML IVPB IV SCH (09:00)
[2023-03-31] MEDS ORDERED: Lantus Insulin SQ SCH (10:00)
[2023-03-31 11:20] VITALS: BP 144/70; PULSE 71; TEMP 97.7; O2SAT 97
--- NOTE | 2023-03-31 11:27 | XRAY ---
Indication: Thyroid nodule. Two-dimensional thyroid sonogram performed. Comparison: None No thyromegaly. Right lobe measures 4.6 x 2.5 x 2.4 cm and left measures 4.4 x 1.4 x 1.4 cm. Isthmus measures 1.7 mm. Right mid lobe demonstrates 3.2 x 2.5 x 2.1 cm well-circumscribed heterogeneous thyroid nodule with color Doppler flow. Similar smaller heterogeneous nodule left lower pole measuring 1.4 x 1.2 x 1.3 cm with color Doppler flow. Impression: Indeterminant bilateral heterogeneous nodules as detailed.
--- NOTE | 2023-03-31 14:16 | PCM.DS ---
Discharge Summary Date of Admission: 03/28/23 20:02 Date of Discharge: 03/31/23 Admitting Physician: ALO STRATTON MD Primary Care Provider: CURTIS LANDRY <JACINDA DERAS - Last Filed: 03/31/23 14:00> Date of Admission: 03/28/23 20:02 Date of Discharge: 03/31/23 Admitting Physician: ALO STRATTON MD Primary Care Provider: CURTIS LANDRY <ZACH TAPIA - Last Filed: 03/31/23 19:39> Allergies <JACINDA DERAS - Last Filed: 03/31/23 14:00> <ZACH TAPIA - Last Filed: 03/31/23 19:39> Allergies No Known Drug Allergies Allergy (Verified 07/04/22 07:38) Hospital Summary - Hospital Course Hospital Course: This is a 77-year-old female admitted for altered mental status and UTI. She has past medical history of diabetes, hyperlipidemia, hypertension, GERD, fibro myalgia, depression, breast cancer s/p mastectomy. She was brought to the ED n by EMS after welfare check was performed and she was found confused on the floor, soiled in both feces and urine. Patient denies any recollection of this and insists she was never on the floor. On arrival to ED she was afebrile, heart rate 91, blood pressure 138/82. Labs significant for WBC 8.1, sodium 135, creatinine 0.5 5, AST 49, ALT 60, CK3 63, troponin negative, UA with nitrite, leukocyte esterase, many bacteria, rare yeast and no epithelial cells. CT cervical spine showed no acute fractures. Bilateral thyroid nodules were noted CT facial bones was negative for acute fracture but did show mild soft tissue and subcutaneous edema opposite left upper alveolar margin; head CT was negative for acute intracranial pathology. In the ED she was given ceftriaxone and started on IV fluids. Her main complaints currently are daily diarrhea, mild dysuria. Diarrhea has improved with imodium and Lomotil. She reports seeing multiple GI specialist in the past and nothing was recommended for her diarrhea. US of thyroid completed and it appears she has several nodules. She explained she was already aware of this and has seen Dr. White in the past with a biopsy done. She does not want to go back there and is not concerned about her thyroid. She would like to discuss with her PCP, Dr. Xavier. She does not want a referral to another horser up or GI at this time. Case management has set up home health care. Will d/c with antibiotics for UTI. - Vitals & Intake/Output Vital Signs: Vital Signs Temperature 97.7 F 03/31/23 11:00 Pulse Rate 71 03/31/23 11:00 Respiratory Rate 17 03/31/23 11:00 Blood Pressure 144/70 03/31/23 11:00 O2 Sat by Pulse Oximetry 97 03/31/23 11:00 Intake & Output: Intake & Output 03/29/23 03/30/23 03/31/23 04/01/23 12:59 11:59 11:59 11:59 Intake Total 240 240 Output Total 350 Balance -110 240 Weight - Lab Result Diagrams: 03/31/23 04:20 03/31/23 04:20 Lab Results-Last 24 Hrs: Lab Results-Last 24 Hours 03/30/23 03/30/23 03/30/23 Range/Units 15:45 17:06 22:23 WBC (4.0-10.5) x10^3/uL RBC (4.1-5.4) x10^6/uL Hgb (12.0-16.0) g/dL Hct (35-47) % MCV (78-100) fL MCH (26-32) pg MCHC (32-36) g/dL RDW (11.5-14.0) % Plt Count (150-450) x10^3/uL MPV (7.5-11.0) fL Gran % (36.0-66.0) % Immature Gran % (Auto) (0.00-0.4) % Nucleat RBC Rel Count (0.00-0.1) % Eos # (Auto) (0-0.5) x10^3/uL Immature Gran # (Auto) (0.00-0.03) x10^3u/L Absolute Lymphs (auto) (1.0-4.6) x10^3/uL Absolute Monos (auto) (0.0-1.3) x10^3/uL Absolute Nucleated RBC (0.00-0.01) x10^3u/L Lymphocytes % (24.0-44.0) % Monocytes % (0.0-12.0) % Eosinophils % (0.00-5.0) % Basophils % (0.0-0.4) % Absolute Granulocytes (1.4-6.9) x10^3/uL Basophils # (0-0.4) x10^3/uL Sodium (137-145) mmol/L Potassium 4.2 D (3.5-5.1) mmol/L Chloride (98-107) mmol/L Carbon Dioxide (22-30) mmol/L Anion Gap (5-15) MEQ/L BUN (7-17) mg/dL Creatinine (0.52-1.04) mg/dL Estimated GFR ML/MIN Glucose (74-106) mg/dL POC Glucometer 252 H 171 H (74 to 106) mg/dL Calcium (8.4-10.2) mg/dL Total Bilirubin (0.2-1.3) mg/dL AST (14-36) U/L ALT (0-35) U/L Alkaline Phosphatase (38-126) U/L Creatine Kinase (30-135) U/L Serum Total Protein (6.3-8.2) g/dL Albumin (3.5-5.0) g/dL 03/31/23 03/31/23 03/31/23 Range/Units 04:20 04:20 07:08 WBC 6.4 (4.0-10.5) x10^3/uL RBC 3.78 L (4.1-5.4) x10^6/uL Hgb 11.5 L (12.0-16.0) g/dL Hct 36.0 (35-47) % MCV 95.2 (78-100) fL MCH 30.4 (26-32) pg MCHC 31.9 L (32-36) g/dL RDW 14.1 H (11.5-14.0) % Plt Count 195 (150-450) x10^3/uL MPV 9.9 (7.5-11.0) fL Gran % 54.0 (36.0-66.0) % Immature Gran % (Auto) 0.3 (0.00-0.4) % Nucleat RBC Rel Count 0.0 (0.00-0.1) % Eos # (Auto) 0.17 (0-0.5) x10^3/uL Immature Gran # (Auto) 0.02 (0.00-0.03) x10^3u/L Absolute Lymphs (auto) 2.21 (1.0-4.6) x10^3/uL Absolute Monos (auto) 0.51 (0.0-1.3) x10^3/uL Absolute Nucleated RBC 0.00 (0.00-0.01) x10^3u/L Lymphocytes % 34.5 (24.0-44.0) % Monocytes % 8.0 (0.0-12.0) % Eosinophils % 2.7 (0.00-5.0) % Basophils % 0.5 (0.0-0.4) % Absolute Granulocytes 3.46 (1.4-6.9) x10^3/uL Basophils # 0.03 (0-0.4) x10^3/uL Sodium 137 (137-145) mmol/L Potassium 3.6 (3.5-5.1) mmol/L Chloride 110 H (98-107) mmol/L Carbon Dioxide 25 (22-30) mmol/L Anion Gap 5.8 (5-15) MEQ/L BUN 8 (7-17) mg/dL Creatinine 0.45 L (0.52-1.04) mg/dL Estimated GFR 99.6 ML/MIN Glucose 186 H (74-106) mg/dL POC Glucometer 194 H (74 to 106) mg/dL Calcium 7.9 L (8.4-10.2) mg/dL Total Bilirubin 0.60 (0.2-1.3) mg/dL AST 28 (14-36) U/L ALT 34 (0-35) U/L Alkaline Phosphatase 91 (38-126) U/L Creatine Kinase 31 (30-135) U/L Serum Total Protein 4.8 L (6.3-8.2) g/dL Albumin 2.3 L (3.5-5.0) g/dL 03/31/23 Range/Units 11:19 WBC (4.0-10.5) x10^3/uL RBC (4.1-5.4) x10^6/uL Hgb (12.0-16.0) g/dL Hct (35-47) % MCV (78-100) fL MCH (26-32) pg MCHC (32-36) g/dL RDW (11.5-14.0) % Plt Count (150-450) x10^3/uL MPV (7.5-11.0) fL Gran % (36.0-66.0) % Immature Gran % (Auto) (0.00-0.4) % Nucleat RBC Rel Count (0.00-0.1) % Eos # (Auto) (0-0.5) x10^3/uL Immature Gran # (Auto) (0.00-0.03) x10^3u/L Absolute Lymphs (auto) (1.0-4.6) x10^3/uL Absolute Monos (auto) (0.0-1.3) x10^3/uL Absolute Nucleated RBC (0.00-0.01) x10^3u/L Lymphocytes % (24.0-44.0) % Monocytes % (0.0-12.0) % Eosinophils % (0.00-5.0) % Basophils % (0.0-0.4) % Absolute Granulocytes (1.4-6.9) x10^3/uL Basophils # (0-0.4) x10^3/uL Sodium (137-145) mmol/L Potassium (3.5-5.1) mmol/L Chloride (98-107) mmol/L Carbon Dioxide (22-30) mmol/L Anion Gap (5-15) MEQ/L BUN (7-17) mg/dL Creatinine (0.52-1.04) mg/dL Estimated GFR ML/MIN Glucose (74-106) mg/dL POC Glucometer 181 H (74 to 106) mg/dL Calcium (8.4-10.2) mg/dL Total Bilirubin (0.2-1.3) mg/dL AST (14-36) U/L ALT (0-35) U/L Alkaline Phosphatase (38-126) U/L Creatine Kinase (30-135) U/L Serum Total Protein (6.3-8.2) g/dL Albumin (3.5-5.0) g/dL Micro Results-Entire Visit: Microbiology 03/28/23 18:00 Urine Culture - Final Catherized Escherichia Coli Accuchecks Date 03/31/23 Date 03/31/23 Date 03/30/23 Date 03/30/23 Time 11:21 Time 07:13 Time 17:13 - Radiology Exams Ordered Rad Exams-Entire Visit: Radiology Procedures Category Date Time Status THYROID [US] Routine Exams 03/31/23 21:36 Completed - Procedures and Test Procedures and Tests throughout Hospitalization: Therapy Orders & Screens 03/28/23 21:52 Respiratory Therapy Assessment DAILY Comment: Diagnosis: Altered Mental Status 03/29/23 11:28 PT Eval & Treat (MD Order) ONCE Reason for Eval:: weakness/falls Diagnosis: Altered Mental Status OT Eval and Treat (MD Order) ONCE Comment: Physician Instructions: Reason For Exam: Diagnosis: Altered Mental Status <JACINDA DERAS - Last Filed: 03/31/23 14:00> - Vitals & Intake/Output Vital Signs: Vital Signs Temperature 97.7 F 03/31/23 15:00 Pulse Rate 71 03/31/23 15:00 Respiratory Rate 17 03/31/23 15:00 Blood Pressure 144/70 03/31/23 15:00 O2 Sat by Pulse Oximetry 97 03/31/23 15:00 Intake & Output: Intake & Output 03/29/23 03/30/23 03/31/23 04/01/23 12:59 11:59 11:59 11:59 Intake Total 240 240 Output Total 350 Balance -110 240 Weight - Lab Result Diagrams: 03/31/23 04:20 03/31/23 04:20 Lab Results-Last 24 Hrs: Lab Results-Last 24 Hours 03/30/23 03/31/23 03/31/23 Range/Units 22:23 04:20 04:20 WBC 6.4 (4.0-10.5) x10^3/uL RBC 3.78 L (4.1-5.4) x10^6/uL Hgb 11.5 L (12.0-16.0) g/dL Hct 36.0 (35-47) % MCV 95.2 (78-100) fL MCH 30.4 (26-32) pg MCHC 31.9 L (32-36) g/dL RDW 14.1 H (11.5-14.0) % Plt Count 195 (150-450) x10^3/uL MPV 9.9 (7.5-11.0) fL Gran % 54.0 (36.0-66.0) % Immature Gran % (Auto) 0.3 (0.00-0.4) % Nucleat RBC Rel Count 0.0 (0.00-0.1) % Eos # (Auto) 0.17 (0-0.5) x10^3/uL Immature Gran # (Auto) 0.02 (0.00-0.03) x10^3u/L Absolute Lymphs (auto) 2.21 (1.0-4.6) x10^3/uL Absolute Monos (auto) 0.51 (0.0-1.3) x10^3/uL Absolute Nucleated RBC 0.00 (0.00-0.01) x10^3u/L Lymphocytes % 34.5 (24.0-44.0) % Monocytes % 8.0 (0.0-12.0) % Eosinophils % 2.7 (0.00-5.0) % Basophils % 0.5 (0.0-0.4) % Absolute Granulocytes 3.46 (1.4-6.9) x10^3/uL Basophils # 0.03 (0-0.4) x10^3/uL Sodium 137 (137-145) mmol/L Potassium 3.6 (3.5-5.1) mmol/L Chloride 110 H (98-107) mmol/L Carbon Dioxide 25 (22-30) mmol/L Anion Gap 5.8 (5-15) MEQ/L BUN 8 (7-17) mg/dL Creatinine 0.45 L (0.52-1.04) mg/dL Estimated GFR 99.6 ML/MIN Glucose 186 H (74-106) mg/dL POC Glucometer 171 H (74 to 106) mg/dL Calcium 7.9 L (8.4-10.2) mg/dL Total Bilirubin 0.60 (0.2-1.3) mg/dL AST 28 (14-36) U/L ALT 34 (0-35) U/L Alkaline Phosphatase 91 (38-126) U/L Creatine Kinase 31 (30-135) U/L Serum Total Protein 4.8 L (6.3-8.2) g/dL Albumin 2.3 L (3.5-5.0) g/dL 03/31/23 03/31/23 Range/Units 07:08 11:19 WBC (4.0-10.5) x10^3/uL RBC (4.1-5.4) x10^6/uL Hgb (12.0-16.0) g/dL Hct (35-47) % MCV (78-100) fL MCH (26-32) pg MCHC (32-36) g/dL RDW (11.5-14.0) % Plt Count (150-450) x10^3/uL MPV (7.5-11.0) fL Gran % (36.0-66.0) % Immature Gran % (Auto) (0.00-0.4) % Nucleat RBC Rel Count (0.00-0.1) % Eos # (Auto) (0-0.5) x10^3/uL Immature Gran # (Auto) (0.00-0.03) x10^3u/L Absolute Lymphs (auto) (1.0-4.6) x10^3/uL Absolute Monos (auto) (0.0-1.3) x10^3/uL Absolute Nucleated RBC (0.00-0.01) x10^3u/L Lymphocytes % (24.0-44.0) % Monocytes % (0.0-12.0) % Eosinophils % (0.00-5.0) % Basophils % (0.0-0.4) % Absolute Granulocytes (1.4-6.9) x10^3/uL Basophils # (0-0.4) x10^3/uL Sodium (137-145) mmol/L Potassium (3.5-5.1) mmol/L Chloride (98-107) mmol/L Carbon Dioxide (22-30) mmol/L Anion Gap (5-15) MEQ/L BUN (7-17) mg/dL Creatinine (0.52-1.04) mg/dL Estimated GFR ML/MIN Glucose (74-106) mg/dL POC Glucometer 194 H 181 H (74 to 106) mg/dL Calcium (8.4-10.2) mg/dL Total Bilirubin (0.2-1.3) mg/dL AST (14-36) U/L ALT (0-35) U/L Alkaline Phosphatase (38-126) U/L Creatine Kinase (30-135) U/L Serum Total Protein (6.3-8.2) g/dL Albumin (3.5-5.0) g/dL Micro Results-Entire Visit: Microbiology 03/28/23 18:00 Urine Culture - Final Catherized Escherichia Coli Accuchecks Date 03/31/23 Date 03/31/23 Date 03/30/23 Time 11:21 Time 07:13 - Radiology Exams Ordered Rad Exams-Entire Visit: Radiology Procedures Category Date Time Status THYROID [US] Routine Exams 03/31/23 21:36 Completed - Procedures and Test Procedures and Tests throughout Hospitalization: Therapy Orders & Screens 03/28/23 21:52 Respiratory Therapy Assessment DAILY Comment: Diagnosis: Altered Mental Status 03/29/23 11:28 PT Eval & Treat (MD Order) ONCE Reason for Eval:: weakness/falls Diagnosis: Altered Mental Status OT Eval and Treat (MD Order) ONCE Comment: Physician Instructions: Reason For Exam: Diagnosis: Altered Mental Status <ZACH TAPIA - Last Filed: 03/31/23 19:39> Discharge Exam General Appearance: no apparent distress, alert Neurologic Exam: alert, oriented x 3, cooperative, normal mood/affect, nml cerebellar function, sensation nml, No motor deficits Eye Exam: PERRL, EOMI, eyes nml inspection Ears, Nose, Throat Exam: normal ENT inspection, pharynx normal, moist mucous membranes Neck Exam: normal inspection, non-tender, supple, full range of motion Respiratory Exam: normal breath sounds, lungs clear, No respiratory distress Cardiovascular Exam: regular rate/rhythm, normal heart sounds Gastrointestinal/Abdomen Exam: soft, No tenderness, No mass Pelvic Exam: deferred Rectal Exam: deferred Back Exam: normal inspection, normal range of motion, No CVA tenderness, No vertebral tenderness Extremity Exam: normal inspection, normal range of motion Skin Exam: normal color, warm, dry <JACINDA DERAS - Last Filed: 03/31/23 14:00> Final Diagnosis/Problem List - Final Discharge Diagnosis/Problem (1) Acute metabolic encephalopathy Status: Acute Code(s): G93.41 - METABOLIC ENCEPHALOPATHY (2) Chronic diarrhea Status: Acute Code(s): K52.9 - NONINFECTIVE GASTROENTERITIS AND COLITIS, UNSPECIFIED (3) Diabetes mellitus Status: Acute Code(s): E11.9 - TYPE 2 DIABETES MELLITUS WITHOUT COMPLICATIONS (4) Elevated liver enzymes Status: Acute Code(s): R74.8 - ABNORMAL LEVELS OF OTHER SERUM ENZYMES (5) Ground-level fall Status: Acute Code(s): W18.30XA - FALL ON SAME LEVEL, UNSPECIFIED, INITIAL ENCOUNTER (6) HTN (hypertension) Status: Acute Code(s): I10 - ESSENTIAL (PRIMARY) HYPERTENSION (7) Rhabdomyolysis Status: Acute Code(s): M62.82 - RHABDOMYOLYSIS (8) Thyroid nodule Status: Acute Code(s): E04.1 - NONTOXIC SINGLE THYROID NODULE (9) UTI (urinary tract infection) Status: Acute Assessment & Plan: (1) Acute metabolic encephalopathy Current Visit: Yes Status: Acute Assessment & Plan: -most likely secondary to UTI -CT head with no acute findings chronic findings include microvascular ischemic changes and senile changes, bilatera basal ganglia lucunar infarcts -IV abx -IVF -TSH/US 03/29/23: -Patient A&O x 3 this morning -Continue treatment for underlying UTI with Ceftriaxone Code(s): G93.41 - METABOLIC ENCEPHALOPATHY (2) Ground-level fall Current Visit: Yes Status: Acute Assessment & Plan: -PT/OT- recs appreciated, patient may benefit from rehab stay for strengthening -CT cervical spine/ct head negative for acute findings Code(s): W18.30XA - FALL ON SAME LEVEL, UNSPECIFIED, INITIAL ENCOUNTER (3) UTI (urinary tract infection) Current Visit: Yes Status: Acute Assessment & Plan: -UA suspicious for infection, will start Ceftriaxone, follow culture 03/30: -U-cult with ecoli, will continue with ceftriaxone for now, oral cefdinir on discharge Code(s): N39.0 - URINARY TRACT INFECTION, SITE NOT SPECIFIED (4) Rhabdomyolysis Current Visit: Yes Status: Acute Assessment & Plan: -Continue IVF -Monitor CK levels daily -Trending down, 179<363 03/30: -CK is normal at 58 this morning Code(s): M62.82 - RHABDOMYOLYSIS (5) Elevated liver enzymes Current Visit: Yes Status: Acute Assessment & Plan: -Continue to monitor/trend, near normal today 03/30: -resloved Code(s): R74.8 - ABNORMAL LEVELS OF OTHER SERUM ENZYMES (6) Chronic diarrhea Current Visit: Yes Status: Acute Assessment & Plan: -Stool studies pending -lomotil prn, may add immodium to alt q3h if needed Code(s): K52.9 - NONINFECTIVE GASTROENTERITIS AND COLITIS, UNSPECIFIED (7) Diabetes mellitus Current Visit: Yes Status: Acute Assessment & Plan: -ADA -A1c- 7.96 Uncontrolled -SSI Code(s): E11.9 - TYPE 2 DIABETES MELLITUS WITHOUT COMPLICATIONS (8) HTN (hypertension) Current Visit: Yes Status: Acute Assessment & Plan: -Will monitor, it does not appear patient takes home meds, stable Code(s): I10 - ESSENTIAL (PRIMARY) HYPERTENSION (9) Thyroid nodule Current Visit: Yes Status: Acute Assessment & Plan: -As seen on CT, US of thyroid ordered 03/31 - Discussed US results- pt wants to f/u with Dr. Landry - refused endocrinology referral - has had a biopsy in the past Code(s): E04.1 - NONTOXIC SINGLE THYROID NODULE Code(s): G93.41 - METABOLIC ENCEPHALOPATHY Code(s): N39.0 - URINARY TRACT INFECTION, SITE NOT SPECIFIED <JACINDA DERAS - Last Filed: 03/31/23 14:00> - Discharge Discharge Date: 03/31/23 (with [facility]) <JACINDA DERAS - Last Filed: 03/31/23 14:00> <ZACH TAPIA - Last Filed: 03/31/23 19:39> - Discharge Disposition: HOME HEALTH SERVICE Condition: Stable Prescriptions: New Lactobacillus Acidophilus [Acidophilus TABLET] 1 tab PO DAILY 30 Days #30 tablet Loperamide HCl 2 mg [Imodium 2 mg] 2 mg PO PRN PRN 30 Days #60 cap PRN Reason: Diarrhea Cefdinir 300 mg PO BID 21 Days #7 cap Continue Sertraline HCl 50 mg [Zoloft 50 mg Tablet] 50 mg PO DAILY Potassium Chloride [Klor-Con M10] 10 meq PO DAILY Insulin Detemir [Levemir Flexpen] 20 unit IM DAILY Empagliflozin [Jardiance] 10 mg PO DAILY Metformin HCl 500 mg [Glucophage 500 MG] 500 mg PO DAILY Instructions: Urinary Tract Infection, Adult (DC), Preventing falls in adults Additional Instructions: [facility] HAS BEEN SETUP. THEY WILL CALL YOU TO ARRANGE A TIME TO COME SEE YOU. THEIR PHONE NUMBER IS [phone] IF YOU NEED SOMETHING BEFORE THEY CONTACT YOU. A REFERRAL WAS ALSO SENT TO OUR [facility]- THEY WILL CONTACT YOU TO SEE HOW THEY CAN ASSIST YOU. IF YOU NEED SOMETHING YOU CAN REACH THEM AT [phone] ext [phone]. A REFERRAL WAS SENT TO [facility] ([facility]) TO SEE IF THEY CAN ASSIST YOU IN ANYWAY. THEY WILL CONTACT YOU TO CONDUCT AN ASSESSMENT. THEIR PHONE NUMBER IS [phone]. Follow up with: CURTIS LANDRY MD [Primary Care Provider] - 04/07/23 2:15 pm Forms: Discharge Instructions MERT Encounter - MERT Encounter Attestation MERT Encounter Attestation: "IhSAJI Tsang andhavediscussed pertinent aspects of their care with Jacinda Rodríguez agree with the history, physical exam (any modifications based on my personal exam will be noted below), assessment, and plan as outlined in original note. Please see immediately below for my summary of findings and additional assessment and plan along with any me aningful corrections/explanations to the Subjective/Objective portions of the MERT note will be noted." My portion of the encounter took place via telemedicine. -UTI, falls, chronic diarrhea with extensive outpatient work up per patient. Patient is stable for discharge today on oral antibiotics. <ZACH TAPIA - Last Filed: 03/31/23 19:39>
== END 2023-03-31 15:05 | disposition home health service (06) ==
LOC: ED 16:25 → MED SURG 20:02
PROVIDERS: ADMIT Internal Medicine; ATTEND Internal Medicine
DX: G93.41 Metabolic encephalopathy (principal); K52.9 Noninfective gastroenteritis and colitis, unspecified; E11.9 Type 2 diabetes mellitus without complications; R74.8 Abnormal levels of other serum enzymes; W18.30XA Fall on same level, unspecified, initial encounter; I10 Essential (primary) hypertension; M62.82 Rhabdomyolysis; E04.1 Nontoxic single thyroid nodule; N39.0 Urinary tract infection, site not specified; E78.5 Hyperlipidemia, unspecified; Z79.899 Other long term (current) drug therapy; Z20.828 Contact with and (suspected) exposure to other viral communicable diseases; Z85.3 Personal history of malignant neoplasm of breast
CPT/HCPCS: 36000; 36415; 51702; 70450; 70486; 72125; 76536; 80053; 81001; 82140; 82550; 82947; 83036; 83735; 84132; 84134; 84439; 84443; 84484; 85025; 87045; 87046; 87077; 87086; 87186; 87427; 87493; 93005; 96360; 96361; 96365; 99285; G0378; J0696; J1650; J1817; Q3014; A9270-GY

== ENCOUNTER 2023-09-21 11:32 | Emergency (ER) | payer MEDICARE, OTHER ==
[2023-09-21 11:37] VITALS: BP 154/93; PULSE 78; RESP 18; TEMP 98; O2SAT 98
--- NOTE | 2023-09-21 11:59 | ERPHSYRPT ---
- History of Present Illness Time Seen by Provider: 09/21/23 11:52 Historian: patient, EMS Exam Limitations: no limitations Patient Subjective Stated Complaint: pt here for right sided abd/rib pain for a couple days, she fell 2 weeks ago Triage Nursing Assessment: pt alert, arrived per wc, resp easy, skin w/d/p. no bruising noted to right side, moves all ext well Physician History: c/o right sided abd/rib pain for a couple days, she fell 2 weeks ago Timing/Duration: day(s) (fall 2 days ago) Activities at Onset: none Quality: dullness Abdominal Pain Onset Location: RUQ, epigastric Pain Radiation: no radiation Severity of Pain-Max: mild Severity of Pain-Current: mild Associated Symptoms: diarrhea Previous symptoms: recently seen, recent hospitalization Allergies/Adverse Reactions: No Known Drug Allergies Allergy (Verified 09/21/23 11:34) Home Medications: No Reportable Medications [No Reported Medications] 09/21/23 [History] Hx Tetanus, Diphtheria Vaccination/Date Given: Yes Hx Influenza Vaccination/Date Given: No Hx Pneumococcal Vaccination/Date Given: No Immunizations Up to Date: No Travel Risk - International Travel Have you traveled outside of the country in past 3 weeks: No - Emerging Infectious Disease Are you exhibiting symptoms associated with any current EIDs: Yes Symptoms: Abdominal Pain - Review of Systems Constitutional: No Fever, No Chills Eyes: No Symptoms Ears, Nose, & Throat: No Symptoms Respiratory: Other (right side rib pain), No Cough, No Dyspnea Cardiac: No Chest Pain, No Edema, No Syncope Abdominal/Gastrointestinal: Abdominal Pain, No Nausea, No Vomiting, No Diarrhea Genitourinary Symptoms: No Dysuria Musculoskeletal: No Back Pain, No Neck Pain Skin: No Rash Neurological: No Dizziness, No Focal Weakness, No Sensory Changes Psychological: No Symptoms Endocrine: No Symptoms All Other Systems: Reviewed and Negative - Past Medical History Pertinent Past Medical History: Yes Neurological History: Stroke ENT History: Macular Degeneration Cardiac History: High Cholesterol, Hypertension Respiratory History: No Pertinent History Endocrine Medical History: Diabetes Type II Musculoskeletal History: Arthritis, Fibromyalgia GI Medical History: GERD, Polyps History: No Pertinent History Psycho-Social History: Depression Female Reproductive Disorders: Breast Cancer Other Medical History: rheumatic fever as a child, breast cancer with Right side masectomy - Past Surgical History Past Surgical History: Yes Neuro Surgical History: No Pertinent History Cardiac: Cardiac Catheterization Respiratory: No Pertinent History Gastrointestinal: Colon Resection, Other Genitourinary: No Pertinent History Musculoskeletal: Orthopedic Surgery Female Surgical History: Hysterectomy, Tubal Ligation, Mastectomy Other Surgical History: gastric bypass - Social History Smoking Status: Never smoker Exposure to second hand smoke: No Drug Use: none Patient Lives Alone: Yes - Nursing Vital Signs Nursing Vital Signs: Initial Vital Signs Temperature 98.0 F 09/21/23 11:36 Pulse Rate 78 09/21/23 11:36 Respiratory Rate 18 09/21/23 11:36 Blood Pressure 154/93 09/21/23 11:36 O2 Sat by Pulse Oximetry 98 09/21/23 11:36 Pain Scale Pain Intensity 4 - Physical Exam General Appearance: no apparent distress, alert Eye Exam: PERRL/EOMI, eyes nml inspection Ears, Nose, Throat Exam: normal ENT inspection, pharynx normal, moist mucous membranes Neck Exam: normal inspection, non-tender, supple, full range of motion Respiratory Exam: normal breath sounds, lungs clear, No respiratory distress Cardiovascular Exam: regular rate/rhythm, normal heart sounds Gastrointestinal/Abdomen Exam: soft, No tenderness, No mass Back Exam: normal inspection, normal range of motion, No CVA tenderness, No vertebral tenderness Extremity Exam: normal inspection, normal range of motion, pelvis stable Neurologic Exam: alert, oriented x 3, cooperative, normal mood/affect, nml cerebellar function, sensation nml, No motor deficits Skin Exam: normal color, warm, dry SpO2: 98 - Course Nursing assessment & vital signs reviewed: Yes Ordered Tests: Active Orders 24 hr Category Date Time Status AMYLASE Stat Lab 09/21/23 12:25 Completed CBC W DIFF Stat Lab 09/21/23 11:49 Completed CMP Stat Lab 09/21/23 12:25 Completed LIPASE Stat Lab 09/21/23 12:25 Completed UA W/RFX UR CULTURE Stat Lab 09/21/23 11:49 Ordered Medication Summary Discontinued Medications Generic Name Dose Route Start Last Admin Trade Name Freq PRN Reason Stop Dose Admin Sodium Chloride 1,000 mls @ 999 mls/hr 09/21/23 11:49 09/21/23 12:13 Sodium Chloride 0.9% 1000 Ml IV 09/21/23 12:49 999 mls/hr .Q1H1M STA Administration Sodium Chloride Confirm 09/21/23 12:12 Sodium Chloride 0.9% 1000 Ml Administered 09/21/23 12:13 Dose 1,000 mls @ ud .ROUTE .[facility] Lab/Rad Data: Laboratory Result Diagrams 09/21/23 11:49 09/21/23 12:25 Laboratory Results 09/21/23 09/21/23 Range/Units 12:25 11:49 WBC 7.9 (4.0-10.5) x10^3/uL RBC 4.43 (4.1-5.4) x10^6/uL Hgb 13.2 (12.0-16.0) g/dL Hct 40.0 (35-47) % MCV 90.3 (78-100) fL MCH 29.8 (26-32) pg MCHC 33.0 (32-36) g/dL RDW 12.3 (11.5-14.0) % Plt Count 209 (150-450) x10^3/uL MPV 9.8 (7.5-11.0) fL Gran % 77.1 H (36.0-66.0) % Immature Gran % (Auto) 0.4 (0.00-0.4) % Nucleat RBC Rel Count 0.0 (0.00-0.1) % Eos # (Auto) 0.05 (0-0.5) x10^3/uL Immature Gran # (Auto) 0.03 (0.00-0.03) x10^3u/L Absolute Lymphs (auto) 1.35 (1.0-4.6) x10^3/uL Absolute Monos (auto) 0.33 (0.0-1.3) x10^3/uL Absolute Nucleated RBC 0.00 (0.00-0.01) x10^3u/L Lymphocytes % 17.2 L (24.0-44.0) % Monocytes % 4.2 (0.0-12.0) % Eosinophils % 0.6 (0.00-5.0) % Basophils % 0.5 (0.0-0.4) % Absolute Granulocytes 6.07 (1.4-6.9) x10^3/uL Basophils # 0.04 (0-0.4) x10^3/uL Sodium 136 (135-145) mmol/L Potassium 3.9 (3.5-5.1) mmol/L Chloride 101 (98-107) mmol/L Carbon Dioxide 29 (22-30) mmol/L Anion Gap 9.7 (5-15) MEQ/L BUN 13 (7-17) mg/dL Creatinine 0.51 L (0.52-1.04) mg/dL Estimated GFR 96.1 ML/MIN Glucose 315 H (74-106) mg/dL Calcium 8.7 (8.4-10.2) mg/dL Total Bilirubin 1.60 H (0.2-1.3) mg/dL AST 21 (14-36) U/L ALT 25 (0-35) U/L Alkaline Phosphatase 97 (38-126) U/L Serum Total Protein 6.2 L (6.3-8.2) g/dL Albumin 3.4 L (3.5-5.0) g/dL Amylase 81 (30-110) U/L Lipase 17 L (23-300) U/L - Progress Progress: improved Counseled pt/family regarding: lab results, diagnosis, need for follow-up Medical Desision Making - Diagnostic Testing Diagnostic test were ordered, analyzed, and reviewed by me: Yes - Risk of complications Minimal Risk: Minimal risk of morbidity - Departure Departure Disposition: Home Clinical Impression: Non-cardiac chest pain, Chronic generalized abdominal pain Hyperglycemia due to type 2 diabetes mellitus Qualifiers: Diabetes mellitus custodial insulin use: with predatory animal exterminator use Qualified Code(s): E11.65 - Type 2 diabetes mellitus with hyperglycemia; Z79.4 - [facility] (current) use of insulin Condition: Stable Critical Care Time: No Referrals: CURTIS HOFFMAN MD [Primary Care Provider] - Follow up/PCP as directed Instructions: Abdominal pain Additional Instructions: Discharge/Care Plan SAJI SUH was seen on 09/21/23 in the Emergency Room. The patient was counseled regarding Diagnosis,Lab results, Imaging studies, need for follow up and when to return to the Emergency Room. Prescriptions given: Discharge Note I have spoken with the patient and/or caregivers. I have explained the patient's condition, diagnosis and treatment plan based on the information available to me at this time. I have answered the patient's and/or caregiver's questions and addressed any concerns. The patient and/or caregivers have as good understanding of the patient's diagnosis, condition and treatment plan as can be expected at this point. The vital signs have been stable. The patient's condition is stable and appropriate for discharge from the emergency department. The patient will pursue further outpatient evaluation with the primary care physician or other designated or consulting physician as outlined in the discharge instructions. The patient and/or caregivers are agreeable to this plan of care and follow-up instructions have been explained in detail. The patient and/or caregivers have received these instruction. The patient/and or caregivers are aware that any significant change in condition or worsening of symptoms should prompt an immediate return to this or the closest emergency department or call 911. SAJI SUH was seen on 09/21/23 n the Emergency Room. At that time you were treated for an emergent condition, during your visit Laboratory, Radiology and/or other procedures may have been ordered. It is very important that you follow-up with your Primary Care Physician CURTIS HOFFMAN within the next 24-48 hours to review your Emergency Room visit and the final results of testing that was ordered. Some test results such as Urine Cultures, Blood Cultures, and other cultures if ordered will not be finalized for 24-48 hours. If you do not have a Primary Care Provider please call the medical records department at [phone] ext [phone] to obtain a copy of your results or you may sign into our patient portal to obtain these results by visiting us @ [email or web address] and completing the following steps: 1. Click on the Patient Portal link 2. Click the Patient Self Enrollment Link to complete the enrollment form and entering your 3. Once the enrollment form is completed you will receive an email with a temporary ID and password at the email address you provided. 4. Next choose a user name and password. Your user name must be at least 4 characters long and your password must be at least 4 characters long. 5. Choose a security question from the list and provide your answer to the question. If you already have signed into the Health Portal you may access your Health Care Information 16/12 by the following steps: 1. Login to our website @ [email or web address] 2. Enter your original user name and password. FAQS The [facility] Health Portal is an online tool that contains your Lab Results, Radiology Reports, Visit History, Discharge Instructions and Health Summary Lab and Radiology Results will not be available for 72 hours on the portal. The Portal is a secure site, passwords are encryted and URLs are re-written so they cannot be copied and pasted. You and authorized family members are the only ones who can access your Portal. Also there is a timeout feature that protects your information if you leave the Portal page open. If you have technical difficulty please use the Contact Us link on the page this will allow you to submit any questions you have regarding the Portal or you may contact the Medical Record Department at [phone] ext [phone].
[2023-09-21] MEDS ORDERED: Sodium Chloride 0.9% 1000 ML 1,000 ML ONE (12:12)
[2023-09-21] MEDS: Sodium Chloride 0.9% 1000 ML 1,000 ML IV STA (12:13)
[2023-09-21 12:30] LABS: Absolute Neutrophil Ct (ANC) 6.07 x10^3/uL (1.4-6.9); BASOPHIL % 0.5 % (0.0-0.4); Basophil (Absolute #) 0.04 x10^3/uL (0-0.4); Eosinophil % 0.6 % (0.00-5.0); Eosinophil (Absolute #) 0.05 x10^3/uL (0-0.5); Hemoglobin 13.2 g/dL (12.0-16.0); IMMATURE GRAN # 0.03 x10^3u/L (0.00-0.03); IMMATURE GRAN % 0.4 % (0.00-0.4); Lymphocyte (Absolute #) 1.35 x10^3/uL (1.0-4.6); Lymphocytes % 17.2 % (24.0-44.0); Mean Cell Volume 90.3 fL (78-100); Mean Corpuscular Hemoglobin 29.8 pg (26-32); Mean Platelet Volume 9.8 fL (7.5-11.0); Monocyte (Absolute #) 0.33 x10^3/uL (0.0-1.3); Monocytes % 4.2 % (0.0-12.0); Neutrophil % 77.1 % (36.0-66.0); Platelet Count 209 x10^3/uL (150-450); Red Blood Count 4.43 x10^6/uL (4.1-5.4); Red Cell Distribution Width 12.3 % (11.5-14.0); White Blood Count 7.9 x10^3/uL (4.0-10.5)
[2023-09-21 12:43] LABS: ALBUMIN 3.4 g/dL (3.5-5.0); ANION GAP 9.7 MEQ/L (5-15); BILIRUBIN,TOTAL 1.6 mg/dL (0.2-1.3); Calcium 8.7 mg/dL (8.4-10.2); Creatinine 1 0.51 mg/dL (0.52-1.04); EST GLOMERULAR FILTRATION RATE 96.1 ML/MIN; Potassium 3.9 mmol/L (3.5-5.1); Total Protein 6.2 g/dL (6.3-8.2)
== END 2023-09-21 13:25 | disposition home or self-care (01) ==
LOC: ED 11:32
DX: R07.89 Other chest pain (principal); G89.29 Other chronic pain; R10.84 Generalized abdominal pain; E11.65 Type 2 diabetes mellitus with hyperglycemia; Z79.4 Long term (current) use of insulin; R07.81 Pleurodynia; E78.5 Hyperlipidemia, unspecified; I10 Essential (primary) hypertension
CPT/HCPCS: 36000; 36415; 80053; 82150; 83690; 85025; 99283

== ENCOUNTER 2024-01-22 20:20 | Emergency (ER) | payer MEDICARE, OTHER ==
[2024-01-22 20:53] VITALS: TEMP 98.8
[2024-01-22 21:18] LABS: Absolute Neutrophil Ct (ANC) 4.25 x10^3/uL (1.56-6.13); BASOPHIL % 0.3 % (0.1-1.2); Basophil (Absolute #) 0.02 x10^3/uL (0.01-0.08); Eosinophil % 1.8 % (0.7-5.8); Eosinophil (Absolute #) 0.12 x10^3/uL (0.04-0.36); Hematocrit 36.9 % (34.1-44.9); Hemoglobin 12.1 g/dL (11.2-15.7); IMMATURE GRAN # 0.02 x10^3u/L (0.001-0.031); IMMATURE GRAN % 0.3 % (0.001-0.429); Lymphocyte (Absolute #) 1.81 x10^3/uL (1.18-3.74); Lymphocytes % 27.5 % (19.3-51.7); Mean Cell Volume 91.3 fL (79.4-94.8); Mean Corpuscular Hgb Concent. 32.8 g/dL (32.2-35.5); Monocyte (Absolute #) 0.37 x10^3/uL (0.24-0.86); Monocytes % 5.6 % (4.7-12.5); Neutrophil % 64.5 % (34.0-71.1); Platelet Count 193 x10^3/uL (182-369); Red Blood Count 4.04 x10^6/uL (3.93-5.22); Red Cell Distribution Width 12.9 % (11.7-14.4); White Blood Count 6.6 x10^3/uL (3.98-10.04)
[2024-01-22 21:31] LABS: ACETAMINOPHEN < 10 ug/ml (10-30); ALKALINE PHOSPHATASE 95 U/L (38-126); BLOOD UREA NITROGEN 15 mg/dL (7-17); CHLORIDE 101 mmol/L (98-107); Calcium 8.1 mg/dL (8.4-10.2); Carbon Dioxide 28 mmol/L (22-30); ETHYL ALCOHOL < 10 mg/dL (0-10); Glucose 317 mg/dL (74-106); Potassium 3.3 mmol/L (3.5-5.1); SGOT/AST 32 U/L (14-36); SGPT/ALT 42 U/L (0-35); SODIUM 135 mmol/L (135-145); Total Protein 5.7 g/dL (6.3-8.2)
[2024-01-22 21:46] LABS: Appearance Turbid (Clear); Bacteria Many /HPF (None Seen); Bilirubin Negative (Negative); Blood Trace (Negative); Epithelial Cells Few /HPF (None Seen); Glucose, Urine >=1000 mg/dL (Negative); Hyaline Casts NONE SEEN /LPF (0-2); Ketones Negative (Negative); Leukocyte Esterase Small (Negative); Nitrite Negative (Negative); Ph 5.5 (4.6-8.0); Protein,Urine Dip Negative (Negative); Specific Gravity >=1.030 (1.005-1.030); Urobilinogen 0.2 mg/dL (0.2); WBC >100 /HPF (0-5)
[2024-01-22 21:47] LABS: ADD URINE CULTURE? YES (NO)
[2024-01-22 21:51] LABS: Amphetamine,Urine NEGATIVE (NEGATIVE); Barbiturate,Urine NEGATIVE (NEGATIVE); Benzodiazepine,Urine NEGATIVE (NEGATIVE); Cocaine,Urine NEGATIVE (NEGATIVE); Methadone,Urine NEGATIVE (NEGATIVE); Opiate,Urine NEGATIVE (NEGATIVE); PCP,Urine NEGATIVE (NEGATIVE); THC,Urine NEGATIVE (NEGATIVE)
[2024-01-22 22:42] LABS: INFLUENZA A NEGATIVE (NEGATIVE); INFLUENZA B NEGATIVE (NEGATIVE); RESPIRATORY SYNCTIAL VIRUS NEGATIVE (NEGATIVE); SARS-CoV-2 Xpert Express NEGATIVE (NEGATIVE)
[2024-01-22] MEDS ORDERED: KEFLEX 500 MG ONE (23:28)
[2024-01-22] MEDS: KEFLEX 500 MG PO ONE (23:29)
--- NOTE | 2024-01-22 23:34 | ERPHSYRPT ---
- History of Present Illness Time Seen by Provider: 01/22/24 20:27 Source: patient, EMS, police Exam Limitations: no limitations Patient Subjective Stated Complaint: Behavioral problems Triage Nursing Assessment: Patient brought into ED per EMS and transferred to bed with assist of 2. Patient A+O X3. Patient's skin pink, warm and dry. EMS accompanied by police. Police state they received a phone call from patient's friend stating her and patient were talking and patient was stating she was going to kill herself and that she was going to drive her and her dog in the river in her [place]. Patient states she lives in bad conditions and can't get any help from anyone. Patient states she would rather be then live this way. Patient denies pain or discomfort. [place] Officer stated when he was talking to patient she asked him to shoot her with his gun. Physician History: 78-year-old female with history of multiple medical problems including hypertension, hyperlipidemia, anxiety/depression is brought in the ER by EMS along with PD with suicidal ideations. Apparently patient texted one of her friend about her suicidal ideations who called PD. Patient reported she wanted to drive herself and her dog into the river. When PD got her patient requested him to shot her so she is better off to be . Patient reports she is living in a miserable condition and does not have much available help. She does not see any things getting better in the near future. Ideas of hopelessness/helplessness. Denies any homicidal ideations. Does report having mild dysuria and increased frequency lately. No other symptoms. Allergies/Adverse Reactions: No Known Drug Allergies Allergy (Verified 01/22/24 20:27) Home Medications: No Reportable Medications [No Reported Medications] 09/21/23 [History] Hx Tetanus, Diphtheria Vaccination/Date Given: Yes Hx Influenza Vaccination/Date Given: No Hx Pneumococcal Vaccination/Date Given: No Immunizations Up to Date: Yes Travel Risk - International Travel Have you traveled outside of the country in past 3 weeks: No - Emerging Infectious Disease Are you exhibiting symptoms associated with any current EIDs: No Symptoms: Abdominal Pain - Past Medical History Pertinent Past Medical History: Yes Neurological History: Stroke ENT History: Macular Degeneration Cardiac History: High Cholesterol, Hypertension Respiratory History: No Pertinent History Endocrine Medical History: Diabetes Type II Musculoskeletal History: Arthritis, Fibromyalgia GI Medical History: GERD, Polyps History: No Pertinent History Psycho-Social History: Depression Female Reproductive Disorders: Breast Cancer Other Medical History: rheumatic fever as a child, breast cancer with Right side masectomy - Past Surgical History Past Surgical History: Yes Neuro Surgical History: No Pertinent History Cardiac: Cardiac Catheterization Respiratory: No Pertinent History Gastrointestinal: Colon Resection, Other Genitourinary: No Pertinent History Musculoskeletal: Orthopedic Surgery Female Surgical History: Hysterectomy, Tubal Ligation, Mastectomy Other Surgical History: gastric bypass - Social History Smoking Status: Never smoker Exposure to second hand smoke: No Drug Use: none Patient Lives Alone: Yes - Social Determinants of Health Will the patient participate in the screening: Yes Do you worry about a steady place to live?: No Do you have any problems with any of the following?: Pest (bugs,ants,or mice) In the past 12 months,have you had to go without utilities?: Yes Transportation Issues: No Has anyone in your support network made you feel unsafe?: No Have you or anyone in your house had to go without enough: Yes - Review of Systems Constitutional: No Symptoms Eyes: No Symptoms Ears, Nose, & Throat: No Symptoms Respiratory: No Symptoms Cardiac: No Symptoms Abdominal/Gastrointestinal: No Symptoms Genitourinary Symptoms: Dysuria, Frequency Musculoskeletal: No Symptoms Skin: No Symptoms Neurological: No Symptoms Psychological: Anxiety, Depression, Suicidal Ideations Endocrine: No Symptoms Hematologic/Lymphatic: No Symptoms - Nursing Vital Signs Nursing Vital Signs: Initial Vital Signs Temperature 98.8 F 01/22/24 20:28 Pulse Rate 84 01/22/24 20:28 Respiratory Rate 20 01/22/24 20:28 Blood Pressure 140/74 01/22/24 20:28 O2 Sat by Pulse Oximetry 97 01/22/24 20:28 Pain Scale Pain Intensity 0 - Physical Exam General Appearance: no apparent distress, alert, anxiety Eyes, Ears, Nose, Throat Exam: normal ENT inspection Neck Exam: normal inspection, supple, full range of motion Respiratory Exam: normal breath sounds, lungs clear Cardiovascular Exam: regular rate/rhythm, normal heart sounds Gastrointestinal/Abdominal Exam: soft, normal bowel sounds Extremities Exam: normal inspection Current Suicidality: has suicide plan Neurological Exam: alert, calm, christmas bell ringer II-XII nml as tested, oriented x 3, No normal mood/affect Appearance: appropriate appearance, appropriate insight, neat, no memory impairment Behavior/Eye Contact/Speech: alert & cooperative, cooperative, good eye contact, normal speech Thoughts/Hallucinations: normal thought pattern, no apparent hallucination Skin Exam: normal color SpO2 Interpretation: normal SpO2: 98 O2 Delivery: Room Air - Course EKG Interpreted by Me: RATE (73), Sinus Rhythm, NORMAL AXIS, prolonged QT interval, Q-wave, Non-specific ST Changes Ordered Tests: Medication Summary Discontinued Medications Generic Name Dose Route Start Last Admin Trade Name Alonzoq PRN Reason Stop Dose Admin Cephalexin HCl 500 mg 01/22/24 23:15 01/22/24 23:29 Cephalexin Mh500 Mg Capsule PO 01/22/24 23:16 500 mg STAT ONE Administration Cephalexin HCl Confirm 01/22/24 23:28 Cephalexin Mh500 Mg Capsule Administered 01/22/24 23:29 Dose 500 mg .ROUTE .[facility] ONE Diphenhydramine HCl 25 mg 01/23/24 04:26 01/23/24 04:29 Diphenhydramine Hcl 25 Mg Capsule PO 01/23/24 04:27 25 mg STAT ONE Administration Diphenhydramine HCl Confirm 01/23/24 04:28 Diphenhydramine Hcl 25 Mg Capsule Administered 01/23/24 04:29 Dose 25 mg .ROUTE .[facility] Insulin Human Regular 4 unit 01/22/24 23:35 01/23/24 00:30 Insulin Regular, Human 1 Unit SQ 01/22/24 23:36 4 unit STAT ONE Administration Insulin Human Regular Confirm 01/23/24 00:29 Insulin Regular, Human 1 Unit Administered 01/23/24 00:30 Dose 4 unit .ROUTE .[facility] Potassium Chloride 40 meq 01/22/24 23:34 01/22/24 23:44 Potassium Chloride Tab 10 Meq Tab PO 01/22/24 23:35 40 meq STAT ONE Administration Potassium Chloride Confirm 01/22/24 23:44 Potassium Chloride Tab 10 Meq Tab Administered 01/22/24 23:45 Dose 40 meq .ROUTE .[facility] Lab/Rad Data: Laboratory Result Diagrams 01/22/24 21:10 01/22/24 21:10 Laboratory Results 01/23/24 01/22/24 01/22/24 Range/Units 01: 21:15 21:10 WBC (3.98-10.04) x10^3/uL RBC (3.93-5.22) x10^6/uL Hgb (11.2-15.7) g/dL Hct (34.1-44.9) % MCV (79.4-94.8) fL MCH (25.6-32.2) pg MCHC (32.2-35.5) g/dL RDW (11.7-14.4) % Plt Count (182-369) x10^3/uL MPV (9.4-12.3) fL Gran % (34.0-71.1) % Immature Gran % (Auto) (0.001-0.429) % Nucleat RBC Rel Count (0.00-0.2) % Eos # (Auto) (0.04-0.36) x10^3/uL Immature Gran # (Auto) (0.001-0.031) x10^3u/L Absolute Lymphs (auto) (1.18-3.74) x10^3/uL Absolute Monos (auto) (0.24-0.86) x10^3/uL Absolute Nucleated RBC (0.00-0.012) x10^3u/L Lymphocytes % (19.3-51.7) % Monocytes % (4.7-12.5) % Eosinophils % (0.7-5.8) % Basophils % (0.1-1.2) % Absolute Granulocytes (1.56-6.13) x10^3/uL Basophils # (0.01-0.08) x10^3/uL Sodium (135-145) mmol/L Potassium (3.5-5.1) mmol/L Chloride (98-107) mmol/L Carbon Dioxide (22-30) mmol/L Anion Gap (5-15) MEQ/L BUN (7-17) mg/dL Creatinine (0.52-1.04) mg/dL Estimated GFR ML/MIN Glucose (74-106) mg/dL POC Glucometer 231 H (74 to 106) mg/dL Calcium (8.4-10.2) mg/dL Total Bilirubin (0.2-1.3) mg/dL AST (14-36) U/L ALT (0-35) U/L Alkaline Phosphatase (38-126) U/L Serum Total Protein (6.3-8.2) g/dL Albumin (3.5-5.0) g/dL Urine Color (Yellow) Urine Appearance (Clear) Urine pH (4.6-8.0) Ur Specific [place] (1.005-1.030) Urine Protein (Negative) Urine Glucose (UA) (Negative) mg/dL Urine Ketones (Negative) Urine Blood (Negative) Urine Nitrite (Negative) Urine Bilirubin (Negative) Urine Urobilinogen (0.2) mg/dL Ur Leukocyte Esterase (Negative) U Hyaline Cast (Auto) (0-2) /LPF Urine Microscopic RBC (0-5) /HPF Urine Microscopic WBC (0-5) /HPF Ur Epithelial Cells (None Seen) /HPF Urine Bacteria (None Seen) /HPF Urine Culture Reflexed (NO) Salicylates (2-20) mg/dL Urine Opiates Level NEGATIVE (NEGATIVE) Ur Methadone NEGATIVE (NEGATIVE) Acetaminophen (10-30) ug/ml Urine Barbiturates NEGATIVE (NEGATIVE) Ur Phencyclidine (PCP) NEGATIVE (NEGATIVE) Urine Amphetamine NEGATIVE (NEGATIVE) U Benzodiazepine Level NEGATIVE (NEGATIVE) Urine Cocaine NEGATIVE (NEGATIVE) Urine Marijuana (THC) NEGATIVE (NEGATIVE) Ethyl Alcohol (0-10) mg/dL Influenza Type A Ag NEGATIVE (NEGATIVE) Influenza Type B Ag NEGATIVE (NEGATIVE) RSV (PCR) NEGATIVE (NEGATIVE) SARS-CoV-2 (PCR) NEGATIVE (NEGATIVE) 01/22/24 01/22/24 01/22/24 Range/Units 21:10 21:10 21:07 WBC 6.6 (3.98-10.04) x10^3/uL RBC 4.04 (3.93-5.22) x10^6/uL Hgb 12.1 (11.2-15.7) g/dL Hct 36.9 (34.1-44.9) % MCV 91.3 (79.4-94.8) fL MCH 30.0 (25.6-32.2) pg MCHC 32.8 (32.2-35.5) g/dL RDW 12.9 (11.7-14.4) % Plt Count 193 (182-369) x10^3/uL MPV 10.0 (9.4-12.3) fL Gran % 64.5 (34.0-71.1) % Immature Gran % (Auto) 0.3 (0.001-0.429) % Nucleat RBC Rel Count 0.0 (0.00-0.2) % Eos # (Auto) 0.12 (0.04-0.36) x10^3/uL Immature Gran # (Auto) 0.02 (0.001-0.031) x10^3u/L Absolute Lymphs (auto) 1.81 (1.18-3.74) x10^3/uL Absolute Monos (auto) 0.37 (0.24-0.86) x10^3/uL Absolute Nucleated RBC 0.00 (0.00-0.012) x10^3u/L Lymphocytes % 27.5 (19.3-51.7) % Monocytes % 5.6 (4.7-12.5) % Eosinophils % 1.8 (0.7-5.8) % Basophils % 0.3 (0.1-1.2) % Absolute Granulocytes 4.25 (1.56-6.13) x10^3/uL Basophils # 0.02 (0.01-0.08) x10^3/uL Sodium 135 (135-145) mmol/L Potassium 3.3 L (3.5-5.1) mmol/L Chloride 101 (98-107) mmol/L Carbon Dioxide 28 (22-30) mmol/L Anion Gap 9.0 (5-15) MEQ/L BUN 15 (7-17) mg/dL Creatinine 0.70 (0.52-1.04) mg/dL Estimated GFR 89.0 ML/MIN Glucose 317 H (74-106) mg/dL POC Glucometer (74 to 106) mg/dL Calcium 8.1 L (8.4-10.2) mg/dL Total Bilirubin 1.00 (0.2-1.3) mg/dL AST 32 (14-36) U/L ALT 42 H (0-35) U/L Alkaline Phosphatase 95 (38-126) U/L Serum Total Protein 5.7 L (6.3-8.2) g/dL Albumin 3.0 L (3.5-5.0) g/dL Urine Color Yellow (Yellow) Urine Appearance Turbid A (Clear) Urine pH 5.5 (4.6-8.0) Ur Specific [place] >=1.030 A (1.005-1.030) Urine Protein Negative (Negative) Urine Glucose (UA) >=1000 A (Negative) mg/dL Urine Ketones Negative (Negative) Urine Blood Trace (Negative) Urine Nitrite Negative (Negative) Urine Bilirubin Negative (Negative) Urine Urobilinogen 0.2 (0.2) mg/dL Ur Leukocyte Esterase Small A (Negative) U Hyaline Cast (Auto) NONE SEEN (0-2) /LPF Urine Microscopic RBC 6-10 A (0-5) /HPF Urine Microscopic WBC >100 A (0-5) /HPF Ur Epithelial Cells Few (None Seen) /HPF Urine Bacteria Many A (None Seen) /HPF Urine Culture Reflexed YES (NO) Salicylates 1.0 L (2-20) mg/dL Urine Opiates Level (NEGATIVE) Ur Methadone (NEGATIVE) Acetaminophen < 10 L (10-30) ug/ml Urine Barbiturates (NEGATIVE) Ur Phencyclidine (PCP) (NEGATIVE) Urine Amphetamine (NEGATIVE) U Benzodiazepine Level (NEGATIVE) Urine Cocaine (NEGATIVE) Urine Marijuana (THC) (NEGATIVE) Ethyl Alcohol < 10 (0-10) mg/dL Influenza Type A Ag (NEGATIVE) Influenza Type B Ag (NEGATIVE) RSV (PCR) (NEGATIVE) SARS-CoV-2 (PCR) (NEGATIVE) - Progress Progress: unchanged Progress Note: 01/22/24 23:32 78-year-old is evaluated in the ER for suicidal ideations where [place]. She even requested PD to shot her dad as she has no desire to live anymore. Patient is having ideas of hopelessness/helplessness. He has no previous psychiatric admissions. No suicidal attempts in the past. Has normal white count, chemistries fairly unremarkable except for glucose in 300s. She does have some element of UTI and started on Keflex. She is medically cleared to go to behavioral health. ED hold is placed. 01/22/24 03:29 Have discussed with Delgado at [facility] and patient is accepted by Dr. Leon haynes her inpatient evaluation and treatment. Plan discussed with patient and she agrees with. Patient will be transferred via EMS. She remained stable. 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 - Discussion of managment Care discussed with:: specialist Reviewed:: Test results Agreed on:: Treatment plan Will see patient: in hospital - Diagnostic Testing Diagnostic test were ordered, analyzed, and reviewed by me: Yes - Risk of complications The pt has a mod risk of morbidity or mortality based on: Need for prescription drug management The pt has a high risk of morbidity or mortality based on: Decision regarding hospitilization or escalation of hosp level of care - Departure Departure Disposition: Transfer Clinical Impression: Suicidal ideations, UTI (urinary tract infection), Hyperglycemia Condition: Stable Critical Care Time: No Referrals: CURTIS HOFFMAN MD [Primary Care Provider] - Follow up/PCP as directed
[2024-01-22] MEDS ORDERED: Klor Con ONE (23:44)
[2024-01-22] MEDS: Klor Con PO ONE (23:44)
[2024-01-23] MEDS ORDERED: HUMULIN R ONE (00:29)
[2024-01-23] MEDS: HUMULIN R SQ ONE (00:30)
[2024-01-23] MEDS ORDERED: BENADRYL 25 MG CAPSULE ONE (04:28)
[2024-01-23] MEDS: BENADRYL 25 MG CAPSULE PO ONE (04:29)
[2024-01-23 07:17] VITALS: BP 153/70; PULSE 70; RESP 20
[2024-01-24 12:31] VITALS: O2SAT 98
== END 2024-01-23 08:02 ==
LOC: ED 20:20
DX: R45.851 Suicidal ideations (principal); N39.0 Urinary tract infection, site not specified; E11.65 Type 2 diabetes mellitus with hyperglycemia; E78.5 Hyperlipidemia, unspecified; I10 Essential (primary) hypertension; Z59.19 Other inadequate housing; Z59.12 Inadequate housing utilities; Z59.41 Food insecurity
CPT/HCPCS: 0241U; 36415; 80053; 80143; 80179; 80307; 81001; 82077; 82947; 85025; 87077; 87086; 87186; 93005; 96372; 99285; J1815; A9270-GY

== ENCOUNTER 2024-02-09 16:40 | Observation (INO) | payer MEDICARE, OTHER ==
--- NOTE | 2024-02-09 17:04 | ERPHSYRPT ---
- History of Present Illness Time Seen by Provider: 02/09/24 17:03 Historian: patient Exam Limitations: no limitations Physician History: This is a 78-year-old white female patient of Dr. Landry who complains of loose watery stools that been present for quite some time. She cannot give a specific timeframe of the presence of this diarrhea. Patient has a history of colon resection in the past as well as gastric bypass surgery. Patient denies chest pain and she denies shortness of breath. Patient has a history of CVA, macular degeneration, hyperlipidemia, hypertension, type 2 diabetes, arthritis, fibromyalgia and gastroesophageal reflux disease. Patient has not had any vomiting symptoms. Timing/Duration: other (Chronic) Quality: cramping Abdominal Pain Onset Location: generalized abdomen Pain Radiation: no radiation Severity of Pain-Max: mild (To moderate) Severity of Pain-Current: mild (To moderate) Modifying Factors: Improves With: other (Diarrhea) Associated Symptoms: diarrhea, loss of appetite, weakness Previous symptoms: no recent treatment, other (Patient states that she cannot provide us with a timeframe when the diarrhea began but it has been quite sometime.) Allergies/Adverse Reactions: No Known Drug Allergies Allergy (Verified 02/09/24 17:17) Home Medications: No Reportable Medications [No Reported Medications] 09/21/23 [History] Hx Tetanus, Diphtheria Vaccination/Date Given: Yes Hx Influenza Vaccination/Date Given: No Hx Pneumococcal Vaccination/Date Given: No Travel Risk - Emerging Infectious Disease Are you exhibiting symptoms associated with any current EIDs: No Symptoms: Abdominal Pain, Diarrhea - Review of Systems Constitutional: Weakness Eyes: No Symptoms Ears, Nose, & Throat: No Symptoms Respiratory: No Symptoms Cardiac: No Symptoms Abdominal/Gastrointestinal: Abdominal Pain, Diarrhea, Appetite Changes Genitourinary Symptoms: No Symptoms Musculoskeletal: No Symptoms Skin: No Symptoms Neurological: No Symptoms Psychological: No Symptoms Endocrine: No Symptoms Hematologic/Lymphatic: No Symptoms Immunological/Allergic: No Symptoms All Other Systems: Reviewed and Negative - Past Medical History Pertinent Past Medical History: Yes Neurological History: Stroke ENT History: Macular Degeneration Cardiac History: High Cholesterol, Hypertension Respiratory History: No Pertinent History Endocrine Medical History: Diabetes Type II Musculoskeletal History: Arthritis, Fibromyalgia GI Medical History: GERD, Polyps History: No Pertinent History Psycho-Social History: Depression Female Reproductive Disorders: Breast Cancer Other Medical History: rheumatic fever as a child, breast cancer with Right side masectomy - Past Surgical History Past Surgical History: Yes Neuro Surgical History: No Pertinent History Cardiac: Cardiac Catheterization Respiratory: No Pertinent History Gastrointestinal: Colon Resection, Other Genitourinary: No Pertinent History Musculoskeletal: Orthopedic Surgery Female Surgical History: Hysterectomy, Tubal Ligation, Mastectomy Other Surgical History: gastric bypass - Social History Smoking Status: Never smoker Exposure to second hand smoke: No Drug Use: none Patient Lives Alone: Yes - Social Determinants of Health Will the patient participate in the screening: Yes Do you worry about a steady place to live?: No In the past 12 months,have you had to go without utilities?: Yes Transportation Issues: No Has anyone in your support network made you feel unsafe?: No Have you or anyone in your house had to go without enough: Yes - Nursing Vital Signs Nursing Vital Signs: Initial Vital Signs Temperature 98.5 F 02/09/24 17:00 Pulse Rate 92 H 02/09/24 17:00 Respiratory Rate 18 02/09/24 17:00 Blood Pressure 122/55 02/09/24 17:00 O2 Sat by Pulse Oximetry 96 02/09/24 17:00 Pain Scale Pain Intensity 8 - Physical Exam General Appearance: mild distress, alert, anxiety Eye Exam: PERRL/EOMI, eyes nml inspection Ears, Nose, Throat Exam: pharynx normal, dry mucous membranes Neck Exam: normal inspection, non-tender, supple, full range of motion Respiratory Exam: normal breath sounds, lungs clear, airway intact, No chest tenderness, No respiratory distress Cardiovascular Exam: regular rate/rhythm, normal heart sounds, normal peripheral pulses Gastrointestinal/Abdomen Exam: soft, normal bowel sounds, tenderness (Mild diffuse tenderness), No rebound Pelvic Exam: not done Rectal Exam: not done Back Exam: normal inspection, normal range of motion, No CVA tenderness, No vertebral tenderness Extremity Exam: normal inspection, normal range of motion, pelvis stable Neurologic Exam: alert, oriented x 3, cooperative, striper machine II-XII nml as tested, nml cerebellar function, sensation nml Skin Exam: normal color, warm, dry Lymphatic Exam: No adenopathy SpO2 Interpretation: normal O2 Delivery: Room Air - Course Nursing assessment & vital signs reviewed: Yes Ordered Tests: Active Orders 24 hr Category Date Time Status IV Insertion STAT Care 02/09/24 18:33 Active Straigth Cath [Cath for Specimen-Straight] STAT Care 02/09/24 17:53 Active Telemetry q4h Care 02/09/24 19:05 Active ACO SDOH Referral ONCE Cons 02/09/24 17:51 Active ABDOMEN AND PELVIS W/0 CONTRAS [CT] Stat Exams 02/09/24 19:06 Taken AMYLASE Stat Lab 02/09/24 18:30 Completed CBC W DIFF Stat Lab 02/09/24 18:30 Completed CMP Stat Lab 02/09/24 18:30 Completed CULTURE,URINE Stat Lab 02/09/24 17:53 Received LIPASE Stat Lab 02/09/24 18:30 Completed Lactic Acid Stat Lab 02/09/24 18:40 Completed Lactic Acid Stat Lab 02/09/24 20:45 Received MONO SCREEN Stat Lab 02/09/24 18:30 Completed UA W/RFX UR CULTURE Stat Lab 02/09/24 17:53 Completed Medication Summary Generic Name Dose Route Start Last Admin Trade Name Freq PRN Reason Stop Dose Admin Potassium Chloride 20 meq in 100 mls @ 50 mls/hr 02/09/24 19:05 02/09/24 19:17 Potassium Chloride 20 Meq In Water 100ml IV 02/09/24 21:04 50 mls/hr STAT ONE Administration Sodium Chloride 1,000 mls @ 125 mls/hr 02/09/24 20:45 02/09/24 20:46 Sodium Chloride 0.9% 1000 Ml IV 03/10/24 20:44 125 mls/hr .Q8H JOANA Administration Discontinued Medications Generic Name Dose Route Start Last Admin Trade Name Freq PRN Reason Stop Dose Admin Sodium Chloride 1,000 mls @ 999 mls/hr 02/09/24 18:33 02/09/24 18:41 Sodium Chloride 0.9% 1000 Ml IV 02/09/24 19:33 999 mls/hr .Q1H1M STA Administration Sodium Chloride Confirm 02/09/24 18:39 Sodium Chloride 0.9% 1000 Ml Administered 02/09/24 18:40 Dose 1,000 mls @ ud .ROUTE .STK-MED ONE Potassium Chloride Confirm 02/09/24 19:17 Potassium Chloride 20 Meq In Water 100ml Administered 02/09/24 19:18 Dose 100 mls @ ud IV .STK-MED ONE Potassium Chloride 20 meq 02/09/24 19:05 02/09/24 19:17 Potassium Chloride Tab 10 Meq Tab PO 02/09/24 19:06 20 meq STAT ONE Administration Potassium Chloride Confirm 02/09/24 19:16 Potassium Chloride Tab 10 Meq Tab Administered 02/09/24 19:17 Dose 20 meq .ROUTE .STK-MED ONE Lab/Rad Data: Laboratory Result Diagrams 02/09/24 18:30 02/09/24 18:30 Laboratory Results 02/09/24 02/09/24 02/09/24 Range/Units 18:40 18:40 18:30 WBC (3.98-10.04) x10^3/uL RBC (3.93-5.22) x10^6/uL Hgb (11.2-15.7) g/dL Hct (34.1-44.9) % MCV (79.4-94.8) fL MCH (25.6-32.2) pg MCHC (32.2-35.5) g/dL RDW (11.7-14.4) % Plt Count (182-369) x10^3/uL MPV (9.4-12.3) fL Gran % (34.0-71.1) % Immature Gran % (Auto) (0.001-0.429) % Nucleat RBC Rel Count (0.00-0.2) % Eos # (Auto) (0.04-0.36) x10^3/uL Immature Gran # (Auto) (0.001-0.031) x10^3u/L Absolute Lymphs (auto) (1.18-3.74) x10^3/uL Absolute Monos (auto) (0.24-0.86) x10^3/uL Absolute Nucleated RBC (0.00-0.012) x10^3u/L Lymphocytes % (19.3-51.7) % Monocytes % (4.7-12.5) % Eosinophils % (0.7-5.8) % Basophils % (0.1-1.2) % Absolute Granulocytes (1.56-6.13) x10^3/uL Basophils # (0.01-0.08) x10^3/uL Sodium (135-145) mmol/L Potassium (3.5-5.1) mmol/L Chloride (98-107) mmol/L Carbon Dioxide (22-30) mmol/L Anion Gap (5-15) MEQ/L BUN (7-17) mg/dL Creatinine (0.52-1.04) mg/dL Estimated GFR ML/MIN Glucose (74-106) mg/dL Lactic Acid 2.5 H (0.4-2.0) Calcium (8.4-10.2) mg/dL Total Bilirubin (0.2-1.3) mg/dL AST (14-36) U/L ALT (0-35) U/L Alkaline Phosphatase (38-126) U/L Serum Total Protein (6.3-8.2) g/dL Albumin (3.5-5.0) g/dL Amylase (30-110) U/L Lipase (23-300) U/L Urine Color (Yellow) Urine Appearance (Clear) Urine pH (4.6-8.0) Ur Specific [place] (1.005-1.030) Urine Protein (Negative) Urine Glucose (UA) (Negative) mg/dL Urine Ketones (Negative) Urine Blood (Negative) Urine Nitrite (Negative) Urine Bilirubin (Negative) Urine Urobilinogen (0.2) mg/dL Ur Leukocyte Esterase (Negative) U Hyaline Cast (Auto) (0-2) /LPF Urine Microscopic RBC (0-5) /HPF Urine Microscopic WBC (0-5) /HPF Ur Epithelial Cells (None Seen) /HPF Urine Bacteria (None Seen) /HPF Urine Culture Reflexed (NO) Monoscreen NEGATIVE (NEGATIVE) Influenza Type A Ag NEGATIVE (NEGATIVE) Influenza Type B Ag NEGATIVE (NEGATIVE) RSV (PCR) NEGATIVE (NEGATIVE) SARS-CoV-2 (PCR) NEGATIVE (NEGATIVE) 02/09/24 02/09/24 02/09/24 Range/Units 18:30 18:30 17:53 WBC 7.3 (3.98-10.04) x10^3/uL RBC 4.03 (3.93-5.22) x10^6/uL Hgb 12.1 (11.2-15.7) g/dL Hct 35.7 (34.1-44.9) % MCV 88.6 (79.4-94.8) fL MCH 30.0 (25.6-32.2) pg MCHC 33.9 (32.2-35.5) g/dL RDW 13.1 (11.7-14.4) % Plt Count 178 L (182-369) x10^3/uL MPV 10.6 (9.4-12.3) fL Gran % 68.6 (34.0-71.1) % Immature Gran % (Auto) 0.1 (0.001-0.429) % Nucleat RBC Rel Count 0.0 (0.00-0.2) % Eos # (Auto) 0.16 (0.04-0.36) x10^3/uL Immature Gran # (Auto) 0.01 (0.001-0.031) x10^3u/L Absolute Lymphs (auto) 1.50 (1.18-3.74) x10^3/uL Absolute Monos (auto) 0.57 (0.24-0.86) x10^3/uL Absolute Nucleated RBC 0.00 (0.00-0.012) x10^3u/L Lymphocytes % 20.6 (19.3-51.7) % Monocytes % 7.8 (4.7-12.5) % Eosinophils % 2.2 (0.7-5.8) % Basophils % 0.7 (0.1-1.2) % Absolute Granulocytes 4.98 (1.56-6.13) x10^3/uL Basophils # 0.05 (0.01-0.08) x10^3/uL Sodium 134 L (135-145) mmol/L Potassium 2.9 L* (3.5-5.1) mmol/L Chloride 102 (98-107) mmol/L Carbon Dioxide 24 (22-30) mmol/L Anion Gap 11.2 (5-15) MEQ/L BUN 14 (7-17) mg/dL Creatinine 0.66 (0.52-1.04) mg/dL Estimated GFR 90.3 ML/MIN Glucose 402 H (74-106) mg/dL Lactic Acid (0.4-2.0) Calcium 8.2 L (8.4-10.2) mg/dL Total Bilirubin 1.20 (0.2-1.3) mg/dL AST 33 (14-36) U/L ALT 35 (0-35) U/L Alkaline Phosphatase 78 (38-126) U/L Serum Total Protein 5.6 L (6.3-8.2) g/dL Albumin 3.0 L (3.5-5.0) g/dL Amylase 114 H (30-110) U/L Lipase 14 L (23-300) U/L Urine Color Dark Yellow A (Yellow) Urine Appearance Turbid A (Clear) Urine pH 5.5 (4.6-8.0) Ur Specific [place] >=1.030 A (1.005-1.030) Urine Protein 30 (Negative) Urine Glucose (UA) >=1000 A (Negative) mg/dL Urine Ketones Trace A (Negative) Urine Blood Small A (Negative) Urine Nitrite Negative (Negative) Urine Bilirubin Negative (Negative) Urine Urobilinogen 1.0 A (0.2) mg/dL Ur Leukocyte Esterase Moderate A (Negative) U Hyaline Cast (Auto) 3-5 A (0-2) /LPF Urine Microscopic RBC 21-50 A (0-5) /HPF Urine Microscopic WBC >100 A (0-5) /HPF Ur Epithelial Cells Moderate A (None Seen) /HPF Urine Bacteria Few A (None Seen) /HPF Urine Culture Reflexed ORDERED SEPARATELY (NO) Monoscreen (NEGATIVE) Influenza Type A Ag (NEGATIVE) Influenza Type B Ag (NEGATIVE) RSV (PCR) (NEGATIVE) SARS-CoV-2 (PCR) (NEGATIVE) - Progress Progress Note: 02/09/24 19:21 My medical decision making and the assignment of moderate to high complexity is based on review the patient's past medical history, review of the patient's medication list, reviewed patient drug allergy list, history present of some physical findings on examination. The workup in this patient includes placement of intravenous line, infusion of normal saline solution, amylase, lipase, urinalysis, magnesium level, CBC, CMP, stool culture, C. difficile toxin, CT scan of the abdomen pelvis without contrast, viral studies, monotest. Differential diagnosis includes but is not limited to viral illness, dehydration, colitis (possible C. difficile colitis), pancreatitis, bowel obstruction, 02/09/24 20:51 I interpreted the patient's laboratory data results. Based on the laboratory data results, the patient has a urinary tract infection and is mildly dehydrated. The stool C. difficile toxin and cultures will not be back until [address] scan of the abdomen pelvis was interpreted by the radiologist. The impression states that there is colonic diarrhea present. There is no evidence of any other acute, emergent findings. I spoke with Dr. Vazquez, our telehospitalist. I reviewed the patient presenting complaint, the past medical history, physical findings on examination and the re sults of our radiographic and laboratory studies. We will place this patient in observation and obtain social service consultation as the patient has several different social issues that need to be addressed. In addition we will place the patient on oral Levaquin and Flagyl. I will order zinc oxide ointment to the perianal, perineal and external vaginal areas every 6-8 hours. Discussed with : Shirlene Counseled pt/family regarding: lab results, diagnosis, rad results Medical Desision Making - Diagnostic Testing Diagnostic test were ordered, analyzed, and reviewed by me: Yes Radiological Interpretation: Reviewed by me, Teleradiologist Report - Risk of complications The pt has a mod risk of morbidity or mortality based on: Diagnosis or treatment limited by SDOH The pt has a high risk of morbidity or mortality based on: Decision regarding hospitilization or escalation of hosp level of care - Departure Departure Disposition: Observation Clinical Impression: Urinary tract infection, Mild dehydration, Chronic diarrhea, Contact dermatitis Condition: Stable Critical Care Time: No Referrals: CURTIS LANDRY MD [Primary Care Provider] - Follow up/PCP as directed
[2024-02-09] MEDS ORDERED: Sodium Chloride 0.9% 1000 ML 1,000 ML ONE ×2 (18:39→20:44)
[2024-02-09] MEDS: Sodium Chloride 0.9% 1000 ML 1,000 ML IV STA (18:41)
[2024-02-09 18:47] LABS: Absolute Neutrophil Ct (ANC) 4.98 x10^3/uL (1.56-6.13); BASOPHIL % 0.7 % (0.1-1.2); Basophil (Absolute #) 0.05 x10^3/uL (0.01-0.08); Eosinophil % 2.2 % (0.7-5.8); Eosinophil (Absolute #) 0.16 x10^3/uL (0.04-0.36); Hematocrit 35.7 % (34.1-44.9); Hemoglobin 12.1 g/dL (11.2-15.7); IMMATURE GRAN # 0.01 x10^3u/L (0.001-0.031); IMMATURE GRAN % 0.1 % (0.001-0.429); Lymphocytes % 20.6 % (19.3-51.7); Mean Cell Volume 88.6 fL (79.4-94.8); Mean Corpuscular Hgb Concent. 33.9 g/dL (32.2-35.5); Mean Platelet Volume 10.6 fL (9.4-12.3); Monocyte (Absolute #) 0.57 x10^3/uL (0.24-0.86); Monocytes % 7.8 % (4.7-12.5); Neutrophil % 68.6 % (34.0-71.1); Platelet Count 178 x10^3/uL (182-369); Red Blood Count 4.03 x10^6/uL (3.93-5.22); Red Cell Distribution Width 13.1 % (11.7-14.4); White Blood Count 7.3 x10^3/uL (3.98-10.04)
[2024-02-09 18:54] LABS: ADD URINE CULTURE? ORDERED SEPARATELY (NO); Appearance Turbid (Clear); Bacteria Few /HPF (None Seen); Bilirubin Negative (Negative); Blood Small (Negative); Epithelial Cells Moderate /HPF (None Seen); Glucose, Urine >=1000 mg/dL (Negative); Ketones Trace (Negative); Leukocyte Esterase Moderate (Negative); Nitrite Negative (Negative); Ph 5.5 (4.6-8.0); Protein,Urine Dip 30 (Negative); RBC 21-50 /HPF (0-5); Specific Gravity >=1.030 (1.005-1.030); WBC >100 /HPF (0-5)
[2024-02-09 19:00] LABS: ANION GAP 11.2 MEQ/L (5-15); BILIRUBIN,TOTAL 1.2 mg/dL (0.2-1.3); Calcium 8.2 mg/dL (8.4-10.2); Creatinine 1 0.66 mg/dL (0.52-1.04); EST GLOMERULAR FILTRATION RATE 90.3 ML/MIN; Total Protein 5.6 g/dL (6.3-8.2)
[2024-02-09 19:03] LABS: Potassium 2.9 mmol/L (3.5-5.1)
[2024-02-09] MEDS ORDERED: Klor Con ONE (19:16)
[2024-02-09] MEDS: POTASSIUM CHLORIDE 20 mEq IN WATER 100ML 20 MEQ/100 ML BAG IV ONE (19:17)
[2024-02-09] MEDS ORDERED: POTASSIUM CHLORIDE 20 mEq IN WATER 100ML 100 ML IV ONE (19:17)
[2024-02-09] MEDS: Klor Con PO ONE (19:17)
[2024-02-09 19:28] LABS: INFLUENZA A NEGATIVE (NEGATIVE); INFLUENZA B NEGATIVE (NEGATIVE); RESPIRATORY SYNCTIAL VIRUS NEGATIVE (NEGATIVE); SARS-CoV-2 Xpert Express NEGATIVE (NEGATIVE)
[2024-02-09] MEDS: Sodium Chloride 0.9% 1000 ML 1,000 ML IV SCH (20:46)
[2024-02-09] MEDS ORDERED: Levofloxacin 500 MG Tablet ONE (21:34)
[2024-02-09] MEDS ORDERED: Flagyl 500 MG ONE (21:35)
[2024-02-09] MEDS: Levofloxacin 500 MG Tablet PO ONE (21:36)
[2024-02-09] MEDS: Flagyl 500 MG PO ONE (21:37)
[2024-02-09] MEDS ORDERED: Zofran 4 MG/2 ML VIAL IV PRN (22:12)
[2024-02-09] MEDS ORDERED: ZINC OXIDE OINTMENT 30 GM TP PRN (22:12)
[2024-02-09] MEDS ORDERED: TYLENOL 325 MG PO PRN (22:12)
[2024-02-09] MEDS: Flagyl 500 MG PO SCH (22:17)
--- NOTE | 2024-02-09 23:36 | PCM.HP ---
History of Present Illness - Chief Complaint Chief Complaint: chronic diarrhea Date: 02/09/24 History of Present Illness: 78 y/o F with h/o DM2, HTN, GERD, CVA (not currently on any treatment), who presents with chronic diarrhea. Patient states that she has been having chronic diarrhea for months to years, occurring any time she has something to eat or drink. Copious amounts, watery, but no blood or mucus ever noted. She denies abdominal pain, cramps, nausea, or fevers. Denies lightheadedness or dizziness, and states maintains good PO intake despite the accompanying diarrhea. Has a history of gastric bypass surgery but says it was many years ago and did not cause diarrhea at the time. She also states multiple times that she has no one to help her at home. She did not note any worsening of the diarrhea today, but she had an appointment to see Dr. Landry today to talk about it, and it had to be cancelled as Dr. Landry had a patient emergency, so she came to the ED. In the ED she was given levaquin, flagyl, KCl 20 mEq PO and 20 mEq IV, and 1L NS - Review of Systems Constitutional: No Fever, No Malaise Ears, Nose, & Throat: No Nose Congestion, No Throat Pain Respiratory: No Cough, No Short Of Breath Cardiac: No Chest Pain All Other Systems: Reviewed and Negative Medications & Allergies Home Medications: Home Medication List No Reportable Medications [No Reported Medications] 09/21/23 [History Confirmed 02/09/24] Allergies/Adverse Reactions: Allergies Allergy/AdvReac Type Severity Reaction Status Date / Time No Known Drug Allergies Allergy Verified 02/09/24 17:17 - Past Medical History Past Medical History: Yes Neurological History: Stroke ENT History: Macular Degeneration Cardiac History: High Cholesterol Respiratory History: No Pertinent History Endocrine Medical History: Diabetes Type II Musculoskelatal History: Fibromyalgia GI Medical History: Polyps History: No Pertinent History Pyscho-Social History: Depression Reproductive Disorders: Breast Cancer Comment: rheumatic fever as a child, breast cancer with Right side masectomy - Past Surgical History Past Surgical History: Yes Neuro Surgical History: No Pertinent History Cardiac History: Cardiac Catheterization Respiratory Surgery: No Pertinent History GI Surgical History: Colon Resection, Other Genitourinary Surgical Hx: No Pertinent History Musculskeletal Surgical Hx: Orthopedic Surgery Female Surgical History: Hysterectomy, Tubal Ligation, Mastectomy Other Surgical History: gastric bypass 2014 - Social History Smoking Status: Never smoker Exposure to second hand smoke: No Alcohol: None Drug Use: none - Social Determinants of Health Will the patient participate in the screening: Yes Do you worry about a steady place to live?: Yes Do you have any problems with any of the following?: Pest (bugs,ants,or mice), Other In the past 12 months,have you had to go without utilities?: No Have you or anyone in your house had to go without enough: No Transportation Issues: No Has anyone in your support network made you feel unsafe?: Choose not to answer Does the patient want assistance with any of the above?: Yes Comment: [employer] IS FULL OF ROACHES, PT STATES SHE DOES NOT HAVE ANYONE IN HER SUPPORT NETWORK, PT STATES THAT [facility]PS HAS VISITED HER IN HER HOME RECENTLY BUT HAS NOT DONE ANYTHING TO HELP HER - Physical Exam Vital Signs: Vital Signs - 24 hr Temp Pulse Resp BP BP Pulse Ox 02/09/24 23:13 96 02/09/24 22:38 98.6 F 65 16 146/70 99 02/09/24 21:30 64 17 124/92 98 02/09/24 21:00 62 18 152/80 98 02/09/24 20:31 66 20 122/77 100 02/09/24 20:00 71 19 146/80 99 02/09/24 19:32 66 13 156/85 98 02/09/24 19:00 69 17 140/75 99 02/09/24 18:30 68 18 133/77 100 02/09/24 18:00 75 21 141/69 99 02/09/24 17:30 78 15 117/60 96 02/09/24 17:14 82 21 122/55 96 02/09/24 17:00 98.5 F 92 H 18 122/55 96 General Appearance: no apparent distress Neurologic Exam: alert, oriented x 3 Respiratory Exam: normal breath sounds, lungs clear, No respiratory distress, No accessory muscle use Cardiovascular Exam: regular rate/rhythm, normal heart sounds, No edema Gastrointestinal/Abdomen Exam: soft, other (hyperactive bowel sounds), No tenderness Results - Labs Lab/Micro Results: Lab Results-Last 24 Hours 02/09/24 02/09/24 02/09/24 Range/Units 17:53 18:30 18:30 WBC 7.3 (3.98-10.04) x10^3/uL RBC 4.03 (3.93-5.22) x10^6/uL Hgb 12.1 (11.2-15.7) g/dL Hct 35.7 (34.1-44.9) % MCV 88.6 (79.4-94.8) fL MCH 30.0 (25.6-32.2) pg MCHC 33.9 (32.2-35.5) g/dL RDW 13.1 (11.7-14.4) % Plt Count 178 L (182-369) x10^3/uL MPV 10.6 (9.4-12.3) fL Gran % 68.6 (34.0-71.1) % Immature Gran % (Auto) 0.1 (0.001-0.429) % Nucleat RBC Rel Count 0.0 (0.00-0.2) % Eos # (Auto) 0.16 (0.04-0.36) x10^3/uL Immature Gran # (Auto) 0.01 (0.001-0.031) x10^3u/L Absolute Lymphs (auto) 1.50 (1.18-3.74) x10^3/uL Absolute Monos (auto) 0.57 (0.24-0.86) x10^3/uL Absolute Nucleated RBC 0.00 (0.00-0.012) x10^3u/L Lymphocytes % 20.6 (19.3-51.7) % Monocytes % 7.8 (4.7-12.5) % Eosinophils % 2.2 (0.7-5.8) % Basophils % 0.7 (0.1-1.2) % Absolute Granulocytes 4.98 (1.56-6.13) x10^3/uL Basophils # 0.05 (0.01-0.08) x10^3/uL Sodium 134 L (135-145) mmol/L Potassium 2.9 L* (3.5-5.1) mmol/L Chloride 102 (98-107) mmol/L Carbon Dioxide 24 (22-30) mmol/L Anion Gap 11.2 (5-15) MEQ/L BUN 14 (7-17) mg/dL Creatinine 0.66 (0.52-1.04) mg/dL Estimated GFR 90.3 ML/MIN Glucose 402 H (74-106) mg/dL POC Glucometer (74 to 106) mg/dL Lactic Acid (0.4-2.0) Calcium 8.2 L (8.4-10.2) mg/dL Total Bilirubin 1.20 (0.2-1.3) mg/dL AST 33 (14-36) U/L ALT 35 (0-35) U/L Alkaline Phosphatase 78 (38-126) U/L Serum Total Protein 5.6 L (6.3-8.2) g/dL Albumin 3.0 L (3.5-5.0) g/dL Amylase 114 H (30-110) U/L Lipase 14 L (23-300) U/L Urine Color Dark Yellow A (Yellow) Urine Appearance Turbid A (Clear) Urine pH 5.5 (4.6-8.0) Ur Specific [place] >=1.030 A (1.005-1.030) Urine Protein 30 (Negative) Urine Glucose (UA) >=1000 A (Negative) mg/dL Urine Ketones Trace A (Negative) Urine Blood Small A (Negative) Urine Nitrite Negative (Negative) Urine Bilirubin Negative (Negative) Urine Urobilinogen 1.0 A (0.2) mg/dL Ur Leukocyte Esterase Moderate A (Negative) U Hyaline Cast (Auto) 3-5 A (0-2) /LPF Urine Microscopic RBC 21-50 A (0-5) /HPF Urine Microscopic WBC >100 A (0-5) /HPF Ur Epithelial Cells Moderate A (None Seen) /HPF Urine Bacteria Few A (None Seen) /HPF Urine Culture Reflexed ORDERED SEPARATELY (NO) Monoscreen (NEGATIVE) Influenza Type A Ag (NEGATIVE) Influenza Type B Ag (NEGATIVE) RSV (PCR) (NEGATIVE) SARS-CoV-2 (PCR) (NEGATIVE) 02/09/24 02/09/24 02/09/24 Range/Units 18:30 18:40 18:40 WBC (3.98-10.04) x10^3/uL RBC (3.93-5.22) x10^6/uL Hgb (11.2-15.7) g/dL Hct (34.1-44.9) % MCV (79.4-94.8) fL MCH (25.6-32.2) pg MCHC (32.2-35.5) g/dL RDW (11.7-14.4) % Plt Count (182-369) x10^3/uL MPV (9.4-12.3) fL Gran % (34.0-71.1) % Immature Gran % (Auto) (0.001-0.429) % Nucleat RBC Rel Count (0.00-0.2) % Eos # (Auto) (0.04-0.36) x10^3/uL Immature Gran # (Auto) (0.001-0.031) x10^3u/L Absolute Lymphs (auto) (1.18-3.74) x10^3/uL Absolute Monos (auto) (0.24-0.86) x10^3/uL Absolute Nucleated RBC (0.00-0.012) x10^3u/L Lymphocytes % (19.3-51.7) % Monocytes % (4.7-12.5) % Eosinophils % (0.7-5.8) % Basophils % (0.1-1.2) % Absolute Granulocytes (1.56-6.13) x10^3/uL Basophils # (0.01-0.08) x10^3/uL Sodium (135-145) mmol/L Potassium (3.5-5.1) mmol/L Chloride (98-107) mmol/L Carbon Dioxide (22-30) mmol/L Anion Gap (5-15) MEQ/L BUN (7-17) mg/dL Creatinine (0.52-1.04) mg/dL Estimated GFR ML/MIN Glucose (74-106) mg/dL POC Glucometer (74 to 106) mg/dL Lactic Acid 2.5 H (0.4-2.0) Calcium (8.4-10.2) mg/dL Total Bilirubin (0.2-1.3) mg/dL AST (14-36) U/L ALT (0-35) U/L Alkaline Phosphatase (38-126) U/L Serum Total Protein (6.3-8.2) g/dL Albumin (3.5-5.0) g/dL Amylase (30-110) U/L Lipase (23-300) U/L Urine Color (Yellow) Urine Appearance (Clear) Urine pH (4.6-8.0) Ur Specific [place] (1.005-1.030) Urine Protein (Negative) Urine Glucose (UA) (Negative) mg/dL Urine Ketones (Negative) Urine Blood (Negative) Urine Nitrite (Negative) Urine Bilirubin (Negative) Urine Urobilinogen (0.2) mg/dL Ur Leukocyte Esterase (Negative) U Hyaline Cast (Auto) (0-2) /LPF Urine Microscopic RBC (0-5) /HPF Urine Microscopic WBC (0-5) /HPF Ur Epithelial Cells (None Seen) /HPF Urine Bacteria (None Seen) /HPF Urine Culture Reflexed (NO) Monoscreen NEGATIVE (NEGATIVE) Influenza Type A Ag NEGATIVE (NEGATIVE) Influenza Type B Ag NEGATIVE (NEGATIVE) RSV (PCR) NEGATIVE (NEGATIVE) SARS-CoV-2 (PCR) NEGATIVE (NEGATIVE) 02/09/24 02/09/24 02/09/24 Range/Units 20:45 22:50 23:18 WBC (3.98-10.04) x10^3/uL RBC (3.93-5.22) x10^6/uL Hgb (11.2-15.7) g/dL Hct (34.1-44.9) % MCV (79.4-94.8) fL MCH (25.6-32.2) pg MCHC (32.2-35.5) g/dL RDW (11.7-14.4) % Plt Count (182-369) x10^3/uL MPV (9.4-12.3) fL Gran % (34.0-71.1) % Immature Gran % (Auto) (0.001-0.429) % Nucleat RBC Rel Count (0.00-0.2) % Eos # (Auto) (0.04-0.36) x10^3/uL Immature Gran # (Auto) (0.001-0.031) x10^3u/L Absolute Lymphs (auto) (1.18-3.74) x10^3/uL Absolute Monos (auto) (0.24-0.86) x10^3/uL Absolute Nucleated RBC (0.00-0.012) x10^3u/L Lymphocytes % (19.3-51.7) % Monocytes % (4.7-12.5) % Eosinophils % (0.7-5.8) % Basophils % (0.1-1.2) % Absolute Granulocytes (1.56-6.13) x10^3/uL Basophils # (0.01-0.08) x10^3/uL Sodium (135-145) mmol/L Potassium 3.3 L (3.5-5.1) mmol/L Chloride (98-107) mmol/L Carbon Dioxide (22-30) mmol/L Anion Gap (5-15) MEQ/L BUN (7-17) mg/dL Creatinine (0.52-1.04) mg/dL Estimated GFR ML/MIN Glucose (74-106) mg/dL POC Glucometer 285 H (74 to 106) mg/dL Lactic Acid 0.7 (0.4-2.0) Calcium (8.4-10.2) mg/dL Total Bilirubin (0.2-1.3) mg/dL AST (14-36) U/L ALT (0-35) U/L Alkaline Phosphatase (38-126) U/L Serum Total Protein (6.3-8.2) g/dL Albumin (3.5-5.0) g/dL Amylase (30-110) U/L Lipase (23-300) U/L Urine Color (Yellow) Urine Appearance (Clear) Urine pH (4.6-8.0) Ur Specific [place] (1.005-1.030) Urine Protein (Negative) Urine Glucose (UA) (Negative) mg/dL Urine Ketones (Negative) Urine Blood (Negative) Urine Nitrite (Negative) Urine Bilirubin (Negative) Urine Urobilinogen (0.2) mg/dL Ur Leukocyte Esterase (Negative) U Hyaline Cast (Auto) (0-2) /LPF Urine Microscopic RBC (0-5) /HPF Urine Microscopic WBC (0-5) /HPF Ur Epithelial Cells (None Seen) /HPF Urine Bacteria (None Seen) /HPF Urine Culture Reflexed (NO) Monoscreen (NEGATIVE) Influenza Type A Ag (NEGATIVE) Influenza Type B Ag (NEGATIVE) RSV (PCR) (NEGATIVE) SARS-CoV-2 (PCR) (NEGATIVE) Microbiology 02/09/24 Unknown Stool Culture Result 1 - Final Stool Not Reportable Stool Culture Result 2 - Final Not Reportable Stool Culture Result 3 - Final Not Reportable Stool Culture Result 4 - Final Not Reportable Stool Culture Organism Suscept - Final Not Reportable Campylobacter Result 1 - Final Not Reportable Campylobacter Result 2 - Final Not Reportable Campylobactor Result 3 - Final Not Reportable Campylobacter Result 4 - Final Not Reportable Campylobactor Susceptibility - Final Not Reportable Accuchecks Date 02/09/24 - Radiology Impressions Radiology Exams & Impressions: Radiology Procedures Category Date Time Status ABDOMEN AND PELVIS W/0 CONTRAS [CT] Stat Exams 02/09/24 19:[address] preliminary report given to ED provider but not in chart yet; reportedly showed only diarrhea but no acute findings. Assessment/Plan (1) Chronic diarrhea Current Visit: Yes Status: Acute Assessment & Plan: 78 y/o F with h/o HTN, CVA, DM2, and GERD, who presents with persistent diarrhea. ## Diarrhea - timing is unclear, but present for weeks to months per patient. This makes bacterial infection less likely, although parasites would be a possible infectious source. Given the association with food, a functional or celiac diagnosis is possible as well. - checking stool cultures - add C diff, stool O&P - consider HIV testing (would make pursuing microsporidia or CMV more likely) - continue Levaquin/Flagyl from ED for now, although if no findings on stool Cx can likely d/c soon (see acute cystitis below) - if C diff negative, try antimotility agents ## possible acute cystitis - does not appear to have symptoms, but has pyuria on UA. - follow up urine culture - already on levaquin as above; should have urine culture back by time stool culture results, but at this time would not treat for asymptomatic bacteriuria ## DM2 - patient not on meds, but Glc elevated on arrival. - place on sliding scale insulin - check HbA1c ## hypokalemia - secondary to diarrhea - getting KCl 40 mEq - repeat BMP in AM ## lactic acidosis - likely due to volume losses. Already improved (2.5 -> 0.7) after fluid resuscitation. Code status: DNR Prophylaxis: encourage ambulation (Garrett score 0) Diet: Diabetic Code(s): K52.9 - NONINFECTIVE GASTROENTERITIS AND COLITIS, UNSPECIFIED Telemedicine Encounter - Telemedicine Encounter Telemedicine Encounter: "The entirety of this encounter was performed via Telemedicine" This visit was performed using real-time audio and video connection between my location and thepatients locationwith the assistance of a surrogateat the patients location. Written or verbal consent was obtained from the patient/guardian to perform this visit usingsynchronoustelemedicine technology. Any patient questions regarding the telemedicine interaction were answered.
[2024-02-10] MEDS: HUMALOG SQ PRN (00:23)
[2024-02-10 00:52] LABS: 027 TOX PROD PRESUMPTIVE NEGATIVE (NEGATIVE); TOXIGENIC C. DIFF ORG NEGATIVE (NEGATIVE)
[2024-02-10] MEDS: IMODIUM 2 MG PO PRN (01:05)
[2024-02-10 04:23] LABS: Absolute Neutrophil Ct (ANC) 4.74 x10^3/uL (1.56-6.13); BASOPHIL % 0.4 % (0.1-1.2); Basophil (Absolute #) 0.03 x10^3/uL (0.01-0.08); Eosinophil % 4.4 % (0.7-5.8); Eosinophil (Absolute #) 0.35 x10^3/uL (0.04-0.36); Hematocrit 35.3 % (34.1-44.9); Hemoglobin 11.7 g/dL (11.2-15.7); IMMATURE GRAN # 0.03 x10^3u/L (0.001-0.031); IMMATURE GRAN % 0.4 % (0.001-0.429); Lymphocyte (Absolute #) 2.29 x10^3/uL (1.18-3.74); Lymphocytes % 28.5 % (19.3-51.7); Mean Cell Volume 88.5 fL (79.4-94.8); Mean Corpuscular Hemoglobin 29.3 pg (25.6-32.2); Mean Corpuscular Hgb Concent. 33.1 g/dL (32.2-35.5); Mean Platelet Volume 10.2 fL (9.4-12.3); Monocytes % 7.5 % (4.7-12.5); Neutrophil % 58.8 % (34.0-71.1); Platelet Count 177 x10^3/uL (182-369); Red Blood Count 3.99 x10^6/uL (3.93-5.22); Red Cell Distribution Width 13.2 % (11.7-14.4)
[2024-02-10 04:46] LABS: ALBUMIN 2.7 g/dL (3.5-5.0); ANION GAP 8.8 MEQ/L (5-15); Calcium 7.9 mg/dL (8.4-10.2); Creatinine 1 0.54 mg/dL (0.52-1.04); EST GLOMERULAR FILTRATION RATE 94.8 ML/MIN; Potassium 3.2 mmol/L (3.5-5.1); Total Protein 5.2 g/dL (6.3-8.2)
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
[2024-02-10] MEDS: Sodium Chloride 0.9% 1000 ML 1,000 ML IV SCH (07:12)
[2024-02-10] MEDS: Klor Con PO SCH (07:56)
--- NOTE | 2024-02-10 08:47 | XRAY ---
Indication: Chronic diarrhea and UTIs Multiple contiguous axial images obtained through the abdomen and pelvis without contrast. Comparison: April 03, 2020. Lung bases demonstrates stable right middle lobe pleural parenchymal fibrosis/scarring and 2 benign left midlung calcified/noncalcified nodules. No infiltrate or effusion. Heart not enlarged. Stable small hiatal hernia. Again previous gastric bypass surgery and hysterectomy. Noncontrasted stomach and bowel loops appear nonobstructed. There is now mild diffuse colonic diarrhea. Stable previous CT proven hepatic hemangioma. Gallbladder demonstrates new tiny gravel/sludge in the dependent portion. No free fluid/air. Remaining liver, gallbladder, pancreas, spleen, adrenal glands, kidneys, ureters, and bladder are unremarkable for noncontrast exam. Again mild aortoiliac calcifications without AAA. Osseous structures intact again with osteopenia, mild/moderate multilevel thoracolumbar degenerative spondylosis, grade 1 L4 listhesis, and T12/L2 Schmorl nodes. New incompletely revisualize proximal left femur orthopedic hardware. No ventral or inguinal hernias. Impression: 1. New diffuse colonic diarrhea. 2. New tiny gallbladder gravel/sludge. Sonogram may yield further information if clinically warranted. 3. Again chronic findings including chronic pulmonary findings, hiatal hernia, hepatic hemangioma, arteriosclerotic disease, and chronic bony findings..
[2024-02-10] MEDS: Levofloxacin 250MG Tablet PO SCH (09:25)
[2024-02-10] MEDS: Levofloxacin 500 MG Tablet PO SCH (09:25)
--- NOTE | 2024-02-10 15:24 | XRAY ---
Indication: Gallbladder sludge/gravel on CT abdomen/pelvis 1 day earlier. Two-dimensional color sonogram performed. Comparison: April 12, 2019 Visualized gallbladder distended again with mild sludge and tiny gallstones/gravel in the dependent portion. No abnormal gallbladder wall thickening or pericholecystic fluid. Common bile duct measures 5.3 mm. No intrahepatic biliary distention. Remaining visualized liver and pancreas are sonographically unremarkable. Right kidney measures 10.2 x 4.2 x 4.5 cm with new 1.6 cm upper pole cortical cyst. Impression: 1. Stable gallbladder sludge with tiny gallstones/gravel. Continue negative for acute cholecystitis or biliary distention. 2. New right renal cyst.
[2024-02-11 05:12] LABS: Absolute Neutrophil Ct (ANC) 3.77 x10^3/uL (1.56-6.13); BASOPHIL % 0.4 % (0.1-1.2); Basophil (Absolute #) 0.03 x10^3/uL (0.01-0.08); Eosinophil (Absolute #) 0.27 x10^3/uL (0.04-0.36); Hematocrit 37.7 % (34.1-44.9); Hemoglobin 12.5 g/dL (11.2-15.7); IMMATURE GRAN # 0.01 x10^3u/L (0.001-0.031); IMMATURE GRAN % 0.1 % (0.001-0.429); Lymphocytes % 29.9 % (19.3-51.7); Mean Cell Volume 89.1 fL (79.4-94.8); Mean Corpuscular Hemoglobin 29.6 pg (25.6-32.2); Mean Corpuscular Hgb Concent. 33.2 g/dL (32.2-35.5); Mean Platelet Volume 10.2 fL (9.4-12.3); Neutrophil % 56.6 % (34.0-71.1); Platelet Count 170 x10^3/uL (182-369); Red Blood Count 4.23 x10^6/uL (3.93-5.22); Red Cell Distribution Width 13.5 % (11.7-14.4); White Blood Count 6.7 x10^3/uL (3.98-10.04)
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
[2024-02-11 05:32] VITALS: RESP 16
[2024-02-11 05:53] LABS: ALBUMIN 2.8 g/dL (3.5-5.0); ANION GAP 6.4 MEQ/L (5-15); BILIRUBIN,TOTAL 0.9 mg/dL (0.2-1.3); Calcium 8.1 mg/dL (8.4-10.2); Creatinine 1 0.53 mg/dL (0.52-1.04); EST GLOMERULAR FILTRATION RATE 95.2 ML/MIN; Potassium 3.8 mmol/L (3.5-5.1); Total Protein 5.4 g/dL (6.3-8.2)
[2024-02-11] MEDS: ROCEPHIN 1 GM / 100 ML NaCl 1 GM/100 ML IVPB IV SCH (09:12)
[2024-02-11] MEDS: Lomotil PO PRN (09:41)
--- NOTE | 2024-02-11 11:49 | PCM.DS ---
Discharge Summary Date of Admission: 02/09/24 22:10 Date of Discharge: 02/11/24 Admitting Physician: AVIS VYAS MD Consults: Consults on Case 02/09/24 17:51 ACO SDOH Referral ONCE 02/09/24 23:12 Case Management SDOH DC Needs Assessment ROUTINE Primary Care Provider: CURTIS HOFFMAN Allergies Allergies No Known Drug Allergies Allergy (Verified 02/09/24 17:17) Hospital Summary - Hospital Course Hospital Course: HPI: MS Scott is a 78 y/o F with h/o DM2, HTN, GERD, CVA (not currently on any treatment), admitted 02/09/24 with chronic diarrhea. Patient states that she has been having chronic diarrhea for months to years, occurring any time she has something to eat or drink. Copious amounts, watery, but no blood or mucus ever noted. She denies abdominal pain, cramps, nausea, or fevers. Denies lightheadedness or dizziness, and states maintains good PO intake despite the accompanying diarrhea. Has a history of gastric bypass surgery but says it was many years ago and did not cause diarrhea at the time. She also states multiple times that she has no one to help her at home. She did not note any worsening of the diarrhea today, but she had an appointment to see Dr. Hoffman today to talk about it, and it had to be cancelled as Dr. Hoffman had a patient emergency, so she came to the ED. CT showing new diffuse colonic diarrhea and tiny gravel/sludge in gallbladder. US GB negative for acute cholecystitis or biliary distention. In the ED she was given levaquin, flagyl, KCl 20 mEq PO and 20 mEq IV, and 1L NS. IP treatment with ceftriaxone. Ucult with gram negative ID. Diarrhea improved with lomotil/immodium combo. Patient able to tolerate full diet. Her A1c is at 10.20, patient states she is prescribed long acting insulin by her PCP but she has not been taking it. She does have a glucometer, strips, and lancets at home. Discussed the importance of taking her prescribed long acting insulin. Will call out lantus prior to discharge as pt does not think she has any at home. Advised close follow up with her PCP in the next week. Will also discharge home on cefdinir for UTI, will contact patient if rx needs to be changed per final culture results. Patient agreeable to plan and stable for discharge. Discharge Note New Diagnosis: New Medications: Follow Up: Results pending: Outpatient testing to order: Latest Assessment & Plan (1) Hypokalemia Current Visit: Yes Status: Acute Assessment & Plan: -Labs reviewed, potassium still at 3.2, will replenish per protocol -tele 02/10: -resolved Code(s): E87.6 - HYPOKALEMIA (2) Chronic diarrhea Current Visit: Yes Status: Acute Assessment & Plan: -CDiff negative -Stool culture/studies pending - consider HIV testing (would make pursuing microsporidia or CMV more likely) - continued Levaquin/Flagyl from ED for now, although if no findings on stool Cx -d/cd and continued ceftriaxone for uti -sart immodium/lomotil : K52.9 - NONINFECTIVE GASTROENTERITIS AND COLITIS, UNSPECIFIED (3) UTI (urinary tract infection) Current Visit: Yes Status: Acute Assessment & Plan: -Continue Ceftriaxone - follow cultures Code(s): N39.0 - URINARY TRACT INFECTION, SITE NOT SPECIFIED (4) Diabetes mellitus Current Visit: No Status: Acute Qualifiers: Diabetes mellitus mcc insulin use: without mcc use Diabetes mellitus complication status: without complication Assessment & Plan: -ADA diet -SSI -A1c 10.20 -Will need home lantus - patient states she does not need further education - she is familiar with using insulin pen-discussed the importance of compliance a nd need for follow up with pcp. Code(s): E11.9 - TYPE 2 DIABETES MELLITUS WITHOUT COMPLICATIONS (5) Lactic acid acidosis Current Visit: Yes Status: Acute Assessment & Plan: - likely due to volume losses -Resolved after fluid resuscitation I spent 35 minutes [id number] with the patient on the day of discharge performing discharge exam, discussing hospital stay and discharge instructions with patient and caregivers, preparation of discharge records, prescriptions & referral forms and addressing any questions/concerns the patient had as documented above. - Vitals & Intake/Output Vital Signs: Vital Signs Temperature 97.8 F 02/11/24 07:15 Pulse Rate 61 02/11/24 07:15 Respiratory Rate 16 02/11/24 07:15 Blood Pressure 180/86 02/11/24 07:15 O2 Sat by Pulse Oximetry 100 02/11/24 07:15 Intake & Output: Intake & Output 02/08/24 02/09/24 02/10/24 02/11/24 11:59 11:59 11:59 11:59 Intake Total 700 2311 Output Total 350 Balance 700 1961 Weight 48.3 kg 49 kg - Lab Result Diagrams: 02/11/24 05:00 02/11/24 05:00 Lab Results-Last 24 Hrs: Lab Results-Last 24 Hours 02/10/24 02/10/24 02/10/24 Range/Units 11:46 15:35 16:17 WBC (3.98-10.04) x10^3/uL RBC (3.93-5.22) x10^6/uL Hgb (11.2-15.7) g/dL Hct (34.1-44.9) % MCV (79.4-94.8) fL MCH (25.6-32.2) pg MCHC (32.2-35.5) g/dL RDW (11.7-14.4) % Plt Count (182-369) x10^3/uL MPV (9.4-12.3) fL Gran % (34.0-71.1) % Immature Gran % (Auto) (0.001-0.429) % Nucleat RBC Rel Count (0.00-0.2) % Eos # (Auto) (0.04-0.36) x10^3/uL Immature Gran # (Auto) (0.001-0.031) x10^3u/L Absolute Lymphs (auto) (1.18-3.74) x10^3/uL Absolute Monos (auto) (0.24-0.86) x10^3/uL Absolute Nucleated RBC (0.00-0.012) x10^3u/L Lymphocytes % (19.3-51.7) % Monocytes % (4.7-12.5) % Eosinophils % (0.7-5.8) % Basophils % (0.1-1.2) % Absolute Granulocytes (1.56-6.13) x10^3/uL Basophils # (0.01-0.08) x10^3/uL Sodium (135-145) mmol/L Potassium 4.3 D (3.5-5.1) mmol/L Chloride (98-107) mmol/L Carbon Dioxide (22-30) mmol/L Anion Gap (5-15) MEQ/L BUN (7-17) mg/dL Creatinine (0.52-1.04) mg/dL Estimated GFR ML/MIN Glucose (74-106) mg/dL POC Glucometer 238 H 173 H (74 to 106) mg/dL Calcium (8.4-10.2) mg/dL Total Bilirubin (0.2-1.3) mg/dL AST (14-36) U/L ALT (0-35) U/L Alkaline Phosphatase (38-126) U/L Serum Total Protein (6.3-8.2) g/dL Albumin (3.5-5.0) g/dL 02/10/24 02/10/24 02/11/24 Range/Units 21:22 23:23 05:00 WBC 6.7 (3.98-10.04) x10^3/uL RBC 4.23 (3.93-5.22) x10^6/uL Hgb 12.5 (11.2-15.7) g/dL Hct 37.7 (34.1-44.9) % MCV 89.1 (79.4-94.8) fL MCH 29.6 (25.6-32.2) pg MCHC 33.2 (32.2-35.5) g/dL RDW 13.5 (11.7-14.4) % Plt Count 170 L (182-369) x10^3/uL MPV 10.2 (9.4-12.3) fL Gran % 56.6 (34.0-71.1) % Immature Gran % (Auto) 0.1 (0.001-0.429) % Nucleat RBC Rel Count 0.0 (0.00-0.2) % Eos # (Auto) 0.27 (0.04-0.36) x10^3/uL Immature Gran # (Auto) 0.01 (0.001-0.031) x10^3u/L Absolute Lymphs (auto) 2.00 (1.18-3.74) x10^3/uL Absolute Monos (auto) 0.60 (0.24-0.86) x10^3/uL Absolute Nucleated RBC 0.00 (0.00-0.012) x10^3u/L Lymphocytes % 29.9 (19.3-51.7) % Monocytes % 9.0 (4.7-12.5) % Eosinophils % 4.0 (0.7-5.8) % Basophils % 0.4 (0.1-1.2) % Absolute Granulocytes 3.77 (1.56-6.13) x10^3/uL Basophils # 0.03 (0.01-0.08) x10^3/uL Sodium (135-145) mmol/L Potassium (3.5-5.1) mmol/L Chloride (98-107) mmol/L Carbon Dioxide (22-30) mmol/L Anion Gap (5-15) MEQ/L BUN (7-17) mg/dL Creatinine (0.52-1.04) mg/dL Estimated GFR ML/MIN Glucose (74-106) mg/dL POC Glucometer 251 H 231 H (74 to 106) mg/dL Calcium (8.4-10.2) mg/dL Total Bilirubin (0.2-1.3) mg/dL AST (14-36) U/L ALT (0-35) U/L Alkaline Phosphatase (38-126) U/L Serum Total Protein (6.3-8.2) g/dL Albumin (3.5-5.0) g/dL 02/11/24 02/11/24 Range/Units 05:00 07:27 WBC (3.98-10.04) x10^3/uL RBC (3.93-5.22) x10^6/uL Hgb (11.2-15.7) g/dL Hct (34.1-44.9) % MCV (79.4-94.8) fL MCH (25.6-32.2) pg MCHC (32.2-35.5) g/dL RDW (11.7-14.4) % Plt Count (182-369) x10^3/uL MPV (9.4-12.3) fL Gran % (34.0-71.1) % Immature Gran % (Auto) (0.001-0.429) % Nucleat RBC Rel Count (0.00-0.2) % Eos # (Auto) (0.04-0.36) x10^3/uL Immature Gran # (Auto) (0.001-0.031) x10^3u/L Absolute Lymphs (auto) (1.18-3.74) x10^3/uL Absolute Monos (auto) (0.24-0.86) x10^3/uL Absolute Nucleated RBC (0.00-0.012) x10^3u/L Lymphocytes % (19.3-51.7) % Monocytes % (4.7-12.5) % Eosinophils % (0.7-5.8) % Basophils % (0.1-1.2) % Absolute Granulocytes (1.56-6.13) x10^3/uL Basophils # (0.01-0.08) x10^3/uL Sodium 136 (135-145) mmol/L Potassium 3.8 (3.5-5.1) mmol/L Chloride 109 H (98-107) mmol/L Carbon Dioxide 25 (22-30) mmol/L Anion Gap 6.4 (5-15) MEQ/L BUN 7 (7-17) mg/dL Creatinine 0.53 (0.52-1.04) mg/dL Estimated GFR 95.2 ML/MIN Glucose 160 H (74-106) mg/dL POC Glucometer 156 H (74 to 106) mg/dL Calcium 8.1 L (8.4-10.2) mg/dL Total Bilirubin 0.90 (0.2-1.3) mg/dL AST 23 (14-36) U/L ALT 22 (0-35) U/L Alkaline Phosphatase 82 (38-126) U/L Serum Total Protein 5.4 L (6.3-8.2) g/dL Albumin 2.8 L (3.5-5.0) g/dL Micro Results-Entire Visit: Microbiology 02/09/24 17:53 Urine Culture - Preliminary Catherized GRAM NEGATIVE ID AND SENSITIVITY PENDING 02/10/24 06:22 Ova and Parasite Result 1 - Final Stool Not Reportable Ova and Parasite Result 2 - Final Not Reportable Ova and Parasite Result 3 - Final Not Reportable Ova and Parasite Result 4 - Final Not Reportable Antimicrobic Susceptibility - Final Not Reportable Accuchecks Date 02/11/24 Date 02/10/24 Date 02/10/24 Time 07:35 Time 23:26 Time 17:09 - Radiology Exams Ordered Rad Exams-Entire Visit: Radiology Procedures Category Date Time Status ABDOMEN AND PELVIS W/0 CONTRAS [CT] Stat Exams 02/09/24 19:06 Completed GALLBLADDER [US] Routine Exams 02/10/24 09:58 Completed - Procedures and Test Procedures and Tests throughout Hospitalization: Therapy Orders & Screens 02/10/24 08:23 PT Eval & Treat ( Order) ONCE Reason for Eval:: generalized weakness Diagnosis: chronic diarrhea OT Eval and Treat (MD Order) ONCE Comment: Physician Instructions: Reason For Exam: Diagnosis: chronic diarrhea Discharge Exam General Appearance: no apparent distress Neurologic Exam: alert, oriented x 3, cooperative Eye Exam: PERRL Ears, Nose, Throat Exam: normal ENT inspection Neck Exam: normal inspection Respiratory Exam: normal breath sounds, lungs clear Cardiovascular Exam: regular rate/rhythm, normal heart sounds Gastrointestinal/Abdomen Exam: soft, normal bowel sounds Pelvic Exam: deferred Rectal Exam: deferred Back Exam: normal inspection Extremity Exam: normal inspection Skin Exam: normal color Final Diagnosis/Problem List - Final Discharge Diagnosis/Problem (1) Hypokalemia Current Visit: Yes Status: Resolved Code(s): E87.6 - HYPOKALEMIA (2) Chronic diarrhea Current Visit: Yes Status: Chronic Code(s): K52.9 - NONINFECTIVE GASTROENTERITIS AND COLITIS, UNSPECIFIED (3) UTI (urinary tract infection) Current Visit: Yes Status: Acute Code(s): N39.0 - URINARY TRACT INFECTION, SITE NOT SPECIFIED (4) Diabetes mellitus Current Visit: No Status: Chronic Code(s): E11.9 - TYPE 2 DIABETES MELLITUS WITHOUT COMPLICATIONS (5) Lactic acid acidosis Current Visit: Yes Status: Resolved Code(s): E87.20 - ACIDOSIS, UNSPECIFIED - Discharge Disposition: Home, Self-Care Condition: Stable Prescriptions: New Insulin Glargine,Hum.rec.anlog [Basaglar Kwikpen U-100] 10 unit SQ QAM 30 Days #300 units MDD 10 Cefdinir 300 mg PO BID 7 Days #14 cap Diphenoxylate HCl/Atropine [Lomotil] 1 tablet PO QID PRN PRN 14 Days #28 tablet PRN Reason: Diarrhea Follow up with: CURTIS HOFFMAN MD [Primary Care Provider] - 1 Week
[2024-02-11 12:04] VITALS: BP 129/59; PULSE 75; TEMP 97.6; O2SAT 99
== END 2024-02-11 14:15 | disposition home or self-care (01) ==
LOC: ED 16:40 → MED SURG 22:10
PROVIDERS: ADMIT Internal Medicine; ATTEND Internal Medicine
DX: E87.6 Hypokalemia (principal); E11.9 Type 2 diabetes mellitus without complications; Z59.19 Other inadequate housing; Z59.811 Housing instability, housed, with risk of homelessness; I10 Essential (primary) hypertension; K21.9 Gastro-esophageal reflux disease without esophagitis; K52.9 Noninfective gastroenteritis and colitis, unspecified; N39.0 Urinary tract infection, site not specified; E87.20 Acidosis, unspecified; E78.5 Hyperlipidemia, unspecified; Z85.3 Personal history of malignant neoplasm of breast; Z86.73 Personal history of transient ischemic attack (TIA), and cerebral infarction without residual deficits; Z98.84 Bariatric surgery status
CPT/HCPCS: 0241U; 36000; 36415; 74176; 76705; 80053; 81001; 82150; 82947; 83036; 83605; 83690; 84132; 85025; 86308; 87045; 87046; 87077; 87086; 87177; 87186; 87209; 87328; 87329; 87427; 87493; 96360; 96361; 96365; 96366; 97110; 97161; 97165; 97530; 99285; G0378; P9612; Q3014; J0696; J1817; J3480; A9270-GY

== ENCOUNTER 2024-02-14 19:16 | Observation (INO) | payer MEDICARE, OTHER ==
--- NOTE | 2024-02-14 19:38 | ERPHSYRPT ---
- History of Present Illness Time Seen by Provider: 02/14/24 19:28 Source: patient, EMS Exam Limitations: clinical condition Physician History: Pt is a 78 year old female with long hx of bowel problem chronic diarrhea and right wrist palsy a few weeks per pt, and some recent abd pain Tx UTI/diarrhea in hospital here last week and DM, but did not fill Insulin when she left hospital here. Abd is mildly tender without mass or peritoneal signs. PERRL Neuro exam nonfocal except for right wrist drop described as chronic - 3 weeks. Disoriented to date. Glucose 400s by EMS 320 in ER. Fundi benign. Chest clear Ht reg without M. pulses all good. No Hx blood thinners or head trauma. remote CVA by Hx on chart. No CP or SObreath or dizziness or headache. EMS is here as confirming independent source for Hx. Discussed Risks/benefits of testing / TX in ER such as CT head and repeat Abd CT, EKG, CMP, CBC, UA, Tx IVF and INsulin, Thyroid tests, Mg, with pt and available familyand they wish to proceed. So these are ordered and results discussed. Additional AB discussed with pt due to continued UTI after recent inpt and outpt Tx. Timing/Duration: today (weakness and some confusion), week(s), other (EMS states confused this evening and hotel called EMS due to weakness to get out of bathtub. ) Severity: moderate Associated Symptoms: abdominal pain, weakness, other (diarrhea and mild confusion) Allergies/Adverse Reactions: No Known Drug Allergies Allergy (Verified 02/14/24 19:38) Hx Tetanus, Diphtheria Vaccination/Date Given: Yes Hx Influenza Vaccination/Date Given: No Hx Pneumococcal Vaccination/Date Given: No Travel Risk - Emerging Infectious Disease Are you exhibiting symptoms associated with any current EIDs: Yes Symptoms: Diarrhea - Review of Systems Constitutional: No Fever, No Chills Eyes: No Symptoms Ears, Nose, & Throat: No Symptoms Respiratory: No Cough, No Dyspnea Cardiac: No Chest Pain, No Edema, No Syncope Abdominal/Gastrointestinal: Abdominal Pain, Diarrhea, No Nausea, No Vomiting Genitourinary Symptoms: No Dysuria Musculoskeletal: No Symptoms, No Back Pain, No Neck Pain Skin: No Symptoms, No Rash Neurological: Other (right wrist drop x 3 weeks), No Dizziness, No Focal Weakness, No Sensory Changes Psychological: No Symptoms Endocrine: No Symptoms All Other Systems: Reviewed and Negative - Past Medical History Pertinent Past Medical History: Yes Neurological History: Stroke ENT History: Macular Degeneration Cardiac History: High Cholesterol Respiratory History: No Pertinent History Endocrine Medical History: Diabetes Type II Musculoskeletal History: Fibromyalgia GI Medical History: Polyps History: No Pertinent History Psycho-Social History: Depression Female Reproductive Disorders: Breast Cancer Other Medical History: rheumatic fever as a child, breast cancer with Right side masectomy - Past Surgical History Past Surgical History: Yes Neuro Surgical History: No Pertinent History Cardiac: Cardiac Catheterization Respiratory: No Pertinent History Gastrointestinal: Colon Resection, Other Genitourinary: No Pertinent History Musculoskeletal: Orthopedic Surgery Female Surgical History: Hysterectomy, Tubal Ligation, Mastectomy Other Surgical History: gastric bypass 2014 - Social History Smoking Status: Never smoker Exposure to second hand smoke: No Drug Use: none Patient Lives Alone: Yes - Social Determinants of Health Will the patient participate in the screening: Yes Do you worry about a steady place to live?: Yes In the past 12 months,have you had to go without utilities?: No Transportation Issues: No Has anyone in your support network made you feel unsafe?: Choose not to answer Have you or anyone in your house had to go without enough: No Comment: REFRIDGERATOR IS FULL OF ROACHES, PT STATES SHE DOES NOT HAVE ANYONE IN HER SUPPORT NETWORK, PT STATES THAT APS HAS VISITED HER IN HER HOME RECENTLY BUT HAS NOT DONE ANYTHING TO HELP HER - Nursing Vital Signs Nursing Vital Signs: Initial Vital Signs Temperature 98.9 F 02/14/24 19:17 Pulse Rate 72 02/14/24 19:17 Respiratory Rate 16 02/14/24 19:17 Blood Pressure 145/75 02/14/24 19:17 O2 Sat by Pulse Oximetry 99 02/14/24 19:17 Pain Scale Pain Intensity 0 - Physical Exam General Appearance: no apparent distress, alert Eye Exam: PERRL/EOMI, eyes nml inspection Ears, Nose, Throat Exam: normal ENT inspection, TMs normal, pharynx normal, moist mucous membranes Neck Exam: normal inspection, non-tender, supple, full range of motion, No meningismus, No Brudzinski Respiratory Exam: normal breath sounds, lungs clear, airway intact, No respiratory distress, No crackles/rales, No rhonchi, No wheezing, No stridor Cardiovascular Exam: regular rate/rhythm, normal heart sounds, normal peripheral pulses Gastrointestinal/Abdomen Exam: soft, normal bowel sounds, tenderness, No distention, No mass, No guarding, No pulsatile mass, No rebound Pelvic Exam: deferred Rectal Exam: deferred Back Exam: normal inspection, normal range of motion, No CVA tenderness, No vertebral tenderness Extremity Exam: normal inspection, normal range of motion, pelvis stable Neurologic Exam: alert, oriented x 3, cooperative, claim taker II-XII nml as tested, normal mood/affect, nml cerebellar function, nml station & gait, sensation nml, motor deficits (right wrist drop) Skin Exam: normal color, warm, dry, No rash Lymphatic Exam: No adenopathy SpO2 Interpretation: normal SpO2: 98 O2 Delivery: Room Air - Course Nursing assessment & vital signs reviewed: Yes EKG Interpreted by Me: Sinus Rhythm, Left [place] Deviation, NORMAL INTERVALS, NORMAL QRS, Non-specific ST Changes - CT Exams Head CT Interpretation: Tele-radiologist Report, No/Intracranial Hemorrhag, Other (stable old basilar CVAs and micro vacs Dx without reported change. ) Abdomen/Pelvis CT Interpretation: Tele-radiologist Report, No appendicitis, Other (Mild AF levels without wall thickening or obs. Liver enlargment and possible GS No acute cholecystitis. ) Ordered Tests: Active Orders 24 hr Category Date Time Status EKG-ER Only STAT Care 02/14/24 19:42 Active IV Insertion STAT Care 02/14/24 19:42 Active POCT Glucose Check STAT Care 02/14/24 19:29 Active cath [Cath for Specimen-Straight] STAT Care 02/14/24 20:01 Active ACO SDOH Referral ONCE Cons 02/14/24 19:35 Active ABDOMEN AND PELVIS W/0 CONTRAS [CT] Stat Exams 02/14/24 19:43 Completed HEAD WITHOUT CONTRAST [CT] Stat Exams 02/14/24 19:44 Completed AMYLASE Stat Lab 02/14/24 19:28 Completed CBC W DIFF Stat Lab 02/14/24 19:28 Completed CMP Stat Lab 02/14/24 19:28 Completed CULTURE,URINE Stat Lab 02/14/24 20:02 Received LIPASE Stat Lab 02/14/24 19:28 Completed Lactic Acid Stat Lab 02/14/24 19:51 Completed MAGNESIUM Stat Lab 02/14/24 19:28 Completed POCT GLUCOSE Stat Lab 02/14/24 19:28 Completed POCT GLUCOSE Stat Lab 02/14/24 21:09 Completed TSH [TSH, 3RD Generation] Stat Lab 02/14/24 19:28 Completed UA W/RFX UR CULTURE Stat Lab 02/14/24 20:01 Completed VENOUS BLOOD GAS Stat Lab 02/14/24 19:51 Completed Medication Summary Generic Name Dose Route Start Last Admin Trade Name Desiree PRN Reason Stop Dose Admin Levofloxacin/Dextrose 750 mg in 150 mls @ 100 mls/hr 02/14/24 22:13 02/14/24 22:16 Levofloxacin 750mg/150ml D5w IV 02/14/24 23:42 100 mls/hr STAT STA 100 mls/hr Administration Discontinued Medications Generic Name Dose Route Start Last Admin Trade Name Alonzoq PRN Reason Stop Dose Admin Sodium Chloride 1,000 mls @ 999 mls/hr 02/14/24 19:42 02/14/24 21:01 Sodium Chloride 0.9% 1000 Ml IV 02/14/24 20:42 Infused .Q1H1M STA Infusion Sodium Chloride Confirm 02/14/24 19:59 Sodium Chloride 0.9% 1000 Ml Administered 02/14/24 20:00 Dose 1,000 mls @ ud .ROUTE .STK-MED ONE Ceftriaxone Sodium 1 gm in 100 mls @ 200 mls/hr 02/14/24 20:20 02/14/24 21:05 Rocephin 1 Gm / 100 Ml Nacl IV 02/14/24 20:49 Infused STAT ONE Infusion Ceftriaxone Sodium Confirm 02/14/24 20:33 Rocephin 1 Gm / 100 Ml Nacl Administered 02/14/24 20:34 Dose 1 gm in 100 mls @ ud IV .STK-MED ONE Levofloxacin/Dextrose Confirm 02/14/24 22:15 Levofloxacin 750mg/150ml D5w Administered 02/14/24 22:16 Dose 750 mg in 150 mls @ ud IV .STK-MED ONE Insulin Human Regular 10 unit 02/14/24 19:48 02/14/24 20:00 Insulin Regular, Human 1 Unit IV 02/14/24 19:49 10 unit STAT ONE Administration Insulin Human Regular Confirm 02/14/24 19:59 Insulin Regular, Human 1 Unit Administered 02/14/24 20:00 Dose 10 unit .ROUTE .STK-MED ONE Lab/Rad Data: Laboratory Result Diagrams 02/14/24 19:28 02/14/24 19:28 Laboratory Results 02/14/24 02/14/24 02/14/24 Range/Units 21:09 20:01 19:51 WBC (3.98-10.04) x10^3/uL RBC (3.93-5.22) x10^6/uL Hgb (11.2-15.7) g/dL Hct (34.1-44.9) % MCV (79.4-94.8) fL MCH (25.6-32.2) pg MCHC (32.2-35.5) g/dL RDW (11.7-14.4) % Plt Count (182-369) x10^3/uL MPV (9.4-12.3) fL Gran % (34.0-71.1) % Immature Gran % (Auto) (0.001-0.429) % Nucleat RBC Rel Count (0.00-0.2) % Eos # (Auto) (0.04-0.36) x10^3/uL Immature Gran # (Auto) (0.001-0.031) x10^3u/L Absolute Lymphs (auto) (1.18-3.74) x10^3/uL Absolute Monos (auto) (0.24-0.86) x10^3/uL Absolute Nucleated RBC (0.00-0.012) x10^3u/L Lymphocytes % (19.3-51.7) % Monocytes % (4.7-12.5) % Eosinophils % (0.7-5.8) % Basophils % (0.1-1.2) % Absolute Granulocytes (1.56-6.13) x10^3/uL Basophils # (0.01-0.08) x10^3/uL pO2/FiO2 Ratio 21.0 % VBG pH 7.36 (7.32-7.42) VBG pCO2 at Pat Temp 50 (42-55) mm/Hg VBG pO2 at Pat Temp 26 (25-40) mm/Hg VBG HCO3 28.2 H (22-28) meq/L VBG O2 Sat ([place]y) 43.8 L (95-100) VBG Base Excess 2.1 H (-2.0-2.0) VBG Hemoglobin 11.3 VBG Carboxyhemoglobin 3.2 (0.0-6.9) % T HGB POC Potassium 3.7 (3.5-5.1) Sodium (135-145) mmol/L Potassium (3.5-5.1) mmol/L Chloride (98-107) mmol/L Carbon Dioxide (22-30) mmol/L Anion Gap (5-15) MEQ/L BUN (7-17) mg/dL Creatinine (0.52-1.04) mg/dL Estimated GFR ML/MIN Glucose (74-106) mg/dL POC Glucometer 168 H (74 to 106) mg/dL Lactic Acid (0.4-2.0) Calcium (8.4-10.2) mg/dL Magnesium (1.6-2.3) mg/dL Total Bilirubin (0.2-1.3) mg/dL AST (14-36) U/L ALT (0-35) U/L Alkaline Phosphatase (38-126) U/L Serum Total Protein (6.3-8.2) g/dL Albumin (3.5-5.0) g/dL Amylase (30-110) U/L Lipase (23-300) U/L TSH 3rd Generation (0.470-4.680) mIU/L Urine Color Yellow (Yellow) Urine Appearance Cloudy A (Clear) Urine pH 5.5 (4.6-8.0) Ur Specific [place] >=1.030 A (1.005-1.030) Urine Protein Trace A (Negative) Urine Glucose (UA) >=1000 A (Negative) mg/dL Urine Ketones Negative (Negative) Urine Blood Trace (Negative) Urine Nitrite Negative (Negative) Urine Bilirubin Negative (Negative) Urine Urobilinogen 0.2 (0.2) mg/dL Ur Leukocyte Esterase Small A (Negative) U Hyaline Cast (Auto) NONE SEEN (0-2) /LPF Urine Microscopic RBC 6-10 A (0-5) /HPF Urine Microscopic WBC >100 A (0-5) /HPF Ur Epithelial Cells None Seen (None Seen) /HPF Urine Bacteria None Seen (None Seen) /HPF Urine Culture Reflexed ORDERED SEPARATELY (NO) 02/14/24 02/14/24 02/14/24 Range/Units 19:51 19:28 19:28 WBC (3.98-10.04) x10^3/uL RBC (3.93-5.22) x10^6/uL Hgb (11.2-15.7) g/dL Hct (34.1-44.9) % MCV (79.4-94.8) fL MCH (25.6-32.2) pg MCHC (32.2-35.5) g/dL RDW (11.7-14.4) % Plt Count (182-369) x10^3/uL MPV (9.4-12.3) fL Gran % (34.0-71.1) % Immature Gran % (Auto) (0.001-0.429) % Nucleat RBC Rel Count (0.00-0.2) % Eos # (Auto) (0.04-0.36) x10^3/uL Immature Gran # (Auto) (0.001-0.031) x10^3u/L Absolute Lymphs (auto) (1.18-3.74) x10^3/uL Absolute Monos (auto) (0.24-0.86) x10^3/uL Absolute Nucleated RBC (0.00-0.012) x10^3u/L Lymphocytes % (19.3-51.7) % Monocytes % (4.7-12.5) % Eosinophils % (0.7-5.8) % Basophils % (0.1-1.2) % Absolute Granulocytes (1.56-6.13) x10^3/uL Basophils # (0.01-0.08) x10^3/uL pO2/FiO2 Ratio % VBG pH (7.32-7.42) VBG pCO2 at Pat Temp (42-55) mm/Hg VBG pO2 at Pat Temp (25-40) mm/Hg VBG HCO3 (22-28) meq/L VBG O2 Sat ([place]y) (95-100) VBG Base Excess (-2.0-2.0) VBG Hemoglobin VBG Carboxyhemoglobin (0.0-6.9) % T HGB POC Potassium (3.5-5.1) Sodium 137 (135-145) mmol/L Potassium 3.6 (3.5-5.1) mmol/L Chloride 103 (98-107) mmol/L Carbon Dioxide 29 (22-30) mmol/L Anion Gap 9.2 (5-15) MEQ/L BUN 7 (7-17) mg/dL Creatinine 0.58 (0.52-1.04) mg/dL Estimated GFR 93.2 ML/MIN Glucose 349 H (74-106) mg/dL POC Glucometer (74 to 106) mg/dL Lactic Acid 1.1 (0.4-2.0) Calcium 8.3 L (8.4-10.2) mg/dL Magnesium 1.9 (1.6-2.3) mg/dL Total Bilirubin 0.70 (0.2-1.3) mg/dL AST 40 H (14-36) U/L ALT 31 (0-35) U/L Alkaline Phosphatase 83 (38-126) U/L Serum Total Protein 5.8 L (6.3-8.2) g/dL Albumin 3.1 L (3.5-5.0) g/dL Amylase 92 (30-110) U/L Lipase 22 L (23-300) U/L TSH 3rd Generation 1.704 (0.470-4.680) mIU/L Urine Color (Yellow) Urine Appearance (Clear) Urine pH (4.6-8.0) Ur Specific [place] (1.005-1.030) Urine Protein (Negative) Urine Glucose (UA) (Negative) mg/dL Urine Ketones (Negative) Urine Blood (Negative) Urine Nitrite (Negative) Urine Bilirubin (Negative) Urine Urobilinogen (0.2) mg/dL Ur Leukocyte Esterase (Negative) U Hyaline Cast (Auto) (0-2) /LPF Urine Microscopic RBC (0-5) /HPF Urine Microscopic WBC (0-5) /HPF Ur Epithelial Cells (None Seen) /HPF Urine Bacteria (None Seen) /HPF Urine Culture Reflexed (NO) 02/14/24 02/14/24 Range/Units 19:28 19:28 WBC 7.3 (3.98-10.04) x10^3/uL RBC 3.95 (3.93-5.22) x10^6/uL Hgb 11.9 (11.2-15.7) g/dL Hct 36.0 (34.1-44.9) % MCV 91.1 (79.4-94.8) fL MCH 30.1 (25.6-32.2) pg MCHC 33.1 (32.2-35.5) g/dL RDW 13.1 (11.7-14.4) % Plt Count 173 L (182-369) x10^3/uL MPV 10.5 (9.4-12.3) fL Gran % 62.6 (34.0-71.1) % Immature Gran % (Auto) 0.3 (0.001-0.429) % Nucleat RBC Rel Count 0.0 (0.00-0.2) % Eos # (Auto) 0.25 (0.04-0.36) x10^3/uL Immature Gran # (Auto) 0.02 (0.001-0.031) x10^3u/L Absolute Lymphs (auto) 1.95 (1.18-3.74) x10^3/uL Absolute Monos (auto) 0.46 (0.24-0.86) x10^3/uL Absolute Nucleated RBC 0.00 (0.00-0.012) x10^3u/L Lymphocytes % 26.6 (19.3-51.7) % Monocytes % 6.3 (4.7-12.5) % Eosinophils % 3.4 (0.7-5.8) % Basophils % 0.8 (0.1-1.2) % Absolute Granulocytes 4.58 (1.56-6.13) x10^3/uL Basophils # 0.06 (0.01-0.08) x10^3/uL pO2/FiO2 Ratio % VBG pH (7.32-7.42) VBG pCO2 at Pat Temp (42-55) mm/Hg VBG pO2 at Pat Temp (25-40) mm/Hg VBG HCO3 (22-28) meq/L VBG O2 Sat ([place]) (95-100) VBG Base Excess (-2.0-2.0) VBG Hemoglobin VBG Carboxyhemoglobin (0.0-6.9) % T HGB POC Potassium (3.5-5.1) Sodium (135-145) mmol/L Potassium (3.5-5.1) mmol/L Chloride (98-107) mmol/L Carbon Dioxide (22-30) mmol/L Anion Gap (5-15) MEQ/L BUN (7-17) mg/dL Creatinine (0.52-1.04) mg/dL Estimated GFR ML/MIN Glucose (74-106) mg/dL POC Glucometer 328 H (74 to 106) mg/dL Lactic Acid (0.4-2.0) Calcium (8.4-10.2) mg/dL Magnesium (1.6-2.3) mg/dL Total Bilirubin (0.2-1.3) mg/dL AST (14-36) U/L ALT (0-35) U/L Alkaline Phosphatase (38-126) U/L Serum Total Protein (6.3-8.2) g/dL Albumin (3.5-5.0) g/dL Amylase (30-110) U/L Lipase (23-300) U/L TSH 3rd Generation (0.470-4.680) mIU/L Urine Color (Yellow) Urine Appearance (Clear) Urine pH (4.6-8.0) Ur Specific [place] (1.005-1.030) Urine Protein (Negative) Urine Glucose (UA) (Negative) mg/dL Urine Ketones (Negative) Urine Blood (Negative) Urine Nitrite (Negative) Urine Bilirubin (Negative) Urine Urobilinogen (0.2) mg/dL Ur Leukocyte Esterase (Negative) U Hyaline Cast (Auto) (0-2) /LPF Urine Microscopic RBC (0-5) /HPF Urine Microscopic WBC (0-5) /HPF Ur Epithelial Cells (None Seen) /HPF Urine Bacteria (None Seen) /HPF Urine Culture Reflexed (NO) - Progress Progress: improved, re-examined Progress Note: 02/14/24 20:30 We are trying to contact social sciences chair since the patient would benefit from some sort of supervised care- they do not have regular consultations on the weekend. Consulted with Ashly Butler manager employee relations for [employer] : The patient has previously been offered home health care, [facility] ( but with means test, must pay and declined), and she also declined to take her insulin. The pt would have to have an acute need for a three night admission in hospital to qualify for a period of medicare coverage for [place]. We will discuss this with the Hospitalist manager employee relations in consultation. 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 I will consult with Hospitalist to discuss. Discussed with Dr. Petty and although pt does not yet meet criteria for full admit, we can try obs to try again to convince her to take her insulin and also transition to new antibiotics to better cover the UTI. Pt agrees to Obs Discussed with : Other (Dr. Petty) Will see patient in: hospital (observation) Counseled pt/family regarding: lab results, diagnosis, need for follow-up, rad results Medical Desision Making - Independent Historian Additional History obtained from: EMS - Discussion of managment Care discussed with:: hospitalist Reviewed:: Test results, Need for additional workup Agreed on:: Treatment plan, need for follow-up, place in obs - Diagnostic Testing Diagnostic test were ordered, analyzed, and reviewed by me: Yes Radiological Interpretation: Interpreted by me, Reviewed by me - Risk of complications The pt has a mod risk of morbidity or mortality based on: Need for prescription drug management The pt has a high risk of morbidity or mortality based on: Decision regarding hospitilization or escalation of hosp level of care - Departure Departure Disposition: Observation Clinical Impression: Chronic diarrhea, Hyperglycemia due to type 2 diabetes mellitus, Weakness, UTI (urinary tract infection) Condition: Good Critical Care Time: No Referrals: CURTIS HOFFMAN MD [Primary Care Provider] - Follow up/PCP as directed
[2024-02-14] MEDS ORDERED: Sodium Chloride 0.9% 1000 ML 1,000 ML ONE (19:59)
[2024-02-14] MEDS ORDERED: HUMULIN R ONE (19:59)
[2024-02-14] MEDS: Sodium Chloride 0.9% 1000 ML 1,000 ML IV STA (20:00)
[2024-02-14] MEDS: HUMULIN R IV ONE (20:00)
[2024-02-14 20:05] LABS: Absolute Neutrophil Ct (ANC) 4.58 x10^3/uL (1.56-6.13); BASOPHIL % 0.8 % (0.1-1.2); Basophil (Absolute #) 0.06 x10^3/uL (0.01-0.08); Eosinophil % 3.4 % (0.7-5.8); Eosinophil (Absolute #) 0.25 x10^3/uL (0.04-0.36); Hemoglobin 11.9 g/dL (11.2-15.7); IMMATURE GRAN # 0.02 x10^3u/L (0.001-0.031); IMMATURE GRAN % 0.3 % (0.001-0.429); Lymphocyte (Absolute #) 1.95 x10^3/uL (1.18-3.74); Lymphocytes % 26.6 % (19.3-51.7); Mean Cell Volume 91.1 fL (79.4-94.8); Mean Corpuscular Hemoglobin 30.1 pg (25.6-32.2); Mean Corpuscular Hgb Concent. 33.1 g/dL (32.2-35.5); Mean Platelet Volume 10.5 fL (9.4-12.3); Monocyte (Absolute #) 0.46 x10^3/uL (0.24-0.86); Monocytes % 6.3 % (4.7-12.5); Neutrophil % 62.6 % (34.0-71.1); Platelet Count 173 x10^3/uL (182-369); Red Blood Count 3.95 x10^6/uL (3.93-5.22); Red Cell Distribution Width 13.1 % (11.7-14.4); White Blood Count 7.3 x10^3/uL (3.98-10.04)
[2024-02-14 20:14] LABS: VBG BASE EXCESS 2.1 (-2.0-2.0); VBG CARBOXYHEMOGLOBIN 3.2 % T HGB (0.0-6.9); VBG HCO3- 28.2 meq/L (22-28); VBG HEMOGLOBIN 11.3; VBG O2 SATURATION 43.8 (95-100); VBG POTASSIUM 3.7 (3.5-5.1); VBG pH 7.36 (7.32-7.42)
[2024-02-14 20:15] LABS: Appearance Cloudy (Clear); Bacteria None Seen /HPF (None Seen); Bilirubin Negative (Negative); Blood Trace (Negative); Epithelial Cells None Seen /HPF (None Seen); Glucose, Urine >=1000 mg/dL (Negative); Hyaline Casts NONE SEEN /LPF (0-2); Ketones Negative (Negative); Leukocyte Esterase Small (Negative); Nitrite Negative (Negative); Ph 5.5 (4.6-8.0); Protein,Urine Dip Trace (Negative); Specific Gravity >=1.030 (1.005-1.030); Urobilinogen 0.2 mg/dL (0.2); WBC >100 /HPF (0-5)
[2024-02-14 20:18] LABS: ALBUMIN 3.1 g/dL (3.5-5.0); ANION GAP 9.2 MEQ/L (5-15); BILIRUBIN,TOTAL 0.7 mg/dL (0.2-1.3); Calcium 8.3 mg/dL (8.4-10.2); Creatinine 1 0.58 mg/dL (0.52-1.04); EST GLOMERULAR FILTRATION RATE 93.2 ML/MIN; Potassium 3.6 mmol/L (3.5-5.1); Total Protein 5.8 g/dL (6.3-8.2)
[2024-02-14] MEDS ORDERED: ROCEPHIN 1 GM / 100 ML NaCl 1 GM/100 ML IVPB IV ONE (20:33)
[2024-02-14] MEDS: ROCEPHIN 1 GM / 100 ML NaCl 1 GM/100 ML IVPB IV ONE (20:35)
[2024-02-14 20:49] LABS: MAGNESIUM 1.9 mg/dL (1.6-2.3); TSH, 3RD Generation 1.704 mIU/L (0.470-4.680)
--- NOTE | 2024-02-14 21:27 | XRAY ---
CLINICAL HISTORY: Hx prior CVA, new confusion COMPARISON: CT Head 03/28/2023 TECHNIQUE: An axial non-contrast CT scan of the brain was performed from the skull base to the high parietal region with multiple reformats. One of the following dose reduction techniques were utilized for this exam: Automated exposure control, adjustment of the mA and/or kV according to patient size, use of iterative reconstruction. FINDINGS: There are a few tiny ill-defined [id number] areas noted in the subcortical white matter bilaterally, suggestive of microvascular ischemic changes. The ventricular system, cortical sulci, and basal cisterns are prominent and consistent with senile changes. Bilateral basal ganglia and left thalamic lacunar infracts. No midline shifts or deformity. No intracerebral or extra axial hematoma. Normal CT appearance of the posterior fossa structures namely the cerebellar hemispheres, brainstem, and cerebellar peduncles. The osseous structures in the skull base are unremarkable. No definite calvarium fractures. The scanned paranasal sinuses are clear. IMPRESSION: 1. No acute cerebral abnormality noted. 2. Mild microvascular ischemic changes and senile changes. Stable. 3. Bilateral basal ganglia and left basal lacunar infracts. Stable. 3. No significant changes from prior study Electronically Signed by: Jayden Sousa MD. (02/14/2024 21:23:25 EDT)
--- NOTE | 2024-02-14 21:41 | XRAY ---
CLINICAL HISTORY: abd tenderness with diarrhea COMPARISON: No prior studies are available for comparison. TECHNIQUE: Non-contrast CT of the abdomen and pelvis was performed, with the following protocol: axial images, and reconstructed coronal and sagittal images. No intravenous contrast was administered. One of the following dose reduction techniques was utilized for this exam: Automated exposure control, adjustment of the mA and/or kV according to patient size, and use of iterative reconstruction. FINDINGS: Abdomen: Liver: Enlarged measures 18 cm with normal shape, and diffusely increased density. No focal lesions, cysts, or masses were identified. Gallbladder and Biliary System: The gallbladder is normal in size and shape. Faintly dense shadows seen suggestive of gallstones. No wall thickening or pericholecystic fluid were identified. Pancreas: Pancreatic head, body, and tail are partially visualized and appear atrophic. Few tiny foci of calcification are seen in tail region. Spleen: Normal in size, shape, and density. No splenic lesions or masses were identified. Kidneys and Adrenal Glands: Both kidneys are normal in size, shape, and position. Cortical thickness is within normal limits. No renal calculi or hydronephrosis. A tiny concretion is seen in the interpolar region of both kidneys. Adrenal glands are unremarkable. Appendix: Not clearly seen due to fluid-filled small bowel loops however no raimundo appendiceal fat stranding, or appendicolith. No evidence of appendiceal abscess or perforation. Pelvis: Urinary Bladder: Normal in contour and wall thickness. No intraluminal lesions. Uterus: not seen. No gross adnexal mass lesion seen. Few phleboliths are seen in pelvis. Peritoneal and Retroperitoneal Structures: No free fluid or abnormal fluid collections were identified within the abdomen or pelvis. No lymphadenopathy was noted. Bowel: Gastric, jejunal and ileal surgical chloe are seen. The visualized bowel loops are normal in caliber and appearance fluid-filled. No evidence of bowel obstruction or wall thickening. Bones and Soft Tissues: Visualized bones show advanced degenerative changes with multilevel reduced vertebral body heights, end plate irregularities and osteophytes in spine. Intra medullary nailing is seen left femoral head and neck. Slices through lung bases show a fibrotic band in the anterior segment of the right lower lobe. IMPRESSION: 1. Non-contrast CT abdomen and pelvis demonstrate no acute intra-abdominal pathology -- post-contrast imaging suggested. 2. Fluid-filled mildy prominent small bowel loops. Gastric, jejunal and ileal surgical chloe are seen. 3. Suspected gallstones are seen, further ultrasound evaluation is advised. 4. The liver is mildly enlarged showing diffuse increased density. Clinical correlation is advised. Electronically Signed by: Jayden Sousa MD. (02/14/2024 21:36:59 EDT)
--- NOTE | 2024-02-14 22:12 | PCM.CONS ---
History of Present Illness - Neuro Consultation Date of Consultation Date: 02/14/24 ED Arrival Date & Time: 02/14/24 19:16 Providers: Attending Provider: ED Provider: WALDEMAR GUZMAN Consulting Provider: JENNIFER ANDERSON MD cc:: The requesting physician will be sent a copy of the consult. right wrist drop - Chief Complaint Patient Subjective Stated Complaint: right wrist drop STAT Neuro assessment/stroke code: Teleneurology Attestation & Consent: As the provider for this telehealth consult requested by the patients primary attending physician, I attest that I introduced myself to the patient, provided my credentials, disclosed my location, and determined that, based on a review of the patients chart and discussion with the patients primary team, telemedicine via a real-time, two- way, interactive audio and video platform is an appropriate and effective means of providing this service. The patient and I mutually agree that this visit is appropriate for telemedicine. The patient has consented to this telemedicine visit. - History of Present Illness HPI: The patient is a 78F with h/o DM ,CVA, presents with right wrist drop,AMS, generalized weakness. she c/o diarrhea and lots of cockroaches in her room in her motel.She got into the bathtub and couldn't get out and so EMS was called and was brought to the hospital.Her blood sugar was 400 with EMS.She was confused. She says she can't walk and she can't use her right hand. c/o right wrist drop for 2-3 weeks. She says she had it before that resolved spontaneously. she denies neck pain, trauma to her hand, numbness or tingling. She says she has 4 kids and not one of them helps her do anything and that it is her little dog that keeps her going. 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 Nurse at bedside and says pt is being treated fro UTI. Dr Guzman says patient was confused about the day of the week. Known stroke risk factors:: CKD with or without HD Review of Systems - Review of Systems Review of Systems (Narrative): Pertinent positive and negative findings as per HPI. All other systems negative. Constitutional: Denies fevers, chills, weight loss ENT: Denies tinnitus Ophthalmology: Denies diplopia, blurred vision, vision loss Respiratory: Denies SOB, cough Cardiovascular: Denies chest pains, palpitations GI: Denies nausea, vomiting : Denies hematuria Hematology: Denies excessive bleeding Musculoskeletal: Denies back pain, neck pain, joint pain.c/o neck tightness Neurology: Denies headache, altered mentation Mental Health: Denies anxiety Dermatology: Denies rash - Past Medical History Past Medical History: Yes Neurological History: Stroke ENT History: Macular Degeneration Cardiac History: High Cholesterol Respiratory History: No Pertinent History Endocrine Medical History: Diabetes Type II Musculoskelatal History: Fibromyalgia GI Medical History: Polyps History: No Pertinent History Pyscho-Social History: Depression Reproductive Disorders: Breast Cancer Comment: rheumatic fever as a child, breast cancer with Right side masectomy - Past Surgical History Past Surgical History: Yes Neuro Surgical History: No Pertinent History Cardiac History: Cardiac Catheterization Respiratory Surgery: No Pertinent History GI Surgical History: Colon Resection, Other Genitourinary Surgical Hx: No Pertinent History Musculskeletal Surgical Hx: Orthopedic Surgery Female Surgical History: Hysterectomy, Tubal Ligation, Mastectomy Other Surgical History: gastric bypass 2014 - Social History Smoking Status: Never smoker Exposure to second hand smoke: No Alcohol: None Drug Use: none - Social Determinants of Health Will the patient participate in the screening: Yes Do you worry about a steady place to live?: Yes Do you have any problems with any of the following?: Pest (bugs,ants,or mice) In the past 12 months,have you had to go without utilities?: No Have you or anyone in your house had to go without enough: No Transportation Issues: No Has anyone in your support network made you feel unsafe?: Choose not to answer Does the patient want assistance with any of the above?: Yes Comment: REFRIDGERATOR IS FULL OF ROACHES, PT STATES SHE DOES NOT HAVE ANYONE IN HER SUPPORT NETWORK, PT STATES THAT [facility] HAS VISITED HER IN HER HOME RECENTLY BUT HAS NOT DONE ANYTHING TO HELP HER Physical Exam - Vital Signs Vital Signs: Vital Signs - 24 hr 02/14/24 02/14/24 02/14/24 19:17 20:00 20:39 Temperature 98.9 F Pulse Rate 72 Respiratory 16 Rate Blood Pressure 125/74 Blood Pressure 145/75 [Left Arm] O2 Sat by Pulse 99 100 82 L Oximetry 02/14/24 02/14/24 02/14/24 20:40 20:43 21:00 Temperature Pulse Rate Respiratory Rate Blood Pressure 149/77 156/86 Blood Pressure [Left Arm] O2 Sat by Pulse 81 L 94 L 90 L Oximetry 02/14/24 21:58 Temperature Pulse Rate Respiratory Rate Blood Pressure Blood Pressure [Left Arm] O2 Sat by Pulse 98 Oximetry - Physical Exam Tele-Neuro Physical Exam (Narrative): Gen: Well developed, well nourished. No acute distress. MS: Awake and oriented. Alert. Fund of knowledge, memory, and language at baseline. CV: Regular rate. No edema. 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 +blink. Unable to visualize fundi. Sensation intact. Face is symmetric. Hearing intact. Trapezii strong. Tongue midline. Motor: Antigravity in all 4 extremities. Normal tone and bulk. Sens: Intact to light touch in all 4 extremities. MSR: Unable to assess through telemedicine, no clonus noted. Mvmt: No tremors noted. KATE/FTN intact. Gait: Deferred. - NIHSS Stroke Scale Date Completed: 03/28/23 Time Stroke Scale Completed: 16:56 Results - Labs Lab/Micro Results: Lab Results-Last 24 Hours 02/14/24 02/14/24 02/14/24 Range/Units 19:28 19:28 19:28 WBC 7.3 (3.98-10.04) x10^3/uL RBC 3.95 (3.93-5.22) x10^6/uL Hgb 11.9 (11.2-15.7) g/dL Hct 36.0 (34.1-44.9) % MCV 91.1 (79.4-94.8) fL MCH 30.1 (25.6-32.2) pg MCHC 33.1 (32.2-35.5) g/dL RDW 13.1 (11.7-14.4) % Plt Count 173 L (182-369) x10^3/uL MPV 10.5 (9.4-12.3) fL Gran % 62.6 (34.0-71.1) % Immature Gran % (Auto) 0.3 (0.001-0.429) % Nucleat RBC Rel Count 0.0 (0.00-0.2) % Eos # (Auto) 0.25 (0.04-0.36) x10^3/uL Immature Gran # (Auto) 0.02 (0.001-0.031) x10^3u/L Absolute Lymphs (auto) 1.95 (1.18-3.74) x10^3/uL Absolute Monos (auto) 0.46 (0.24-0.86) x10^3/uL Absolute Nucleated RBC 0.00 (0.00-0.012) x10^3u/L Lymphocytes % 26.6 (19.3-51.7) % Monocytes % 6.3 (4.7-12.5) % Eosinophils % 3.4 (0.7-5.8) % Basophils % 0.8 (0.1-1.2) % Absolute Granulocytes 4.58 (1.56-6.13) x10^3/uL Basophils # 0.06 (0.01-0.08) x10^3/uL pO2/FiO2 Ratio % VBG pH (7.32-7.42) VBG pCO2 at Pat Temp (42-55) mm/Hg VBG pO2 at Pat Temp (25-40) mm/Hg VBG HCO3 (22-28) meq/L VBG O2 Sat ([place]y) (95-100) VBG Base Excess (-2.0-2.0) VBG Hemoglobin VBG Carboxyhemoglobin (0.0-6.9) % T HGB POC Potassium (3.5-5.1) Sodium 137 (135-145) mmol/L Potassium 3.6 (3.5-5.1) mmol/L Chloride 103 (98-107) mmol/L Carbon Dioxide 29 (22-30) mmol/L Anion Gap 9.2 (5-15) MEQ/L BUN 7 (7-17) mg/dL Creatinine 0.58 (0.52-1.04) mg/dL Estimated GFR 93.2 ML/MIN Glucose 349 H (74-106) mg/dL POC Glucometer 328 H (74 to 106) mg/dL Lactic Acid (0.4-2.0) Calcium 8.3 L (8.4-10.2) mg/dL Magnesium (1.6-2.3) mg/dL Total Bilirubin 0.70 (0.2-1.3) mg/dL AST 40 H (14-36) U/L ALT 31 (0-35) U/L Alkaline Phosphatase 83 (38-126) U/L Serum Total Protein 5.8 L (6.3-8.2) g/dL Albumin 3.1 L (3.5-5.0) g/dL Amylase 92 (30-110) U/L Lipase 22 L (23-300) U/L TSH 3rd Generation (0.470-4.680) mIU/L Urine Color (Yellow) Urine Appearance (Clear) Urine pH (4.6-8.0) Ur Specific [place] (1.005-1.030) Urine Protein (Negative) Urine Glucose (UA) (Negative) mg/dL Urine Ketones (Negative) Urine Blood (Negative) Urine Nitrite (Negative) Urine Bilirubin (Negative) Urine Urobilinogen (0.2) mg/dL Ur Leukocyte Esterase (Negative) U Hyaline Cast (Auto) (0-2) /LPF Urine Microscopic RBC (0-5) /HPF Urine Microscopic WBC (0-5) /HPF Ur Epithelial Cells (None Seen) /HPF Urine Bacteria (None Seen) /HPF Urine Culture Reflexed (NO) 02/14/24 02/14/24 02/14/24 Range/Units 19:28 19:51 19:51 WBC (3.98-10.04) x10^3/uL RBC (3.93-5.22) x10^6/uL Hgb (11.2-15.7) g/dL Hct (34.1-44.9) % MCV (79.4-94.8) fL MCH (25.6-32.2) pg MCHC (32.2-35.5) g/dL RDW (11.7-14.4) % Plt Count (182-369) x10^3/uL MPV (9.4-12.3) fL Gran % (34.0-71.1) % Immature Gran % (Auto) (0.001-0.429) % Nucleat RBC Rel Count (0.00-0.2) % Eos # (Auto) (0.04-0.36) x10^3/uL Immature Gran # (Auto) (0.001-0.031) x10^3u/L Absolute Lymphs (auto) (1.18-3.74) x10^3/uL Absolute Monos (auto) (0.24-0.86) x10^3/uL Absolute Nucleated RBC (0.00-0.012) x10^3u/L Lymphocytes % (19.3-51.7) % Monocytes % (4.7-12.5) % Eosinophils % (0.7-5.8) % Basophils % (0.1-1.2) % Absolute Granulocytes (1.56-6.13) x10^3/uL Basophils # (0.01-0.08) x10^3/uL pO2/FiO2 Ratio 21.0 % VBG pH 7.36 (7.32-7.42) VBG pCO2 at Pat Temp 50 (42-55) mm/Hg VBG pO2 at Pat Temp 26 (25-40) mm/Hg VBG HCO3 28.2 H (22-28) meq/L VBG O2 Sat ([place]y) 43.8 L (95-100) VBG Base Excess 2.1 H (-2.0-2.0) VBG Hemoglobin 11.3 VBG Carboxyhemoglobin 3.2 (0.0-6.9) % T HGB POC Potassium 3.7 (3.5-5.1) Sodium (135-145) mmol/L Potassium (3.5-5.1) mmol/L Chloride (98-107) mmol/L Carbon Dioxide (22-30) mmol/L Anion Gap (5-15) MEQ/L BUN (7-17) mg/dL Creatinine (0.52-1.04) mg/dL Estimated GFR ML/MIN Glucose (74-106) mg/dL POC Glucometer (74 to 106) mg/dL Lactic Acid 1.1 (0.4-2.0) Calcium (8.4-10.2) mg/dL Magnesium 1.9 (1.6-2.3) mg/dL Total Bilirubin (0.2-1.3) mg/dL AST (14-36) U/L ALT (0-35) U/L Alkaline Phosphatase (38-126) U/L Serum Total Protein (6.3-8.2) g/dL Albumin (3.5-5.0) g/dL Amylase (30-110) U/L Lipase (23-300) U/L TSH 3rd Generation 1.704 (0.470-4.680) mIU/L Urine Color (Yellow) Urine Appearance (Clear) Urine pH (4.6-8.0) Ur Specific [place] (1.005-1.030) Urine Protein (Negative) Urine Glucose (UA) (Negative) mg/dL Urine Ketones (Negative) Urine Blood (Negative) Urine Nitrite (Negative) Urine Bilirubin (Negative) Urine Urobilinogen (0.2) mg/dL Ur Leukocyte Esterase (Negative) U Hyaline Cast (Auto) (0-2) /LPF Urine Microscopic RBC (0-5) /HPF Urine Microscopic WBC (0-5) /HPF Ur Epithelial Cells (None Seen) /HPF Urine Bacteria (None Seen) /HPF Urine Culture Reflexed (NO) 02/14/24 02/14/24 Range/Units 20:01 21:09 WBC (3.98-10.04) x10^3/uL RBC (3.93-5.22) x10^6/uL Hgb (11.2-15.7) g/dL Hct (34.1-44.9) % MCV (79.4-94.8) fL MCH (25.6-32.2) pg MCHC (32.2-35.5) g/dL RDW (11.7-14.4) % Plt Count (182-369) x10^3/uL MPV (9.4-12.3) fL Gran % (34.0-71.1) % Immature Gran % (Auto) (0.001-0.429) % Nucleat RBC Rel Count (0.00-0.2) % Eos # (Auto) (0.04-0.36) x10^3/uL Immature Gran # (Auto) (0.001-0.031) x10^3u/L Absolute Lymphs (auto) (1.18-3.74) x10^3/uL Absolute Monos (auto) (0.24-0.86) x10^3/uL Absolute Nucleated RBC (0.00-0.012) x10^3u/L Lymphocytes % (19.3-51.7) % Monocytes % (4.7-12.5) % Eosinophils % (0.7-5.8) % Basophils % (0.1-1.2) % Absolute Granulocytes (1.56-6.13) x10^3/uL Basophils # (0.01-0.08) x10^3/uL pO2/FiO2 Ratio % VBG pH (7.32-7.42) VBG pCO2 at Pat Temp (42-55) mm/Hg VBG pO2 at Pat Temp (25-40) mm/Hg VBG HCO3 (22-28) meq/L VBG O2 Sat ([place]y) (95-100) VBG Base Excess (-2.0-2.0) VBG Hemoglobin VBG Carboxyhemoglobin (0.0-6.9) % T HGB POC Potassium (3.5-5.1) Sodium (135-145) mmol/L Potassium (3.5-5.1) mmol/L Chloride (98-107) mmol/L Carbon Dioxide (22-30) mmol/L Anion Gap (5-15) MEQ/L BUN (7-17) mg/dL Creatinine (0.52-1.04) mg/dL Estimated GFR ML/MIN Glucose (74-106) mg/dL POC Glucometer 168 H (74 to 106) mg/dL Lactic Acid (0.4-2.0) Calcium (8.4-10.2) mg/dL Magnesium (1.6-2.3) mg/dL Total Bilirubin (0.2-1.3) mg/dL AST (14-36) U/L ALT (0-35) U/L Alkaline Phosphatase (38-126) U/L Serum Total Protein (6.3-8.2) g/dL Albumin (3.5-5.0) g/dL Amylase (30-110) U/L Lipase (23-300) U/L TSH 3rd Generation (0.470-4.680) mIU/L Urine Color Yellow (Yellow) Urine Appearance Cloudy A (Clear) Urine pH 5.5 (4.6-8.0) Ur Specific [place] >=1.030 A (1.005-1.030) Urine Protein Trace A (Negative) Urine Glucose (UA) >=1000 A (Negative) mg/dL Urine Ketones Negative (Negative) Urine Blood Trace (Negative) Urine Nitrite Negative (Negative) Urine Bilirubin Negative (Negative) Urine Urobilinogen 0.2 (0.2) mg/dL Ur Leukocyte Esterase Small A (Negative) U Hyaline Cast (Auto) NONE SEEN (0-2) /LPF Urine Microscopic RBC 6-10 A (0-5) /HPF Urine Microscopic WBC >100 A (0-5) /HPF Ur Epithelial Cells None Seen (None Seen) /HPF Urine Bacteria None Seen (None Seen) /HPF Urine Culture Reflexed ORDERED SEPARATELY (NO) Accuchecks Date 02/14/24 Time 19:28 - Radiology Orders Radiology Orders: Radiology Procedures Category Date Time Status ABDOMEN AND PELVIS W/0 CONTRAS [CT] Stat Exams 02/14/24 19:43 Completed HEAD WITHOUT CONTRAST [CT] Stat Exams 02/14/24 19:44 Completed Impressions & Recommendations - ED Arrival Time ED Arrival Date & Time: ED Arrival Date and Time 02/14/24 19:16 Last known well time: - NIHSS IV Thrombolysis Standard of Care: IV thrombolysis as a standard of care in acute stroke discussed with WALDEMAR GUZMAN. Risk, benefits, and options of IV thrombolytic therapy for acute ischemic stroke were discussed with the patient/family SAJI SUH. We discussed that use of IV tenecteplase is in line with national stroke guidelines. We discussed that risks of IV thrombolytic use include intracranial hemorrhage, other fatal bleeding risks, and angioedema. Alternatives of treatment, including not proceeding with thrombolytic therapy were discussed. - Recommendations Recommendations: #AMS #Right wrist drop #generalized weakness #h/o CVA plan: -CTH: no acute intracranial process. remote basal ganglia infarcts bilaterally -MRI brain and C spine w/o con -address infectious and metabolic derangement -NCS/EMG of upper extremities in the outpatient -PT/OT -UA-UTI -B12, folate A1c, -CBC,CMP, amylase,lipase,TSH unrevealing -Delirium precautions -secondary stroke prevention with ASA 81mg daily, statin Neurology follow up in 1-2 weeks. Assessment & Plan - Encounter Encounter: "The entirety of this encounter was performed via Telemedicine using audio and visual " Acute issues prompting hospitalization enumerated, reviewed and managed individually as above. Complexity of Chronic Problems enumerated, reviewed and managed individually as above. Independently interpreted labs and radiology. Risk of morbidity reviewed. Additional testing/treatment as discussed individually above. Discussed findings with patient/family, charge nurse/bedside nurse. Included in the discussion were the latest clinical, laboratory and imaging findings. We also discussed updated working diagnosis, overall impression and updated plan of care. In this discussion, current plan for treatment, medication indication discussed. Patient/family member agreeable to discussed plan of care. I answered all the questions to their satisfaction. Acute care plan was discussed with DR GUZMAN Thank you for allowing us to participate in this patients care. Please call [facility] with questions, concerns, or change in patients neurological status.
[2024-02-14] MEDS ORDERED: LEVOFLOXACIN 750MG/150ML D5W 750 MG/150 ML BAG IV ONE (22:15)
[2024-02-14] MEDS: LEVOFLOXACIN 750MG/150ML D5W 750 MG/150 ML BAG IV STA (22:16)
--- NOTE | 2024-02-14 23:27 | PCM.HP ---
History of Present Illness - Chief Complaint Chief Complaint: elevated blood sugar Date: 02/14/24 History of Present Illness: Ms. SUH is a 78 year old female with a past medical history significant for hypertension, diabetes and previous CVA with recent admission for elevated blood sugars and UTI who was discharged on oral antibiotics and insulin, but has not been taking care of her sugars presents to the ER with complaints of weakness and found to have a blood sugars in the 400 range. Her urinalysis was still significant for UTI and she was seen by teleneurology for evaluation of her weakness. CT head was negative, but she was recommended to start ASA and obtain MRI brain and eventually EMG. She is resting in bed, sleepy but arousable. No fever/chills. No chest pain or shortness of breath. No nausea, vomiting but has been having diarrhea. No dysuria, hematuria or foamy urine. Electrolytes and kidney function were within normal limits. - Review of Systems Constitutional: Weakness, No Fever, No Chills Eyes: No Vision Changes Ears, Nose, & Throat: No Nose Discharge, No Painful Swallowing Respiratory: No Cough, No Orthopnea, No Short Of Breath Cardiac: No Chest Pain, No Edema, No Palpitations Abdominal/Gastrointestinal: Diarrhea, No Abdominal Pain, No Nausea, No Vomiting Genitourinary Symptoms: No Dysuria, No Frequency, No Hematuria Musculoskeletal: Arthralgias Skin: No Rash Neurological: No Dizziness, No Focal Weakness Psychological: No Suicidal Ideations Endocrine: No Polyuria, No Polydipsia Medications & Allergies Home Medications: Home Medication List Cefdinir 300 mg PO BID 7 Days #14 cap 02/11/24 [Rx Confirmed 02/14/24] Diphenoxylate HCl/Atropine [Lomotil] 1 tablet PO QID PRN PRN 14 Days #28 tablet 02/11/24 [Rx Confirmed 02/14/24] Allergies/Adverse Reactions: Allergies Allergy/AdvReac Type Severity Reaction Status Date / Time No Known Drug Allergies Allergy Verified 02/14/24 19:38 - Past Medical History Past Medical History: Yes Neurological History: Stroke ENT History: Macular Degeneration Cardiac History: High Cholesterol Respiratory History: No Pertinent History Endocrine Medical History: Diabetes Type II Musculoskelatal History: Fibromyalgia GI Medical History: Polyps History: No Pertinent History Pyscho-Social History: Depression Reproductive Disorders: Breast Cancer Comment: rheumatic fever as a child, breast cancer with Right side masectomy - Past Surgical History Past Surgical History: Yes Neuro Surgical History: No Pertinent History Cardiac History: Cardiac Catheterization Respiratory Surgery: No Pertinent History GI Surgical History: Colon Resection, Other Genitourinary Surgical Hx: No Pertinent History Musculskeletal Surgical Hx: Orthopedic Surgery Female Surgical History: Hysterectomy, Tubal Ligation, Mastectomy Other Surgical History: gastric bypass 2014 - Social History Smoking Status: Never smoker Exposure to second hand smoke: No Alcohol: None Drug Use: none - Social Determinants of Health Will the patient participate in the screening: Yes Do you worry about a steady place to live?: Yes Do you have any problems with any of the following?: Pest (bugs,ants,or mice) In the past 12 months,have you had to go without utilities?: No Have you or anyone in your house had to go without enough: No Transportation Issues: No Has anyone in your support network made you feel unsafe?: Choose not to answer Does the patient want assistance with any of the above?: Yes Comment: [employer] IS FULL OF ROACHES, PT STATES SHE DOES NOT HAVE ANYONE IN HER SUPPORT NETWORK, PT STATES THAT [facility] HAS VISITED HER IN HER HOME RECENTLY BUT HAS NOT DONE ANYTHING TO HELP HER - Physical Exam Vital Signs: Vital Signs - 24 hr Temp Pulse Resp BP BP Pulse Ox 02/14/24 23:01 93/57 98 02/14/24 22:49 98 02/14/24 22:31 143/75 99 02/14/24 22:01 155/78 97 02/14/24 21:30 157/92 99 02/14/24 21:00 156/86 90 L 02/14/24 20:43 149/77 94 L 02/14/24 20:40 81 L 02/14/24 20:39 82 L 02/14/24 20:00 125/74 100 02/14/24 19:17 98.9 F 72 16 145/75 99 General Appearance: no apparent distress Neurologic Exam: normal mood/affect Ears, Nose, Throat Exam: dry mucous membranes Neck Exam: supple Respiratory Exam: No respiratory distress Cardiovascular Exam: regular rate/rhythm Gastrointestinal/Abdomen Exam: soft Extremity Exam: No pedal edema Skin Exam: normal color, No rash Results - Labs Lab/Micro Results: Lab Results-Last 24 Hours 02/14/24 02/14/2402/13/24 Range/Units 19:28 19:28 19:28 WBC 7.3 (3.98-10.04) x10^3/uL RBC 3.95 (3.93-5.22) x10^6/uL Hgb 11.9 (11.2-15.7) g/dL Hct 36.0 (34.1-44.9) % MCV 91.1 (79.4-94.8) fL MCH 30.1 (25.6-32.2) pg MCHC 33.1 (32.2-35.5) g/dL RDW 13.1 (11.7-14.4) % Plt Count 173 L (182-369) x10^3/uL MPV 10.5 (9.4-12.3) fL Gran % 62.6 (34.0-71.1) % Immature Gran % (Auto) 0.3 (0.001-0.429) % Nucleat RBC Rel Count 0.0 (0.00-0.2) % Eos # (Auto) 0.25 (0.04-0.36) x10^3/uL Immature Gran # (Auto) 0.02 (0.001-0.031) x10^3u/L Absolute Lymphs (auto) 1.95 (1.18-3.74) x10^3/uL Absolute Monos (auto) 0.46 (0.24-0.86) x10^3/uL Absolute Nucleated RBC 0.00 (0.00-0.012) x10^3u/L Lymphocytes % 26.6 (19.3-51.7) % Monocytes % 6.3 (4.7-12.5) % Eosinophils % 3.4 (0.7-5.8) % Basophils % 0.8 (0.1-1.2) % Absolute Granulocytes 4.58 (1.56-6.13) x10^3/uL Basophils # 0.06 (0.01-0.08) x10^3/uL pO2/FiO2 Ratio % VBG pH (7.32-7.42) VBG pCO2 at Pat Temp (42-55) mm/Hg VBG pO2 at Pat Temp (25-40) mm/Hg VBG HCO3 (22-28) meq/L VBG O2 Sat ([place]) (95-100) VBG Base Excess (-2.0-2.0) VBG Hemoglobin VBG Carboxyhemoglobin (0.0-6.9) % T HGB POC Potassium (3.5-5.1) Sodium 137 (135-145) mmol/L Potassium 3.6 (3.5-5.1) mmol/L Chloride 103 (98-107) mmol/L Carbon Dioxide 29 (22-30) mmol/L Anion Gap 9.2 (5-15) MEQ/L BUN 7 (7-17) mg/dL Creatinine 0.58 (0.52-1.04) mg/dL Estimated GFR 93.2 ML/MIN Glucose 349 H (74-106) mg/dL POC Glucometer 328 H (74 to 106) mg/dL Lactic Acid (0.4-2.0) Calcium 8.3 L (8.4-10.2) mg/dL Magnesium (1.6-2.3) mg/dL Total Bilirubin 0.70 (0.2-1.3) mg/dL AST 40 H (14-36) U/L ALT 31 (0-35) U/L Alkaline Phosphatase 83 (38-126) U/L Serum Total Protein 5.8 L (6.3-8.2) g/dL Albumin 3.1 L (3.5-5.0) g/dL Amylase 92 (30-110) U/L Lipase 22 L (23-300) U/L TSH 3rd Generation (0.470-4.680) mIU/L Urine Color (Yellow) Urine Appearance (Clear) Urine pH (4.6-8.0) Ur Specific [place] (1.005-1.030) Urine Protein (Negative) Urine Glucose (UA) (Negative) mg/dL Urine Ketones (Negative) Urine Blood (Negative) Urine Nitrite (Negative) Urine Bilirubin (Negative) Urine Urobilinogen (0.2) mg/dL Ur Leukocyte Esterase (Negative) U Hyaline Cast (Auto) (0-2) /LPF Urine Microscopic RBC (0-5) /HPF Urine Microscopic WBC (0-5) /HPF Ur Epithelial Cells (None Seen) /HPF Urine Bacteria (None Seen) /HPF Urine Culture Reflexed (NO) 02/14/24 02/14/2424 Range/Units 19:28 19:51 19:51 WBC (3.98-10.04) x10^3/uL RBC (3.93-5.22) x10^6/uL Hgb (11.2-15.7) g/dL Hct (34.1-44.9) % MCV (79.4-94.8) fL MCH (25.6-32.2) pg MCHC (32.2-35.5) g/dL RDW (11.7-14.4) % Plt Count (182-369) x10^3/uL MPV (9.4-12.3) fL Gran % (34.0-71.1) % Immature Gran % (Auto) (0.001-0.429) % Nucleat RBC Rel Count (0.00-0.2) % Eos # (Auto) (0.04-0.36) x10^3/uL Immature Gran # (Auto) (0.001-0.031) x10^3u/L Absolute Lymphs (auto) (1.18-3.74) x10^3/uL Absolute Monos (auto) (0.24-0.86) x10^3/uL Absolute Nucleated RBC (0.00-0.012) x10^3u/L Lymphocytes % (19.3-51.7) % Monocytes % (4.7-12.5) % Eosinophils % (0.7-5.8) % Basophils % (0.1-1.2) % Absolute Granulocytes (1.56-6.13) x10^3/uL Basophils # (0.01-0.08) x10^3/uL pO2/FiO2 Ratio 21.0 % VBG pH 7.36 (7.32-7.42) VBG pCO2 at Pat Temp 50 (42-55) mm/Hg VBG pO2 at Pat Temp 26 (25-40) mm/Hg VBG HCO3 28.2 H (22-28) meq/L VBG O2 Sat ([place]) 43.8 L (95-100) VBG Base Excess 2.1 H (-2.0-2.0) VBG Hemoglobin 11.3 VBG Carboxyhemoglobin 3.2 (0.0-6.9) % T HGB POC Potassium 3.7 (3.5-5.1) Sodium (135-145) mmol/L Potassium (3.5-5.1) mmol/L Chloride (98-107) mmol/L Carbon Dioxide (22-30) mmol/L Anion Gap (5-15) MEQ/L BUN (7-17) mg/dL Creatinine (0.52-1.04) mg/dL Estimated GFR ML/MIN Glucose (74-106) mg/dL POC Glucometer (74 to 106) mg/dL Lactic Acid 1.1 (0.4-2.0) Calcium (8.4-10.2) mg/dL Magnesium 1.9 (1.6-2.3) mg/dL Total Bilirubin (0.2-1.3) mg/dL AST (14-36) U/L ALT (0-35) U/L Alkaline Phosphatase (38-126) U/L Serum Total Protein (6.3-8.2) g/dL Albumin (3.5-5.0) g/dL Amylase (30-110) U/L Lipase (23-300) U/L TSH 3rd Generation 1.704 (0.470-4.680) mIU/L Urine Color (Yellow) Urine Appearance (Clear) Urine pH (4.6-8.0) Ur Specific [place] (1.005-1.030) Urine Protein (Negative) Urine Glucose (UA) (Negative) mg/dL Urine Ketones (Negative) Urine Blood (Negative) Urine Nitrite (Negative) Urine Bilirubin (Negative) Urine Urobilinogen (0.2) mg/dL Ur Leukocyte Esterase (Negative) U Hyaline Cast (Auto) (0-2) /LPF Urine Microscopic RBC (0-5) /HPF Urine Microscopic WBC (0-5) /HPF Ur Epithelial Cells (None Seen) /HPF Urine Bacteria (None Seen) /HPF Urine Culture Reflexed (NO) 02/14/24 02/14/24 Range/Units 20:01 21:09 WBC (3.98-10.04) x10^3/uL RBC (3.93-5.22) x10^6/uL Hgb (11.2-15.7) g/dL Hct (34.1-44.9) % MCV (79.4-94.8) fL MCH (25.6-32.2) pg MCHC (32.2-35.5) g/dL RDW (11.7-14.4) % Plt Count (182-369) x10^3/uL MPV (9.4-12.3) fL Gran % (34.0-71.1) % Immature Gran % (Auto) (0.001-0.429) % Nucleat RBC Rel Count (0.00-0.2) % Eos # (Auto) (0.04-0.36) x10^3/uL Immature Gran # (Auto) (0.001-0.031) x10^3u/L Absolute Lymphs (auto) (1.18-3.74) x10^3/uL Absolute Monos (auto) (0.24-0.86) x10^3/uL Absolute Nucleated RBC (0.00-0.012) x10^3u/L Lymphocytes % (19.3-51.7) % Monocytes % (4.7-12.5) % Eosinophils % (0.7-5.8) % Basophils % (0.1-1.2) % Absolute Granulocytes (1.56-6.13) x10^3/uL Basophils # (0.01-0.08) x10^3/uL pO2/FiO2 Ratio % VBG pH (7.32-7.42) VBG pCO2 at Pat Temp (42-55) mm/Hg VBG pO2 at Pat Temp (25-40) mm/Hg VBG HCO3 (22-28) meq/L VBG O2 Sat ([place]) (95-100) VBG Base Excess (-2.0-2.0) VBG Hemoglobin VBG Carboxyhemoglobin (0.0-6.9) % T HGB POC Potassium (3.5-5.1) Sodium (135-145) mmol/L Potassium (3.5-5.1) mmol/L Chloride (98-107) mmol/L Carbon Dioxide (22-30) mmol/L Anion Gap (5-15) MEQ/L BUN (7-17) mg/dL Creatinine (0.52-1.04) mg/dL Estimated GFR ML/MIN Glucose (74-106) mg/dL POC Glucometer 168 H (74 to 106) mg/dL Lactic Acid (0.4-2.0) Calcium (8.4-10.2) mg/dL Magnesium (1.6-2.3) mg/dL Total Bilirubin (0.2-1.3) mg/dL AST (14-36) U/L ALT (0-35) U/L Alkaline Phosphatase (38-126) U/L Serum Total Protein (6.3-8.2) g/dL Albumin (3.5-5.0) g/dL Amylase (30-110) U/L Lipase (23-300) U/L TSH 3rd Generation (0.470-4.680) mIU/L Urine Color Yellow (Yellow) Urine Appearance Cloudy A (Clear) Urine pH 5.5 (4.6-8.0) Ur Specific [place] >=1.030 A (1.005-1.030) Urine Protein Trace A (Negative) Urine Glucose (UA) >=1000 A (Negative) mg/dL Urine Ketones Negative (Negative) Urine Blood Trace (Negative) Urine Nitrite Negative (Negative) Urine Bilirubin Negative (Negative) Urine Urobilinogen 0.2 (0.2) mg/dL Ur Leukocyte Esterase Small A (Negative) U Hyaline Cast (Auto) NONE SEEN (0-2) /LPF Urine Microscopic RBC 6-10 A (0-5) /HPF Urine Microscopic WBC >100 A (0-5) /HPF Ur Epithelial Cells None Seen (None Seen) /HPF Urine Bacteria None Seen (None Seen) /HPF Urine Culture Reflexed ORDERED SEPARATELY (NO) Accuchecks Date 02/14/24 Time 19:28 - Radiology Impressions Radiology Exams & Impressions: Radiology Procedures Category Date Time Status ABDOMEN AND PELVIS W/0 CONTRAS [CT] Stat Exams 02/14/24 19:43 Completed HEAD WITHOUT CONTRAST [CT] Stat Exams 02/14/24 19:44 Completed Assessment/Plan (1) Weakness Current Visit: Yes Status: Acute Assessment & Plan: Likely related to blood sugars/recent UTI but seen by neurology, recommended for MRI brain and possible EMG 1. Admit to hospital for observation status 2. Encourage PO intake, will start gentle IVFs 3. PT eval 4. ASA daily Code(s): R53.1 - WEAKNESS (2) Hyperglycemia due to type 2 diabetes mellitus Current Visit: Yes Status: Acute Qualifiers: Assessment & Plan: Likely from noncompliance and dietary indiscretion 1. Diabetic diet 2. FSBS qAC/HS with SSI 3. Start basal insulin 4. Monitor HbA1c, [facility] Code(s): E11.65 - TYPE 2 DIABETES MELLITUS WITH HYPERGLYCEMIA (3) UTI (urinary tract infection) Current Visit: Yes Status: Acute Assessment & Plan: Status post treatment with cephalosporin 1. Empiric antibiotics with Levaquin 2. Follow up repeat urine culture Code(s): N39.0 - URINARY TRACT INFECTION, SITE NOT SPECIFIED (4) Chronic diarrhea Current Visit: Yes Status: Chronic Assessment & Plan: Still with diarrhea, has been taking Lomotil 1. Check stool culture 2. Check for C dif 3. Continue Lomotil Code(s): K52.9 - NONINFECTIVE GASTROENTERITIS AND COLITIS, UNSPECIFIED Telemedicine Encounter - Telemedicine Encounter Telemedicine Encounter: "The entirety of this encounter was performed via Telemedicine" This visit was performed using real-time audio and video connection between my location and thepatients locationwith the assistance of a surrogateat the patients location. Written or verbal consent was obtained from the patient/guardian to perform this [facility]. Any patient questions regarding the telemedicine interaction were answered.
[2024-02-14] MEDS ORDERED: TYLENOL 325 MG PO PRN (23:54)
[2024-02-14] MEDS ORDERED: HUMULIN R SQ PRN (23:54)
[2024-02-15] MEDS: Sodium Chloride 0.9% 1000 ML 1,000 ML IV SCH (01:13)
[2024-02-15 02:53] LABS: 027 TOX PROD PRESUMPTIVE NEGATIVE (NEGATIVE); TOXIGENIC C. DIFF ORG NEGATIVE (NEGATIVE)
--- NOTE | 2024-02-15 05:15 | PCM.NOTE ---
Date and Time: 02/15/24 0510 Subjective Assessment: Ms. SUH is a 78 year old female with a past medical history significant for hypertension, diabetes and previous CVA with recent admission for elevated blood sugars and UTI who was discharged on oral antibiotics and insulin, but has not been taking care of her sugars presents to the ER with complaints of weakness and found to have a blood sugars in the 400 range. Her urinalysis was still significant for UTI and she was seen by teleneurology for evaluation of her weakness. CT head was negative, but she was recommended to start ASA and obtain MRI brain and eventually EMG. She is resting in bed, sleepy but arousable. No fever/chills. No chest pain or shortness of breath. No nausea, vomiting but has been having diarrhea. No dysuria, hematuria or foamy urine. Electrolytes and kidney function were within normal limits. 02/14: Met with patient bedside. States she needs placement as she is unable to perform ADLs. 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 Ucult from previous admission showing Klebsiella/ enterococcus. Abx changed to levaquin. Patient reports she has not been taking prescribed insulin she was sent home because she keeps it in the fridge "and it's filled with cockroaches." Neurology consulted for AMS/weakness - plan for MRI tomorrow. Patient states she has now here to go if discharged. Please see notes regarding previous admission. CM to discuss options with patient. <MILTON MASON - Last Filed: 02/15/24 11:09> Date and Time: 02/15/242132 <ZACH TAPIA - Last Filed: 02/15/24 21:34> - Review of Systems Constitutional: Weakness Eyes: No Symptoms Ears, Nose, & Throat: No Symptoms Respiratory: No Symptoms Cardiac: No Symptoms Abdominal/Gastrointestinal: Diarrhea (chronic) Genitourinary Symptoms: No Symptoms Musculoskeletal: No Symptoms Skin: No Symptoms Neurological: Other (contracture right hand) Psychological: Anxiety, Mood Changes Endocrine: No Symptoms Hematologic/Lymphatic: No Symptoms Immunological/Allergic: No Symptoms <MILTON MASON - Last Filed: 02/15/24 11:09> Objective Exam General Appearance: no apparent distress Neurologic Exam: alert, oriented x 3, cooperative Skin Exam: normal color Eye Exam: PERRL Ears, Nose, Throat Exam: normal ENT inspection Neck Exam: normal inspection Respiratory Exam: normal breath sounds, lungs clear Cardiovascular Exam: regular rate/rhythm, normal heart sounds Gastrointestinal/Abdomen Exam: soft, normal bowel sounds Extremity Exam: other (contracure right hand) Back Exam: normal inspection Pelvic Exam: deferred Rectal Exam: deferred <MILTON MASON - Last Filed: 02/15/24 11:09> Objective Data Vital Signs: Vital Signs - 24 hr Temp Pulse Resp BP BP Pulse Ox 02/15/24 00:10 66 18 98 02/14/24 23:41 97.7 F 65 15 148/68 97 02/14/24 23:01 93/57 98 02/14/24 22:49 98 02/14/24 22:31 143/75 99 02/14/24 22:01 155/78 97 02/14/24 21:30 157/92 99 02/14/24 21:00 156/86 90 L 02/14/24 20:43 149/77 94 L 02/14/24 20:40 81 L 02/14/24 20:39 82 L 02/14/24 20:00 125/74 100 02/14/24 19:17 98.9 F 72 16 145/75 99 Pain Assessment - Last Documented Pain Intensity 0 Intake and Output: Intake & Output 02/12/24 02/13/24 02/14/24 02/15/24 11:59 11:59 11:59 11:59 Weight 50.7 kg Lab Results: Lab Results-Last 24 Hours 02/14/24 02/14/24 02/14/24 Range/Units 02:07 19:28 19:28 WBC 7.3 (3.98-10.04) x10^3/uL RBC 3.95 (3.93-5.22) x10^6/uL Hgb 11.9 (11.2-15.7) g/dL Hct 36.0 (34.1-44.9) % MCV 91.1 (79.4-94.8) fL MCH 30.1 (25.6-32.2) pg MCHC 33.1 (32.2-35.5) g/dL RDW 13.1 (11.7-14.4) % Plt Count 173 L (182-369) x10^3/uL MPV 10.5 (9.4-12.3) fL Gran % 62.6 (34.0-71.1) % Immature Gran % (Auto) 0.3 (0.001-0.429) % Nucleat RBC Rel Count 0.0 (0.00-0.2) % Eos # (Auto) 0.25 (0.04-0.36) x10^3/uL Immature Gran # (Auto) 0.02 (0.001-0.031) x10^3u/L Absolute Lymphs (auto) 1.95 (1.18-3.74) x10^3/uL Absolute Monos (auto) 0.46 (0.24-0.86) x10^3/uL Absolute Nucleated RBC 0.00 (0.00-0.012) x10^3u/L Lymphocytes % 26.6 (19.3-51.7) % Monocytes % 6.3 (4.7-12.5) % Eosinophils % 3.4 (0.7-5.8) % Basophils % 0.8 (0.1-1.2) % Absolute Granulocytes 4.58 (1.56-6.13) x10^3/uL Basophils # 0.06 (0.01-0.08) x10^3/uL pO2/FiO2 Ratio % VBG pH (7.32-7.42) VBG pCO2 at Pat Temp (42-55) mm/Hg VBG pO2 at Pat Temp (25-40) mm/Hg VBG HCO3 (22-28) meq/L VBG O2 Sat (Anahy) (95-100) VBG Base Excess (-2.0-2.0) VBG Hemoglobin VBG Carboxyhemoglobin (0.0-6.9) % T HGB POC Potassium (3.5-5.1) Sodium (135-145) mmol/L Potassium (3.5-5.1) mmol/L Chloride (98-107) mmol/L Carbon Dioxide (22-30) mmol/L Anion Gap (5-15) MEQ/L BUN (7-17) mg/dL Creatinine (0.52-1.04) mg/dL Estimated GFR ML/MIN Glucose (74-106) mg/dL POC Glucometer 328 H (74 to 106) mg/dL Lactic Acid (0.4-2.0) Calcium (8.4-10.2) mg/dL Magnesium (1.6-2.3) mg/dL Total Bilirubin (0.2-1.3) mg/dL AST (14-36) U/L ALT (0-35) U/L Alkaline Phosphatase (38-126) U/L Serum Total Protein (6.3-8.2) g/dL Albumin (3.5-5.0) g/dL Amylase (30-110) U/L Lipase (23-300) U/L TSH 3rd Generation (0.470-4.680) mIU/L Urine Color (Yellow) Urine Appearance (Clear) Urine pH (4.6-8.0) Ur Specific [place] (1.005-1.030) Urine Protein (Negative) Urine Glucose (UA) (Negative) mg/dL Urine Ketones (Negative) Urine Blood (Negative) Urine Nitrite (Negative) Urine Bilirubin (Negative) Urine Urobilinogen (0.2) mg/dL Ur Leukocyte Esterase (Negative) U Hyaline Cast (Auto) (0-2) /LPF Urine Microscopic RBC (0-5) /HPF Urine Microscopic WBC (0-5) /HPF Ur Epithelial Cells (None Seen) /HPF Urine Bacteria (None Seen) /HPF Urine Culture Reflexed (NO) C. difficile Screen NEGATIVE (NEGATIVE) C.difficile 027-NAP1-B1 PRESUMPTIVE NEGATIVE (NEGATIVE) 02/14/24 02/14/24 02/14/24 Range/Units 19:28 19:28 19:51 WBC (3.98-10.04) x10^3/uL RBC (3.93-5.22) x10^6/uL Hgb (11.2-15.7) g/dL Hct (34.1-44.9) % MCV (79.4-94.8) fL MCH (25.6-32.2) pg MCHC (32.2-35.5) g/dL RDW (11.7-14.4) % Plt Count (182-369) x10^3/uL MPV (9.4-12.3) fL Gran % (34.0-71.1) % Immature Gran % (Auto) (0.001-0.429) % Nucleat RBC Rel Count (0.00-0.2) % Eos # (Auto) (0.04-0.36) x10^3/uL Immature Gran # (Auto) (0.001-0.031) x10^3u/L Absolute Lymphs (auto) (1.18-3.74) x10^3/uL Absolute Monos (auto) (0.24-0.86) x10^3/uL Absolute Nucleated RBC (0.00-0.012) x10^3u/L Lymphocytes % (19.3-51.7) % Monocytes % (4.7-12.5) % Eosinophils % (0.7-5.8) % Basophils % (0.1-1.2) % Absolute Granulocytes (1.56-6.13) x10^3/uL Basophils # (0.01-0.08) x10^3/uL pO2/FiO2 Ratio % VBG pH (7.32-7.42) VBG pCO2 at Pat Temp (42-55) mm/Hg VBG pO2 at Pat Temp (25-40) mm/Hg VBG HCO3 (22-28) meq/L VBG O2 Sat (Anahy) (95-100) VBG Base Excess (-2.0-2.0) VBG Hemoglobin VBG Carboxyhemoglobin (0.0-6.9) % T HGB POC Potassium (3.5-5.1) Sodium 137 (135-145) mmol/L Potassium 3.6 (3.5-5.1) mmol/L Chloride 103 (98-107) mmol/L Carbon Dioxide 29 (22-30) mmol/L Anion Gap 9.2 (5-15) MEQ/L BUN 7 (7-17) mg/dL Creatinine 0.58 (0.52-1.04) mg/dL Estimated GFR 93.2 ML/MIN Glucose 349 H (74-106) mg/dL POC Glucometer (74 to 106) mg/dL Lactic Acid 1.1 (0.4-2.0) Calcium 8.3 L (8.4-10.2) mg/dL Magnesium 1.9 (1.6-2.3) mg/dL Total Bilirubin 0.70 (0.2-1.3) mg/dL AST 40 H (14-36) U/L ALT 31 (0-35) U/L Alkaline Phosphatase 83 (38-126) U/L Serum Total Protein 5.8 L (6.3-8.2) g/dL Albumin 3.1 L (3.5-5.0) g/dL Amylase 92 (30-110) U/L Lipase 22 L (23-300) U/L TSH 3rd Generation 1.704 (0.470-4.680) mIU/L Urine Color (Yellow) Urine Appearance (Clear) Urine pH (4.6-8.0) Ur Specific [place] (1.005-1.030) Urine Protein (Negative) Urine Glucose (UA) (Negative) mg/dL Urine Ketones (Negative) Urine Blood (Negative) Urine Nitrite (Negative) Urine Bilirubin (Negative) Urine Urobilinogen (0.2) mg/dL Ur Leukocyte Esterase (Negative) U Hyaline Cast (Auto) (0-2) /LPF Urine Microscopic RBC (0-5) /HPF Urine Microscopic WBC (0-5) /HPF Ur Epithelial Cells (None Seen) /HPF Urine Bacteria (None Seen) /HPF Urine Culture Reflexed (NO) C. difficile Screen (NEGATIVE) C.difficile 027-NAP1-B1 (NEGATIVE) 02/14/24 02/14/24 02/14/24 Range/Units 19:51 20:01 21:09 WBC (3.98-10.04) x10^3/uL RBC (3.93-5.22) x10^6/uL Hgb (11.2-15.7) g/dL Hct (34.1-44.9) % MCV (79.4-94.8) fL MCH (25.6-32.2) pg MCHC (32.2-35.5) g/dL RDW (11.7-14.4) % Plt Count (182-369) x10^3/uL MPV (9.4-12.3) fL Gran % (34.0-71.1) % Immature Gran % (Auto) (0.001-0.429) % Nucleat RBC Rel Count (0.00-0.2) % Eos # (Auto) (0.04-0.36) x10^3/uL Immature Gran # (Auto) (0.001-0.031) x10^3u/L Absolute Lymphs (auto) (1.18-3.74) x10^3/uL Absolute Monos (auto) (0.24-0.86) x10^3/uL Absolute Nucleated RBC (0.00-0.012) x10^3u/L Lymphocytes % (19.3-51.7) % Monocytes % (4.7-12.5) % Eosinophils % (0.7-5.8) % Basophils % (0.1-1.2) % Absolute Granulocytes (1.56-6.13) x10^3/uL Basophils # (0.01-0.08) x10^3/uL pO2/FiO2 Ratio 21.0 % VBG pH 7.36 (7.32-7.42) VBG pCO2 at Pat Temp 50 (42-55) mm/Hg VBG pO2 at Pat Temp 26 (25-40) mm/Hg VBG HCO3 28.2 H (22-28) meq/L VBG O2 Sat (Anahy) 43.8 L (95-100) VBG Base Excess 2.1 H (-2.0-2.0) VBG Hemoglobin 11.3 VBG Carboxyhemoglobin 3.2 (0.0-6.9) % T HGB POC Potassium 3.7 (3.5-5.1) Sodium (135-145) mmol/L Potassium (3.5-5.1) mmol/L Chloride (98-107) mmol/L Carbon Dioxide (22-30) mmol/L Anion Gap (5-15) MEQ/L BUN (7-17) mg/dL Creatinine (0.52-1.04) mg/dL Estimated GFR ML/MIN Glucose (74-106) mg/dL POC Glucometer 168 H (74 to 106) mg/dL Lactic Acid (0.4-2.0) Calcium (8.4-10.2) mg/dL Magnesium (1.6-2.3) mg/dL Total Bilirubin (0.2-1.3) mg/dL AST (14-36) U/L ALT (0-35) U/L Alkaline Phosphatase (38-126) U/L Serum Total Protein (6.3-8.2) g/dL Albumin (3.5-5.0) g/dL Amylase (30-110) U/L Lipase (23-300) U/L TSH 3rd Generation (0.470-4.680) mIU/L Urine Color Yellow (Yellow) Urine Appearance Cloudy A (Clear) Urine pH 5.5 (4.6-8.0) Ur Specific [place] >=1.030 A (1.005-1.030) Urine Protein Trace A (Negative) Urine Glucose (UA) >=1000 A (Negative) mg/dL Urine Ketones Negative (Negative) Urine Blood Trace (Negative) Urine Nitrite Negative (Negative) Urine Bilirubin Negative (Negative) Urine Urobilinogen 0.2 (0.2) mg/dL Ur Leukocyte Esterase Small A (Negative) U Hyaline Cast (Auto) NONE SEEN (0-2) /LPF Urine Microscopic RBC 6-10 A (0-5) /HPF Urine Microscopic WBC >100 A (0-5) /HPF Ur Epithelial Cells None Seen (None Seen) /HPF Urine Bacteria None Seen (None Seen) /HPF Urine Culture Reflexed ORDERED SEPARATELY (NO) C. difficile Screen (NEGATIVE) C.difficile 027-NAP1-B1 (NEGATIVE) Radiology Exams: Radiology Procedures Category Date Time Status ABDOMEN AND PELVIS W/0 CONTRAS [CT] Stat Exams 02/14/24 19:43 Completed HEAD WITHOUT CONTRAST [CT] Stat Exams 02/14/24 19:44 Completed <MILTON MASON - Last Filed: 02/15/24 11:09> Vital Signs: Vital Signs - 24 hr Temp Pulse Resp BP BP Pulse Ox 02/15/24 16:00 97.5 F 73 16 122/61 97 02/15/24 11:49 97.1 F 67 13 131/60 98 02/15/24 07:56 97.8 F 70 14 133/74 97 02/15/24 00:10 66 18 98 02/14/24 23:41 97.7 F 65 15 148/68 97 02/14/24 23:01 93/57 98 02/14/24 22:49 98 02/14/24 22:31 143/75 99 02/14/24 22:01 155/78 97 Pain Assessment - Last Documented Pain Intensity 0 Intake and Output: Intake & Output 02/13/24 02/14/24 02/15/24 02/16/24 11:59 11:59 11:59 11:59 Intake Total 518 869 Balance 518 869 Weight 50.7 kg Lab Results: Lab Results-Last 24 Hours 02/14/24 02/15/24 02/15/24 Range/Units 02:07 05:30 05:30 WBC 6.5 (3.98-10.04) x10^3/uL RBC 4.00 (3.93-5.22) x10^6/uL Hgb 11.9 (11.2-15.7) g/dL Hct 35.9 (34.1-44.9) % MCV 89.8 (79.4-94.8) fL MCH 29.8 (25.6-32.2) pg MCHC 33.1 (32.2-35.5) g/dL RDW 12.9 (11.7-14.4) % Plt Count 170 L (182-369) x10^3/uL MPV 10.0 (9.4-12.3) fL Gran % 58.8 (34.0-71.1) % Immature Gran % (Auto) 0.5 H (0.001-0.429) % Nucleat RBC Rel Count 0.0 (0.00-0.2) % Eos # (Auto) 0.32 (0.04-0.36) x10^3/uL Immature Gran # (Auto) 0.03 (0.001-0.031) x10^3u/L Absolute Lymphs (auto) 1.85 (1.18-3.74) x10^3/uL Absolute Monos (auto) 0.44 (0.24-0.86) x10^3/uL Absolute Nucleated RBC 0.00 (0.00-0.012) x10^3u/L Lymphocytes % 28.4 (19.3-51.7) % Monocytes % 6.8 (4.7-12.5) % Eosinophils % 4.9 (0.7-5.8) % Basophils % 0.6 (0.1-1.2) % Absolute Granulocytes 3.83 (1.56-6.13) x10^3/uL Basophils # 0.04 (0.01-0.08) x10^3/uL Sodium 136 (135-145) mmol/L Potassium 3.3 L (3.5-5.1) mmol/L Chloride 106 (98-107) mmol/L Carbon Dioxide 25 (22-30) mmol/L Anion Gap 8.5 (5-15) MEQ/L BUN 4 L (7-17) mg/dL Creatinine 0.44 L (0.52-1.04) mg/dL Estimated GFR 99.6 ML/MIN Glucose 296 H (74-106) mg/dL POC Glucometer (74 to 106) mg/dL Calcium 7.9 L (8.4-10.2) mg/dL Total Bilirubin 0.80 (0.2-1.3) mg/dL AST 64 H (14-36) U/L ALT 38 H (0-35) U/L Alkaline Phosphatase 81 (38-126) U/L Serum Total Protein 5.1 L (6.3-8.2) g/dL Albumin 2.7 L (3.5-5.0) g/dL C. difficile Screen NEGATIVE (NEGATIVE) C.difficile 027-NAP1-B1 PRESUMPTIVE NEGATIVE (NEGATIVE) 02/15/24 02/15/24 02/15/24 Range/Units 06:58 11:38 16:39 WBC (3.98-10.04) x10^3/uL RBC (3.93-5.22) x10^6/uL Hgb (11.2-15.7) g/dL Hct (34.1-44.9) % MCV (79.4-94.8) fL MCH (25.6-32.2) pg MCHC (32.2-35.5) g/dL RDW (11.7-14.4) % Plt Count (182-369) x10^3/uL MPV (9.4-12.3) fL Gran % (34.0-71.1) % Immature Gran % (Auto) (0.001-0.429) % Nucleat RBC Rel Count (0.00-0.2) % Eos # (Auto) (0.04-0.36) x10^3/uL Immature Gran # (Auto) (0.001-0.031) x10^3u/L Absolute Lymphs (auto) (1.18-3.74) x10^3/uL Absolute Monos (auto) (0.24-0.86) x10^3/uL Absolute Nucleated RBC (0.00-0.012) x10^3u/L Lymphocytes % (19.3-51.7) % Monocytes % (4.7-12.5) % Eosinophils % (0.7-5.8) % Basophils % (0.1-1.2) % Absolute Granulocytes (1.56-6.13) x10^3/uL Basophils # (0.01-0.08) x10^3/uL Sodium (135-145) mmol/L Potassium (3.5-5.1) mmol/L Chloride (98-107) mmol/L Carbon Dioxide (22-30) mmol/L Anion Gap (5-15) MEQ/L BUN (7-17) mg/dL Creatinine (0.52-1.04) mg/dL Estimated GFR ML/MIN Glucose (74-106) mg/dL POC Glucometer 245 H 165 H 55 L (74 to 106) mg/dL Calcium (8.4-10.2) mg/dL Total Bilirubin (0.2-1.3) mg/dL AST (14-36) U/L ALT (0-35) U/L Alkaline Phosphatase (38-126) U/L Serum Total Protein (6.3-8.2) g/dL Albumin (3.5-5.0) g/dL C. difficile Screen (NEGATIVE) C.difficile 027-NAP1-B1 (NEGATIVE) 02/15/24 02/15/24 02/15/24 Range/Units 16:42 17:01 19:13 WBC (3.98-10.04) x10^3/uL RBC (3.93-5.22) x10^6/uL Hgb (11.2-15.7) g/dL Hct (34.1-44.9) % MCV (79.4-94.8) fL MCH (25.6-32.2) pg MCHC (32.2-35.5) g/dL RDW (11.7-14.4) % Plt Count (182-369) x10^3/uL MPV (9.4-12.3) fL Gran % (34.0-71.1) % Immature Gran % (Auto) (0.001-0.429) % Nucleat RBC Rel Count (0.00-0.2) % Eos # (Auto) (0.04-0.36) x10^3/uL Immature Gran # (Auto) (0.001-0.031) x10^3u/L Absolute Lymphs (auto) (1.18-3.74) x10^3/uL Absolute Monos (auto) (0.24-0.86) x10^3/uL Absolute Nucleated RBC (0.00-0.012) x10^3u/L Lymphocytes % (19.3-51.7) % Monocytes % (4.7-12.5) % Eosinophils % (0.7-5.8) % Basophils % (0.1-1.2) % Absolute Granulocytes (1.56-6.13) x10^3/uL Basophils # (0.01-0.08) x10^3/uL Sodium (135-145) mmol/L Potassium 4.0 D (3.5-5.1) mmol/L Chloride (98-107) mmol/L Carbon Dioxide (22-30) mmol/L Anion Gap (5-15) MEQ/L BUN (7-17) mg/dL Creatinine (0.52-1.04) mg/dL Estimated GFR ML/MIN Glucose (74-106) mg/dL POC Glucometer 54 L 149 H (74 to 106) mg/dL Calcium (8.4-10.2) mg/dL Total Bilirubin (0.2-1.3) mg/dL AST (14-36) U/L ALT (0-35) U/L Alkaline Phosphatase (38-126) U/L Serum Total Protein (6.3-8.2) g/dL Albumin (3.5-5.0) g/dL C. difficile Screen (NEGATIVE) C.difficile 027-NAP1-B1 (NEGATIVE) Radiology Exams: Radiology Procedures Category Date Time Status ABDOMEN AND PELVIS W/0 CONTRAS [CT] Stat Exams 02/14/24 19:43 Completed HEAD WITHOUT CONTRAST [CT] Stat Exams 02/14/24 19:44 Completed MRI BRAIN W/O CONTRAST [MRI] Routine Exams 02/16/24 11:12 Ordered <ZACH TAPIA - Last Filed: 02/15/24 21:34> Assessment/Plan (1) UTI (urinary tract infection) Current Visit: Yes Status: Acute Assessment & Plan: -urine culture from 02/08 with klebsiella and enterococus - was treated with cefdinir - started on lequin- both on sensitively list -will follow culture Code(s): N39.0 - URINARY TRACT INFECTION, SITE NOT SPECIFIED (2) Hyperglycemia due to type 2 diabetes mellitus Current Visit: Yes Status: Acute Assessment & Plan: -Patient non-compliant with diabetes meds -ADA diet -SSI/glargine/meal lispro Code(s): E11.65 - TYPE 2 DIABETES MELLITUS WITH HYPERGLYCEMIA (3) Weakness Current Visit: Yes Status: Acute Assessment & Plan: -PT/OT Code(s): R53.1 - WEAKNESS (4) Chronic diarrhea Current Visit: Yes Status: Chronic Assessment & Plan: -stool cultures from 02/09 negative -CDiff negative -immodium/lomotil Code(s): K52.9 - NONINFECTIVE GASTROENTERITIS AND COLITIS, UNSPECIFIED (5) Altered mental status Current Visit: Yes Status: Acute Assessment & Plan: -neurology consulted with the following recs - CT head was negative -start ASA -obtain MRI brain and C spine w/o con -NCS/EMG of upper extremities in the outpatient -PT/OT -CBC,CMP, amylase,lipase,TSH unrevealing -Delirium precautions -secondary stroke prevention with ASA 81mg daily, statin Code(s): R41.82 - ALTERED MENTAL STATUS, UNSPECIFIED (6) HTN (hypertension) Current Visit: No Status: Acute Assessment & Plan: -stable - continue home meds Code(s): I10 - ESSENTIAL (PRIMARY) HYPERTENSION (7) Right wrist drop Current Visit: Yes Status: Acute Assessment & Plan: -see ams Code(s): M21.331 - WRIST DROP, RIGHT WRIST <MILTON MASON - Last Filed: 02/15/24 11:09> MERT Encounter - MERT Encounter Attestation MERT Encounter Attestation: "SAJI Segundo andhavediscussed pertinent aspects of their care with Milton Rodríguez agree with the history, physical exam (any modifications based on my personal exam will be noted below), assessment, and plan as outlined in original note. Please see immediately below for my summary of findings and additional assessment and plan along with any meaningful corrections/explanations to the Subjective/Objective portions of the MERT note will be noted." My portion of the encounter took place via telemedicine. -Patient readmitted with weakness and hyperglycemia and inability to care for herself. She will need placement. Discussed this with the patient today, said she will look into options <ZACH TAPIA - Last Filed: 02/15/24 21:34>
[2024-02-15] MEDS ORDERED: LEVOFLOXACIN 750MG/150ML D5W 750 MG/150 ML BAG IV STA (05:20)
[2024-02-15 06:03] LABS: Absolute Neutrophil Ct (ANC) 3.83 x10^3/uL (1.56-6.13); BASOPHIL % 0.6 % (0.1-1.2); Basophil (Absolute #) 0.04 x10^3/uL (0.01-0.08); Eosinophil % 4.9 % (0.7-5.8); Eosinophil (Absolute #) 0.32 x10^3/uL (0.04-0.36); Hematocrit 35.9 % (34.1-44.9); Hemoglobin 11.9 g/dL (11.2-15.7); IMMATURE GRAN # 0.03 x10^3u/L (0.001-0.031); IMMATURE GRAN % 0.5 % (0.001-0.429); Lymphocyte (Absolute #) 1.85 x10^3/uL (1.18-3.74); Lymphocytes % 28.4 % (19.3-51.7); Mean Cell Volume 89.8 fL (79.4-94.8); Mean Corpuscular Hemoglobin 29.8 pg (25.6-32.2); Mean Corpuscular Hgb Concent. 33.1 g/dL (32.2-35.5); Monocyte (Absolute #) 0.44 x10^3/uL (0.24-0.86); Monocytes % 6.8 % (4.7-12.5); Neutrophil % 58.8 % (34.0-71.1); Platelet Count 170 x10^3/uL (182-369); Red Cell Distribution Width 12.9 % (11.7-14.4); White Blood Count 6.5 x10^3/uL (3.98-10.04)
[2024-02-15 06:25] LABS: ALBUMIN 2.7 g/dL (3.5-5.0); ANION GAP 8.5 MEQ/L (5-15); BILIRUBIN,TOTAL 0.8 mg/dL (0.2-1.3); Calcium 7.9 mg/dL (8.4-10.2); Creatinine 1 0.44 mg/dL (0.52-1.04); EST GLOMERULAR FILTRATION RATE 99.6 ML/MIN; Potassium 3.3 mmol/L (3.5-5.1); Total Protein 5.1 g/dL (6.3-8.2)
[2024-02-15] MEDS: HUMALOG SQ SCH (08:38)
[2024-02-15] MEDS: Lantus Insulin SQ SCH (08:38)
[2024-02-15] MEDS: HUMALOG SQ PRN (08:38)
[2024-02-15] MEDS: LIPITOR 40MG PO SCH (11:53)
[2024-02-15] MEDS: ENOXAPARIN SODIUM SQ SCH (11:53)
[2024-02-15] MEDS: Protonix 40MG Tablet PO SCH (11:53)
[2024-02-15] MEDS: ECOTRIN 81 MG PO SCH (11:53)
[2024-02-15] MEDS ORDERED: D50W 50 ml Abboject IV PRN (17:01)
[2024-02-15] MEDS ORDERED: Glutose 15 GM ORAL GEL PO PRN (17:01)
[2024-02-15] MEDS ORDERED: GlucaGen 1 MG IM PRN (17:01)
[2024-02-15] MEDS: Klor Con PO SCH (18:20)
[2024-02-16 03:36] LABS: ALBUMIN 2.6 g/dL (3.5-5.0); ANION GAP 6.5 MEQ/L (5-15); BILIRUBIN,TOTAL 0.6 mg/dL (0.2-1.3); Calcium 8.2 mg/dL (8.4-10.2); Creatinine 1 0.53 mg/dL (0.52-1.04); EST GLOMERULAR FILTRATION RATE 95.2 ML/MIN; Total Protein 5.2 g/dL (6.3-8.2)
[2024-02-16 03:57] LABS: Absolute Neutrophil Ct (ANC) 3.66 x10^3/uL (1.56-6.13); BASOPHIL % 0.7 % (0.1-1.2); Basophil (Absolute #) 0.05 x10^3/uL (0.01-0.08); Eosinophil % 5.4 % (0.7-5.8); Eosinophil (Absolute #) 0.38 x10^3/uL (0.04-0.36); Hemoglobin 12.1 g/dL (11.2-15.7); IMMATURE GRAN # 0.04 x10^3u/L (0.001-0.031); IMMATURE GRAN % 0.6 % (0.001-0.429); Lymphocyte (Absolute #) 2.41 x10^3/uL (1.18-3.74); Lymphocytes % 34.2 % (19.3-51.7); Mean Cell Volume 90.2 fL (79.4-94.8); Mean Corpuscular Hemoglobin 30.3 pg (25.6-32.2); Mean Corpuscular Hgb Concent. 33.6 g/dL (32.2-35.5); Mean Platelet Volume 10.4 fL (9.4-12.3); Monocyte (Absolute #) 0.51 x10^3/uL (0.24-0.86); Monocytes % 7.2 % (4.7-12.5); Neutrophil % 51.9 % (34.0-71.1); Platelet Count 187 x10^3/uL (182-369); Red Blood Count 3.99 x10^6/uL (3.93-5.22); Red Cell Distribution Width 13.4 % (11.7-14.4); White Blood Count 7.1 x10^3/uL (3.98-10.04)
[2024-02-16] MEDS: Lomotil PO PRN (11:20)
--- NOTE | 2024-02-16 12:01 | PCM.DS ---
Discharge Summary Date of Admission: 02/14/24 23:33 Date of Discharge: 02/16/24 Admitting Physician: JAIRO CHAMBERLAIN MD Consults: Consults on Case 02/15/24 00:52 Case Management SDOH DC Needs Assessment ROUTINE 02/16/24 10:30 Consult,Dalia [Psychiatric Consult] STAT Primary Care Provider: CURTIS HOFFMAN Allergies Allergies No Known Drug Allergies Allergy (Verified 02/14/24 19:38) Hospital Summary - Hospital Course Hospital Course: Ms. SUH is a 78 year old female with a past medical history significant for hypertension, diabetes and previous CVA. She was here with a recent admission for elevated blood sugars and UTI who was discharged on oral antibiotics and insulin, but has not been taking care of her sugars presents to the ER with complaints of weakness and found to have a blood sugars in the 400 range. Her urinalysis was still significant for UTI and she was seen by teleneurology for evaluation of her weakness. CT head was negative, but she was recommended to start ASA and obtain MRI brain and eventually EMG. She is resting in bed, sleepy but arousable. No fever/chills. No chest pain or shortness of breath. No nausea, vomiting but has been having diarrhea. No dysuria, hematuria or foamy urine. Electrolytes and kidney function were within normal limits. 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 She is scheduled for an MRI today. Ucult from previous admission showing Klebsiella/ enterococcus. Abx changed to levaquin 02/14. Patient reports she has not been taking prescribed insulin she was sent home because she keeps it in the fridge "and it's filled with cockroaches." Neurology consulted for AMS/weakness - plan for MRI tomorrow. Patient states she has nowhere to go if discharged. Please see notes regarding previous admission. CM to discuss options with patient. Psych consulted today. She has groin redness from urine and stool incontinence that is chronic OP. She denies any further concerns at this time. - Vitals & Intake/Output Vital Signs: Vital Signs Temperature 98.5 F 02/16/24 11:54 Pulse Rate 63 02/16/24 11:54 Respiratory Rate 20 02/16/24 11:54 Blood Pressure 151/70 02/16/24 11:54 O2 Sat by Pulse Oximetry 97 02/16/24 11:54 Intake & Output: Intake & Output 02/13/24 02/14/24 02/15/24 02/16/24 11:59 11:59 11:59 11:59 Intake Total 518 7754 Balance 518 1389 Weight 50.7 kg - Lab Result Diagrams: 02/16/24 03:00 02/16/24 03:00 Lab Results-Last 24 Hrs: Lab Results-Last 24 Hours 02/15/24 02/15/24 02/15/24 Range/Units 16:39 16:42 17:01 WBC (3.98-10.04) x10^3/uL RBC (3.93-5.22) x10^6/uL Hgb (11.2-15.7) g/dL Hct (34.1-44.9) % MCV (79.4-94.8) fL MCH (25.6-32.2) pg MCHC (32.2-35.5) g/dL RDW (11.7-14.4) % Plt Count (182-369) x10^3/uL MPV (9.4-12.3) fL Gran % (34.0-71.1) % Immature Gran % (Auto) (0.001-0.429) % Nucleat RBC Rel Count (0.00-0.2) % Eos # (Auto) (0.04-0.36) x10^3/uL Immature Gran # (Auto) (0.001-0.031) x10^3u/L Absolute Lymphs (auto) (1.18-3.74) x10^3/uL Absolute Monos (auto) (0.24-0.86) x10^3/uL Absolute Nucleated RBC (0.00-0.012) x10^3u/L Lymphocytes % (19.3-51.7) % Monocytes % (4.7-12.5) % Eosinophils % (0.7-5.8) % Basophils % (0.1-1.2) % Absolute Granulocytes (1.56-6.13) x10^3/uL Basophils # (0.01-0.08) x10^3/uL Sodium (135-145) mmol/L Potassium (3.5-5.1) mmol/L Chloride (98-107) mmol/L Carbon Dioxide (22-30) mmol/L Anion Gap (5-15) MEQ/L BUN (7-17) mg/dL Creatinine (0.52-1.04) mg/dL Estimated GFR ML/MIN Glucose (74-106) mg/dL POC Glucometer 55 L 54 L 149 H (74 to 106) mg/dL Calcium (8.4-10.2) mg/dL Total Bilirubin (0.2-1.3) mg/dL AST (14-36) U/L ALT (0-35) U/L Alkaline Phosphatase (38-126) U/L Serum Total Protein (6.3-8.2) g/dL Albumin (3.5-5.0) g/dL 02/15/24 02/15/24 02/15/24 Range/Units 19:13 21:56 22:30 WBC (3.98-10.04) x10^3/uL RBC (3.93-5.22) x10^6/uL Hgb (11.2-15.7) g/dL Hct (34.1-44.9) % MCV (79.4-94.8) fL MCH (25.6-32.2) pg MCHC (32.2-35.5) g/dL RDW (11.7-14.4) % Plt Count (182-369) x10^3/uL MPV (9.4-12.3) fL Gran % (34.0-71.1) % Immature Gran % (Auto) (0.001-0.429) % Nucleat RBC Rel Count (0.00-0.2) % Eos # (Auto) (0.04-0.36) x10^3/uL Immature Gran # (Auto) (0.001-0.031) x10^3u/L Absolute Lymphs (auto) (1.18-3.74) x10^3/uL Absolute Monos (auto) (0.24-0.86) x10^3/uL Absolute Nucleated RBC (0.00-0.012) x10^3u/L Lymphocytes % (19.3-51.7) % Monocytes % (4.7-12.5) % Eosinophils % (0.7-5.8) % Basophils % (0.1-1.2) % Absolute Granulocytes (1.56-6.13) x10^3/uL Basophils # (0.01-0.08) x10^3/uL Sodium (135-145) mmol/L Potassium 4.0 D 4.1 (3.5-5.1) mmol/L Chloride (98-107) mmol/L Carbon Dioxide (22-30) mmol/L Anion Gap (5-15) MEQ/L BUN (7-17) mg/dL Creatinine (0.52-1.04) mg/dL Estimated GFR ML/MIN Glucose (74-106) mg/dL POC Glucometer 285 H (74 to 106) mg/dL Calcium (8.4-10.2) mg/dL Total Bilirubin (0.2-1.3) mg/dL AST (14-36) U/L ALT (0-35) U/L Alkaline Phosphatase (38-126) U/L Serum Total Protein (6.3-8.2) g/dL Albumin (3.5-5.0) g/dL 02/16/24 02/16/24 02/16/24 Range/Units 03:00 03:00 07:25 WBC 7.1 (3.98-10.04) x10^3/uL RBC 3.99 (3.93-5.22) x10^6/uL Hgb 12.1 (11.2-15.7) g/dL Hct 36.0 (34.1-44.9) % MCV 90.2 (79.4-94.8) fL MCH 30.3 (25.6-32.2) pg MCHC 33.6 (32.2-35.5) g/dL RDW 13.4 (11.7-14.4) % Plt Count 187 (182-369) x10^3/uL MPV 10.4 (9.4-12.3) fL Gran % 51.9 (34.0-71.1) % Immature Gran % (Auto) 0.6 H (0.001-0.429) % Nucleat RBC Rel Count 0.0 (0.00-0.2) % Eos # (Auto) 0.38 H (0.04-0.36) x10^3/uL Immature Gran # (Auto) 0.04 H (0.001-0.031) x10^3u/L Absolute Lymphs (auto) 2.41 (1.18-3.74) x10^3/uL Absolute Monos (auto) 0.51 (0.24-0.86) x10^3/uL Absolute Nucleated RBC 0.00 (0.00-0.012) x10^3u/L Lymphocytes % 34.2 (19.3-51.7) % Monocytes % 7.2 (4.7-12.5) % Eosinophils % 5.4 (0.7-5.8) % Basophils % 0.7 (0.1-1.2) % Absolute Granulocytes 3.66 (1.56-6.13) x10^3/uL Basophils # 0.05 (0.01-0.08) x10^3/uL Sodium 140 (135-145) mmol/L Potassium 4.0 (3.5-5.1) mmol/L Chloride 111 H (98-107) mmol/L Carbon Dioxide 26 (22-30) mmol/L Anion Gap 6.5 (5-15) MEQ/L BUN 8 (7-17) mg/dL Creatinine 0.53 (0.52-1.04) mg/dL Estimated GFR 95.2 ML/MIN Glucose 80 (74-106) mg/dL POC Glucometer 92 (74 to 106) mg/dL Calcium 8.2 L (8.4-10.2) mg/dL Total Bilirubin 0.60 (0.2-1.3) mg/dL AST 89 H (14-36) U/L ALT 51 H (0-35) U/L Alkaline Phosphatase 73 (38-126) U/L Serum Total Protein 5.2 L (6.3-8.2) g/dL Albumin 2.6 L (3.5-5.0) g/dL 02/16/24 Range/Units 11:23 WBC (3.98-10.04) x10^3/uL RBC (3.93-5.22) x10^6/uL Hgb (11.2-15.7) g/dL Hct (34.1-44.9) % MCV (79.4-94.8) fL MCH (25.6-32.2) pg MCHC (32.2-35.5) g/dL RDW (11.7-14.4) % Plt Count (182-369) x10^3/uL MPV (9.4-12.3) fL Gran % (34.0-71.1) % Immature Gran % (Auto) (0.001-0.429) % Nucleat RBC Rel Count (0.00-0.2) % Eos # (Auto) (0.04-0.36) x10^3/uL Immature Gran # (Auto) (0.001-0.031) x10^3u/L Absolute Lymphs (auto) (1.18-3.74) x10^3/uL Absolute Monos (auto) (0.24-0.86) x10^3/uL Absolute Nucleated RBC (0.00-0.012) x10^3u/L Lymphocytes % (19.3-51.7) % Monocytes % (4.7-12.5) % Eosinophils % (0.7-5.8) % Basophils % (0.1-1.2) % Absolute Granulocytes (1.56-6.13) x10^3/uL Basophils # (0.01-0.08) x10^3/uL Sodium (135-145) mmol/L Potassium (3.5-5.1) mmol/L Chloride (98-107) mmol/L Carbon Dioxide (22-30) mmol/L Anion Gap (5-15) MEQ/L BUN (7-17) mg/dL Creatinine (0.52-1.04) mg/dL Estimated GFR ML/MIN Glucose (74-106) mg/dL POC Glucometer 217 H (74 to 106) mg/dL Calcium (8.4-10.2) mg/dL Total Bilirubin (0.2-1.3) mg/dL AST (14-36) U/L ALT (0-35) U/L Alkaline Phosphatase (38-126) U/L Serum Total Protein (6.3-8.2) g/dL Albumin (3.5-5.0) g/dL Micro Results-Entire Visit: Microbiology 02/14/24 20:02 Urine Culture - Final Catherized NO GROWTH 02/14/24 Unknown Stool Culture Result 1 - Final Stool Not Reportable Stool Culture Result 2 - Final Not Reportable Stool Culture Result 3 - Final Not Reportable Stool Culture Result 4 - Final Not Reportable Stool Culture Organism Suscept - Final Not Reportable Campylobacter Result 1 - Final Not Reportable Campylobacter Result 2 - Final Not Reportable Campylobactor Result 3 - Final Not Reportable Campylobacter Result 4 - Final Not Reportable Campylobactor Susceptibility - Final Not Reportable Accuchecks Date 02/16/24 Date 02/15/24 Date 02/15/24 Time 17:03 Time 16:39 - Radiology Exams Ordered Rad Exams-Entire Visit: Radiology Procedures Category Date Time Status ABDOMEN AND PELVIS W/0 CONTRAS [CT] Stat Exams 02/14/24 19:43 Completed HEAD WITHOUT CONTRAST [CT] Stat Exams 02/14/24 19:44 Completed MRI BRAIN W/O CONTRAST [MRI] Routine Exams 02/16/24 11:12 Ordered - Procedures and Test Procedures and Tests throughout Hospitalization: Therapy Orders & Screens 02/14/24 23:45 Respiratory Therapy Consult ONCE Comment: Reason For Exam: 02/14/24 23:54 PT Eval & Treat (MD Order) ONCE Reason for Eval:: weakness Diagnosis: elevated blood sugar 02/15/24 00:52 OT Screen per Nursing Assess ONCE Comment: Protocol Order Physician Instructions: Greater than 3 points order OT Admission Screening Reason For Exam: Triggered on Admission Diagnosis: elevated blood sugar Open Wound/Cellutlitis/Pressure Ulcers: No Acute Fx/ORIF/Change in wt bearing status: No Severe MUSCULOSKELETAL pain: No ADL Dysfunction: Yes Acute CVA w/Hemiparesis/Hemiplegia: No Decreased Functional Mobility/Strength: Yes Sprain/Strain: No Acute Post-op Mobility Dysfunction: No Total Points: 4 PT Screen per Nursing Assess ONCE Comment: Protocol Order Physician Instructions: Greater than 3 points order PT Admission Screenin Reason For Exam: Triggered on Admission Diagnosis: elevated blood sugar Open Wound/Cellutlitis/Pressure Ulcers: No Acute Fx/ORIF/Change in wt bearing status: No Severe MUSCULOSKELETAL pain: No ADL Dysfunction: Yes Acute CVA w/Hemiparesis/Hemiplegia: No Decreased Functional Mobility/Strength: Yes Sprain/Strain: No Acute Post-op Mobility Dysfunction: No Total Points: 4 Discharge Exam General Appearance: no apparent distress, alert Neurologic Exam: alert, oriented x 3, cooperative, normal mood/affect, nml cerebellar function, sensation nml, No motor deficits Eye Exam: PERRL, EOMI, eyes nml inspection Ears, Nose, Throat Exam: normal ENT inspection, pharynx normal, moist mucous membranes Neck Exam: normal inspection, non-tender, supple, full range of motion Respiratory Exam: normal breath sounds, lungs clear, No respiratory distress Cardiovascular Exam: regular rate/rhythm, normal heart sounds Gastrointestinal/Abdomen Exam: soft, No tenderness, No mass Pelvic Exam: deferred Rectal Exam: deferred Back Exam: normal inspection, normal range of motion, No CVA tenderness, No vertebral tenderness Extremity Exam: normal inspection, normal range of motion, other (right hand weakness from old CVA) Skin Exam: normal color, warm, dry, other (erythemia or groin, barrier cream applied) Final Diagnosis/Problem List - Final Discharge Diagnosis/Problem (1) Incontinent of feces Current Visit: Yes Status: Chronic Assessment & Plan: - with erythema of groin- barrier cream applied - wears diapers. Code(s): R15.9 - FULL INCONTINENCE OF FECES (2) Incontinent of urine Current Visit: Yes Status: Chronic Assessment & Plan: - with erythema of groin- barrier cream applied - wears diapers. Code(s): R32 - UNSPECIFIED URINARY INCONTINENCE (3) Altered mental status Current Visit: Yes Status: Acute Assessment & Plan: -neurology consulted with the following recs - CT head was negative -start ASA -obtain MRI brain and C spine w/o con -NCS/EMG of upper extremities in the outpatient -PT/OT -CBC,CMP, amylase,lipase,TSH unrevealing -Delirium precautions -secondary stroke prevention with ASA 81mg daily, statin - MRI brain: Impression: Atrophy, degenerative micro-ischemia, and remote lacunar infarcts as detailed. No acute intracranial abnormalities or evidence for evolving large vessel territorial stroke. 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 Assessment & Plan: - Appears chronic - MRI pending today Code(s): M21.331 - WRIST DROP, RIGHT WRIST (6) UTI (urinary tract infection) Current Visit: Yes Status: Acute Assessment & Plan: -urine culture negative- stopped antibiotics - Stopped IVF Code(s): N39.0 - URINARY TRACT INFECTION, SITE NOT SPECIFIED (7) Weakness Current Visit: Yes Status: Acute Assessment & Plan: -PT/OT Code(s): R53.1 - WEAKNESS (8) Chronic diarrhea Current Visit: Yes Status: Chronic Assessment & Plan: -stool cultures from 02/09 negative -CDiff negative -immodium/lomotil Code(s): K52.9 - NONINFECTIVE GASTROENTERITIS AND COLITIS, UNSPECIFIED (9) Hypertension Current Visit: No Status: Chronic Assessment & Plan: -stable - continue home meds Code(s): I10 - ESSENTIAL (PRIMARY) HYPERTENSION (10) Noncompliance Current Visit: Yes Status: Acute Assessment & Plan: - unable to care for self - has been living in hotel - refuses ECF placement - Not taking meds as prescribed. - Incontinence of bowel and bladder - Psych consult Code(s): Z91.199 - PT NONCOMPL WITH OTHER MED TRTMT AND REGIMEN D/T UNSP REASON - Discharge Discharge Date: 02/16/24 Disposition: Home, Self-Care Condition: Good Prescriptions: New Aspirin EC 81 mg [Ecotrin 81 mg] 81 mg PO DAILY 30 Days #30 tablet Lactobacillus Acidophilus [Acidophilus] 1 each PO DAILY 30 Days #30 cap Discontinued Cefdinir 300 mg PO BID 7 Days #14 cap Diphenoxylate HCl/Atropine [Lomotil] 1 tablet PO QID PRN PRN 14 Days # 28 tablet PRN Reason: Diarrhea Follow up with: CURTIS HOFFMAN MD [Primary Care Provider] - 02/23/24 2:15 pm
--- NOTE | 2024-02-16 12:27 | XRAY ---
Indication: Weakness. Altered mental status. Negative CT head February 14, 2024. Sagittal, coronal, and axial MRI brain performed without contrast using T1, T2, FLAIR, diffusion, and ADC sequences. Comparison: None Age-appropriate global atrophy and moderate periventricular degenerative micro-ischemia bilaterally. Remote lacunar infarcts both basal ganglia and right frontal lobe. No acute intracranial hemorrhage, abnormal extra-axial fluid collection, or or mass effect. Diffusion images are negative for restricted signal. Fourth ventricle is midline without hydrocephalus. 7/8 cranial nerve complex bilaterally symmetric. Normal flow void signal within the major intracerebral circulation. Normal appearing craniocervical junction and sella turcica. Paranasal sinuses are clear. Impression: Atrophy, degenerative micro-ischemia, and remote lacunar infarcts as detailed. No acute intracranial abnormalities or evidence for evolving large vessel territorial stroke.
--- NOTE | 2024-02-16 15:53 | PCM.NOTE ---
Date and Time: 02/16/24 1550 Subjective Assessment: Ms. SUH is a 78 year old female with a past medical history significant for hypertension, diabetes and previous CVA. She was here with a recent admission for elevated blood sugars and UTI who was discharged on oral antibiotics and insulin, but has not been taking care of her sugars presents to the ER with complaints of weakness and found to have a blood sugars in the 400 range. Her urinalysis was still significant for UTI and she was seen by teleneurology for evaluation of her weakness. CT head was negative, but she was recommended to start ASA and obtain MRI brain and eventually EMG. She is resting in bed, sleepy but arousable. No fever/chills. No chest pain or shortness of breath. No nausea, vomiting but has been having diarrhea. No dysuria, hematuria or foamy urine. Electrolytes and kidney function were within normal limits. 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 She is scheduled for an MRI today. Ucult from previous admission showing Klebsiella/ enterococcus. Abx changed to levaquin 02/14. Patient reports she has not been taking prescribed insulin she was sent home because she keeps it in the fridge "and it's filled with cockroaches." Neurology consulted for AMS/weakness - plan for MRI tomorrow. Patient states she has nowhere to go if discharged. Please see notes regarding previous admission. CM to discuss options with patient. Psych consulted today. She has groin redness from urine and stool incontinence that is chronic OP. She denies any further concerns at this time. This afternoon pt called her son and stated she was suicidal. She said if she has to leave the hospital she will kill herself. Her son called case management and is very concerned. Awaiting psych consult at this time. Nurse to make Psych aware of suicidal ideation now. - Review of Systems Constitutional: No Fever, No Chills Eyes: No Symptoms Ears, Nose, & Throat: No Symptoms Respiratory: No Cough, No Short Of Breath Cardiac: No Chest Pain, No Edema, No Syncope Abdominal/Gastrointestinal: No Abdominal Pain, No Nausea, No Vomiting, No Diarrhea Genitourinary Symptoms: No Dysuria Musculoskeletal: No Back Pain, No Neck Pain Skin: No Rash Neurological: No Dizziness, No Focal Weakness, No Sensory Changes Psychological: No Symptoms, Suicidal Ideations, Emotional Lability Endocrine: No Symptoms Hematologic/Lymphatic: No Symptoms Immunological/Allergic: No Symptoms Objective Exam General Appearance: no apparent distress, alert Neurologic Exam: alert, oriented x 3, cooperative, normal mood/affect, nml cerebellar function, sensation nml, uncooperative, No motor deficits Skin Exam: normal color, warm, dry Wound Assessment: Skin/Wound Assessment Wound/Incision Assessment Start: 02/16/24 11:07 Text: Status: Active Freq: Q6H Protocol: Document 02/16/24 12:00 EK (Rec: 02/16/24 14:13 EK [id number]) Wound/Incision Assessment Other Wound Assessment Shift Assessment Wound Type EXCORIATION TO [place] REGION Comment SKIN INTACT- BARRIER CREAM APPLIED Wound Photo Photo Taken No Eye Exam: PERRL, EOMI, eyes nml inspection Ears, Nose, Throat Exam: normal ENT inspection, pharynx normal, moist mucous membranes Neck Exam: normal inspection, non-tender, supple, full range of motion Respiratory Exam: normal breath sounds, lungs clear, No respiratory distress Cardiovascular Exam: regular rate/rhythm, normal heart sounds Gastrointestinal/Abdomen Exam: soft, No tenderness, No mass Extremity Exam: normal inspection, normal range of motion Back Exam: normal inspection, normal range of motion, No CVA tenderness, No vertebral tenderness Pelvic Exam: deferred Rectal Exam: deferred Objective Data Vital Signs: Vital Signs - 24 hr Temp Pulse Resp BP Pulse Ox 02/16/24 11:54 98.5 F 63 20 151/70 97 02/16/24 08:00 97.6 F 68 18 146/74 96 02/16/24 04:00 97.7 F 60 18 139/70 96 02/16/24 00:00 97.8 F 65 17 135/66 96 02/15/24 20:00 98.7 F 76 16 137/59 96 02/15/24 16:00 97.5 F 73 16 122/61 97 Pain Assessment - Last Documented Pain Intensity 0 Intake and Output: Intake & Output 02/14/24 02/15/24 02/16/24 02/17/24 11:59 11:59 11:59 11:59 Intake Total 518 9824 380 Balance 518 2454 380 Weight 50.7 kg Lab Results: Lab Results-Last 24 Hours 02/15/24 02/15/24 02/15/24 Range/Units 16:39 16:42 17:01 WBC (3.98-10.04) x10^3/uL RBC (3.93-5.22) x10^6/uL Hgb (11.2-15.7) g/dL Hct (34.1-44.9) % MCV (79.4-94.8) fL MCH (25.6-32.2) pg MCHC (32.2-35.5) g/dL RDW (11.7-14.4) % Plt Count (182-369) x10^3/uL MPV (9.4-12.3) fL Gran % (34.0-71.1) % Immature Gran % (Auto) (0.001-0.429) % Nucleat RBC Rel Count (0.00-0.2) % Eos # (Auto) (0.04-0.36) x10^3/uL Immature Gran # (Auto) (0.001-0.031) x10^3u/L Absolute Lymphs (auto) (1.18-3.74) x10^3/uL Absolute Monos (auto) (0.24-0.86) x10^3/uL Absolute Nucleated RBC (0.00-0.012) x10^3u/L Lymphocytes % (19.3-51.7) % Monocytes % (4.7-12.5) % Eosinophils % (0.7-5.8) % Basophils % (0.1-1.2) % Absolute Granulocytes (1.56-6.13) x10^3/uL Basophils # (0.01-0.08) x10^3/uL Sodium (135-145) mmol/L Potassium (3.5-5.1) mmol/L Chloride (98-107) mmol/L Carbon Dioxide (22-30) mmol/L Anion Gap (5-15) MEQ/L BUN (7-17) mg/dL Creatinine (0.52-1.04) mg/dL Estimated GFR ML/MIN Glucose (74-106) mg/dL POC Glucometer 55 L 54 L 149 H (74 to 106) mg/dL Calcium (8.4-10.2) mg/dL Total Bilirubin (0.2-1.3) mg/dL AST (14-36) U/L ALT (0-35) U/L Alkaline Phosphatase (38-126) U/L Serum Total Protein (6.3-8.2) g/dL Albumin (3.5-5.0) g/dL 02/15/24 02/15/24 02/15/24 Range/Units 19:13 21:56 22:30 WBC (3.98-10.04) x10^3/uL RBC (3.93-5.22) x10^6/uL Hgb (11.2-15.7) g/dL Hct (34.1-44.9) % MCV (79.4-94.8) fL MCH (25.6-32.2) pg MCHC (32.2-35.5) g/dL RDW (11.7-14.4) % Plt Count (182-369) x10^3/uL MPV (9.4-12.3) fL Gran % (34.0-71.1) % Immature Gran % (Auto) (0.001-0.429) % Nucleat RBC Rel Count (0.00-0.2) % Eos # (Auto) (0.04-0.36) x10^3/uL Immature Gran # (Auto) (0.001-0.031) x10^3u/L Absolute Lymphs (auto) (1.18-3.74) x10^3/uL Absolute Monos (auto) (0.24-0.86) x10^3/uL Absolute Nucleated RBC (0.00-0.012) x10^3u/L Lymphocytes % (19.3-51.7) % Monocytes % (4.7-12.5) % Eosinophils % (0.7-5.8) % Basophils % (0.1-1.2) % Absolute Granulocytes (1.56-6.13) x10^3/uL Basophils # (0.01-0.08) x10^3/uL Sodium (135-145) mmol/L Potassium 4.0 D 4.1 (3.5-5.1) mmol/L Chloride (98-107) mmol/L Carbon Dioxide (22-30) mmol/L Anion Gap (5-15) MEQ/L BUN (7-17) mg/dL Creatinine (0.52-1.04) mg/dL Estimated GFR ML/MIN Glucose (74-106) mg/dL POC Glucometer 285 H (74 to 106) mg/dL Calcium (8.4-10.2) mg/dL Total Bilirubin (0.2-1.3) mg/dL AST (14-36) U/L ALT (0-35) U/L Alkaline Phosphatase (38-126) U/L Serum Total Protein (6.3-8.2) g/dL Albumin (3.5-5.0) g/dL 02/16/24 02/16/24 02/16/24 Range/Units 03:00 03:00 07:25 WBC 7.1 (3.98-10.04) x10^3/uL RBC 3.99 (3.93-5.22) x10^6/uL Hgb 12.1 (11.2-15.7) g/dL Hct 36.0 (34.1-44.9) % MCV 90.2 (79.4-94.8) fL MCH 30.3 (25.6-32.2) pg MCHC 33.6 (32.2-35.5) g/dL RDW 13.4 (11.7-14.4) % Plt Count 187 (182-369) x10^3/uL MPV 10.4 (9.4-12.3) fL Gran % 51.9 (34.0-71.1) % Immature Gran % (Auto) 0.6 H (0.001-0.429) % Nucleat RBC Rel Count 0.0 (0.00-0.2) % Eos # (Auto) 0.38 H (0.04-0.36) x10^3/uL Immature Gran # (Auto) 0.04 H (0.001-0.031) x10^3u/L Absolute Lymphs (auto) 2.41 (1.18-3.74) x10^3/uL Absolute Monos (auto) 0.51 (0.24-0.86) x10^3/uL Absolute Nucleated RBC 0.00 (0.00-0.012) x10^3u/L Lymphocytes % 34.2 (19.3-51.7) % Monocytes % 7.2 (4.7-12.5) % Eosinophils % 5.4 (0.7-5.8) % Basophils % 0.7 (0.1-1.2) % Absolute Granulocytes 3.66 (1.56-6.13) x10^3/uL Basophils # 0.05 (0.01-0.08) x10^3/uL Sodium 140 (135-145) mmol/L Potassium 4.0 (3.5-5.1) mmol/L Chloride 111 H (98-107) mmol/L Carbon Dioxide 26 (22-30) mmol/L Anion Gap 6.5 (5-15) MEQ/L BUN 8 (7-17) mg/dL Creatinine 0.53 (0.52-1.04) mg/dL Estimated GFR 95.2 ML/MIN Glucose 80 (74-106) mg/dL POC Glucometer 92 (74 to 106) mg/dL Calcium 8.2 L (8.4-10.2) mg/dL Total Bilirubin 0.60 (0.2-1.3) mg/dL AST 89 H (14-36) U/L ALT 51 H (0-35) U/L Alkaline Phosphatase 73 (38-126) U/L Serum Total Protein 5.2 L (6.3-8.2) g/dL Albumin 2.6 L (3.5-5.0) g/dL 02/15/ Range/Units 11:23 WBC (3.98-10.04) x10^3/uL RBC (3.93-5.22) x10^6/uL Hgb (11.2-15.7) g/dL Hct (34.1-44.9) % MCV (79.4-94.8) fL MCH (25.6-32.2) pg MCHC (32.2-35.5) g/dL RDW (11.7-14.4) % Plt Count (182-369) x10^3/uL MPV (9.4-12.3) fL Gran % (34.0-71.1) % Immature Gran % (Auto) (0.001-0.429) % Nucleat RBC Rel Count (0.00-0.2) % Eos # (Auto) (0.04-0.36) x10^3/uL Immature Gran # (Auto) (0.001-0.031) x10^3u/L Absolute Lymphs (auto) (1.18-3.74) x10^3/uL Absolute Monos (auto) (0.24-0.86) x10^3/uL Absolute Nucleated RBC (0.00-0.012) x10^3u/L Lymphocytes % (19.3-51.7) % Monocytes % (4.7-12.5) % Eosinophils % (0.7-5.8) % Basophils % (0.1-1.2) % Absolute Granulocytes (1.56-6.13) x10^3/uL Basophils # (0.01-0.08) x10^3/uL Sodium (135-145) mmol/L Potassium (3.5-5.1) mmol/L Chloride (98-107) mmol/L Carbon Dioxide (22-30) mmol/L Anion Gap (5-15) MEQ/L BUN (7-17) mg/dL Creatinine (0.52-1.04) mg/dL Estimated GFR ML/MIN Glucose (74-106) mg/dL POC Glucometer 217 H (74 to 106) mg/dL Calcium (8.4-10.2) mg/dL Total Bilirubin (0.2-1.3) mg/dL AST (14-36) U/L ALT (0-35) U/L Alkaline Phosphatase (38-126) U/L Serum Total Protein (6.3-8.2) g/dL Albumin (3.5-5.0) g/dL Radiology Exams: Radiology Procedures Category Date Time Status ABDOMEN AND PELVIS W/0 CONTRAS [CT] Stat Exams 02/14/24 19:43 Completed HEAD WITHOUT CONTRAST [CT] Stat Exams 02/14/24 19:44 Completed MRI BRAIN W/O CONTRAST [MRI] Routine Exams 02/16/24 11:12 Completed Multi-Disciplinary Progress Notes: Multi-Disciplinary Progress Notes 02/16/24 14:21 Case Management Note by Ashly Butler PATIENT GIVEN SONS PHONE NUMBERS AND INSTRUCTED THAT HE SAID SHE COULD CALL HIM ANYTIME AND HE WOULD HELP HER THE BEST HE CAN . PHONE NUMBERS STAPLED TO DC FOLDER. PATIENT REPORTS THAT THIS SON HAS NEVER OFFERED TO HELP HER IN THE PAST. SHE THEN STARTED TO CRITIQUE HIS HOME "IT LOOKS LIKE A BUNCH OF OLD MAIDS LIVE THERE". PATIENT GIVEN SEVERAL EXAMPLES OF WAYS THAT SON HAS STATED HE HAS TRIED TO HELP HER. SHE STATED ALL THAT IS A LIE AND "WORDS ARE WORDS" Initialized on 02/16/24 14:21 - END OF NOTE 02/16/24 13:58 (created 02/16/24 14:20) Case Management Note by Leslie Broussard PT'S SON GEORGE BAUTISTA CALLED TO REPORT THAT HIS MOTHER CALLED HIM AND TOLD HIM THAT SHE WAS BEING DISCHARGED TODAY. HE STATES, "I KNOW SHE IS CRYING GEIGER." BUT STATES," SHE JUST TOLD ME THAT IF SHE IS DISCHARGED TODAY SHE IS GOING TO KILL HERSELF." REPORTED TO JACINDA DERAS NP. [facility] PSYCH EVAL. Initialized on 02/16/24 14:20 - END OF NOTE 02/16/24 13:40 Case Management Note by Ashly Butler PATIENT DENIES CURRENT ABUSE Initialized on 02/16/24 13:40 - END OF NOTE 02/16/24 13:02 Case Management Note by Ashly Butler Addendum entered by Ashly Butler 02/16/24 13:14: [facility]CO REPORTS THEY TRIED TO REACH PATIENT ON TO DISCUSS NEEDS/OPTIONS- PATIENT REFUSED TO ANSWER HER PHONE. PATIENT ALSO REPORTS SHE CURRENTLY AT $3000 Original Note: THIS HARNESS INSTALLER VERY FAMILIAR WITH PATIENT- PATIENT DOES HAS NOT MET INPT CRITERIA AGAIN DURING THIS STAY TO USE HER MEDICARE REHAB DAYS. PATIENT DOES NOT HAVE MEDICAID TO GO UNDER. PATIENT AGAIN REFUSES TO PRIVATE PAY A [place] STAY. SHE ALSO REFUSES TO GO TO THE [place] PENDING TO LIVE. " IM NOT DOING THAT, I WORK TOO HARD FOR MY MONEY". I AGAIN TRIED TO REASON WITH PATIENT ABOUT HER CURRENT SITUATION AND HER NEEDING TO DO WHAT SHE NEEDS TO TO BE CARED FOR. PATIENT REFUSING. SHE ALSO STATES SHE IS NOT RETURNING TO THE HOTEL. SHE WILL LIVE IN HER CAR. THIS HARNESS INSTALLER HAS HAD 2 LONG CONVERSATIONS WITH PATIENTS SON, GEORGE BAUTISTA. HE REPORTS HE HAS TRIED TO GET PATIENT TO MOVE TO HIS REGION ([place]) AND WORKED TO FIND HER A PLACE TO LIVE BUT THEN PATIENT REFUSED TO GIVEN HIM A BUDGET TO WORK WITH AND QUIT TALKING TO HIM SAYING THAT HE JUST WAN PAT TO CONTROL HER. SHE HAS NO RELATIONSHIP WITH HER OTHER 3 CHILDREN D/T PAST CIRCUMSTANCES. GEORGE HAS TRIED TO HELP PATIENT IN SEVERAL DIFFERENT WAYS SUCH BUYING HER GROCERIES AND PAYING UTILITIES AND SUCH. SHE NOW REFUSES TO TALK TO HIM. HE HAS CALLED HER SEVERAL TIMES BUT SHE REFUSES TO ANSWER FOR HIM EVEN THO SHE WILL ANSWER THE PHONE FOR HER FRIEND THAT LIVES STATES AWAY. HE IS WILLING TO HELP PATIENT GET HER STUFF OUT OF HER HOME AND HELP FIND HER HOUSING BUT HE REPORTS THAT LOCALLY NO ONE WILL RENT TO HER. HE IS ALSO NO WILLING TO LET PATIENT STAY WITH HIM FOR THE TIME BEING. CONDUCTED BIMS SCORE- SCORE 13, COGNITIVELY INTACT- SCORING PLACED IN CHART Initialized on 02/16/24 13:02 - END OF NOTE Assessment/Plan (1) Altered mental status Current Visit: Yes Status: Acute Code(s): R41.82 - ALTERED MENTAL STATUS, UNSPECIFIED (2) Noncompliance Current Visit: Yes Status: Acute Code(s): Z91.199 - PT NONCOMPL WITH OTHER MED TRTMT AND REGIMEN D/T UNSP REASON (3) Incontinent of feces Current Visit: Yes Status: Chronic Code(s): R15.9 - FULL INCONTINENCE OF FECES (4) Incontinent of urine Current Visit: Yes Status: Chronic Code(s): R32 - UNSPECIFIED URINARY INCONTINENCE (5) Hyperglycemia due to type 2 diabetes mellitus Current Visit: Yes Status: Acute Qualifiers: Code(s): E11.65 - TYPE 2 DIABETES MELLITUS WITH HYPERGLYCEMIA (6) Right wrist drop Current Visit: Yes Status: Chronic Code(s): M21.331 - WRIST DROP, RIGHT WRIST (7) UTI (urinary tract infection) Current Visit: Yes Status: Acute Code(s): N39.0 - URINARY TRACT INFECTION, SITE NOT SPECIFIED (8) Weakness Current Visit: Yes Status: Acute Code(s): R53.1 - WEAKNESS (9) Chronic diarrhea Current Visit: Yes Status: Chronic Code(s): K52.9 - NONINFECTIVE GASTROENTERITIS AND COLITIS, UNSPECIFIED (10) Hypertension Current Visit: No Status: Chronic Qualifiers: Hypertension type: other secondary hypertension Qualified Code(s): I15.8 - Other secondary hypertension Assessment & Plan: (1) Incontinent of feces Current Visit: Yes Status: Chronic Assessment & Plan: - with erythema of groin- barrier cream applied - wears diapers. Code(s): R15.9 - FULL INCONTINENCE OF FECES (2) Incontinent of urine Current Visit: Yes Status: Chronic Assessment & Plan: - with erythema of groin- barrier cream applied - wears diapers. Code(s): R32 - UNSPECIFIED URINARY INCONTINENCE (3) Altered mental status Current Visit: Yes Status: Acute Assessment & Plan: -neurology consulted with the following recs - CT head was negative -start ASA -obtain MRI brain and C spine w/o con -NCS/EMG of upper extremities in the outpatient -PT/OT -CBC,CMP, amylase,lipase,TSH unrevealing -Delirium precautions -secondary stroke prevention with ASA 81mg daily, statin - MRI brain: Impression: Atrophy, degenerative micro-ischemia, and remote lacunar infarcts as detailed. No acute intracranial abnormalities or evidence for evolving large vessel territorial stroke. 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 Assessment & Plan: - Appears chronic - MRI pending today Code(s): M21.331 - WRIST DROP, RIGHT WRIST (6) UTI (urinary tract infection) Current Visit: Yes Status: Acute Assessment & Plan: -urine culture negative- stopped antibiotics - Stopped IVF Code(s): N39.0 - URINARY TRACT INFECTION, SITE NOT SPECIFIED (7) Weakness Current Visit: Yes Status: Acute Assessment & Plan: -PT/OT Code(s): R53.1 - WEAKNESS (8) Chronic diarrhea Current Visit: Yes Status: Chronic Assessment & Plan: -stool cultures from 02/09 negative -CDiff negative -immodium/lomotil Code(s): K52.9 - NONINFECTIVE GASTROENTERITIS AND COLITIS, UNSPECIFIED (9) Hypertension Current Visit: No Status: Chronic Assessment & Plan: -stable - continue home meds Code(s): I10 - ESSENTIAL (PRIMARY) HYPERTENSION (10) Noncompliance Current Visit: Yes Status: Acute Assessment & Plan: - unable to care for self - has been living in hotel - refuses ECF placement - Not taking meds as prescribed. - Incontinence of bowel and bladder - Psych consult Code(s): Z91.199 - PT NONCOMPL WITH OTHER MED TRTMT AND REGIMEN D/T UNSP REASON Code(s): I10 - ESSENTIAL (PRIMARY) HYPERTENSION (11) Suicidal ideation Current Visit: Yes Status: Acute Assessment & Plan: - Psych consult. Code(s): R45.851 - SUICIDAL IDEATIONS
[2024-02-16] MEDS ORDERED: LEVOFLOXACIN 750MG/150ML D5W 750 MG/150 ML BAG IV SCH (22:00)
[2024-02-17 08:05] VITALS: TEMP 97.6
--- NOTE | 2024-02-17 09:54 | PCM.DS ---
Discharge Summary Date of Admission: 02/14/24 23:33 Date of Discharge: 02/17/24 Admitting Physician: JAIRO CHAMBERLAIN MD Consults: Consults on Case 02/15/24 00:52 Case Management [facility] Needs Assessment ROUTINE 02/16/24 10:30 Consult,Dalia [Psychiatric Consult] STAT Primary Care Provider: CURITS HOFFMAN Allergies Allergies No Known Drug Allergies Allergy (Verified 02/14/24 19:38) Hospital Summary - Hospital Course Hospital Course: 02/16/24 Ms. SUH is a 78 year old female with a past medical history significant for hypertension, diabetes and previous CVA. She was here with a recent admission for elevated blood sugars and UTI who was discharged on oral antibiotics and insulin, but has not been taking care of her sugars presents to the ER with complaints of weakness and found to have a blood sugars in the 400 range. Her urinalysis was still significant for UTI and she was seen by teleneurology for evaluation of her weakness. CT head was negative, but she was recommended to sta rt ASA and obtain MRI brain and eventually EMG. She is resting in bed, sleepy but arousable. No fever/chills. No chest pain or shortness of breath. No nausea, vomiting but has been having diarrhea. No dysuria, hematuria or foamy urine. Electrolytes and kidney function were within normal limits. 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 She is scheduled for an MRI today. Ucult from previous admission showing Klebsiella/ enterococcus. Abx changed to levaquin 02/14. Patient reports she has not been taking prescribed insulin she was sent home because she keeps it in the fridge "and it's filled with cockroaches." Neurology consulted for AMS/weakness - plan for MRI tomorrow. Patient states she has nowhere to go if discharged. Please see notes regarding previous admission. CM to discuss options with patient. Psych consulted today. She has groin redness from urine and stool incontinence that is chronic OP. She denies any further concerns at this time. This afternoon pt called her son and stated she was suicidal. She said if she has to leave the hospital she will kill herself. Her son called case management and is very concerned. Awaiting psych consult at this time. Nurse to make Psych aware of suicidal ideation now. 02/17/24 Pt sitting up in bed. MRI brain negative for new acute concern. She is refusing placement. Psych consulted and she denied suicidal ideation. They do not feel she needs IP psych. Discussed case with CM and she is able to afford a hotel. She also has a van. She is getting around well with a walker in her room. She is at high risk for readmission if she continues non-compliance of meds and OP care. She need to f/u with PCP as scheduled. Her grandson is meeting with her this weekend to make further arrangement for care OP. - Vitals & Intake/Output Vital Signs: Vital Signs Temperature 97.6 F 02/17/24 08:00 Pulse Rate 62 02/17/24 08:00 Respiratory Rate 13 02/17/24 08:00 Blood Pressure 133/68 02/17/24 08:00 O2 Sat by Pulse Oximetry 100 02/17/24 08:00 Intake & Output: Intake & Output 02/14/24 02/15/24 02/16/24 02/17/24 11:59 11:59 11:59 11:59 Intake Total 518 2454 740 Balance 518 2454 740 Weight 50.7 kg - Lab Result Diagrams: 02/16/24 03:00 02/16/24 03:00 Lab Results-Last 24 Hrs: Lab Results-Last 24 Hours 02/16/24 02/16/24 02/16/24 Range/Units 11:23 16:12 21:42 POC Glucometer 217 H 193 H 212 H (74 to 106) mg/dL 02/17/24 Range/Units 07:52 POC Glucometer 128 H (74 to 106) mg/dL Micro Results-Entire Visit: Microbiology 02/14/24 20:02 Urine Culture - Final Catherized NO GROWTH 02/14/24 Unknown Stool Culture Result 1 - Final Stool Not Reportable Stool Culture Result 2 - Final Not Reportable Stool Culture Result 3 - Final Not Reportable Stool Culture Result 4 - Final Not Reportable Stool Culture Organism Suscept - Final Not Reportable Campylobacter Result 1 - Final Not Reportable Campylobacter Result 2 - Final Not Reportable Campylobactor Result 3 - Final Not Reportable Campylobacter Result 4 - Final Not Reportable Campylobactor Susceptibility - Final Not Reportable Accuchecks Date 02/17/24 Date 02/16/24 Date 02/16/24 Time 08:04 - Radiology Exams Ordered Rad Exams-Entire Visit: Radiology Procedures Category Date Time Status MRI BRAIN W/O CONTRAST [MRI] Routine Exams 02/16/24 11:12 Completed - Procedures and Test Procedures and Tests throughout Hospitalization: Therapy Orders & Screens 02/14/24 23:45 Respiratory Therapy Consult ONCE Comment: Reason For Exam: 02/14/24 23:54 PT Eval & Treat (MD Order) ONCE Reason for Eval:: weakness Diagnosis: elevated blood sugar 02/15/24 00:52 OT Screen per Nursing Assess ONCE Comment: Protocol Order Physician Instructions: Greater than 3 points order OT Admission Screening Reason For Exam: Triggered on Admission Diagnosis: elevated blood sugar Open Wound/Cellutlitis/Pressure Ulcers: No Acute Fx/ORIF/Change in wt bearing status: No Severe MUSCULOSKELETAL pain: No ADL Dysfunction: Yes Acute CVA w/Hemiparesis/Hemiplegia: No Decreased Functional Mobility/Strength: Yes Sprain/Strain: No Acute Post-op Mobility Dysfunction: No Total Points: 4 PT Screen per Nursing Assess ONCE Comment: Protocol Order Physician Instructions: Greater than 3 points order PT Admission Screenin Reason For Exam: Triggered on Admission Diagnosis: elevated blood sugar Open Wound/Cellutlitis/Pressure Ulcers: No Acute Fx/ORIF/Change in wt bearing status: No Severe MUSCULOSKELETAL pain: No ADL Dysfunction: Yes Acute CVA w/Hemiparesis/Hemiplegia: No Decreased Functional Mobility/Strength: Yes Sprain/Strain: No Acute Post-op Mobility Dysfunction: No Total Points: 4 Discharge Exam General Appearance: no apparent distress, alert Neurologic Exam: alert, oriented x 3, cooperative, normal mood/affect, nml cerebellar function, sensation nml, No motor deficits Eye Exam: PERRL, EOMI, eyes nml inspection Ears, Nose, Throat Exam: normal ENT inspection, pharynx normal, moist mucous membranes Neck Exam: normal inspection, non-tender, supple, full range of motion Respiratory Exam: normal breath sounds, lungs clear, No respiratory distress Cardiovascular Exam: regular rate/rhythm, normal heart sounds Gastrointestinal/Abdomen Exam: soft, No tenderness, No mass Pelvic Exam: deferred Rectal Exam: deferred Back Exam: normal inspection, normal range of motion, No CVA tenderness, No vertebral tenderness Extremity Exam: normal inspection, normal range of motion Skin Exam: normal color, warm, dry Wound Assessment: Skin/Wound Assessment Wound/Incision Assessment Start: 02/16/24 11:07 Text: Status: Active Freq: Q6H Protocol: Document 02/17/24 06:00 MP (Rec: 02/17/24 06:08 MP [id number]) Wound/Incision Assessment Other Wound Assessment Shift Assessment Wound Type EXCORIATION TO [place] Comment SKIN INTACT- BARRIER CREAM APPLIED Wound Photo Photo Taken No Final Diagnosis/Problem List - Final Discharge Diagnosis/Problem (1) Altered mental status Current Visit: Yes Status: Acute Code(s): R41.82 - ALTERED MENTAL STATUS, UNSPECIFIED (2) Noncompliance Current Visit: Yes Status: Acute Code(s): Z91.199 - PT NONCOMPL WITH OTHER MED TRTMT AND REGIMEN D/T UNSP REASON (3) Incontinent of feces Current Visit: Yes Status: Chronic Code(s): R15.9 - FULL INCONTINENCE OF FECES (4) Incontinent of urine Current Visit: Yes Status: Chronic Code(s): R32 - UNSPECIFIED URINARY INCONTINENCE (5) Hyperglycemia due to type 2 diabetes mellitus Current Visit: Yes Status: Acute Code(s): E11.65 - TYPE 2 DIABETES MELLITUS WITH HYPERGLYCEMIA (6) Right wrist drop Current Visit: Yes Status: Chronic Code(s): M21.331 - WRIST DROP, RIGHT WRIST (7) UTI (urinary tract infection) Current Visit: Yes Status: Acute Code(s): N39.0 - URINARY TRACT INFECTION, SITE NOT SPECIFIED (8) Weakness Current Visit: Yes Status: Acute Code(s): R53.1 - WEAKNESS (9) Chronic diarrhea Current Visit: Yes Status: Chronic Code(s): K52.9 - NONINFECTIVE JOYCE ROENTERITIS AND COLITIS, UNSPECIFIED (10) Hypertension Current Visit: No Status: Chronic Code(s): I10 - ESSENTIAL (PRIMARY) HYPERTENSION (11) Suicidal ideation Current Visit: Yes Status: Acute Assessment & Plan: (1) Incontinent of feces Current Visit: Yes Status: Chronic Assessment & Plan: - with erythema of groin- barrier cream applied - wears diapers. - probiotics, imodium - c-dif negative Code(s): R15.9 - FULL INCONTINENCE OF FECES (2) Incontinent of urine Current Visit: Yes Status: Chronic Assessment & Plan: - with erythema of groin- barrier cream applied - wears diapers. Code(s): R32 - UNSPECIFIED URINARY INCONTINENCE (3) Altered mental status Current Visit: Yes Status: Acute Assessment & Plan: -neurology consulted with the following recs - CT head was negative -start ASA -obtain MRI brain and C spine w/o con -NCS/EMG of upper extremities in the outpatient -PT/OT -CBC,CMP, amylase,lipase,TSH unrevealing -Delirium precautions -secondary stroke prevention with ASA 81mg daily, statin - MRI brain: Impression: Atrophy, degenerative micro-ischemia, and remote lacunar infarcts as detailed. No acute intracranial abnormalities or evidence for evolving large vessel territorial stroke. - at baseline 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 Assessment & Plan: - Appears chronic - MRI pending reviewed- no new acute concerns Code(s): M21.331 - WRIST DROP, RIGHT WRIST (6) UTI (urinary tract infection) Current Visit: Yes Status: Acute Assessment & Plan: -urine culture negative- stopped antibiotics - Stopped IVF Code(s): N39.0 - URINARY TRACT INFECTION, SITE NOT SPECIFIED (7) Weakness Current Visit: Yes Status: Acute Assessment & Plan: -PT/OT - walking with walker in the room and getting around well Code(s): R53.1 - WEAKNESS (8) Chronic diarrhea Current Visit: Yes Status: Chronic Assessment & Plan: -stool cultures from 02/09 negative -CDiff negative -immodium/lomotil Code(s): K52.9 - NONINFECTIVE GASTROENTERITIS AND COLITIS, UNSPECIFIED (9) Hypertension Current Visit: No Status: Chronic Assessment & Plan: -stable - continue home meds Code(s): I10 - ESSENTIAL (PRIMARY) HYPERTENSION (10) Noncompliance Current Visit: Yes Status: Acute Assessment & Plan: - unable to care for self - has been living in hotel - refuses ECF placement - Not taking meds as prescribed. - Incontinence of bowel and bladder - Psych consult- report reviewed Code(s): Z91.199 - PT NONCOMPL WITH OTHER MED TRTMT AND REGIMEN D/T UNSP REASON Code(s): I10 - ESSENTIAL (PRIMARY) HYPERTENSION (11) Suicidal ideation Current Visit: Yes Status: Acute Assessment & Plan: - Psych consult. - per psych she does not meet IP psych criteria- she denies homicidal or suicidal ideation to psych worker. Code(s): R45.851 - SUICIDAL IDEATIONS Code(s): R45.851 - SUICIDAL IDEATIONS - Discharge Discharge Date: 02/17/24 Disposition: Home, Self-Care Condition: Good Prescriptions: New Aspirin EC 81 mg [Ecotrin 81 mg] 81 mg PO DAILY 30 Days #30 tablet Lactobacillus Acidophilus [Acidophilus] 1 each PO DAILY 30 Days #30 cap Discontinued Cefdinir 300 mg PO BID 7 Days #14 cap Diphenoxylate HCl/Atropine [Lomotil] 1 tablet PO QID PRN PRN 14 Days #28 tablet PRN Reason: Diarrhea Follow up with: CURTIS HOFFMAN MD [Primary Care Provider] - 02/23/24 2:15 pm
[2024-02-17 12:18] VITALS: BP 148/69; PULSE 67; RESP 15; O2SAT 98
== END 2024-02-17 15:12 | disposition home or self-care (01) ==
LOC: ED 19:16 → MED SURG 23:33
PROVIDERS: ADMIT Internal Medicine Nephrology; ATTEND Internal Medicine Nephrology
DX: E11.65 Type 2 diabetes mellitus with hyperglycemia (principal); R41.82 Altered mental status, unspecified; Z91.199 Patient's noncompliance with other medical treatment and regimen due to unspecified reason; Z59.811 Housing instability, housed, with risk of homelessness; Z59.19 Other inadequate housing; R15.9 Full incontinence of feces; R32 Unspecified urinary incontinence; M21.331 Wrist drop, right wrist; N39.0 Urinary tract infection, site not specified; R53.1 Weakness; K52.9 Noninfective gastroenteritis and colitis, unspecified; I10 Essential (primary) hypertension; R45.851 Suicidal ideations; Z79.899 Other long term (current) drug therapy; Z86.73 Personal history of transient ischemic attack (TIA), and cerebral infarction without residual deficits; Z85.3 Personal history of malignant neoplasm of breast
CPT/HCPCS: 36000; 36415; 70450; 70551; 74176; 80053; 81001; 82150; 82805; 82947; 83605; 83690; 83735; 84132; 84443; 85025; 87086; 87493; 93005; 93268; 96360; 96365; 96367; 96374; 97161; 97530; 99285; G0378; P9612; Q3014; J0696; J1650; J1815; J1817; J1956; A9270-GY

== ENCOUNTER 2024-03-01 04:49 | Inpatient (IN) | payer MEDICARE, OTHER ==
[2024-03-01 05:54] LABS: Appearance Cloudy (Clear); Bilirubin Negative (Negative); Blood Small (Negative); Epithelial Cells None Seen /HPF (None Seen); Glucose, Urine >=1000 mg/dL (Negative); Hyaline Casts NONE SEEN /LPF (0-2); Ketones Negative (Negative); Leukocyte Esterase Moderate (Negative); Nitrite Negative (Negative); Protein,Urine Dip Trace (Negative); Specific Gravity 1.025 (1.005-1.030); Urobilinogen 0.2 mg/dL (0.2); WBC >100 /HPF (0-5)
[2024-03-01 06:03] LABS: Bacteria Few /HPF (None Seen)
[2024-03-01 06:04] LABS: Budding Yeast Few /HPF (None Seen)
[2024-03-01 06:54] LABS: Absolute Neutrophil Ct (ANC) 4.92 x10^3/uL (1.56-6.13); BASOPHIL % 0.6 % (0.1-1.2); Basophil (Absolute #) 0.05 x10^3/uL (0.01-0.08); Eosinophil % 4.6 % (0.7-5.8); Eosinophil (Absolute #) 0.37 x10^3/uL (0.04-0.36); Hematocrit 38.8 % (34.1-44.9); Hemoglobin 12.8 g/dL (11.2-15.7); IMMATURE GRAN # 0.02 x10^3u/L (0.001-0.031); IMMATURE GRAN % 0.2 % (0.001-0.429); Lymphocyte (Absolute #) 2.11 x10^3/uL (1.18-3.74); Lymphocytes % 26.1 % (19.3-51.7); Mean Cell Volume 91.5 fL (79.4-94.8); Mean Corpuscular Hemoglobin 30.2 pg (25.6-32.2); Mean Platelet Volume 9.8 fL (9.4-12.3); Monocyte (Absolute #) 0.61 x10^3/uL (0.24-0.86); Monocytes % 7.5 % (4.7-12.5); Platelet Count 222 x10^3/uL (182-369); Red Blood Count 4.24 x10^6/uL (3.93-5.22); White Blood Count 8.1 x10^3/uL (3.98-10.04)
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
[2024-03-01 07:04] LABS: ALBUMIN 3.3 g/dL (3.5-5.0); ANION GAP 11.5 MEQ/L (5-15); BILIRUBIN,TOTAL 1.1 mg/dL (0.2-1.3); Calcium 8.7 mg/dL (8.4-10.2); Creatinine 1 0.54 mg/dL (0.52-1.04); EST GLOMERULAR FILTRATION RATE 94.8 ML/MIN; Potassium 3.5 mmol/L (3.5-5.1); Total Protein 6.1 g/dL (6.3-8.2)
[2024-03-01] MEDS ORDERED: ROCEPHIN 2 GM/100 ML NACL 0 GM/0 ML IVPB IV ONE (07:44)
[2024-03-01] MEDS: ROCEPHIN 2 GM/100 ML NACL 2 GM/100 ML IVPB IV ONE (07:45)
[2024-03-01] MEDS: ROCEPHIN 1 GM / 100 ML NaCl 1 GM/100 ML IVPB IV SCH (07:47)
[2024-03-01] MEDS: BENADRYL 25 MG CAPSULE PO PRN (12:12)
[2024-03-01] MEDS: Acidophilus TABLET PO SCH (12:58)
[2024-03-01] MEDS ORDERED: Diflucan 100 MG PO ONE (13:11)
--- NOTE | 2024-03-01 13:18 | PCM.HP ---
History of Present Illness - Chief Complaint Chief Complaint: UTI, FAILED OUTPATIENT Date: 03/01/24 History of Present Illness: is a 78 year old female with multiple medical problems including hypertension, hyperlipidemia, diabetes mellitus, right wrist drop, chronic abdominal pain with diarrhea, and chronic urinary incontinence. She reports she has been to multiple ERs and was seen yesterday at [facility] ER with essentially negative workup except for UTI. CT abdomen pelvis without contrast was negative as well. Patient reports still having loose stool and soreness around anus. Patient was prescribed Macrobid yesterday but does not feel any relief of UTI. Patient reports she does not have much help to take care of herself. No fever or chills reported. Denies any abdominal pain currently. Diarrhea is not any worse than usual. She reports itching in groin area and UA + for yeast, diflucan started. IV antibiotics started in ER and will continue. Glucose 311 on admission and s/s insulin started, A1C pending. Probiotics started for diarrhea. Pt c/o weakness and unable to take care of herself. She would like placement if possible. Discussed pt case with case management. Pt had a recent admission on 02/13- 02/16, she was treated for a UTI at that time. She has repeated UTI's from urinary and stool incontinence. She reports she has had multiple Colonoscopy's in the past and they have been unable to find anything. C-Diff pending, and occult stool pending. Hgb stable. She denies CP, SOB, N/V. - Review of Systems Constitutional: No Fever, No Chills Eyes: No Symptoms Ears, Nose, & Throat: No Symptoms Respiratory: No Cough, No Short Of Breath Cardiac: No Chest Pain, No Edema, No Syncope Abdominal/Gastrointestinal: Abdominal Pain, Diarrhea, No Nausea, No Vomiting Genitourinary Symptoms: No Dysuria Musculoskeletal: No Back Pain, No Neck Pain Skin: No Rash Neurological: No Dizziness, No Focal Weakness, No Sensory Changes Psychological: No Symptoms Endocrine: No Symptoms Hematologic/Lymphatic: No Symptoms Immunological/Allergic: No Symptoms Medications & Allergies Home Medications: Home Medication List Aspirin EC 81 mg [Ecotrin 81 mg] 81 mg PO DAILY 30 Days #30 tablet 02/16/24 [Rx Confirmed 03/01/24] Lactobacillus Acidophilus [Acidophilus] 1 each PO DAILY 30 Days #30 cap 02/16/24 [Rx Confirmed 03/01/24] Allergies/Adverse Reactions: Allergies Allergy/AdvReac Type Severity Reaction Status Date / Time No Known Drug Allergies Allergy Verified 03/01/24 05:29 - Past Medical History Past Medical History: Yes Neurological History: Stroke ENT History: Macular Degeneration Cardiac History: High Cholesterol Respiratory History: No Pertinent History Endocrine Medical History: Diabetes Type II Musculoskelatal History: Fibromyalgia GI Medical History: Polyps History: No Pertinent History Pyscho-Social History: Depression Reproductive Disorders: Breast Cancer Comment: rheumatic fever as a child, breast cancer with Right side masectomy - Past Surgical History Past Surgical History: Yes Neuro Surgical History: No Pertinent History Cardiac History: Cardiac Catheterization Respiratory Surgery: No Pertinent History GI Surgical History: Colon Resection, Other Genitourinary Surgical Hx: No Pertinent History Musculskeletal Surgical Hx: Orthopedic Surgery Female Surgical History: Hysterectomy, Tubal Ligation, Mastectomy Other Surgical History: gastric bypass 2014 - Social History Smoking Status: Never smoker Exposure to second hand smoke: No Alcohol: None Drug Use: none - Social Determinants of Health Will the patient participate in the screening: Yes Do you worry about a steady place to live?: Yes Do you have any problems with any of the following?: Pest (bugs,ants,or mice), Unsafe aretha/stairs, Other In the past 12 months,have you had to go without utilities?: No Have you or anyone in your house had to go without enough: Yes Transportation Issues: No Has anyone in your support network made you feel unsafe?: No Does the patient want assistance with any of the above?: Yes Comment: . - Physical Exam Vital Signs: Vital Signs - 24 hr Temp Pulse Resp BP BP Pulse Ox 03/01/24 12:00 98.1 F 63 16 167/72 97 03/01/24 09:15 98.1 F 63 16 167/72 97 03/01/24 08:01 97 03/01/24 07:30 66 175/87 98 03/01/24 07:00 61 16 164/85 98 03/01/24 06:58 97 03/01/24 06:30 181/87 97 03/01/24 06:00 71 16 171/78 97 03/01/24 05:30 63 16 173/84 98 03/01/24 05:04 171/99 98 03/01/24 04:50 98.7 F 64 16 171/99 99 General Appearance: no apparent distress, alert, thin Neurologic Exam: alert, oriented x 3, cooperative, normal mood/affect, nml cerebellar function, nml station & gait, sensation nml, No motor deficits Eye Exam: PERRL/EOMI, eyes nml inspection Ears, Nose, Throat Exam: normal ENT inspection, TMs normal, pharynx normal, moist mucous membranes Neck Exam: normal inspection, non-tender, supple, full range of motion Respiratory Exam: normal breath sounds, lungs clear, No respiratory distress Cardiovascular Exam: regular rate/rhythm, normal heart sounds, normal peripheral pulses Gastrointestinal/Abdomen Exam: soft, normal bowel sounds, No tenderness, No mass Back Exam: normal inspection, normal range of motion, No CVA tenderness, No vertebral tenderness Extremity Exam: normal inspection, normal range of motion, pelvis stable Skin Exam: normal color, warm, dry, No rash Lymphatic Exam: No adenopathy Results - Labs Lab/Micro Results: Lab Results-Last 24 Hours 03/01/24 03/01/24 03/01/24 Range/Units 05:33 06:45 06:45 WBC 8.1 (3.98-10.04) x10^3/uL RBC 4.24 (3.93-5.22) x10^6/uL Hgb 12.8 (11.2-15.7) g/dL Hct 38.8 (34.1-44.9) % MCV 91.5 (79.4-94.8) fL MCH 30.2 (25.6-32.2) pg MCHC 33.0 (32.2-35.5) g/dL RDW 13.0 (11.7-14.4) % Plt Count 222 (182-369) x10^3/uL MPV 9.8 (9.4-12.3) fL Gran % 61.0 (34.0-71.1) % Immature Gran % (Auto) 0.2 (0.001-0.429) % Nucleat RBC Rel Count 0.0 (0.00-0.2) % Eos # (Auto) 0.37 H (0.04-0.36) x10^3/uL Immature Gran # (Auto) 0.02 (0.001-0.031) x10^3u/L Absolute Lymphs (auto) 2.11 (1.18-3.74) x10^3/uL Absolute Monos (auto) 0.61 (0.24-0.86) x10^3/uL Absolute Nucleated RBC 0.00 (0.00-0.012) x10^3u/L Lymphocytes % 26.1 (19.3-51.7) % Monocytes % 7.5 (4.7-12.5) % Eosinophils % 4.6 (0.7-5.8) % Basophils % 0.6 (0.1-1.2) % Absolute Granulocytes 4.92 (1.56-6.13) x10^3/uL Basophils # 0.05 (0.01-0.08) x10^3/uL Sodium 138 (135-145) mmol/L Potassium 3.5 (3.5-5.1) mmol/L Chloride 104 (98-107) mmol/L Carbon Dioxide 26 (22-30) mmol/L Anion Gap 11.5 (5-15) MEQ/L BUN 10 (7-17) mg/dL Creatinine 0.54 (0.52-1.04) mg/dL Estimated GFR 94.8 ML/MIN Glucose 311 H (74-106) mg/dL POC Glucometer (74 to 106) mg/dL Calcium 8.7 (8.4-10.2) mg/dL Total Bilirubin 1.10 (0.2-1.3) mg/dL AST 43 H (14-36) U/L ALT 61 H (0-35) U/L Alkaline Phosphatase 102 (38-126) U/L Serum Total Protein 6.1 L (6.3-8.2) g/dL Albumin 3.3 L (3.5-5.0) g/dL Prealbumin (17.6-36.0) mg/dL Lipase 34 (23-300) U/L Urine Color Yellow (Yellow) Urine Appearance Cloudy A (Clear) Urine pH 6.0 (4.6-8.0) Ur Specific Hope 1.025 (1.005-1.030) Urine Protein Trace A (Negative) Urine Glucose (UA) >=1000 A (Negative) mg/dL Urine Ketones Negative (Negative) Urine Blood Small A (Negative) Urine Nitrite Negative (Negative) Urine Bilirubin Negative (Negative) Urine Urobilinogen 0.2 (0.2) mg/dL Ur Leukocyte Esterase Moderate A (Negative) U Hyaline Cast (Auto) NONE SEEN (0-2) /LPF Urine Microscopic RBC 11-20 A (0-5) /HPF Urine Microscopic WBC >100 A (0-5) /HPF Ur Epithelial Cells None Seen (None Seen) /HPF Urine Bacteria Few A (None Seen) /HPF Urine Yeast (Budding) Few A (None Seen) /HPF Urine Culture Reflexed YES (NO) 03/01/24 03/01/24 Range/Units 06:45 12:15 WBC (3.98-10.04) x10^3/uL RBC (3.93-5.22) x10^6/uL Hgb (11.2-15.7) g/dL Hct (34.1-44.9) % MCV (79.4-94.8) fL MCH (25.6-32.2) pg MCHC (32.2-35.5) g/dL RDW (11.7-14.4) % Plt Count (182-369) x10^3/uL MPV (9.4-12.3) fL Gran % (34.0-71.1) % Immature Gran % (Auto) (0.001-0.429) % Nucleat RBC Rel Count (0.00-0.2) % Eos # (Auto) (0.04-0.36) x10^3/uL Immature Gran # (Auto) (0.001-0.031) x10^3u/L Absolute Lymphs (auto) (1.18-3.74) x10^3/uL Absolute Monos (auto) (0.24-0.86) x10^3/uL Absolute Nucleated RBC (0.00-0.012) x10^3u/L Lymphocytes % (19.3-51.7) % Monocytes % (4.7-12.5) % Eosinophils % (0.7-5.8) % Basophils % (0.1-1.2) % Absolute Granulocytes (1.56-6.13) x10^3/uL Basophils # (0.01-0.08) x10^3/uL Sodium (135-145) mmol/L Potassium (3.5-5.1) mmol/L Chloride (98-107) mmol/L Carbon Dioxide (22-30) mmol/L Anion Gap (5-15) MEQ/L BUN (7-17) mg/dL Creatinine (0.52-1.04) mg/dL Estimated GFR ML/MIN Glucose (74-106) mg/dL POC Glucometer 419 H (74 to 106) mg/dL Calcium (8.4-10.2) mg/dL Total Bilirubin (0.2-1.3) mg/dL AST (14-36) U/L ALT (0-35) U/L Alkaline Phosphatase (38-126) U/L Serum Total Protein (6.3-8.2) g/dL Albumin (3.5-5.0) g/dL Prealbumin 10.43 L (17.6-36.0) mg/dL Lipase (23-300) U/L Urine Color (Yellow) Urine Appearance (Clear) Urine pH (4.6-8.0) Ur Specific Hope (1.005-1.030) Urine Protein (Negative) Urine Glucose (UA) (Negative) mg/dL Urine Ketones (Negative) Urine Blood (Negative) Urine Nitrite (Negative) Urine Bilirubin (Negative) Urine Urobilinogen (0.2) mg/dL Ur Leukocyte Esterase (Negative) U Hyaline Cast (Auto) (0-2) /LPF Urine Microscopic RBC (0-5) /HPF Urine Microscopic WBC (0-5) /HPF Ur Epithelial Cells (None Seen) /HPF Urine Bacteria (None Seen) /HPF Urine Yeast (Budding) (None Seen) /HPF Urine Culture Reflexed (NO) Accuchecks Date 03/01/24 Time 12:29 Assessment/Plan (1) Urinary bladder incontinence Current Visit: Yes Status: Chronic Assessment & Plan: - wears depends - repeat UTI's - adds to complexity Code(s): R32 - UNSPECIFIED URINARY INCONTINENCE (2) Hyperglycemia due to type 2 diabetes mellitus Current Visit: Yes Status: Chronic Qualifiers: Diabetes mellitus longterm insulin use: unspecified longterm insulin use status Qualified Code(s): E11.65 - Type 2 diabetes mellitus with hyperglycemia Assessment & Plan: - A1C 10.20 02/10/24- uncontrolled - noncompliance with meds - s/s insulin - unable to care for self OP Code(s): E11.65 - TYPE 2 DIABETES MELLITUS WITH HYPERGLYCEMIA (3) UTI (urinary tract infection) Current Visit: Yes Status: Acute Qualifiers: Urinary tract infection type: acute cystitis Hematuria presence: without hematuria Qualified Code(s): N30.00 - Acute cystitis without hematuria Assessment & Plan: - Ceftriaxone - UC pending - recurrent UTI's - will need OP f/u with urology at d/c Code(s): N39.0 - URINARY TRACT INFECTION, SITE NOT SPECIFIED (4) Elevated liver enzymes Current Visit: No Status: Acute Assessment & Plan: - AST 41/ ALT 61 - Liver enlarged as seen on CT abd/ pelvis Code(s): R74.8 - ABNORMAL LEVELS OF OTHER SERUM ENZYMES (5) HTN (hypertension) Current Visit: No Status: Chronic Assessment & Plan: - Start amlodipine - Trend BP Code(s): I10 - ESSENTIAL (PRIMARY) HYPERTENSION (6) Weakness Current Visit: No Status: Acute Assessment & Plan: - PT eval and treat - Pt would like placement Code(s): R53.1 - WEAKNESS (7) Chronic diarrhea Current Visit: No Status: Chronic Assessment & Plan: - Occult stool- pending - C-diff - pending - Probiotics - CT abd/pelvis: IMPRESSION: 1. Non-contrast CT abdomen and pelvis demonstrate no acute intra-abdominal pathology -- post-contrast imaging suggested. 2. Fluid-filled mildy prominent small bowel loops. Gastric, jejunal and ileal surgical chloe are seen. 3. Suspected gallstones are seen, further ultrasound evaluation is advised. 4. The liver is mildly enlarged showing diffuse increased density. Clinical correlation is advised. Code(s): K52.9 - NONINFECTIVE GASTROENTERITIS AND COLITIS, UNSPECIFIED (8) Yeast detected Current Visit: Yes Status: Acute Assessment & Plan: - in UA - Fluconazole PO x1 - Benadryl for itching VTE: Lovenox D/C plan: Pending placement Next of KIN: Son Code status: Full Code(s): B37.9 - CANDIDIASIS, UNSPECIFIED
[2024-03-01] MEDS: HUMULIN R SQ PRN (14:31)
[2024-03-01] MEDS: NORVASC 5 MG PO SCH (14:31)
[2024-03-01] MEDS: DIFLUCAN PO ONE ×2 (15:33→15:40)
[2024-03-01 18:38] LABS: IFOB TEST RESULTS POSITIVE (NEGATIVE)
[2024-03-01 19:18] LABS: 027 TOX PROD PRESUMPTIVE NEGATIVE (NEGATIVE); TOXIGENIC C. DIFF ORG NEGATIVE (NEGATIVE)
[2024-03-02 05:02] LABS: Hemoglobin 12.3 g/dL (11.2-15.7); Mean Cell Volume 89.6 fL (79.4-94.8); Mean Corpuscular Hemoglobin 29.8 pg (25.6-32.2); Mean Corpuscular Hgb Concent. 33.2 g/dL (32.2-35.5); Mean Platelet Volume 10.1 fL (9.4-12.3); Platelet Count 222 x10^3/uL (182-369); Red Blood Count 4.13 x10^6/uL (3.93-5.22); Red Cell Distribution Width 13.2 % (11.7-14.4); White Blood Count 6.8 x10^3/uL (3.98-10.04)
[2024-03-02 05:27] LABS: ALBUMIN 2.9 g/dL (3.5-5.0); ANION GAP 9.7 MEQ/L (5-15); BILIRUBIN,TOTAL 1.1 mg/dL (0.2-1.3); Calcium 8.2 mg/dL (8.4-10.2); Creatinine 1 0.65 mg/dL (0.52-1.04); EST GLOMERULAR FILTRATION RATE 90.6 ML/MIN; Potassium 3.3 mmol/L (3.5-5.1); Total Protein 5.6 g/dL (6.3-8.2)
[2024-03-02] MEDS: K-LYTE PO SCH (08:09)
--- NOTE | 2024-03-02 09:33 | PCM.NOTE ---
Date and Time: 03/02/24924 Subjective Assessment: 03/01/24 is a 78 year old female with multiple medical problems including hypertension, hyperlipidemia, diabetes mellitus, right wrist drop, chronic abdominal pain with diarrhea, and chronic urinary incontinence. She reports she has been to multiple ERs and was seen yesterday at [facility] ER with essentially negative workup except for UTI. CT abdomen pelvis without contrast was negative as well. Patient reports still having loose stool and soreness around anus. Patient was prescribed Macrobid yesterday but does not feel any relief of UTI. Patient reports she does not have much help to take care of herself. No fever or chills reported. Denies any abdominal pain currently. Diarrhea is not any worse than usual. She reports itching in groin area and UA + for yeast, diflucan started. IV antibiotics started in ER and will continue. Glucose 311 on admission and s/s insulin started, A1C pending. Probiotics started for diarrhea. Pt c/o weakness and unable to take care of herself. She would like placement if possible. Discussed pt case with case management. Pt had a recent admission on 02/13- 02/16, she was treated for a UTI at that time. She has repeated UTI's from urinary and stool incontinence. She reports she has had multiple Colonoscopy's in the past and they have been unable to find anything. C-Diff pending, and occult stool pending. Hgb stable. She denies CP, SOB, N/V. Pt denies suicidal or homicidal ideation. She is psychologically stable. She will likely require 60 days or less of rehab stay. 03/02/24 Pt resting in bed. Occult stool +, Hgb stable at 12.3. GS consulted for possible EGD /conlonoscopy. PPI started. C-diff negative. Continue probiotics for diarrhea. UC pending. Continue IV antibiotic for UTI. K+ 3.3 and replaced. Pt denies CP, SOB, abd. pain, N/V. - Review of Systems Constitutional: Weakness, No Fever, No Chills Eyes: No Symptoms Ears, Nose, & Throat: No Symptoms Respiratory: No Cough, No Short Of Breath Cardiac: No Chest Pain, No Edema, No Syncope Abdominal/Gastrointestinal: Diarrhea, Hematochezia, No Abdominal Pain, No Nausea, No Vomiting Genitourinary Symptoms: No Dysuria Musculoskeletal: No Back Pain, No Neck Pain Skin: No Rash Neurological: No Dizziness, No Focal Weakness, No Sensory Changes Psychological: No Symptoms Endocrine: No Symptoms Hematologic/Lymphatic: No Symptoms Immunological/Allergic: No Symptoms Objective Exam General Appearance: no apparent distress, alert, thin Neurologic Exam: alert, oriented x 3, cooperative, normal mood/affect, nml cerebellar function, sensation nml, No motor deficits Skin Exam: normal color, warm, dry Wound Assessment: Skin/Wound Assessment Wound/Incision Assessment Start: 03/01/24 09:43 Text: Status: Active Freq: Q6H Protocol: Document 03/02/24 02:00 MP (Rec: 03/02/24 02:19 MP [id number]) Wound/Incision Assessment Lower Abdomen Wound Assessment Shift Assessment Wound Stage Non Pressure Wound General Appearance Open to air,Reddened Comment reddened rash to old scar, zinc cream applied vaginal/ perineum Wound Assessment Shift Assessment General Appearance Open to air,Reddened Comment barrier cream applied Coccyx General Appearance Open to air,Reddened Comment reddened, blanchable, barrier crream applied Wound Photo Photo Taken No Eye Exam: PERRL, EOMI, eyes nml inspection Ears, Nose, Throat Exam: normal ENT inspection, pharynx normal, moist mucous membranes Neck Exam: normal inspection, non-tender, supple, full range of motion Respiratory Exam: normal breath sounds, lungs clear, No respiratory distress Cardiovascular Exam: regular rate/rhythm, normal heart sounds Gastrointestinal/Abdomen Exam: soft, No tenderness, No mass Extremity Exam: normal inspection, normal range of motion Back Exam: normal inspection, normal range of motion, No CVA tenderness, No vertebral tenderness Pelvic Exam: deferred Rectal Exam: deferred Objective Data Vital Signs: Vital Signs - 24 hr Temp Pulse Resp BP Pulse Ox 03/02/24 07:43 97.3 F 72 16 126/60 96 03/02/24 04:00 97.5 F 69 16 113/65 97 03/01/24 23:50 97.7 F 66 16 140/63 97 03/01/24 19:12 98.7 F 82 16 125/58 95 03/01/24 16:00 97.6 F 73 16 122/59 99 03/01/24 12:00 98.1 F 63 16 167/72 97 Pain Assessment - Last Documented Pain Intensity 0 Intake and Output: Intake & Output 02/28/24 02/29/24 03/01/24 03/02/24 11:59 11:59 11:59 11:59 Intake Total 480 960 Balance 480 960 Weight 48.4 kg Lab Results: Lab Results-Last 24 Hours 03/01/24 03/01/24 03/01/24 Range/Units 06:14 06:45 12:15 WBC (3.98-10.04) x10^3/uL RBC (3.93-5.22) x10^6/uL Hgb (11.2-15.7) g/dL Hct (34.1-44.9) % MCV (79.4-94.8) fL MCH (25.6-32.2) pg MCHC (32.2-35.5) g/dL RDW (11.7-14.4) % Plt Count (182-369) x10^3/uL MPV (9.4-12.3) fL Sodium (135-145) mmol/L Potassium (3.5-5.1) mmol/L Chloride (98-107) mmol/L Carbon Dioxide (22-30) mmol/L Anion Gap (5-15) MEQ/L BUN (7-17) mg/dL Creatinine (0.52-1.04) mg/dL Estimated GFR ML/MIN Glucose (74-106) mg/dL POC Glucometer 419 H (74 to 106) mg/dL Hemoglobin A1c 10.20 H (4.5-6.0) % Calcium (8.4-10.2) mg/dL Total Bilirubin (0.2-1.3) mg/dL AST (14-36) U/L ALT (0-35) U/L Alkaline Phosphatase (38-126) U/L Serum Total Protein (6.3-8.2) g/dL Albumin (3.5-5.0) g/dL Prealbumin 10.43 L (17.6-36.0) mg/dL Stl Occult Blood (IFOB) (NEGATIVE) C. difficile Screen (NEGATIVE) C.difficile 027-NAP1-B1 (NEGATIVE) 03/01/24 03/01/24 03/01/24 Range/Units 16:29 18:22 18:22 WBC (3.98-10.04) x10^3/uL RBC (3.93-5.22) x10^6/uL Hgb (11.2-15.7) g/dL Hct (34.1-44.9) % MCV (79.4-94.8) fL MCH (25.6-32.2) pg MCHC (32.2-35.5) g/dL RDW (11.7-14.4) % Plt Count (182-369) x10^3/uL MPV (9.4-12.3) fL Sodium (135-145) mmol/L Potassium (3.5-5.1) mmol/L Chloride (98-107) mmol/L Carbon Dioxide (22-30) mmol/L Anion Gap (5-15) MEQ/L BUN (7-17) mg/dL Creatinine (0.52-1.04) mg/dL Estimated GFR ML/MIN Glucose (74-106) mg/dL POC Glucometer 239 H (74 to 106) mg/dL Hemoglobin A1c (4.5-6.0) % Calcium (8.4-10.2) mg/dL Total Bilirubin (0.2-1.3) mg/dL AST (14-36) U/L ALT (0-35) U/L Alkaline Phosphatase (38-126) U/L Serum Total Protein (6.3-8.2) g/dL Albumin (3.5-5.0) g/dL Prealbumin (17.6-36.0) mg/dL Stl Occult Blood (IFOB) POSITIVE A (NEGATIVE) C. difficile Screen NEGATIVE (NEGATIVE) C.difficile 027-NAP1-B1 PRESUMPTIVE NEGATIVE (NEGATIVE) 03/01/24 03/02/24 03/02/24 Range/Units 21:26 04:58 04:58 WBC 6.8 (3.98-10.04) x10^3/uL RBC 4.13 (3.93-5.22) x10^6/uL Hgb 12.3 (11.2-15.7) g/dL Hct 37.0 (34.1-44.9) % MCV 89.6 (79.4-94.8) fL MCH 29.8 (25.6-32.2) pg MCHC 33.2 (32.2-35.5) g/dL RDW 13.2 (11.7-14.4) % Plt Count 222 (182-369) x10^3/uL MPV 10.1 (9.4-12.3) fL Sodium 140 (135-145) mmol/L Potassium 3.3 L (3.5-5.1) mmol/L Chloride 106 (98-107) mmol/L Carbon Dioxide 28 (22-30) mmol/L Anion Gap 9.7 (5-15) MEQ/L BUN 14 (7-17) mg/dL Creatinine 0.65 (0.52-1.04) mg/dL Estimated GFR 90.6 ML/MIN Glucose 120 H (74-106) mg/dL POC Glucometer 198 H (74 to 106) mg/dL Hemoglobin A1c (4.5-6.0) % Calcium 8.2 L (8.4-10.2) mg/dL Total Bilirubin 1.10 (0.2-1.3) mg/dL AST 39 H (14-36) U/L ALT 55 H (0-35) U/L Alkaline Phosphatase 76 (38-126) U/L Serum Total Protein 5.6 L (6.3-8.2) g/dL Albumin 2.9 L (3.5-5.0) g/dL Prealbumin (17.6-36.0) mg/dL Stl Occult Blood (IFOB) (NEGATIVE) C. difficile Screen (NEGATIVE) C.difficile 027-NAP1-B1 (NEGATIVE) 03/02/24 Range/Units 07:32 WBC (3.98-10.04) x10^3/uL RBC (3.93-5.22) x10^6/uL Hgb (11.2-15.7) g/dL Hct (34.1-44.9) % MCV (79.4-94.8) fL MCH (25.6-32.2) pg MCHC (32.2-35.5) g/dL RDW (11.7-14.4) % Plt Count (182-369) x10^3/uL MPV (9.4-12.3) fL Sodium (135-145) mmol/L Potassium (3.5-5.1) mmol/L Chloride (98-107) mmol/L Carbon Dioxide (22-30) mmol/L Anion Gap (5-15) MEQ/L BUN (7-17) mg/dL Creatinine (0.52-1.04) mg/dL Estimated GFR ML/MIN Glucose (74-106) mg/dL POC Glucometer 145 H (74 to 106) mg/dL Hemoglobin A1c (4.5-6.0) % Calcium (8.4-10.2) mg/dL Total Bilirubin (0.2-1.3) mg/dL AST (14-36) U/L ALT (0-35) U/L Alkaline Phosphatase (38-126) U/L Serum Total Protein (6.3-8.2) g/dL Albumin (3.5-5.0) g/dL Prealbumin (17.6-36.0) mg/dL Stl Occult Blood (IFOB) (NEGATIVE) C. difficile Screen (NEGATIVE) C.difficile 027-NAP1-B1 (NEGATIVE) Radiology Exams: Radiology Procedures Category Date Time Status CHEST 1 VIEW (PORTABLE) Urgent Exams 03/02/24 08:21 Ordered Multi-Disciplinary Progress Notes: Multi-Disciplinary Progress Notes 03/01/24 13:45 Case Management Note by Ashly Butler PAPERWORK STARTED AT THIS TIME Initialized on 03/01/24 13:45 - END OF NOTE Assessment/Plan (1) Urinary bladder incontinence Current Visit: Yes Status: Chronic Code(s): R32 - UNSPECIFIED URINARY INCONTINENCE (2) Hyperglycemia due to type 2 diabetes mellitus Current Visit: Yes Status: Chronic Qualifiers: Diabetes mellitus technician terminal and repeater insulin use: unspecified long-term insulin use status Qualified Code(s): E11.65 - Type 2 diabetes mellitus with hyperglycemia Code(s): E11.65 - TYPE 2 DIABETES MELLITUS WITH HYPERGLYCEMIA (3) UTI (urinary tract infection) Current Visit: Yes Status: Acute Qualifiers: Urinary tract infection type: acute cystitis Hematuria presence: without hematuria Qualified Code(s): N30.00 - Acute cystitis without hematuria Code(s): N39.0 - URINARY TRACT INFECTION, SITE NOT SPECIFIED (4) Elevated liver enzymes Current Visit: No Status: Acute Code(s): R74.8 - ABNORMAL LEVELS OF OTHER SERUM ENZYMES (5) HTN (hypertension) Current Visit: No Status: Chronic Code(s): I10 - ESSENTIAL (PRIMARY) HYPERTENSION (6) Weakness Current Visit: No Status: Acute Code(s): R53.1 - WEAKNESS (7) Chronic diarrhea Current Visit: No Status: Chronic Code(s): K52.9 - NONINFECTIVE GASTROENTERITIS AND COLITIS, UNSPECIFIED (8) Yeast detected Current Visit: Yes Status: Acute Assessment & Plan: (1) Urinary bladder incontinence Current Visit: Yes Status: Chronic Assessment & Plan: - wears depends - repeat UTI's - adds to complexity Code(s): R32 - UNSPECIFIED URINARY INCONTINENCE (2) Hyperglycemia due to type 2 diabetes mellitus Current Visit: Yes Status: Chronic Qualifiers: Diabetes mellitus technician terminal and repeater insulin use: unspecified technician terminal and repeater insulin use status Qualified Code(s): E11.65 - Type 2 diabetes mellitus with hyperglycemia Assessment & Plan: - A1C 10.20 02/10/24- uncontrolled - noncompliance with meds - s/s insulin - unable to care for self OP Code(s): E11.65 - TYPE 2 DIABETES MELLITUS WITH HYPERGLYCEMIA (3) UTI (urinary tract infection) Current Visit: Yes Status: Acute Qualifiers: Urinary tract infection type: acute cystitis Hematuria presence: without hematuria Qualified Code(s): N30.00 - Acute cystitis without hematuria Assessment & Plan: - Ceftriaxone - UC pending - recurrent UTI's - will need OP f/u with urology at d/c Code(s): N39.0 - URINARY TRACT INFECTION, SITE NOT SPECIFIED (4) Elevated liver enzymes Current Visit: No Status: Acute Assessment & Plan: - AST 41/ ALT 61 - Liver enlarged as seen on CT abd/ pelvis 03/02 - AST 39, ALT 55- improved Code(s): R74.8 - ABNORMAL LEVELS OF OTHER SERUM ENZYMES (5) HTN (hypertension) Current Visit: No Status: Chronic Assessment & Plan: - Start amlodipine - Trend BP 03/02 - Stable Code(s): I10 - ESSENTIAL (PRIMARY) HYPERTENSION (6) Weakness Current Visit: No Status: Acute Assessment & Plan: - PT eval and treat - Pt would like placement Code(s): R53.1 - WEAKNESS (7) Chronic diarrhea Current Visit: No Status: Chronic Assessment & Plan: - Occult stool- Positive - GS consult - Hgb 12.3- stable - C-diff - negative - Probiotics - CT abd/pelvis: IMPRESSION: 1. Non-contrast CT abdomen and pelvis demonstrate no acute intra-abdominal pathology -- post-contrast imaging suggested. 2. Fluid-filled mildy prominent small bowel loops. Gastric, jejunal and ileal surgical chloe are seen. 3. Suspected gallstones are seen, further ultrasound evaluation is advised. 4. The liver is mildly enlarged showing diffuse increased density. Clinical correlation is advised. Code(s): K52.9 - NONINFECTIVE GASTROENTERITIS AND COLITIS, UNSPECIFIED (8) Yeast detected Current Visit: Yes Status: Acute Assessment & Plan: - in UA - Fluconazole PO x1 - Benadryl for itching VTE: Lovenox D/C plan: Pending placement Next of KIN: Son Code status: Full Code(s): B37.9 - CANDIDIASIS, UNSPECIFIED Code(s): B37.9 - CANDIDIASIS, UNSPECIFIED
[2024-03-02] MEDS: ENOXAPARIN SODIUM SQ SCH (09:40)
[2024-03-02] MEDS: ECOTRIN 81 MG PO SCH (09:40)
--- NOTE | 2024-03-02 09:50 | XRAY ---
Indication: intermediate placement. Comparison: May 28, 2022 Portable chest again demonstrates COPD and stable 1 cm benign left mid lung nodule. No focal infiltrate, consolidation, or large effusion. Heart and mediastinal structures within normal limits. Bony thorax intact again with osteopenia and mild degenerative changes. Impression: Continued nonacute chest with chronic features.
[2024-03-02] MEDS ORDERED: NON-FORMULARY ITEM (Lactobacillus Acidophilus [Acidophilus] 1 EACH Capsule) PO SCH (10:00)
[2024-03-02] MEDS ORDERED: BENADRYL 25 MG CAPSULE PO SCH (10:00)
[2024-03-02] MEDS: Protonix 20MG Tablet PO SCH (10:30)
[2024-03-03 05:36] LABS: Hematocrit 39.8 % (34.1-44.9); Hemoglobin 12.8 g/dL (11.2-15.7); Mean Cell Volume 91.3 fL (79.4-94.8); Mean Corpuscular Hemoglobin 29.4 pg (25.6-32.2); Mean Corpuscular Hgb Concent. 32.2 g/dL (32.2-35.5); Mean Platelet Volume 10.4 fL (9.4-12.3); Platelet Count 235 x10^3/uL (182-369); Red Blood Count 4.36 x10^6/uL (3.93-5.22)
[2024-03-03 06:00] LABS: ALBUMIN 2.9 g/dL (3.5-5.0); ANION GAP 11.3 MEQ/L (5-15); BILIRUBIN,TOTAL 0.8 mg/dL (0.2-1.3); Calcium 8.4 mg/dL (8.4-10.2); Creatinine 1 0.54 mg/dL (0.52-1.04); EST GLOMERULAR FILTRATION RATE 94.8 ML/MIN; MAGNESIUM 2.1 mg/dL (1.6-2.3); Total Protein 5.6 g/dL (6.3-8.2)
--- NOTE | 2024-03-03 11:38 | PCM.NOTE ---
Date and Time: 03/03/24 1132 Subjective Assessment: 03/01/24 is a 78 year old female with multiple medical problems including hypertension, hyperlipidemia, diabetes mellitus, right wrist drop, chronic abdominal pain with diarrhea, and chronic urinary incontinence. She reports she has been to multiple ERs and was seen yesterday at [facility] ER with essentially negative workup except for UTI. CT abdomen pelvis without contrast was negative as well. Patient reports still having loose stool and soreness around anus. Patient was prescribed Macrobid yesterday but does not feel any relief of UTI. Patient reports she does not have much help to take care of herself. No fever or chills reported. Denies any abdominal pain currently. Diarrhea is not any worse than usual. She reports itching in groin area and UA + for yeast, diflucan started. IV antibiotics started in ER and will continue. Glucose 311 on admission and s/s insulin started, A1C pending. Probiotics started for diarrhea. Pt c/o weakness and unable to take care of herself. She would like placement if possible. Discussed pt case with case management. Pt had a recent admission on 02/13- 02/16, she was treated for a UTI at that time. She has repeated UTI's from urinary and stool incontinence. She reports she has had multiple Colonoscopy's in the past and they have been unable to find anything. C-Diff pending, and occult stool pending. Hgb stable. She denies CP, SOB, N/V. Pt denies suicidal or homicidal ideation. She is psychologically stable. She will likely require 60 days or less of rehab stay. 03/02/24 Pt resting in bed. Occult stool +, Hgb stable at 12.3. GS consulted for possible EGD /conlonoscopy. PPI started. C-diff negative. Continue probiotics for diarrhea. UC pending. Continue IV antibiotic for UTI. K+ 3.3 and replaced. Pt denies CP, SOB, abd. pain, N/V. 03/03/24 Pt resting in bed. She reports she is starting to feel better. US + for enterobacter- Continue Rocephin. Pt requested a specific general surgery for EGD/Colonoscopy and they are not currently available. Pt is to f/u OP since she wants a specific physician. Hgb Stable at 12.8 today. She continues to have loose stools and weakness. Continue probiotocs and imodium. A!C .- discussed the importance of good glycemic control. Nutrition consulted. She is awaiting rehab placement. She denies CP, SOB, abd pain, N/V. - Review of Systems Constitutional: Weakness, No Fever, No Chills Eyes: No Symptoms Ears, Nose, & Throat: No Symptoms Respiratory: No Cough, No Short Of Breath Cardiac: No Chest Pain, No Edema, No Syncope Abdominal/Gastrointestinal: Diarrhea, No Abdominal Pain, No Nausea, No Vomiting Genitourinary Symptoms: No Dysuria Musculoskeletal: No Back Pain, No Neck Pain Skin: No Rash Neurological: No Dizziness, No Focal Weakness, No Sensory Changes Psychological: No Symptoms Endocrine: No Symptoms Hematologic/Lymphatic: No Symptoms Immunological/Allergic: No Symptoms Objective Exam General Appearance: no apparent distress, alert Neurologic Exam: alert, oriented x 3, cooperative, normal mood/affect, nml cerebellar function, sensation nml, motor weakness, No motor deficits Skin Exam: normal color, warm, dry Wound Assessment: Skin/Wound Assessment Wound/Incision Assessment Start: 03/01/24 09:43 Text: Status: Active Freq: Q6H Protocol: Document 03/03/24 08:00 AR (Rec: 03/03/24 11:23 AR [id number]) Wound/Incision Assessment Lower Abdomen Wound Assessment Shift Assessment Wound Stage Non Pressure Wound General Appearance Open to air,Reddened Comment pt c/o rash around scar. Itching and burning sensation. Creams applied PRN vaginal/ perineum Wound Assessment Shift Assessment General Appearance Open to air,Reddened Comment barrier cream PRN Coccyx Wound Assessment Shift Assessment General Appearance Open to air,Reddened Comment reddened, blanchable, barrier cream PRN Wound Photo Photo Taken No Comment: Pictures taken on admission Eye Exam: PERRL, EOMI, eyes nml inspection Ears, Nose, Throat Exam: normal ENT inspection, pharynx normal, moist mucous membranes Neck Exam: normal inspection, non-tender, supple, full range of motion Respiratory Exam: normal breath sounds, lungs clear, No respiratory distress Cardiovascular Exam: regular rate/rhythm, normal heart sounds Gastrointestinal/Abdomen Exam: soft, No tenderness, No mass Extremity Exam: normal inspection, normal range of motion Back Exam: normal inspection, normal range of motion, No CVA tenderness, No vertebral tenderness Pelvic Exam: deferred Rectal Exam: deferred Objective Data Vital Signs: Vital Signs - 24 hr Temp Pulse Resp BP Pulse Ox 03/03/24 11:32 97.7 F 76 16 122/59 90 L 03/03/24 07:20 97.5 F 66 16 130/67 95 03/03/24 04:00 97.0 F 76 17 124/74 96 03/02/24 23:27 97.2 F 100 H 16 116/76 97 03/02/24 19:57 98.2 F 90 17 117/56 97 03/02/24 16:00 98 F 85 17 111/68 96 03/02/24 12:00 97.3 F 76 18 130/62 97 Pain Assessment - Last Documented Pain Intensity 0 Intake and Output: Intake & Output 02/29/24 03/01/24 03/02/24 03/03/24 11:59 11:59 11:59 11:59 Intake Total 788 581 1967 Balance 799 916 8349 Weight 48.4 kg 48.4 kg Lab Results: Lab Results-Last 24 Hours 03/02/24 03/02/24 03/02/24 Range/Units 11:39 16:57 21:14 WBC (3.98-10.04) x10^3/uL RBC (3.93-5.22) x10^6/uL Hgb (11.2-15.7) g/dL Hct (34.1-44.9) % MCV (79.4-94.8) fL MCH (25.6-32.2) pg MCHC (32.2-35.5) g/dL RDW (11.7-14.4) % Plt Count (182-369) x10^3/uL MPV (9.4-12.3) fL Sodium (135-145) mmol/L Potassium (3.5-5.1) mmol/L Chloride (98-107) mmol/L Carbon Dioxide (22-30) mmol/L Anion Gap (5-15) MEQ/L BUN (7-17) mg/dL Creatinine (0.52-1.04) mg/dL Estimated GFR ML/MIN Glucose (74-106) mg/dL POC Glucometer 240 H 311 H 217 H (74 to 106) mg/dL Calcium (8.4-10.2) mg/dL Magnesium (1.6-2.3) mg/dL Total Bilirubin (0.2-1.3) mg/dL AST (14-36) U/L ALT (0-35) U/L Alkaline Phosphatase (38-126) U/L Serum Total Protein (6.3-8.2) g/dL Albumin (3.5-5.0) g/dL 03/03/24 03/03/24 03/03/24 Range/Units 04:35 04:35 07:14 WBC 7.0 (3.98-10.04) x10^3/uL RBC 4.36 (3.93-5.22) x10^6/uL Hgb 12.8 (11.2-15.7) g/dL Hct 39.8 (34.1-44.9) % MCV 91.3 (79.4-94.8) fL MCH 29.4 (25.6-32.2) pg MCHC 32.2 (32.2-35.5) g/dL RDW 13.0 (11.7-14.4) % Plt Count 235 (182-369) x10^3/uL MPV 10.4 (9.4-12.3) fL Sodium 139 (135-145) mmol/L Potassium 4.0 D (3.5-5.1) mmol/L Chloride 107 (98-107) mmol/L Carbon Dioxide 24 (22-30) mmol/L Anion Gap 11.3 (5-15) MEQ/L BUN 17 (7-17) mg/dL Creatinine 0.54 (0.52-1.04) mg/dL Estimated GFR 94.8 ML/MIN Glucose 172 H (74-106) mg/dL POC Glucometer 173 H (74 to 106) mg/dL Calcium 8.4 (8.4-10.2) mg/dL Magnesium 2.1 (1.6-2.3) mg/dL Total Bilirubin 0.80 (0.2-1.3) mg/dL AST 49 H (14-36) U/L ALT 53 H (0-35) U/L Alkaline Phosphatase 88 (38-126) U/L Serum Total Protein 5.6 L (6.3-8.2) g/dL Albumin 2.9 L (3.5-5.0) g/dL 03/03/24 Range/Units 11:12 WBC (3.98-10.04) x10^3/uL RBC (3.93-5.22) x10^6/uL Hgb (11.2-15.7) g/dL Hct (34.1-44.9) % MCV (79.4-94.8) fL MCH (25.6-32.2) pg MCHC (32.2-35.5) g/dL RDW (11.7-14.4) % Plt Count (182-369) x10^3/uL MPV (9.4-12.3) fL Sodium (135-145) mmol/L Potassium (3.5-5.1) mmol/L Chloride (98-107) mmol/L Carbon Dioxide (22-30) mmol/L Anion Gap (5-15) MEQ/L BUN (7-17) mg/dL Creatinine (0.52-1.04) mg/dL Estimated GFR ML/MIN Glucose (74-106) mg/dL POC Glucometer 343 H (74 to 106) mg/dL Calcium (8.4-10.2) mg/dL Magnesium (1.6-2.3) mg/dL Total Bilirubin (0.2-1.3) mg/dL AST (14-36) U/L ALT (0-35) U/L Alkaline Phosphatase (38-126) U/L Serum Total Protein (6.3-8.2) g/dL Albumin (3.5-5.0) g/dL Radiology Exams: Radiology Procedures Category Date Time Status CHEST 1 VIEW (PORTABLE) Urgent Exams 03/02/24 08:21 Completed Multi-Disciplinary Progress Notes: Multi-Disciplinary Progress Notes 03/03/24 08:15 Case Management Note by Ashly Butler FULL REFERRAL REFAXED TO [facility] AT THIS TIME Initialized on 03/03/24 08:15 - END OF NOTE Assessment/Plan (1) Urinary bladder incontinence Current Visit: Yes Status: Chronic Code(s): R32 - UNSPECIFIED URINARY INCONTINENCE (2) Hyperglycemia due to type 2 diabetes mellitus Current Visit: Yes Status: Chronic Qualifiers: Diabetes mellitus jail insulin use: unspecified jail insulin use status Qualified Code(s): E11.65 - Type 2 diabetes mellitus with hyperglycemia Code(s): E11.65 - TYPE 2 DIABETES MELLITUS WITH HYPERGLYCEMIA (3) UTI (urinary tract infection) Current Visit: Yes Status: Acute Qualifiers: Urinary tract infection type: acute cystitis Hematuria presence: without hematuria Qualified Code(s): N30.00 - Acute cystitis without hematuria Code(s): N39.0 - URINARY TRACT INFECTION, SITE NOT SPECIFIED (4) Elevated liver enzymes Current Visit: No Status: Acute Code(s): R74.8 - ABNORMAL LEVELS OF OTHER SERUM ENZYMES (5) HTN (hypertension) Current Visit: No Status: Chronic Code(s): I10 - ESSENTIAL (PRIMARY) HYPERTENSION (6) Weakness Current Visit: No Status: Acute Code(s): R53.1 - WEAKNESS (7) Chronic diarrhea Current Visit: No Status: Chronic Code(s): K52.9 - NONINFECTIVE GASTROENTERITIS AND COLITIS, UNSPECIFIED (8) Yeast detected Current Visit: Yes Status: Acute Assessment & Plan: 1) Urinary bladder incontinence Current Visit: Yes Status: Chronic Assessment & Plan: - wears depends - repeat UTI's - adds to complexity Code(s): R32 - UNSPECIFIED URINARY INCONTINENCE (2) Hyperglycemia due to type 2 diabetes mellitus Current Visit: Yes Status: Chronic Qualifiers: Diabetes mellitus jail insulin use: unspecified jail insulin use status Qualified Code(s): E11.65 - Type 2 diabetes mellitus with hyperglycemia Assessment & Plan: - A1C 10.20 02/10/24- uncontrolled - noncompliance with meds - s/s insulin - unable to care for self OP - Nutrition consult - education provided on good glycemic control Code(s): E11.65 - TYPE 2 DIABETES MELLITUS WITH HYPERGLYCEMIA (3) UTI (urinary tract infection) Current Visit: Yes Status: Acute Qualifiers: Urinary tract infection type: acute cystitis Hematuria presence: without hematuria Qualified Code(s): N30.00 - Acute cystitis without hematuria Assessment & Plan: - Ceftriaxone - UC + for Enterobacter - recurrent UTI's - will need OP f/u with urology at d/c Code(s): N39.0 - URINARY TRACT INFECTION, SITE NOT SPECIFIED (4) Elevated liver enzymes Current Visit: No Status: Acute Assessment & Plan: - AST 41/ ALT 61 - Liver enlarged as seen on CT abd/ pelvis 03/02 - AST 39, ALT 55- improved 03/03 - AST 49, ALT 53-trend Code(s): R74.8 - ABNORMAL LEVELS OF OTHER SERUM ENZYMES (5) HTN (hypertension) Current Visit: No Status: Chronic Assessment & Plan: - Start amlodipine - Trend BP 03/02 - Stable Code(s): I10 - ESSENTIAL (PRIMARY) HYPERTENSION (6) Weakness Current Visit: No Status: Acute Assessment & Plan: - PT eval and treat - Pt would like placement Code(s): R53.1 - WEAKNESS (7) Chronic diarrhea Current Visit: No Status: Chronic Assessment & Plan: - Occult stool- Positive - GS consult - Hgb 12.3- stable - C-diff - negative - Imodium - Probiotics - CT abd/pelvis: IMPRESSION: 1. Non-contrast CT abdomen and pelvis demonstrate no acute intra-abdominal pathology -- post-contrast imaging suggested. 2. Fluid-filled mildy prominent small bowel loops. Gastric, jejunal and ileal surgical chloe are seen. 3. Suspected gallstones are seen, further ultrasound evaluation is advised. 4. The liver is mildly enlarged showing diffuse increased density. Clinical correlation is advised. Code(s): K52.9 - NONINFECTIVE GASTROENTERITIS AND COLITIS, UNSPECIFIED (8) Yeast detected Current Visit: Yes Status: Acute Assessment & Plan: - in UA - Fluconazole PO x1 - Benadryl for itching VTE: Lovenox D/C plan: Pending placement Next of KIN: Son Code status: Full Code(s): B37.9 - CANDIDIASIS, UNSPECIFIED Code(s): B37.9 - CANDIDIASIS, UNSPECIFIED
[2024-03-03] MEDS: IMODIUM 2 MG PO PRN (12:06)
[2024-03-03] MEDS: TYLENOL 325 MG PO PRN (17:19)
[2024-03-04 05:35] LABS: Hematocrit 39.3 % (34.1-44.9); Hemoglobin 12.6 g/dL (11.2-15.7); Mean Cell Volume 91.8 fL (79.4-94.8); Mean Corpuscular Hemoglobin 29.4 pg (25.6-32.2); Mean Corpuscular Hgb Concent. 32.1 g/dL (32.2-35.5); Mean Platelet Volume 10.4 fL (9.4-12.3); Platelet Count 227 x10^3/uL (182-369); Red Blood Count 4.28 x10^6/uL (3.93-5.22); Red Cell Distribution Width 13.2 % (11.7-14.4); White Blood Count 6.4 x10^3/uL (3.98-10.04)
[2024-03-04 05:58] LABS: ALBUMIN 2.8 g/dL (3.5-5.0); ANION GAP 9.6 MEQ/L (5-15); BILIRUBIN,TOTAL 0.8 mg/dL (0.2-1.3); Calcium 8.4 mg/dL (8.4-10.2); Creatinine 1 0.64 mg/dL (0.52-1.04); Potassium 3.5 mmol/L (3.5-5.1); Total Protein 5.5 g/dL (6.3-8.2)
[2024-03-04 06:30] VITALS: BP 128/63; PULSE 67; RESP 16; TEMP 97.5; O2SAT 98
[2024-03-04] MEDS: ZYVOX PO SCH (08:49)
--- NOTE | 2024-03-04 09:01 | PCM.DS ---
Discharge Summary Date of Admission: 03/01/24 08:55 Date of Discharge: 03/04/24 Admitting Physician: ESE GIL MD Consults: Consults on Case 03/01/24 05:23 ACO SDOH Referral ONCE 03/01/24 09:43 Case Management SDOH DC Needs Assessment ROUTINE 03/02/24 07:21 Consult Surgery ROUTINE 03/03/24 11:36 Nutritional Consult ROUTINE Primary Care Provider: CURTIS HOFFMAN Allergies Allergies No Known Drug Allergies Allergy (Verified 03/01/24 05:29) Hospital Summary - Hospital Course Hospital Course: 03/01/24 is a 78 year old female with multiple medical problems including hy pertension, hyperlipidemia, diabetes mellitus, right wrist drop, chronic abdominal pain with diarrhea, and chronic urinary incontinence. She reports she has been to multiple ERs and was seen yesterday at [facility] ER with essentially negative workup except for UTI. CT abdomen pelvis without contrast was negative as well. Patient reports still having loose stool and soreness around anus. Patient was prescribed Macrobid yesterday but does not feel any relief of UTI. Patient reports she does not have much help to take care of herself. No fever or chills reported. Denies any abdominal pain currently. Diarrhea is not any worse than usual. She reports itching in groin area and UA + for yeast, diflucan started. IV antibiotics started in ER and will continue. Glucose 311 on admission and s/s insulin started, A1C pending. Probiotics started for diarrhea. Pt c/o weakness and unable to take care of herself. She would like placement if possible. Discussed pt case with case management. Pt had a recent admission on 02/13- 02/16, she was treated for a UTI at that time. She has repeated UTI's from urinary and stool incontinence. She reports she has had multiple Colonoscopy's in the past and they have been unable to find anything. C-Diff pending, and occult stool pending. Hgb stable. She denies CP, SOB, N/V. Pt denies suicidal or homicidal ideation. She is psychologically stable. She w ill likely require 60 days or less of rehab stay. 03/02/24 Pt resting in bed. Occult stool +, Hgb stable at 12.3. GS consulted for possible EGD /conlonoscopy. PPI started. C-diff negative. Continue probiotics for diarrhea. UC pending. Continue IV antibiotic for UTI. K+ 3.3 and replaced. Pt denies CP, SOB, abd. pain, N/V. 03/03/24 Pt resting in bed. She reports she is starting to feel better. US + for enterobacter- Continue Rocephin. Pt requested a specific general surgery for EGD/Colonoscopy and they are not currently available. Pt is to f/u OP since she wants a specific physician. Hgb Stable at 12.8 today. She continues to have loose stools and weakness. Continue probiotocs and imodium. A!C 03.14- discussed the importance of good glycemic control. Nutrition consulted. She is awaiting rehab placement. She denies CP, SOB, abd pain, N/V. 03/04/24 Pt resting in bed. She states she is sad and anxious because she is not able to do anything anymore. She would like to be started on some medication for anxiety. She denies suicidal or homicidal ideation. She is ready to d/c to Rehab today to get stronger. Will continue Zyvox & cefuroxime for UTI. She continues to have weakness. She denies any further concerns at this time. - Vitals & Intake/Output Vital Signs: Vital Signs Temperature 97.5 F 03/04/24 06:29 Pulse Rate 67 03/04/24 06:29 Respiratory Rate 16 03/04/24 06:29 Blood Pressure 128/63 03/04/24 06:29 O2 Sat by Pulse Oximetry 98 03/04/24 06:29 Intake & Output: Intake & Output 03/01/24 03/02/24 03/03/24 03/04/24 11:59 11:59 11:59 11:59 Intake Total 831 838 8508 1044 Balance 297 130 9436 1044 Weight 48.4 kg 48.4 kg - Lab Result Diagrams: 03/04/24 04:50 03/04/24 04:50 Lab Results-Last 24 Hrs: Lab Results-Last 24 Hours 03/03/24 03/03/24 03/03/24 Range/Units 11:12 16:13 21:12 WBC (3.98-10.04) x10^3/uL RBC (3.93-5.22) x10^6/uL Hgb (11.2-15.7) g/dL Hct (34.1-44.9) % MCV (79.4-94.8) fL MCH (25.6-32.2) pg MCHC (32.2-35.5) g/dL RDW (11.7-14.4) % Plt Count (182-369) x10^3/uL MPV (9.4-12.3) fL Sodium (135-145) mmol/L Potassium (3.5-5.1) mmol/L Chloride (98-107) mmol/L Carbon Dioxide (22-30) mmol/L Anion Gap (5-15) MEQ/L BUN (7-17) mg/dL Creatinine (0.52-1.04) mg/dL Estimated GFR ML/MIN Glucose (74-106) mg/dL POC Glucometer 343 H 279 H 250 H (74 to 106) mg/dL Calcium (8.4-10.2) mg/dL Total Bilirubin (0.2-1.3) mg/dL AST (14-36) U/L ALT (0-35) U/L Alkaline Phosphatase (38-126) U/L Serum Total Protein (6.3-8.2) g/dL Albumin (3.5-5.0) g/dL 03/04/24 03/04/24 03/04/24 Range/Units 04:50 04:50 07:05 WBC 6.4 (3.98-10.04) x10^3/uL RBC 4.28 (3.93-5.22) x10^6/uL Hgb 12.6 (11.2-15.7) g/dL Hct 39.3 (34.1-44.9) % MCV 91.8 (79.4-94.8) fL MCH 29.4 (25.6-32.2) pg MCHC 32.1 L (32.2-35.5) g/dL RDW 13.2 (11.7-14.4) % Plt Count 227 (182-369) x10^3/uL MPV 10.4 (9.4-12.3) fL Sodium 139 (135-145) mmol/L Potassium 3.5 (3.5-5.1) mmol/L Chloride 107 (98-107) mmol/L Carbon Dioxide 26 (22-30) mmol/L Anion Gap 9.6 (5-15) MEQ/L BUN 21 H (7-17) mg/dL Creatinine 0.64 (0.52-1.04) mg/dL Estimated GFR 91.0 ML/MIN Glucose 142 H (74-106) mg/dL POC Glucometer 191 H (74 to 106) mg/dL Calcium 8.4 (8.4-10.2) mg/dL Total Bilirubin 0.80 (0.2-1.3) mg/dL AST 56 H (14-36) U/L ALT 52 H (0-35) U/L Alkaline Phosphatase 77 (38-126) U/L Serum Total Protein 5.5 L (6.3-8.2) g/dL Albumin 2.8 L (3.5-5.0) g/dL Micro Results-Entire Visit: Microbiology 03/01/24 05:33 Urine Culture - Final Clean Catch Midstream Enterobacter Clocae Complex Enterococcus Faecium Accuchecks Date 03/04/24 Date 03/03/24 Date 03/03/24 Time 08:26 - Radiology Exams Ordered Rad Exams-Entire Visit: Radiology Procedures Category Date Time Status CHEST 1 VIEW (PORTABLE) Urgent Exams 03/02/24 08:21 Completed - Procedures and Test Procedures and Tests throughout Hospitalization: Therapy Orders & Screens 03/01/24 13:23 PT Eval & Treat (MD Order) ONCE Reason for Eval:: weakness, needs placement Diagnosis: UTI, FAILED OUTPATIENT Discharge Exam General Appearance: no apparent distress, alert Neurologic Exam: alert, oriented x 3, cooperative, normal mood/affect, nml cerebellar function, sensation nml, depressed mood/affect, motor weakness, other (anxiety), No motor deficits Eye Exam: PERRL, EOMI, eyes nml inspection Ears, Nose, Throat Exam: normal ENT inspection, pharynx normal, moist mucous membranes Neck Exam: normal inspection, non-tender, supple, full range of motion Respiratory Exam: normal breath sounds, lungs clear, No respiratory distress Cardiovascular Exam: regular rate/rhythm, normal heart sounds Gastrointestinal/Abdomen Exam: soft, No tenderness, No mass Pelvic Exam: deferred Rectal Exam: deferred Back Exam: normal inspection, normal range of motion, No CVA tenderness, No vertebral tenderness Extremity Exam: normal inspection, normal range of motion Skin Exam: normal color, warm, dry Wound Assessment: Skin/Wound Assessment Wound/Incision Assessment Start: 03/01/24 09:43 Text: Status: Active Freq: Q6H Protocol: Document 03/04/24 08:00 AR (Rec: 03/04/24 08:42 AR [id number]) Wound/Incision Assessment vaginal/ perineum Wound Assessment Shift Assessment General Appearance Open to air,Reddened Comment barrier cream applied PRN Coccyx Wound Assessment Shift Assessment General Appearance Open to air,Reddened Comment reddened, barrier cream PRN Wound Photo Photo Taken No Final Diagnosis/Problem List - Final Discharge Diagnosis/Problem (1) Urinary bladder incontinence Current Visit: Yes Status: Chronic Code(s): R32 - UNSPECIFIED URINARY INCONTINENCE (2) Hyperglycemia due to type 2 diabetes mellitus Current Visit: Yes Status: Chronic Code(s): E11.65 - TYPE 2 DIABETES MELLITUS WITH HYPERGLYCEMIA (3) UTI (urinary tract infection) Current Visit: Yes Status: Acute Code(s): N39.0 - URINARY TRACT INFECTION, SITE NOT SPECIFIED (4) Elevated liver enzymes Current Visit: No Status: Acute Code(s): R74.8 - ABNORMAL LEVELS OF OTHER SERUM ENZYMES (5) HTN (hypertension) Current Visit: No Status: Chronic Code(s): I10 - ESSENTIAL (PRIMARY) HYPERTENSION (6) Weakness Current Visit: No Status: Acute Code(s): R53.1 - WEAKNESS (7) Chronic diarrhea Current Visit: No Status: Chronic Code(s): K52.9 - NONINFECTIVE GASTROENTERITIS AND COLITIS, UNSPECIFIED (8) Yeast detected Current Visit: Yes Status: Acute Assessment & Plan: 1) Urinary bladder incontinence Current Visit: Yes Status: Chronic Assessment & Plan: - wears depends - repeat UTI's - adds to complexity Code(s): R32 - UNSPECIFIED URINARY INCONTINENCE (2) Hyperglycemia due to type 2 diabetes mellitus Current Visit: Yes Status: Chronic Qualifiers: 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: unspecified [facility] insulin use status Qualified Code(s): E11.65 - Type 2 diabetes mellitus with hyperglycemia Assessment & Plan: - A1C 10.20 02/10/24- uncontrolled - noncompliance with meds - s/s insulin - unable to care for self OP - Nutrition consult - education provided on good glycemic control Code(s): E11.65 - TYPE 2 DIABETES MELLITUS WITH HYPERGLYCEMIA (3) UTI (urinary tract infection) Current Visit: Yes Status: Acute Qualifiers: Urinary tract infection type: acute cystitis Hematuria presence: without hematuria Qualified Code(s): N30.00 - Acute cystitis without hematuria Assessment & Plan: - Ceftriaxone - UC + for Enterobacter - recurrent UTI's - will need OP f/u with urology at d/c 03/04 - Zyvox started in combination with Rocephin Code(s): N39.0 - URINARY TRACT INFECTION, SITE NOT SPECIFIED (4) Elevated liver enzymes Current Visit: No Status: Acute Assessment & Plan: - AST 41/ ALT 61 - Liver enlarged as seen on CT abd/ pelvis 03/02 - AST 39, ALT 55- improved 03/03 - AST 49, ALT 53-trend 03/04 - AST 56, ALT 52- f/u with PCP OP Code(s): R74.8 - ABNORMAL LEVELS OF OTHER SERUM ENZYMES (5) HTN (hypertension) Current Visit: No Status: Chronic Assessment & Plan: - Start amlodipine - Trend BP 03/02 - Stable Code(s): I10 - ESSENTIAL (PRIMARY) HYPERTENSION (6) Weakness Current Visit: No Status: Acute Assessment & Plan: - PT eval and treat - Pt would like placement Code(s): R53.1 - WEAKNESS (7) Chronic diarrhea Current Visit: No Status: Chronic Assessment & Plan: - Occult stool- Positive - GS consult - Hgb 12.3- stable - C-diff - negative - Imodium - Probiotics - CT abd/pelvis: IMPRESSION: 1. Non-contrast CT abdomen and pelvis demonstrate no acute intra-abdominal pathology -- post-contrast imaging suggested. 2. Fluid-filled mildy prominent small bowel loops. Gastric, jejunal and ileal surgical chloe are seen. 3. Suspected gallstones are seen, further ultrasound evaluation is advised. 4. The liver is mildly enlarged showing diffuse increased density. Clinical correlation is advised. Code(s): K52.9 - NONINFECTIVE GASTROENTERITIS AND COLITIS, UNSPECIFIED (8) Yeast detected Current Visit: Yes Status: Acute Assessment & Plan: - in UA - Fluconazole PO x1 - Benadryl for itching Code(s): B37.9 - CANDIDIASIS, UNSPECIFIED (9) Anxiety Current Visit: Yes Status: Acute Assessment & Plan: - started Seroquel as SSRI's are not compatable with Antibiotics - Consider adding SSRI when antibiotics completed OP. Code(s): F41.9 - ANXIETY DISORDER, UNSPECIFIED - Discharge Discharge Date: 03/04/24 (Rehab ) Disposition: XFER OTHER Condition: Stable Prescriptions: New Diphenhydramine HCl 25 mg [Benadryl 25 mg Capsule] 25 mg PO DAILY PRN PRN 10 Days #10 cap PRN Reason: Itching Loperamide HCl 2 mg [Imodium 2 mg] 2 mg PO PRN PRN 30 Days #30 cap PRN Reason: Diarrhea Amlodipine Besylate 5 mg [Norvasc 5 mg] 5 mg PO QAM 30 Days #30 tablet Pantoprazole 20 mg [Protonix 20MG Tablet] 20 mg PO BID 30 Days #60 tablet Quetiapine Fumarate 25 mg [Seroquel 25 MG] 25 mg PO HS 30 Days #30 tablet Linezolid [Zyvox] 600 mg PO BID 10 Days #20 tablet Continue Aspirin EC 81 mg [Ecotrin 81 mg] 81 mg PO DAILY 30 Days #30 tablet Lactobacillus Acidophilus [Acidophilus] 1 each PO DAILY 30 Days #30 cap Additional Instructions: SHELTER ORDERS: ADMIT TO [facility] FACILITY [address] ACCU CHECKS PT/OT EVAL AND TREAT SEE ATTACHED MED LIST Follow up with: EARNEST TRUJILLO NP [[employer]IED HEALTH PROFESSION STAFF] - 04/01/24 10:45 am ([place] Office with Hal Prieto's [employer])
[2024-03-04] MEDS ORDERED: ROCEPHIN 1 GM / 100 ML NaCl 1 GM/100 ML IVPB IV SCH (10:00)
[2024-03-04] MEDS ORDERED: Seroquel 25 MG PO SCH (22:00)
--- NOTE | 2024-03-05 10:51 | CONS ---
HISTORY OF PRESENT ILLNESS: A 78-year-old patient known to Dr. Hal Prieto, who initially got admitted for UTI, failed outpatient. She had some weakness. She has chronic diarrhea. She is Hemoccult positive. They consulted Dr. Ehsan Prieto who is director correctional agency for our group today. He asked that I see this patient when I was coming down to do a different inpatient endoscopy at this time. She did have a UTI. She reported to me that she has weakness, unable to take care of herself. She denies any current blood thinner use. PAST MEDICAL HISTORY: Hypertension, hyperlipidemia, diabetes, had some wrist drop for which she wears a brace on her right wrist, had some chronic diarrhea, had some urinary incontinence in the past. She did have a UTI. Recurrent UTIs in the past. Last colonoscopy per Dr. Prieto was in May 2021 according to the patient. In addition to the above multiple medical problems as listed above, she has history of some macular degeneration, history of stroke in the past. She has had right breast cancer and mastectomy in the past. She has history of depression and fibromyalgia in addition to the multiple medical problems as mentioned above. HOME MEDICATIONS: She has been on aspirin, acidophilus. ALLERGIES: No known drug allergies. PAST SURGICAL HISTORY: She had a gastric bypass, she told me in 2007, I think, although ER record shows question of 2014. She has had hysterectomy, tubal. She has had breast cancer, had a mastectomy. She is not sure if she had bowel surgery or not in the past. SOCIAL HISTORY: No smoking or alcohol abuse. FAMILY HISTORY: Negative with regard to this specific problem. REVIEW OF SYSTEMS: Twelve systems reviewed. No current abdominal pain. No chest pain or palpitations. Just generalized weakness, chronic diarrhea, unable to take care of herself. LABORATORY DATA AND TESTS: White count is 8.1, hemoglobin 12.3. CT abdomen and pelvis was negative. IMPRESSION: History of some Hemoccult positive but no gross bloody stools. She has not had a recent endoscopy. Told her she definitely needs EGD and colonoscopy to evaluate for gastritis, peptic ulcer disease, colitis, neoplasia, or other etiology, or may simply be due to her chronic loose stools. General risk of bleeding, infection, risk of bowel injury or perforation, risk of misdiagnosis or nondiagnosis, incomplete exam possibly requiring barium swallow or barium enema or other studies or procedures but not limited to. She understands the basis of the procedure. I was originally going to see if one of my partners, Dr. Prieto, could do in a couple days. He is down here doing cases, so I am seeing this patient for Dr. Ehsan Prieto at the moment. However, the patient only wants Dr. Hal Prieto or Dr. Rita Prieto. So, I will have the office check their schedules and see if Dr. Hal Prieto is available possibly later in the week while she is here. Otherwise, again, she is not having any severe pain, no gross bloody stools, so if she is released, could be done as an outpatient. Otherwise, continue medical management of diabetes, hypertension, hyperlipidemia, UTI, urinary incontinence as well as her weakness. She understands. Again, I will have the office see if Dr. Hal Prieto is available for endoscopy later in the week. The patient wanted only Dr. Hal Prieto or Dr. Rita Prieto. If not, can be done as an outpatient. Will check with the office to see if Dr. Prieto is available; otherwise, can be scheduled as an outpatient.
== END 2024-03-04 09:43 | DRG 696 ==
LOC: ED 04:49 → OBSVTOIN 08:55 → MED SURG 08:55
PROVIDERS: ADMIT Internal Medicine; ATTEND Internal Medicine
DX: R32 Unspecified urinary incontinence (principal); Z59.02 Unsheltered homelessness; N39.0 Urinary tract infection, site not specified; Z59.41 Food insecurity; E11.65 Type 2 diabetes mellitus with hyperglycemia; R74.8 Abnormal levels of other serum enzymes; I10 Essential (primary) hypertension; R53.1 Weakness; K52.9 Noninfective gastroenteritis and colitis, unspecified; F41.9 Anxiety disorder, unspecified; B37.9 Candidiasis, unspecified; E78.5 Hyperlipidemia, unspecified; Z79.899 Other long term (current) drug therapy; Z85.3 Personal history of malignant neoplasm of breast
CPT/HCPCS: 36415; 71045; 80053; 81001; 82947; 83036; 83690; 83735; 84134; 85025; 85027; 87077; 87086; 87186; 87493; 97110; 97161; 97530; 99283; G0328; Q3014; 82274; J0696; J1815; L3908; A9270-GY

== ENCOUNTER 2025-02-11 10:35 | Emergency (ER) | payer MEDICARE, OTHER ==
--- NOTE | 2025-02-11 10:37 | ERPHSYRPT ---
- History of Present Illness Time Seen by Provider: 02/11/25 10:36 Source: patient, EMS, old records Exam Limitations: clinical condition Physician History: This is a 79-year-old white female patient who was last her baseline level last evening. She is a resident at [facility]. She arrives by the registered nurse cardiac service. Per the facility the patient woke up disoriented and confused. She did have a low blood sugar. However there was also concern for possible CVA. Patient arrives to the emergency department with a blood sugar of 21. Under those circumstances, the initial NIHSS score was approximately 4. Patient has multiple medical problems including diabetes, hypertension, gastroesophageal reflux disease, chronic diarrhea, hyperlipidemia, fibromyalgia, depression. I reviewed the outside halfway records. Timing/Duration: today Severity: moderate Character of Deficits: impaired speech, other (Confusion) Baseline/Normal Cognition: alert oriented x 3 Current Cognition: alert but confused Associated Symptoms: confusion, weakness, slurred speech Allergies/Adverse Reactions: No Known Drug Allergies Allergy (Verified 03/01/24 05:29) Home Medications: Acetaminophen 500 mg [Tylenol Extra Strength 500 mg] 1,000 mg PO TID 02/11/25 [History] Dicyclomine HCl 20 mg [Bentyl 20 mg] 20 mg PO TID 02/11/25 [History] Gabapentin [Neurontin ] 100 mg PO QID 02/11/25 [History] Glucagon [Gvoke Hypopen 1-Pack] 1 mg IM DAILY PRN PRN 02/11/25 [History] Insulin Glargine,Hum.rec.anlog [Lantus] 20 units SQ HS 02/11/25 [History] Insulin Lispro [Humalog Kwikpen U-100] 8 unit SQ AC 02/11/25 [History] Insulin Lispro [Humalog Kwikpen] See Rx Instructions .ROUTE .COMPLEX 02/11/25 [History] Loperamide HCl [Loperamide] 2 mg PO Q8H PRN PRN 02/11/25 [History] Sertraline HCl [Zoloft] 100 mg PO AC 02/11/25 [History] Tramadol HCl 50 mg [Ultram 50 mg] 50 mg PO BID 02/11/25 [History] Hx Tetanus, Diphtheria Vaccination/Date Given: Yes Hx Influenza Vaccination/Date Given: No Hx Pneumococcal Vaccination/Date Given: No Travel Risk - International Travel Have you traveled outside of the country in past 3 weeks: No - Emerging Infectious Disease Are you exhibiting symptoms associated with any current EIDs: Yes Symptoms: Diarrhea - Review of Systems Constitutional: Weakness (Generalized) Eyes: No Symptoms Ears, Nose, & Throat: No Symptoms Respiratory: No Symptoms Cardiac: No Symptoms Abdominal/Gastrointestinal: No Symptoms Genitourinary Symptoms: No Symptoms Musculoskeletal: No Symptoms Skin: No Symptoms Neurological: No Symptoms Psychological: No Symptoms Endocrine: No Symptoms Hematologic/Lymphatic: No Symptoms Immunological/Allergic: No Symptoms All Other Systems: Reviewed and Negative - Past Medical History Pertinent Past Medical History: Yes Neurological History: Stroke ENT History: Macular Degeneration Cardiac History: High Cholesterol Respiratory History: No Pertinent History Endocrine Medical History: Diabetes Type II Musculoskeletal History: Fibromyalgia GI Medical History: Polyps History: No Pertinent History Psycho-Social History: Depression Female Reproductive Disorders: Breast Cancer Other Medical History: rheumatic fever as a child, breast cancer with Right side masectomy - Past Surgical History Past Surgical History: Yes Neuro Surgical History: No Pertinent History Cardiac: Cardiac Catheterization Respiratory: No Pertinent History Gastrointestinal: Colon Resection, Other Genitourinary: No Pertinent History Musculoskeletal: Orthopedic Surgery Female Surgical History: Hysterectomy, Tubal Ligation, Mastectomy Other Surgical History: gastric bypass 2014 - Social History Smoking Status: Never smoker Exposure to second hand smoke: No Drug Use: none - Social Determinants of Health Will the patient participate in the screening: Yes Do you worry about a steady place to live?: Yes In the past 12 months,have you had to go without utilities?: No Transportation Issues: No Has anyone in your support network made you feel unsafe?: No Have you or anyone in your house had to go w/o enough food: Yes Comment: . - Nursing Vital Signs Nursing Vital Signs: Initial Vital Signs Temperature 97.8 F 02/11/25 10:35 Pulse Rate 78 02/11/25 10:35 Respiratory Rate 14 02/11/25 10:35 Blood Pressure 137/52 02/11/25 10:35 O2 Sat by Pulse Oximetry 99 02/11/25 10:35 Pain Scale Pain Intensity 2 - [place] Coma Scale Best Eye Response (Gilda): (4) open spontaneously Best Verbal Response ([place]): (4) confused conversation Best Motor Response (Gilda): (6) obeys commands Gilda Total: 14 - Physical Exam General Appearance: no apparent distress, alert, anxiety, thin Eye Exam: bilateral eye: normal inspection, PERRL, EOMI Ears, Nose, Throat Exam: normal ENT inspection, moist mucous membranes Neck Exam: normal inspection, non-tender, supple, full range of motion Respiratory: normal breath sounds, lungs clear, airway intact, No chest tenderness, No respiratory distress Cardiovascular: regular rate/rhythm, normal heart sounds, normal peripheral pulses Gastrointestinal: soft, normal bowel sounds, No tenderness Pelvic Exam: not done Rectal Exam: not done Back Exam: normal inspection, normal range of motion, No CVA tenderness, No vertebral tenderness Extremity Exam: normal inspection, normal range of motion, pelvis stable, pedal edema (Bilateral feet and ankle) Mental Status: disoriented to place, 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 No acute ischemia on today's twelve-lead EKG) Ordered Tests: Active Orders 24 hr Category Date Time Status Sulfuric Acid Plant Supervisor STAT Care 02/11/25 10:38 Active EKG-ER Only STAT Care 02/11/25 10:37 Active IV Insertion STAT Care 02/11/25 10:37 Active NPO (ED) STAT Care 02/11/25 10:37 Active POCT Glucose Check STAT Care 02/11/25 10:37 Active Pulse Oximetry (ED) STAT Care 02/11/25 10:37 Active HEAD WITHOUT CONTRAST [CT] Routine Exams 02/11/25 10:37 Completed BLOOD CULTURE Stat Lab 02/11/25 10:38 Received BMP Stat Lab 02/11/25 14:00 Received CBC W DIFF Stat Lab 02/11/25 11:42 Completed CMP Stat Lab 02/11/25 11:42 Completed Lactic Acid Stat Lab 02/11/25 11:40 Completed POCT GLUCOSE Stat Lab 02/11/25 11:43 Completed POCT GLUCOSE Stat Lab 02/11/25 12:48 Completed PROTIME WITH INR Stat Lab 02/11/25 11:42 Completed PTT Stat Lab 02/11/25 11:42 Completed UA W/RFX UR CULTURE Stat Lab 02/11/25 12:38 Completed Medication Summary Discontinued Medications Generic Name Dose Route Start Last Admin Trade Name Desiree PRN Reason Stop Dose Admin Dextrose 50 ml 02/11/25 11:09 02/11/25 11:16 Dextrose 50%-Water 50 Ml Abboject IV 02/11/25 11:10 50 ml STAT ONE Administration Dextrose Confirm 02/11/25 11:12 Dextrose 50%-Water 50 Ml Abboject Administered 02/11/25 11:13 Dose 50 ml IV .STK-MED ONE Dextrose 50 ml 02/11/25 11:25 02/11/25 13:12 Dextrose 50%-Water 50 Ml Abboject IV 02/11/25 11:26 Not Given STAT ONE Sodium Chloride 1,000 mls @ 100 mls/hr 02/11/25 10:45 02/11/25 13:13 Sodium Chloride 0.9% 1000 Ml IV 03/13/25 10:44 Infused .Q10H JOANA Infusion Sodium Chloride Confirm 02/11/25 11:11 Sodium Chloride 0.9% 1000 Ml Administered 02/11/25 11:12 Dose 1,000 mls @ ud .ROUTE .STK-MED ONE Dextrose 250 mls @ 250 mls/hr 02/11/25 12:00 02/11/25 12:00 Dextrose 10% 250 Ml IV 02/11/25 12:59 250 mls/hr .Q1H JOANA Administration Dextrose Confirm 02/11/25 11:59 Dextrose 10% 250 Ml Administered 02/11/25 12:00 Dose 250 mls @ ud IV .STK-MED ONE Ceftriaxone Sodium 1 gm in 100 mls @ 200 mls/hr 02/11/25 13:31 Rocephin 1 Gm / 100 Ml Nacl IV 02/11/25 14:00 STAT ONE Lab/Rad Data: Laboratory Result Diagrams 02/11/25 11:42 02/11/25 11:42 Laboratory Results 02/11/25 02/11/25 02/11/25 Range/Units 12:48 12:38 11:43 WBC (3.98-10.04) x10^3/uL RBC (3.93-5.22) x10^6/uL Hgb (11.2-15.7) g/dL Hct (34.1-44.9) % MCV (79.4-94.8) fL MCH (25.6-32.2) pg MCHC (32.2-35.5) g/dL RDW (11.7-14.4) % Plt Count (182-369) x10^3/uL MPV (9.4-12.3) fL Gran % (34.0-71.1) % Immature Gran % (Auto) (0.001-0.429) % Nucleat RBC Rel Count (0.00-0.2) % Eos # (Auto) (0.04-0.36) x10^3/uL Immature Gran # (Auto) (0.001-0.031) x10^3u/L Absolute Lymphs (auto) (1.18-3.74) x10^3/uL Absolute Monos (auto) (0.24-0.86) x10^3/uL Absolute Nucleated RBC (0.00-0.012) x10^3u/L Lymphocytes % (19.3-51.7) % Monocytes % (4.7-12.5) % Eosinophils % (0.7-5.8) % Basophils % (0.1-1.2) % Absolute Granulocytes (1.56-6.13) x10^3/uL Basophils # (0.01-0.08) x10^3/uL PT (9.4-12.5) SECONDS INR (0.8-3.0) APTT (25.1-36.5) SECONDS Sodium (135-145) mmol/L Potassium (3.5-5.1) mmol/L Chloride (98-107) mmol/L Carbon Dioxide (22-30) mmol/L Anion Gap (5-15) MEQ/L BUN (7-17) mg/dL Creatinine (0.52-1.04) mg/dL Estimated GFR ML/MIN Glucose (74-106) mg/dL POC Glucometer 77 79 (74 to 106) mg/dL Lactic Acid (0.4-2.0) Calcium (8.4-10.2) mg/dL Total Bilirubin (0.2-1.3) mg/dL AST (14-36) U/L ALT (0-35) U/L Alkaline Phosphatase (38-126) U/L Serum Total Protein (6.3-8.2) g/dL Albumin (3.5-5.0) g/dL Urine Color Yellow (Yellow) Urine Appearance Turbid A (Clear) Urine pH 5.5 (4.6-8.0) Ur Specific Randolph 1.010 (1.005-1.030) Urine Protein Negative (Negative) Urine Glucose (UA) Negative (Negative) mg/dL Urine Ketones Negative (Negative) Urine Blood NHT (Negative) Urine Nitrite Negative (Negative) Urine Bilirubin Negative (Negative) Urine Urobilinogen 0.2 (0.2) mg/dL Ur Leukocyte Esterase Large A (Negative) U Hyaline Cast (Auto) NONE SEEN (0-2) /LPF Urine Microscopic RBC 3-5 (0-5) /HPF Urine Microscopic WBC >100 A (0-5) /HPF Ur Epithelial Cells Rare (None Seen) /HPF Urine Bacteria Many A (None Seen) /HPF Urine Yeast (Budding) Few A (None Seen) /HPF Urine Culture Reflexed ORDERED SEPARATELY (NO) 02/11/25 02/11/25 02/11/25 Range/Units 11:42 11:42 11:42 WBC 6.0 (3.98-10.04) x10^3/uL RBC 3.62 L (3.93-5.22) x10^6/uL Hgb 10.4 L (11.2-15.7) g/dL Hct 33.7 L (34.1-44.9) % MCV 93.1 (79.4-94.8) fL MCH 28.7 (25.6-32.2) pg MCHC 30.9 L (32.2-35.5) g/dL RDW 14.4 (11.7-14.4) % Plt Count 224 (182-369) x10^3/uL MPV 9.4 (9.4-12.3) fL Gran % 67.0 (34.0-71.1) % Immature Gran % (Auto) 0.5 H (0.001-0.429) % Nucleat RBC Rel Count 0.0 (0.00-0.2) % Eos # (Auto) 0.06 (0.04-0.36) x10^3/uL Immature Gran # (Auto) 0.03 (0.001-0.031) x10^3u/L Absolute Lymphs (auto) 1.47 (1.18-3.74) x10^3/uL Absolute Monos (auto) 0.39 (0.24-0.86) x10^3/uL Absolute Nucleated RBC 0.00 (0.00-0.012) x10^3u/L Lymphocytes % 24.5 (19.3-51.7) % Monocytes % 6.5 (4.7-12.5) % Eosinophils % 1.0 (0.7-5.8) % Basophils % 0.5 (0.1-1.2) % Absolute Granulocytes 4.03 (1.56-6.13) x10^3/uL Basophils # 0.03 (0.01-0.08) x10^3/uL PT 10.3 (9.4-12.5) SECONDS INR 0.94 (0.8-3.0) APTT 29.2 (25.1-36.5) SECONDS Sodium 137 (135-145) mmol/L Potassium 3.6 (3.5-5.1) mmol/L Chloride 107 (98-107) mmol/L Carbon Dioxide 29 (22-30) mmol/L Anion Gap 3.8 L (5-15) MEQ/L BUN 11 (7-17) mg/dL Creatinine 0.35 L (0.52-1.04) mg/dL Estimated GFR 104.6 ML/MIN Glucose 163 H (74-106) mg/dL POC Glucometer (74 to 106) mg/dL Lactic Acid (0.4-2.0) Calcium 7.8 L (8.4-10.2) mg/dL Total Bilirubin 0.10 L (0.2-1.3) mg/dL AST 29 (14-36) U/L ALT 33 (0-35) U/L Alkaline Phosphatase 74 (38-126) U/L Serum Total Protein 4.9 L (6.3-8.2) g/dL Albumin 2.4 L (3.5-5.0) g/dL Urine Color (Yellow) Urine Appearance (Clear) Urine pH (4.6-8.0) Ur Specific Randolph (1.005-1.030) Urine Protein (Negative) Urine Glucose (UA) (Negative) mg/dL Urine Ketones (Negative) Urine Blood (Negative) Urine Nitrite (Negative) Urine Bilirubin (Negative) Urine Urobilinogen (0.2) mg/dL Ur Leukocyte Esterase (Negative) U Hyaline Cast (Auto) (0-2) /LPF Urine Microscopic RBC (0-5) /HPF Urine Microscopic WBC (0-5) /HPF Ur Epithelial Cells (None Seen) /HPF Urine Bacteria (None Seen) /HPF Urine Yeast (Budding) (None Seen) /HPF Urine Culture Reflexed (NO) 02/11/25 Range/Units 11:40 WBC (3.98-10.04) x10^3/uL RBC (3.93-5.22) x10^6/uL Hgb (11.2-15.7) g/dL Hct (34.1-44.9) % MCV (79.4-94.8) fL MCH (25.6-32.2) pg MCHC (32.2-35.5) g/dL RDW (11.7-14.4) % Plt Count (182-369) x10^3/uL MPV (9.4-12.3) fL Gran % (34.0-71.1) % Immature Gran % (Auto) (0.001-0.429) % Nucleat RBC Rel Count (0.00-0.2) % Eos # (Auto) (0.04-0.36) x10^3/uL Immature Gran # (Auto) (0.001-0.031) x10^3u/L Absolute Lymphs (auto) (1.18-3.74) x10^3/uL Absolute Monos (auto) (0.24-0.86) x10^3/uL Absolute Nucleated RBC (0.00-0.012) x10^3u/L Lymphocytes % (19.3-51.7) % Monocytes % (4.7-12.5) % Eosinophils % (0.7-5.8) % Basophils % (0.1-1.2) % Absolute Granulocytes (1.56-6.13) x10^3/uL Basophils # (0.01-0.08) x10^3/uL PT (9.4-12.5) SECONDS INR (0.8-3.0) APTT (25.1-36.5) SECONDS Sodium (135-145) mmol/L Potassium (3.5-5.1) mmol/L Chloride (98-107) mmol/L Carbon Dioxide (22-30) mmol/L Anion Gap (5-15) MEQ/L BUN (7-17) mg/dL Creatinine (0.52-1.04) mg/dL Estimated GFR ML/MIN Glucose (74-106) mg/dL POC Glucometer (74 to 106) mg/dL Lactic Acid 1.0 (0.4-2.0) Calcium (8.4-10.2) mg/dL Total Bilirubin (0.2-1.3) mg/dL AST (14-36) U/L ALT (0-35) U/L Alkaline Phosphatase (38-126) U/L Serum Total Protein (6.3-8.2) g/dL Albumin (3.5-5.0) g/dL Urine Color (Yellow) Urine Appearance (Clear) Urine pH (4.6-8.0) Ur Specific Randolph (1.005-1.030) Urine Protein (Negative) Urine Glucose (UA) (Negative) mg/dL Urine Ketones (Negative) Urine Blood (Negative) Urine Nitrite (Negative) Urine Bilirubin (Negative) Urine Urobilinogen (0.2) mg/dL Ur Leukocyte Esterase (Negative) U Hyaline Cast (Auto) (0-2) /LPF Urine Microscopic RBC (0-5) /HPF Urine Microscopic WBC (0-5) /HPF Ur Epithelial Cells (None Seen) /HPF Urine Bacteria (None Seen) /HPF Urine Yeast (Budding) (None Seen) /HPF Urine Culture Reflexed (NO) - Progress Progress: improved, re-examined Progress Note: 02/11/25 12:18 My medical decision making and the assignment of moderate to high complexity of this patient's medical issue today is based on review of the patient's past medical history, reviewed the patient's medication list, reviewed patient drug allergy list, history of present illness and physical findings on examination. The workup in this patient includes placement of a intravenous line, infusion of low rate IV fluids, checking a stat blood glucose level, CBC, CMP, urinalysis, twelve-lead EKG, troponin level and stat CT scan of the head without contrast. Differential diagnosis includes but is not limited to hypoglycemia, urinary tract infection, dehydration, CVA, arrhythmia, electrolyte abnormalities, acute intracranial abnormality Patient stat blood glucose level was 21. Stat CT scan of the head was performed and interpreted by the radiologist. It was performed without contrast. It was interpreted by the radiologist as stable, nonacute senile brain with multifocal remote lacunar infarcts. After dextrose 50 infusion and starting D10 intravenous infusion, the patient is now awake alert and oriented. She adds further information. She states that she does not think she is receiving her diabetes medication. She does state she is not eating well. She denies chest pain and she denies shortness of breath. She is refusing straight cath for urine specimen. She wants something to drink. 02/11/25 14:07 Patient's laboratory data results were interpreted by me. The patient was found to have a urinary tract infection as well as was hypoglycemic. Her hypoglycemia has improved. Her altered mental status has resolved. She has no chest pain. She is not short of breath. She has no abdominal pain 02/11/25 14:08 It is my clinical opinion that this patient's mental status is altered secondary to primarily hypoglycemia. Her urinary tract infection could have also contributed to her symptoms. It is less likely that she has had an acute stroke. She has had multiple remote strokes but nothing acute. Counseled pt/family regarding: lab results, diagnosis, need for follow-up, rad results Medical Desision Making - Independent Historian Additional History obtained from: Custodial nurse, Personal Clothing Laundry Aide/EMT - Diagnostic Testing Diagnostic test were ordered, analyzed, and reviewed by me: Yes Radiological Interpretation: Reviewed by me, Teleradiologist Report - Risk of complications Low Risk: Low risk of morbidity from additional dx testing or treatment The pt has a mod risk of morbidity or mortality based on: Need for prescription drug management - Departure Departure Disposition: Home Clinical Impression: Hypoglycemia, Altered mental status, Urinary tract infection Condition: Stable Critical Care Time: No Referrals: CURTIS HOFFMAN MD [ACTIVE STAFF, [facility]] - Follow up/PCP as directed Additional Instructions: Hold all diabetic medications. Make certain that this patient is eating and drinking well. Monitor this patient's blood sugar closely. Call the patient's primary care provider today in order for them to determine when to restart any diabetic medications. Take the antibiotics and the other medications as prescribed Prescriptions: Cefdinir 300 mg PO BID #14 cap
[2025-02-11 11:11] VITALS: TEMP 97.8
[2025-02-11] MEDS ORDERED: D50W 50 ml Abboject IV ONE (11:12)
[2025-02-11] MEDS: D50W 50 ml Abboject IV ONE ×2 (11:16→13:12)
--- NOTE | 2025-02-11 11:33 | XRAY ---
Indication: Left facial droop. Altered mental status. Aphasia. Multiple contiguous axial images obtained through the head without contrast. Comparison: February 14, 2024 Again age-appropriate global atrophy, moderate periventricular degenerative micro-ischemia bilaterally, and remote lacunar infarcts bilateral basal ganglia/left thalamus. No acute intracranial hemorrhage, abnormal extra-axial fluid collection, or mass effect. Fourth ventricle is midline without hydrocephalus. Bony calvarium is intact. Visualized paranasal sinuses and mastoid air cells are clear. Impression: Stable nonacute senile brain with multifocal remote lacunar infarcts.
[2025-02-11 11:50] LABS: BASOPHIL % 0.5 % (0.1-1.2); Basophil (Absolute #) 0.03 x10^3/uL (0.01-0.08); Eosinophil (Absolute #) 0.06 x10^3/uL (0.04-0.36); Hematocrit 33.7 % (34.1-44.9); Hemoglobin 10.4 g/dL (11.2-15.7); IMMATURE GRAN # 0.03 x10^3u/L (0.001-0.031); IMMATURE GRAN % 0.5 % (0.001-0.429); Lymphocyte (Absolute #) 1.47 x10^3/uL (1.18-3.74); Mean Corpuscular Hemoglobin 28.7 pg (25.6-32.2); Mean Corpuscular Hgb Concent. 30.9 g/dL (32.2-35.5); Monocyte (Absolute #) 0.39 x10^3/uL (0.24-0.86); NUCLEATED RBC # 0.00 x10^3u/L (0.00-0.012); NUCLEATED RBC % 0.0 % (0.00-0.2); Platelet Count 224 x10^3/uL (182-369); Red Blood Count 3.62 x10^6/uL (3.93-5.22); White Blood Count 6.0 x10^3/uL (3.98-10.04)
[2025-02-11] MEDS ORDERED: DEXTROSE 10% 250 ML 250 ML IV ONE (11:59)
[2025-02-11] MEDS: DEXTROSE 10% 250 ML 250 ML IV SCH (12:00)
[2025-02-11 12:05] LABS: Calcium 7.8 mg/dL (8.4-10.2); Carbon Dioxide 29.0 mmol/L (22-30); Creatinine 1 0.35 mg/dL (0.52-1.04); EST GLOMERULAR FILTRATION RATE 104.6 ML/MIN; Glucose 163.0 mg/dL (74-106); Potassium 3.6 mmol/L (3.5-5.1); SGOT/AST 29.0 U/L (14-36); SGPT/ALT 33.0 U/L (0-35); Total Protein 4.9 g/dL (6.3-8.2)
[2025-02-11 12:08] LABS: INR 0.94 (0.8-3.0); PROTIME 10.3 SECONDS (9.4-12.5); PTT 29.2 SECONDS (25.1-36.5)
[2025-02-11 12:54] LABS: Glucose, Urine Negative (Negative); Protein,Urine Dip Negative (Negative); WBC >100 /HPF (0-5)
[2025-02-11 14:16] LABS: Calcium 8.1 mg/dL (8.4-10.2); Carbon Dioxide 31.0 mmol/L (22-30); Creatinine 1 0.46 mg/dL (0.52-1.04); EST GLOMERULAR FILTRATION RATE 97.9 ML/MIN; Glucose 146.0 mg/dL (74-106); Potassium 4.3 mmol/L (3.5-5.1)
[2025-02-11] MEDS ORDERED: ROCEPHIN 1 GM / 100 ML NaCl 1 GM/100 ML IVPB IV ONE (14:47)
[2025-02-11] MEDS: ROCEPHIN 1 GM / 100 ML NaCl 1 GM/100 ML IVPB IV ONE (14:48)
[2025-02-11 16:23] VITALS: BP 138/111; PULSE 75; RESP 17; O2SAT 98
== END 2025-02-11 16:24 | disposition home or self-care (01) ==
LOC: ED 10:35
DX: N39.0 Urinary tract infection, site not specified (principal); R41.82 Altered mental status, unspecified; E11.649 Type 2 diabetes mellitus with hypoglycemia without coma; I10 Essential (primary) hypertension; Z79.4 Long term (current) use of insulin; Z79.891 Long term (current) use of opiate analgesic; Z79.899 Other long term (current) drug therapy; Z59.819 Housing instability, housed unspecified; Z59.41 Food insecurity